=== PATIENT | female | born 1970 | race Caucasian/White ===

== ENCOUNTER → 2020-01-11 13:30 | Outpatient (BNVA) | payer OTHER, SELFPAY | PROVIDERS: PCP Nurse Practitioner Family; Visit Provider Urology | DX: Z76.89 Persons encountering health services in other specified circumstances (principal) ==

== ENCOUNTER 2020-01-16 07:05 | Day surgery (SDC) | payer OTHER, SELFPAY ==
[2020-01-11 21:32] VITALS: BMI 20.7
--- NOTE | 2020-01-13 13:53 | HO.ANESPROP2 ---
Documented by User: Mayra Albertina 01/13/20 13:57 HPI - Anesthesia Eval Consult details Narrative: 49yo F for cysto, laser, etc on Right Complex PMHx S/P cysto, last, etc on Left 10/31/19 with GA-LMA 4 PMFSH Past Medical History Medical History Anemia Anxiety Atelectasis Autonomic polyneuropathy Brain tumor Depression Diabetes insipidus Diaphragmatic disorder Electrolyte depletion Encounter for central line care Gastrojejunostomy tube status Gastroparesis GERD (gastroesophageal reflux disease) Headache Hiatal hernia History of atrial fibrillation Hyperlipemia Hypothyroid Trisha-Carmona tear MDR Acinetobacter baumannii infection MRSA (methicillin resistant Staphylococcus aureus) Nausea and vomiting Neurogenic bladder On total parenteral nutrition (TPN) Orthostatic hypotension Postural orthostatic tachycardia syndrome Pulmonary embolism Seizure disorder VRE (vancomycin-resistant Enterococci) Wheelchair bound Functional capacity: wheelchair bound Family History Family History Father Hypothyroidism Skin cancer Kidney failure Pulmonary embolism Mother Kidney failure Family/Other Brain cancer Son No problems noted. Daughter No problems noted. Surgical History Surgical History History of lithotripsy History of rotator cuff surgery History of shoulder surgery History of urostomy History of vaginal hysterectomy S/P clamping of cerebral aneurysm Social History Social History Smoking Status: Never smoker Second Hand Smoke Exposure: No Use of substances other than those prescribed or required for medical reasons: No Advance Directives: Yes Advance Directives Information Provided: Yes Advance Directives on File: Yes (unknown no 05/01/2019) Advance Directives Date on File: 05/01/19 Recently lost weight without trying: No Meds Allergies Allergy/AdvReac Type Severity Reaction Status Date / Time No Known Allergies Allergy Verified 01/05/20 15:12 [No Known Allergies*] Home Medications Medication Instructions Recorded Confirmed Type atorvastatin 1 tab PO DAILY 01/13/20 History buspirone 1 tab PO BID 01/13/20 01/13/20 History xbjdkwemwq-etgtpnrygnddw-odun cap PO 01/13/20 History estradiol 1 tab PO DAILY 01/13/20 01/13/20 History oxycodone 1 tab PO BID PRN 01/13/20 01/13/20 History propranolol 1 cap PO DAILY 01/13/20 01/13/20 History pyridoxine (vitamin B6) PO 01/13/20 History sertraline 1 tab PO DAILY 01/13/20 01/13/20 History venlafaxine 1 cap PO DAILY 01/13/20 01/13/20 History Exam Exam Date and Time: January 13, 2020 1353 Height,Weight and Vital Signs: Height 4 ft 10 in Weight 45 kg Documented by User: Esperanza Botello 01/16/20 09:21 PMFSH Past Medical History Medical History Anemia Anxiety Atelectasis Autonomic polyneuropathy Brain tumor Depression Diabetes insipidus Diaphragmatic disorder Electrolyte depletion Encounter for central line care Gastrojejunostomy tube status Gastroparesis GERD (gastroesophageal reflux disease) Headache Hiatal hernia History of atrial fibrillation Hyperlipemia Hypothyroid Trisha-Carmona tear MDR Acinetobacter baumannii infection MRSA (methicillin resistant Staphylococcus aureus) Nausea and vomiting Neurogenic bladder On total parenteral nutrition (TPN) Orthostatic hypotension Postural orthostatic tachycardia syndrome Pulmonary embolism Seizure disorder VRE (vancomycin-resistant Enterococci) Wheelchair bound Family History Family History Father Hypothyroidism Skin cancer Kidney failure Pulmonary embolism Mother Kidney failure Family/Other Brain cancer Son No problems noted. Daughter No problems noted. Surgical History Surgical History History of lithotripsy History of rotator cuff surgery History of shoulder surgery History of urostomy History of vaginal hysterectomy S/P clamping of cerebral aneurysm Social History Social History Smoking Status: Never smoker Second Hand Smoke Exposure: No Use of substances other than those prescribed or required for medical reasons: No Advance Directives: Yes Advance Directives Information Provided: Yes Advance Directives on File: Yes (unknown no 05/01/2019) Advance Directives Date on File: 05/01/19 Recently lost weight without trying: No Meds Allergies Allergy/AdvReac Type Severity Reaction Status Date / Time No Known Allergies Allergy Verified 01/05/20 15:12 [No Known Allergies*] Home Medications Medication Instructions Recorded Confirmed Type atorvastatin 1 tab PO DAILY 01/13/20 History buspirone 1 tab PO BID 01/13/20 01/13/20 History exneyclhqh-duioughilxten-cwok cap PO 01/13/20 History estradiol 1 tab PO DAILY 01/13/20 01/13/20 History oxycodone 1 tab PO BID PRN 01/13/20 01/13/20 History propranolol 1 cap PO DAILY 01/13/20 01/13/20 History pyridoxine (vitamin B6) PO 01/13/20 History sertraline 1 tab PO DAILY 01/13/20 01/13/20 History venlafaxine 1 cap PO DAILY 01/13/20 01/13/20 History Exam Airway Mallampati Class: II TM Dist: >3cm Neck ROM: Full Heart: RRR Lungs: CTA Assessment and Plan Assessment Anesthesia Assessment: Anesthesia Plan Discussed and Chart Reviewed Final Anesthetic Review NPO: Yes ASA Class: III Final Preanesthetic Review: No Changes in Pt Med Stat, Meds/Allgs Chart Reviewed, Consent Obtained/Reviewed and Anes Risks/Benef Reviewed Patient Risk: Intermediate Procedure Risk: Low Assessment/Block/Sedation in SS: Assess/Block/Sedation-SS Anesthetic Plan Anesthetic Plan: GA Disposition: Standard PACU
[2020-01-16] VITALS (10 sets, daily range): BP systolic 115–157; BP diastolic 66–80; PULSE 69–84; RESP 16–19; TEMP 36.1–36.4; O2SAT 96–100; BMI 32.6
[2020-01-16] MEDS: levoFLOXacin 500 MG TABLET PO (08:06)
--- NOTE | 2020-01-16 08:40 | MHC.SHP ---
Pre-Procedural Eval Section A The patient is an INPATIENT: No Changes since office visit: No Cold of Flu in the past 2 weeks, No New Medical Problems, No Changes in Medication and No Patient answered all questions The History & Physical has been completed within 30 days and I have reviewed it.: Yes Section B Chief Complaint: kidney stone right Allergies: Allergies Allergy/AdvReac Type Severity Reaction Status Date / Time No Known Allergies Allergy Verified 01/05/20 15:12 [No Known Allergies*] Plan Patient has been examined and remains a candidate for the planned procedure
--- NOTE | 2020-01-16 08:55 | FL_ITS ---
EXAMINATION: XR FLUOROSCOPY WITH IMAGES CLINICAL INFORMATION: Renal calculus. COMPARISON: Fluoroscopy with images 10/31/2019, 12/15/2016 TECHNIQUE: Fluoroscopy performed by Dr. Pascual. Fluoroscopy time: 0.4 minutes Total dose: 10.12 mGy Images: 2 FINDINGS: The first fluoroscopic image shows guidewire right collecting system and right ureter. These follow-up image shows ureteral stent on the right. IMPRESSION: Fluoroscopy for urologic procedure.
--- NOTE | 2020-01-16 09:36 | PM.OP ---
Brief Operative Note Date of procedure: 01/16/20 Pre-op diagnosis: right ureteric stone with stent Post-op diagnosis: same Procedure: cysto, right stent removalk, retrograde, ureteroscopy, laser, stone basketing Surgeon: Naun Pascual MD Anesthesia: GLMA Estimated blood loss (mL): 0 Pathology: other (stone) Condition: stable Disposition: same day
--- NOTE | 2020-01-16 09:57 | W.PM.OPN ---
Operative Note Operative Note Narrative: PreOperative Diagnosis: Right ureteric stone, right renal stone Post Operative Diagnosis: same Procedure: 1. cystoscopy with retrograde, 2. cystoscopy with stent removal, 3. rigid ureteroscopy with stone basketing, 4. ureteroscopy flexible with laser lithotripsy in renal pelvis Surgeron: Dr Naun Pascual Anesthesia: general Indications for procedure: this is a 49-year-old female. [facility] with right-sided flank pain. Found to have a distal right ureteric stone. Stent was placed. Definitive procedure was not performed due to question of potential infection. Presents today for completion procedure with ureteroscopy and stone removal to be expected. Procedure: After informed consent was verified patient brought to the operating room placed in the supine position. Anesthesia performed per protocol. Patient was placed in a modified dorsal lithotomy position and prepped and draped in a sterile fashion. Safety pause time-out was performed. Ava-operative antibiotics have been given. Twenty-one Prydeinig cystoscope was inserted per urethra. The bladder had Pyridium and a mixture with blood that had come from the stent. The bladder was washed. The stent was seen and a open-ended catheter placed alongside with a retrograde examination. No filling defects seen. A Sensor guidewire was placed alongside the stent. The stent was then grasped and removed. A rigid ureteral scope was advanced alongside the wire. Approximately at the midpoint of the ureter stone was encountered. This was able to be removed with a 1.8 Prydeinig 0 tip basket. Specimen will be sent for analysis. The ureter was examined to the proximal portion. No other stones were found. The rigid ureteral scope was removed. A flexible ureteral scope was then advanced over the Sensor wire up to the level renal pelvis. The wire was removed. The renal pelvis was examined. There were many small blood clots in each calyx. stone fragments was seen and 2 of these areas were lasered. Attempts were made to basket any debris however was too small to be grabbed by the basket and imbedded in clot. The flexible ureteral scope was withdrawn slowly and no other stone was seen within the ureter. Decision was made not to leave a stent. The bladder was emptied in its entirety. She tolerated the procedure well was extubated in operating room transferred in stable condition to the recovery area. Specimen stone as dictated above this is the end of the dictation by Dr. Naun Pascual thank you
[2020-01-16] MEDS: Phenazopyridine HCL 100 MG TABLET PO (10:07)
[2020-01-16] MEDS: oxyCODONE HCl Immed Release 5 MG TABLET PO (10:08)
[2020-01-16] MEDS: Acetaminophen 325 MG TABLET 650 MG PO (10:21)
[2020-01-16] MEDS: fentaNYL citrate/PF 100 MCG/2 ML VIAL 50 MCG IVPUSH (10:33)
--- NOTE | 2020-01-16 11:20 | HO.POSTANES ---
Post Anesthesia Evaluation Post Anesthesia Evaluation Vital Signs: Vital Signs Temp Pulse Resp BP Pulse Ox 01/16/20 10:53 97.0 77 18 137/80 97 01/16/20 10:38 78 19 136/75 99 01/16/20 10:33 19 01/16/20 10:31 71 16 147/66 H 100 01/16/20 10:16 69 18 136/72 97 01/16/20 10:01 76 18 141/71 H 97 01/16/20 09:55 84 16 141/72 H 97 01/16/20 09:50 72 128/71 97 01/16/20 09:45 96.9 F 80 16 157/79 H 96 01/16/20 07:49 97.6 F 70 16 115/71 97 Anesthesia: General LMA Mental Status: Awake Pain Control: Satisfactory Nausea/Vomiting: None Hydration: Adequate Anesthesia-Related Issues: No Anes. Related Issues
[2020-01-19 20:22] LABS: Stone Source RIGHT URETERAL STONE
== END 2020-01-16 11:36 | disposition home or self-care (01) ==
PROVIDERS: PCP Nurse Practitioner Family; Visit Provider Urology
PROC: (CPT 52353; principal; 2020-01-16 08:50)
DX: N20.1 Calculus of ureter (principal)
CPT/HCPCS: 52353; 52352; 82365; 88300; C1769; J1100; J1885; J2250; J2405; J3010; Q9967

== ENCOUNTER → 2020-03-14 15:22 | Outpatient (BNVA) | payer OTHER, SELFPAY | PROVIDERS: PCP Nurse Practitioner Family; Visit Provider Urology | DX: Z76.89 Persons encountering health services in other specified circumstances (principal) ==

== ENCOUNTER 2020-05-25 06:34 | Outpatient (REF) | payer OTHER, SELFPAY ==
[2020-05-25 11:14] LABS: MANUAL DIFF FLAG NO
[2020-05-25 11:24] LABS: Basophils Percent Auto 0.9 % (0-2); Eosinophils Absolute Auto 0.1 X10*3/uL (0.0-0.4); Eosinophils Percent Auto 2.5 % (0-4); Hematocrit 36.2 % (37-47); Hemoglobin 11.9 g/dl (12.0-16.0); Imm Gran Abs Auto 0.01 X10*3/uL (0.00-0.03); Imm Gran Pct Auto 0.2 % (0.0-0.4); Lymphocytes Absolute Auto 1.5 X10*3/uL (1.2-4.9); Lymphocytes Percent Auto 33.1 % (20-40); Mean Corpuscular HGB Conc 32.9 g/dl (31.0-35.0); Mean Corpuscular Hemoglobin 31.2 pg (27.0-33.0); Mean Corpuscular Volume 94.8 fL (80-98); Mean Platelet Volume 11.1 fL (9.4-12.3); Monocytes Absolute Auto 0.4 X10*3/uL (0.1-1.2); Monocytes Percent Auto 8.2 % (2-11); Neutrophils Absolute Auto 2.4 X10*3/uL (2.0-8.3); Neutrophils Percent Auto 55.1 % (45-73); Platelet Count 264 X10*3/uL (160-400); Red Blood Count 3.82 X10*6/uL (4.20-5.50); Red Cell Distribution Width 12.1 % (11.0-16.0); White Blood Count 4.4 X10*3/uL (4.8-10.8)
[2020-05-25 11:58] LABS: Alanine Aminotransferase 23 U/L (0-31); Albumin Level 4.4 g/dL (3.5-5.0); Alkaline Phosphatase 69 U/L (39-117); Anion Gap 14 (12-20); Aspartate Amino Transferase 21 U/L (5-31); Bilirubin Total 0.3 mg/dL (0.0-1.0); Blood Urea Nitrogen 15 mg/dL (9-16); Calcium 9.1 mg/dL (8.4-10.2); Carbon Dioxide 26 mmol/L (22-29); Chloride 105 mmol/L (96-108); Cholesterol 138 mg/dL; Estimated Glomerular Filt Rate > 60; Glucose Fasting 97 mg/dL (60-99); HDL Cholesterol 58 mg/dL; LDL Cholesterol Calculated 63 mg/dl; Potassium 4.9 mmol/L (3.3-5.1); Sodium 140 mmol/L (135-145); Total Protein 7.3 g/dL (6.5-8.0); Triglycerides 89 mg/dL
[2020-05-25 12:06] LABS: TSH reflex Free T4 1.81 uIU/mL (0.32-4.0); Vitamin D 25-OH Total 43.2 ng/mL (>30)
== END 2020-05-25 06:35 | disposition home or self-care (01) ==
LOC: HO.HMGCLDS 06:34
PROVIDERS: PCP Nurse Practitioner Family; Visit Provider Psychiatry & Neurology Neurology
DX: Z00.00 Encounter for general adult medical examination without abnormal findings (principal); G43.719 Chronic migraine without aura, intractable, without status migrainosus
CPT/HCPCS: 36415; 80053; 80061; 82306; 84443; 85025

== ENCOUNTER 2020-06-12 07:21 | Outpatient (REF) | payer OTHER, SELFPAY ==
--- NOTE | ~2020-06-12 | MM_ITS ---
EXAMINATION: MM SCREENING DIGITAL BREAST TOMOSYNTHESIS, BILATERAL CLINICAL INFORMATION: Screening. Asymptomatic. The lifetime risk of breast cancer based on the Tyrer-Cuzick Model is 9%. COMPARISON: Mammography: 06/07/2019, 06/01/2018, 04/08/2017 TECHNIQUE: Digital breast tomosynthesis is performed in both the craniocaudal and mediolateral oblique views along with computer-aided detection (CAD). Synthesized 2D images are generated from the tomosynthesis. FINDINGS: There are scattered areas of fibroglandular density (ACR BI-RADS breast composition Category b). There are no significant masses, abnormal calcifications, or other abnormalities. Parenchymal pattern is similar to prior studies. No significant changes. MM/MM tomosynthesis screening BI IMPRESSION: No mammographic evidence of malignancy. ASSESSMENT: BI-RADS 1: Negative RECOMMENDATION: Routine annual mammography screening. This patient's information was entered into a reminder system with a target due date for their next mammogram.
== END 2020-06-12 07:22 | disposition home or self-care (01) ==
LOC: HO.MAMMO 07:21
PROVIDERS: Visit Provider Nurse Practitioner Family
DX: Z12.31 Encounter for screening mammogram for malignant neoplasm of breast (principal)
CPT/HCPCS: 77063; 77067

== ENCOUNTER 2020-09-13 12:25 | Outpatient (REF) | payer OTHER, SELFPAY ==
--- NOTE | ~2020-09-13 | US_ITS ---
EXAMINATION: US RETROPERITONEAL LIMITED (RENAL ONLY) CLINICAL INFORMATION: Calculus of kidney. COMPARISON: Renal ultrasound 10/13/2014. TECHNIQUE: Real-time imaging of the kidneys. FINDINGS: RIGHT KIDNEY: 11.5 x 5.2 x 5.3 cm (SAG x AP x TRV). The kidney is normal in size, contour, and echogenicity. Renal cortical thickness is normal. No calculi or focal parenchymal lesions. No hydronephrosis. LEFT KIDNEY: 10.6 x 4.7 x 4.3 cm (SAG x AP x TRV). The kidney is normal in size, contour, and echogenicity. Renal cortical thickness is normal. There are multiple left renal stones in the mid and lower pole. The largest measures 6 mm. There is a linear echogenic density which extends through the cortex of the left kidney into the perinephric fat, question representing an old nephrostomy tube tract. No other focal parenchymal lesions or hydronephrosis. US/US renal BI IMPRESSION: Normal right kidney. Left renal stones.
== END 2020-09-13 12:26 | disposition home or self-care (01) ==
LOC: HO.US 12:25
PROVIDERS: PCP Nurse Practitioner Family; Visit Provider Urology
DX: N20.0 Calculus of kidney (principal)
CPT/HCPCS: 76775

== ENCOUNTER → 2020-09-19 13:17 | Outpatient (BNVA) | payer OTHER, SELFPAY | PROVIDERS: PCP Nurse Practitioner Family; Visit Provider Urology ==

== ENCOUNTER 2021-02-15 14:14 | Outpatient (REF) | payer OTHER, SELFPAY ==
--- NOTE | ~2021-02-15 | US_ITS ---
EXAMINATION: US RETROPERITONEAL LIMITED (RENAL ONLY) CLINICAL INFORMATION: Calculus of kidney. COMPARISON: Lateral renal ultrasound dated 09/13/2020. Renals only ultrasound dated 10/13/2014. TECHNIQUE: Real-time imaging of the kidneys. FINDINGS: RIGHT KIDNEY: 10.2 x 5.2 x 6.4 cm (SAG x AP x TRV). The kidney is normal in size, contour, and echogenicity. Renal cortical thickness is normal. There are 2 stones in the midpole measuring 8 x 5 x 7 mm and 4 x 3 x 3 mm. No focal parenchymal lesions or hydronephrosis. LEFT KIDNEY: 10.6 x 3.8 x 5.4 cm (SAG x AP x TRV). The kidney is normal in size, contour, and echogenicity. Renal cortical thickness is normal. There are multiple left renal stones. Largest stone or cluster of stones measure 2.3 x 0.7 x 0.8 cm in the midpole and 1.8 x 0.7 x 1.1 cm in the lower pole. No focal parenchymal lesions or hydronephrosis. US/US renal BI IMPRESSION: Multiple bilateral renal stones, left greater than right.
== END 2021-02-15 14:15 | disposition home or self-care (01) ==
LOC: HO.HMGCX 14:14
PROVIDERS: PCP Nurse Practitioner Family; Visit Provider Urology
DX: N20.0 Calculus of kidney (principal)
CPT/HCPCS: 76775

== ENCOUNTER 2021-03-11 01:39 | Day surgery (SDC) | payer OTHER, SELFPAY ==
[2021-03-11] VITALS (20 sets, daily range): BP systolic 95–133; BP diastolic 42–76; PULSE 65–84; RESP 12–20; TEMP 36.1–36.7; O2SAT 98–100; BMI 36.0
--- NOTE | ~2021-03-11 | FL_ITS ---
EXAMINATION: XR FLUOROSCOPY WITH IMAGES CLINICAL INFORMATION: Stone removal COMPARISON: None. TECHNIQUE: Fluoroscopy performed by Dr. Ankur Magallon. Fluoroscopy time: 21.4 seconds DAP: 9.89 mGycm2 Images: 2 FINDINGS: There are 3 images obtained of the abdomen. The first image reveals a cystoscope in the bladder. Second image reveals a snare extending to the right kidney. The teres major reveals a catheter positioned within the right kidney pelvis. FL/FL guidance in OR IMPRESSION: Fluoroscopy was provided for right stone removal to the referring physician.
--- NOTE | ~2021-03-11 | CT_ITS ---
EXAMINATION: CT ABDOMEN AND PELVIS WITHOUT CONTRAST CLINICAL INFORMATION: Right flank pain COMPARISON: None TECHNIQUE: Multidetector volumetric imaging was performed from the superior aspect of the liver through the pubic symphysis. Sagittal and coronal reformatted images were obtained on the technologist's workstation. This CT examination was performed using dose optimization techniques as appropriate, variously including the following: *Automated exposure control *Adjustment of mA and/or kV according to patient size (this includes techniques or standardized protocols for targeted exams where dose is matched to indication/reason for exam; i.e. extremities or head) *Use of iterative reconstruction technique DLP: 848 mGy-cm FINDINGS: LUNG BASES: The visualized lung bases are unremarkable. LIVER, GALLBLADDER, AND BILIARY TREE: The liver is normal in size, shape, and attenuation. No focal hepatic lesion or biliary ductal dilatation is present. The gallbladder is unremarkable with no evidence of radiopaque gallstones, gallbladder wall thickening, or obvious pericholecystic inflammatory changes. PANCREAS: Unremarkable. SPLEEN: Unremarkable. ADRENAL GLANDS: Unremarkable. KIDNEYS AND URETERS: There is a right ureteropelvic junction calculus measuring 6 mm with mild hydronephrosis and perinephric stranding. There is asymmetric enlargement of the right kidney which has a malrotated appearance. There are 2 calculi in the anterior right kidney measuring up to 3 mm. There are multiple scattered calculi throughout the left kidney measuring up to 9 mm. There are 2 calculi identified in the left renal pelvis measuring up to 6 mm, without appreciable hydronephrosis. BLADDER: Minimally distended and grossly unremarkable. GASTROINTESTINAL TRACT: No evidence of bowel obstruction or significant wall thickening. The appendix is unremarkable. No free fluid or free air is seen. ABDOMINAL WALL: No significant hernia is appreciated. LYMPH NODES: Normal. VASCULAR: Unremarkable. PELVIC VISCERA: Patient appears to be status post hysterectomy. OSSEOUS STRUCTURES: Unremarkable. CT/CT abdomen pelvis wo con IMPRESSION: 1. Right ureteropelvic junction calculus measuring 6 mm with mild hydronephrosis and perinephric stranding. 2. Multiple bilateral renal calculi, most prominently throughout the left kidney. There are 2 calculi in the left renal pelvis measuring up to 6 mm, without appreciable hydronephrosis. Fleischner guidelines were followed.
[2021-03-11 02:08] LABS: MANUAL DIFF FLAG NO
[2021-03-11 02:09] LABS: Appearance Urine HAZY; Basophils Absolute Auto 0.1 X10*3/uL (0.0-0.2); Basophils Percent Auto 0.6 % (0-2); Color Urine YELLOW; Eosinophils Absolute Auto 0.2 X10*3/uL (0.0-0.4); Eosinophils Percent Auto 2.3 % (0-4); Glucose Urine UA NEG (NEG); Hematocrit 37.7 % (37.0-47.0); Hemoglobin 12.1 g/dl (12.0-16.0); Imm Gran Abs Auto 0.01 X10*3/uL (0.00-0.03); Imm Gran Pct Auto 0.1 % (0.0-0.4); Leukocyte Esterase Urine NEG (NEG); Lymphocytes Percent Auto 24.5 % (20-40); Mean Corpuscular HGB Conc 32.1 g/dl (31.0-35.0); Mean Corpuscular Hemoglobin 30.9 pg (27.0-33.0); Mean Corpuscular Volume 96.4 fL (80.0-98.0); Mean Platelet Volume 9.8 fL (9.4-12.3); Monocytes Absolute Auto 0.6 X10*3/uL (0.1-1.2); Monocytes Percent Auto 7.9 % (2-11); Neutrophils Absolute Auto 5.2 x10*3/uL (2.0-8.3); Neutrophils Percent Auto 64.6 % (45-73); Nitrite Urine NEG (NEG); Platelet Count 244 X10*3/uL (160-400); Red Blood Count 3.91 X10*6/uL (4.20-5.50); Red Cell Distribution Width 11.9 % (11.0-16.0); UACC Culture Trigger NO; Urine Blood 2+ (NEG); Urine Ketones 5 MG/DL (NEG); Urine Protein TRACE MG/DL (NEG-TRACE); White Blood Count 8.1 X10*3/uL (4.8-10.8)
[2021-03-11 02:15] LABS: Amorphous Sediment Urine 1+ /LPF; Bacteria Urine 1+ /LPF; Calcium Oxalate Crystals Urine 3+ /LPF; Squamous Epithelial Cell Urine 3+ /LPF
[2021-03-11 02:29] LABS: Alanine Aminotransferase 29 U/L (0-31); Albumin Level 4.5 g/dL (3.5-5.0); Alkaline Phosphatase 103 U/L (39-117); Anion Gap 13 (12-20); Aspartate Amino Transferase 24 U/L (5-31); Bilirubin Total < 0.2 mg/dL (0.0-1.0); Blood Urea Nitrogen 21 mg/dL (9-16); Calcium 9.7 mg/dL (8.4-10.2); Carbon Dioxide 25 mmol/L (22-29); Chloride 111 mmol/L (96-108); Creatinine Clr Calc Pharmacy 54.6; Estimated Glomerular Filt Rate 40; Glucose Random 118 mg/dL (60-115); Potassium 4.6 mmol/L (3.3-5.1); Sodium 144 mmol/L (135-145); Total Protein 7.6 g/dL (6.5-8.0)
[2021-03-11] MEDS: Ondansetron ODT 4 MG TAB.RAPDIS TRANSLINGU (02:42)
[2021-03-11] MEDS: Ketorolac Tromethamine 30 MG/ML VIAL 15 MG IM (02:42)
[2021-03-11 03:18] LABS: COVID-19 Test Negative (Negative); IDNOW Serial# 9DD0AD1C
--- NOTE | 2021-03-11 03:27 | ED.ABDPAIN ---
HPI - Abdominal Pain General Chief Complaint: Abdominal Pain Stated Complaint: kidney stones Time Seen by Provider: 03/11/21 02:36 Source: patient Mode of arrival: ambulatory History of Present Illness HPI narrative: This is a 50-year-old female with history of renal colic and ureterolithiasis who presents with dull abdominal pain for 1 week and then at about 2300 this evening patient began having severe right flank pain with radiation into the right mid/lower abdomen with associated nausea but denies any vomiting. Related Data Home Medications Medication Instructions Recorded Confirmed allopurinol 100 mg tablet 1 tab PO DAILY 03/11/21 03/11/21 atorvastatin 20 mg tablet 1 tab PO DAILY 03/11/21 03/11/21 buspirone 10 mg tablet 1 tab PO BID 03/11/21 03/11/21 jyjqmuxtle-dorhmolymgols-qnpdclza 1 cap PO DAILY PRN 03/11/21 03/11/21 50 mg-300 mg-40 mg capsule cetirizine 10 mg tablet (Zyrtec) 10 mg PO DAILY 03/11/21 03/11/21 estradiol 1 mg tablet 1 tab PO DAILY 03/11/21 03/11/21 propranolol 120 mg capsule,24 1 cap PO DAILY 03/11/21 03/11/21 hr,extended release pyridoxine (vitamin B6) 100 mg 1 tab PO DAILY 03/11/21 03/11/21 tablet sertraline 50 mg tablet 1 tab PO DAILY 03/11/21 03/11/21 topiramate 100 mg tablet 1 tab PO DAILY 03/11/21 03/11/21 venlafaxine 150 mg 1 cap PO DAILY 03/11/21 03/11/21 capsule,extended release 24 hr Allergies Allergy/AdvReac Type Severity Reaction Status Date / Time No Known Allergies Allergy Verified 03/11/21 01:45 [No Known Allergies*] Review of Systems Review of Systems Pertinent positives and negatives as stated in HPI 10 point review of systems is otherwise negative. Physical Exam Vital Signs: Vital Signs: Last Vital Signs Temp 98.0 F 03/11/21 01:46 Pulse 71 03/11/21 06:21 Resp 16 03/11/21 06:21 BP 114/55 L 03/11/21 06:21 Pulse Ox 100 03/11/21 06:21 BMI result Body Mass Index 36.0 VITAL SIGNS: Reviewed. GENERAL: Well developed, well nourished, in no acute distress. HEAD: Normocephalic/atraumatic EYES: PERRLA, EOMI LUNGS: Normal breath sounds. No adventitious sounds or accessory muscle use. SpO2<98> CARDIOVASCULAR: Regular rate and rhythm without noted murmurs ABDOMEN: Soft, non-tender, non-distended with bowel sounds, CVA tenderness positive MUSCULOSKELETAL: No tenderness, deformities, or effusions noted on gross inspection. EXTREMITIES: No cyanosis, clubbing or edema. SKIN: Inspection of the skin reveals no rashes NEUROLOGIC: Alert and oriented x 4. Course Course Course Narrative: 50-year-old female with history and clinical presentation after review of all investigations consistent with renal colic, ureterolithiasis with proximal 6 mm stone. Patient has received IV fluids as well as COVID swab and pain medication. This case was discussed with Urology who agrees that if pain cannot be controlled then intervention will occur in the morning. 0440: Patient still requiring pain medication for comfort and will be placed in physician observation for evaluation by Dr. Pascual in the morning. 0622: Patient still in pain, urology notified, patient was premedicated. Reevaluation(s) Reevaluation #1: Patient placed in physician observation because the patient needed more time for adequate pain control and evaluation by Urology. At the time observation was started the patient's vital signs were stable, patient is alert and oriented, neuro: Nonfocal, CV RRR, lungs clear, flank pain Time: 04:40 MDM - Abdominal Pain Lab Data Result diagrams: 03/11/21 02:03 03/11/21 02:03 Labs: Lab Results 03/11/21 03/11/21 03/11/21 Range/Units 02:03 02:03 02:03 WBC 8.1 (4.8-10.8) X10*3/uL RBC 3.91 L (4.20-5.50) X10*6/uL Hgb 12.1 (12.0-16.0) g/dl Hct 37.7 (37.0-47.0) % MCV 96.4 (80.0-98.0) fL MCH 30.9 (27.0-33.0) pg MCHC 32.1 (31.0-35.0) g/dl RDW 11.9 (11.0-16.0) % Plt Count 244 (160-400) X10*3/uL MPV 9.8 (9.4-12.3) fL Immature Gran % (Auto) 0.1 (0.0-0.4) % Neut % (Auto) 64.6 (45-73) % Lymph % (Auto) 24.5 (20-40) % [place] % (Auto) 7.9 (2-11) % Eos % (Auto) 2.3 (0-4) % Baso % (Auto) 0.6 (0-2) % Lymph # (Auto) 2.0 (1.2-4.9) X10*3/uL [place] # (Auto) 0.6 (0.1-1.2) X10*3/uL Eos # (Auto) 0.2 (0.0-0.4) X10*3/uL Baso # (Auto) 0.1 (0.0-0.2) X10*3/uL Abs Immat Gran (auto) 0.01 (0.00-0.03) X10*3/uL Absolute Neuts (auto) 5.2 (2.0-8.3) x10*3/uL Absolute Nucleated RBC 0.000 (0.0-0.012) X10*3/uL Nucleated RBC % (auto) 0.0 (0.0-0.2) /100WBC Sodium 144 (135-145) mmol/L Potassium 4.6 (3.3-5.1) mmol/L Chloride 111 H (96-108) mmol/L Carbon Dioxide 25 (22-29) mmol/L Anion Gap 13 (12-20) BUN 21 H (9-16) mg/dL Creatinine 1.38 (0.5-1.4) mg/dL Estim Creat Clear Calc 54.6 Estimated GFR 40 Random Glucose 118 H (60-115) mg/dL Calcium 9.7 D (8.4-10.2) mg/dL Total Bilirubin < 0.2 (0.0-1.0) mg/dL AST 24 (5-31) U/L ALT 29 (0-31) U/L Alkaline Phosphatase 103 D (39-117) U/L Total Protein 7.6 (6.5-8.0) g/dL Albumin 4.5 (3.5-5.0) g/dL Urine Color YELLOW Urine Appearance HAZY Urine pH 6.0 (5.0-8.0) Ur Specific [place] 1.020 (1.005-1.025) Urine Protein TRACE (NEG-TRACE) MG/DL Urine Glucose (UA) NEG (NEG) MG/DL Urine Ketones 5 (NEG) MG/DL Urine Blood 2+ H (NEG) Urine Nitrite NEG (NEG) Ur Leukocyte Esterase NEG (NEG) Urine RBC 15-29 H (0) /HPF Urine WBC 1-4 (0-4) /HPF Ur Squamous Epith Cells 3+ /LPF Calcium Oxalate Crystal 3+ /LPF Amorphous Sediment 1+ /LPF Urine Bacteria 1+ /LPF COVID-19 (EMANUEL) (Negative) COVID-19 Clin Com 03/11/21 Range/Units 03:00 WBC (4.8-10.8) X10*3/uL RBC (4.20-5.50) X10*6/uL Hgb (12.0-16.0) g/dl Hct (37.0-47.0) % MCV (80.0-98.0) fL MCH (27.0-33.0) pg MCHC (31.0-35.0) g/dl RDW (11.0-16.0) % Plt Count (160-400) X10*3/uL MPV (9.4-12.3) fL Immature Gran % (Auto) (0.0-0.4) % Neut % (Auto) (45-73) % Lymph % (Auto) (20-40) % [place] % (Auto) (2-11) % Eos % (Auto) (0-4) % Baso % (Auto) (0-2) % Lymph # (Auto) (1.2-4.9) X10*3/uL [place] # (Auto) (0.1-1.2) X10*3/uL Eos # (Auto) (0.0-0.4) X10*3/uL Baso # (Auto) (0.0-0.2) X10*3/uL Abs Immat Gran (auto) (0.00-0.03) X10*3/uL Absolute Neuts (auto) (2.0-8.3) x10*3/uL Absolute Nucleated RBC (0.0-0.012) X10*3/uL Nucleated RBC % (auto) (0.0-0.2) /100WBC Sodium (135-145) mmol/L Potassium (3.3-5.1) mmol/L Chloride (96-108) mmol/L Carbon Dioxide (22-29) mmol/L Anion Gap (12-20) BUN (9-16) mg/dL Creatinine (0.5-1.4) mg/dL Estim Creat Clear Calc Estimated GFR Random Glucose (60-115) mg/dL Calcium (8.4-10.2) mg/dL Total Bilirubin (0.0-1.0) mg/dL AST (5-31) U/L ALT (0-31) U/L Alkaline Phosphatase (39-117) U/L Total Protein (6.5-8.0) g/dL Albumin (3.5-5.0) g/dL Urine Color Urine Appearance Urine pH (5.0-8.0) Ur Specific [place] (1.005-1.025) Urine Protein (NEG-TRACE) MG/DL Urine Glucose (UA) (NEG) MG/DL Urine Ketones (NEG) MG/DL Urine Blood (NEG) Urine Nitrite (NEG) Ur Leukocyte Esterase (NEG) Urine RBC (0) /HPF Urine WBC (0-4) /HPF Ur Squamous Epith Cells /LPF Calcium Oxalate Crystal /LPF Amorphous Sediment /LPF Urine Bacteria /LPF COVID-19 (EMANUEL) Negative (Negative) COVID-19 Clin Com See Note Discharge Plan Discharge Clinical Impression: Renal colic, Ureterolithiasis Patient Disposition: Still a Patient Prescriptions: No Action atorvastatin 20 mg tablet 1 tab PO DAILY RF: 0 venlafaxine 150 mg capsule,extended release 24hr 1 cap PO DAILY RF: 0 allopurinol 100 mg tablet 1 tab PO DAILY RF: 0 estradiol 1 mg tablet 1 tab PO DAILY RF: 0 buspirone 10 mg tablet 1 tab PO BID RF: 0 pyridoxine (vitamin B6) 100 mg tablet 1 tab PO DAILY RF: 0 propranolol 120 mg capsule,extended release 24 hr 1 cap PO DAILY RF: 0 topiramate 100 mg tablet 1 tab PO DAILY RF: 0 sertraline 50 mg tablet 1 tab PO DAILY RF: 0 wamsovcxoq-gyvuekhjutker-gfbx 50-300-40 mg capsule 1 cap PO DAILY PRN (Reason: Migraine Headache) RF: 0 cetirizine [Zyrtec] 10 mg Tablet 10 mg PO DAILY RF: 0 PMFSH Past Medical History Source: nursing notes reviewed Medical History Anemia Anxiety Atelectasis Autonomic polyneuropathy Brain tumor Depression Diabetes insipidus Diaphragmatic disorder Electrolyte depletion Encounter for central line care Gastrojejunostomy tube status Gastroparesis GERD (gastroesophageal reflux disease) Headache Hiatal hernia History of atrial fibrillation Hyperlipemia Hypothyroid Trisha-Carmona tear MDR Acinetobacter baumannii infection MRSA (methicillin resistant Staphylococcus aureus) Nausea and vomiting Neurogenic bladder On total parenteral nutrition (TPN) Orthostatic hypotension Physical exam Postural orthostatic tachycardia syndrome Pulmonary embolism Seizure disorder VRE (vancomycin-resistant Enterococci) Wheelchair bound Surgical History History of lithotripsy History of rotator cuff surgery History of shoulder surgery History of urostomy History of vaginal hysterectomy S/P clamping of cerebral aneurysm Family History Family History Father Hypothyroidism Skin cancer Kidney failure Pulmonary embolism Mother Kidney failure Family/Other Brain cancer Son No problems noted. Daughter No problems noted. Social History Social History Second Hand Smoke Exposure: No Advance Directives: Yes Advance Directives on File: Yes Advance Directives Date on File: 05/01/19
[2021-03-11] MEDS: fentaNYL citrate/PF 100 MCG/2 ML VIAL 25 MCG IVPUSH ×3 (03:33→15:18)
[2021-03-11] MEDS: 0.9 % Sodium Chloride 1,000 ML 999 ML IV (03:33)
[2021-03-11] MEDS: Tamsulosin HCL 0.4 MG CAPSULE PO (03:50)
[2021-03-11] MEDS: HYDROmorphone HCl 0.5 MG/0.5 ML SYRINGE 0.25 MG IVPUSH ×4 (04:40→12:23)
--- NOTE | 2021-03-11 08:05 | PC.NURSE ---
PT RESTING IN BED. STATES PAIN IS INCREASING. PROVIDER AWARE
--- NOTE | 2021-03-11 09:01 | P.CNUR_ITS ---
History of Present Illness Consult details Consult date: 03/11/21 Narrative: Shoshana is a 50-year-old patient well known to Urology. Prior stone formation and stone intervention Had noted pain on the right side starting a number of hours before she came to the hospital Is this was consistent with prior stone attacks During pain attacks there was associated nausea but no vomiting Presented to hospital for pain relief and if necessary intervention creatinine 1.4, WBC 8.1, calcium 9. CT scan shows for 5 mm stone in proximal right [facility] Recommendation for stone intervention Review of Systems Constitutional: Constitutional: Denies chills and Denies fever(s) Cardiovascular: Cardiovascular: Reports no additional cardiovascular complaints and Denies syncope Respiratory: Respiratory: Denies cough Gastrointestinal: Gastrointestinal: Denies abdominal pain and Denies heartburn Genitourinary: Genitourinary: Reports as per HPI and Denies change in libido Neurologic: Denies syncope Psychiatric: Psychiatric: Denies change in libido Endocrine: Endocrine: Denies change in libido [facility] Past Medical History Medical History Anemia Anxiety Atelectasis Autonomic polyneuropathy Brain tumor Depression Diabetes insipidus Diaphragmatic disorder Electrolyte depletion Encounter for central line care Gastrojejunostomy tube status Gastroparesis GERD (gastroesophageal reflux disease) Headache Hiatal hernia History of atrial fibrillation Hyperlipemia Hypothyroid Trisha-[place] tear MDR Acinetobacter baumannii infection MRSA (methicillin resistant Staphylococcus aureus) Nausea and vomiting Neurogenic bladder On total parenteral nutrition (TPN) Orthostatic hypotension Physical exam Postural orthostatic tachycardia syndrome Pulmonary embolism Seizure disorder VRE (vancomycin-resistant Enterococci) Wheelchair bound Family History Family History Father Hypothyroidism Skin cancer Kidney failure Pulmonary embolism Mother Kidney failure Family/Other Brain cancer Son No problems noted. Daughter No problems noted. Surgical History Surgical History History of lithotripsy History of rotator cuff surgery History of shoulder surgery History of urostomy History of vaginal hysterectomy S/P clamping of cerebral aneurysm Social History Social History Second Hand Smoke Exposure: No Advance Directives: Yes Advance Directives on File: Yes Advance Directives Date on File: 05/01/19 Meds Allergies Allergy/AdvReac Type Severity Reaction Status Date / Time No Known Allergies Allergy Verified 03/11/21 01:45 [No Known Allergies*] Active Medications: Current Medications Levofloxacin (Levaquin) 500 mg in 100 mls @ 100 mls/hr IV PREOP ONE Stop: 03/11/21 09:14 Home Medications Medication Instructions Recorded Confirmed Last Taken Type allopurinol 100 mg tablet 1 tab PO DAILY 03/11/21 03/11/21 Unknown History atorvastatin 20 mg tablet 1 tab PO DAILY 03/11/21 03/11/21 Unknown History buspirone 10 mg tablet 1 tab PO BID 03/11/21 03/11/21 Unknown History bvpacoypft-tuqkysjvyysgp-vwckvoom 1 cap PO DAILY PRN 03/11/21 03/11/21 Unknown History 50 mg-300 mg-40 mg capsule cetirizine 10 mg tablet (Zyrtec) 10 mg PO DAILY 03/11/21 03/11/21 Unknown History estradiol 1 mg tablet 1 tab PO DAILY 03/11/21 03/11/21 Unknown History propranolol 120 mg capsule,24 1 cap PO DAILY 03/11/21 03/11/21 Unknown History hr,extended release pyridoxine (vitamin B6) 100 mg 1 tab PO DAILY 03/11/21 03/11/21 Unknown History tablet sertraline 50 mg tablet 1 tab PO DAILY 03/11/21 03/11/21 Unknown History topiramate 100 mg tablet 1 tab PO DAILY 03/11/21 03/11/21 Unknown History venlafaxine 150 mg 1 cap PO DAILY 03/11/21 03/11/21 Unknown History capsule,extended release 24 hr Physical Exam Vital Signs: Vital Signs: Last Vital Signs Temp 98.0 F 03/11/21 01:46 Pulse 74 03/11/21 08:38 Resp 16 03/11/21 08:38 BP 111/50 L 03/11/21 08:38 Pulse Ox 98 03/11/21 08:38 BMI result Body Mass Index 36.0 Const: General: cooperative, healthy appearing, comfortable and no acute distress Orientation/consciousness: patient oriented x3 HENMT: Face and sinus: Yes normal facial exam Mouth: moist mucous membranes Neck: Neck: Yes normal visual inspection, Yes full ROM and Yes trachea midline Chest: Chest palpation & inspection: normal inspection of the chest Resp: Effort & Inspection: normal respiratory effort, able to speak in complete sentences and no respiratory distress GI: Inspection: Yes normal to inspection Back/Spine/Pelvis: Cervical Spine: normal cervical lordosis Thoracic/Lumbar Spine: thoracic and lumbar spine normal to inspection Skin: General skin exam: no rashes or lesions noted Neuro: General: patient oriented x3, gait normal, tone normal and moves all extremities Extrem: General: Yes normal to inspection and Yes capillary refill normal Results Labs Result diagrams: 03/11/21 02:03 03/11/21 02:03 Labs: Abnormal lab results 03/11/21 03/11/21 03/11/21 Range/Units 02:03 02:03 02:03 RBC 3.91 L (4.20-5.50) X10*6/uL Chloride 111 H (96-108) mmol/L BUN 21 H (9-16) mg/dL Random Glucose 118 H (60-115) mg/dL Urine Blood 2+ H (NEG) Urine RBC 15-29 H (0) /HPF Short CBC 03/11/21 Range/Units 02:03 WBC 8.1 (4.8-10.8) X10*3/uL Hgb 12.1 (12.0-16.0) g/dl Hct 37.7 (37.0-47.0) % Plt Count 244 (160-400) X10*3/uL BMP 03/11/21 02:03 Sodium 144 Potassium 4.6 Chloride 111 H Carbon Dioxide 25 BUN 21 H Creatinine 1.38 Calcium 9.7 D Liver Function 03/11/21 Range/Units 02:03 Total Bilirubin < 0.2 (0.0-1.0) mg/dL AST 24 (5-31) U/L ALT 29 (0-31) U/L Alkaline Phosphatase 103 D (39-117) U/L Albumin 4.5 (3.5-5.0) g/dL Urine 03/11/21 Range/Units 02:03 Urine Color YELLOW Urine Appearance HAZY Urine pH 6.0 (5.0-8.0) Ur Specific [place] 1.020 (1.005-1.025) Urine Protein TRACE (NEG-TRACE) MG/DL Urine Glucose (UA) NEG (NEG) MG/DL All other labs normal. Assessment and Plan (1) Ureterolithiasis: Status: Acute Ureteroscopy We discussed the nature of the decision and reasonable alternatives for performing the above surgery. Interventions include chemical dissolution, ESWL, ureteroscopy with laser lithotripsy and stent placement, PCNL. Options such as medical therapy were discussed. The relative uncertainties and benefits related to each alternate procedure were adequately discussed. General surgical risks including, but not limited to, pain, bleeding, infection, myocardial infarction, pulmonary embolus, deep vein thrombosis and cerebrovascular accident which may result in further hospitalization were discussed. Full disclosure of the procedure as well as all major risks, benefits and complications were discussed including but not limited to damage to the urethra, bladder and kidney infection, damage to the ureter, stent migration or malposition, scarring to the renal pelvis, remnant stone fragments, subsequent stone passage with need for secondary procedures. The overall secondary procedure rate is approximately 10-15%. The success rate of the procedure was discussed. Success of the procedure in the short-term does not necessarily guarantee that long-term success will be maintained. Suitable follow up will need to be maintained. The patient showed understanding of discussion and wishes to proceed with - cystoscopy, retrograde, ureteroscopy, possible lithotripsy/stone basketing and stent on the right side Procedures Date of Service Date of Service: 03/11/21
--- NOTE | 2021-03-11 10:53 | PC.NURSE ---
PT REPORTS INCREASED PAIN. PROVIDER AWARE. AWAITING ORDER
--- NOTE | 2021-03-11 12:26 | PC.NURSE ---
MEDICATED FOR PAIN. NO VOMITING. AWAITING TRANSPORT TO [facility]
--- NOTE | 2021-03-11 12:34 | PC.NURSE ---
REPORT GIVEN FOR TRANSFER TO [facility].
--- NOTE | 2021-03-11 12:59 | P.CONAN_ITS ---
HPI - Anesthesia Eval Consult details Narrative: 50 F for cysto PMFSH Active Problems Active Problems: All Active Problems (Updated 03/11/21 @ 03:52 by Tiff Rosen MD) Renal colic (Acute) Ureterolithiasis (Acute) Counseling for hormone replacement therapy (Acute) Well woman exam (Acute) Physical exam (Acute) Nephrolithiasis (Acute) Past Medical History Medical History Anxiety COVID-19 vaccine series completed Depression Headache Hyperlipemia Renal calculi Family History Family History Father Hypothyroidism Skin cancer Kidney failure Pulmonary embolism Mother Kidney failure Family/Other Brain cancer Son No problems noted. Daughter No problems noted. Family history of problems with anesthesia: No Surgical History Surgical History History of lithotripsy History of rotator cuff surgery History of shoulder surgery History of vaginal hysterectomy Hx of cystoscopy History of Problems with Anesthesia: No Social History Social History Housing: House Patient Tobacco Use Status: Never used Tobacco e-Cigarette/Vaping Use: Never Used Second Hand Smoke Exposure: Yes Advance Directives Date on File: 05/01/19 service: No Current occupational status: employed Current occupation: [employer] Current occupational exposures/hazards: No Meds Allergies Allergy/AdvReac Type Severity Reaction Status Date / Time morphine AdvReac Mild Vomiting Verified 07/09/21 15:10 Home Medications Medication Instructions Recorded Confirmed Last Taken Type allopurinol 100 mg tablet 1 tab PO DAILY 03/11/21 04/23/21 Unknown History buspirone 10 mg tablet 1 tab PO BID 03/11/21 04/23/21 04/29/21 History cetirizine 10 mg tablet (Zyrtec) 10 mg PO DAILY 03/11/21 04/23/21 Unknown History estradiol 1 mg tablet 1 tab PO DAILY 03/11/21 04/23/21 Unknown History propranolol 120 mg capsule,24 1 cap PO DAILY 03/11/21 04/23/21 04/29/21 History hr,extended release pyridoxine (vitamin B6) 100 mg 1 tab PO DAILY 03/11/21 04/23/21 Unknown History tablet topiramate 100 mg tablet 1 tab PO BEDTIME 03/11/21 04/23/21 Unknown History Exam Exam Date and Time: March 11, 2021 1259 Height,Weight and Vital Signs: Height 5 ft 4 in Weight 95.254 kg Last Vital Signs Temp 98.0 F 03/11/21 01:46 Pulse 74 03/11/21 12:24 Resp 16 03/11/21 12:24 BP 96/57 L 03/11/21 12:24 Pulse Ox 99 03/11/21 12:24 Pertinent Lab Results Pertinent Lab Results: Laboratory Tests 03/11/21 03/11/21 03/11/21 02:03 02:03 02:03 WBC 8.1 RBC 3.91 L Hgb 12.1 Hct 37.7 MCV 96.4 MCH 30.9 MCHC 32.1 RDW 11.9 Plt Count 244 MPV 9.8 Immature Gran % (Auto) 0.1 Neut % (Auto) 64.6 Lymph % (Auto) 24.5 [place] % (Auto) 7.9 Eos % (Auto) 2.3 Baso % (Auto) 0.6 Lymph # (Auto) 2.0 [place] # (Auto) 0.6 Eos # (Auto) 0.2 Baso # (Auto) 0.1 Abs Immat Gran (auto) 0.01 Absolute Neuts (auto) 5.2 Absolute Nucleated RBC 0.000 Nucleated RBC % (auto) 0.0 Sodium 144 Potassium 4.6 Chloride 111 H Carbon Dioxide 25 Anion Gap 13 BUN 21 H Creatinine 1.38 Estim Creat Clear Calc 54.6 Estimated GFR 40 Random Glucose 118 H Calcium 9.7 D Total Bilirubin < 0.2 AST 24 ALT 29 Alkaline Phosphatase 103 D Total Protein 7.6 Albumin 4.5 Urine Color YELLOW Urine Appearance HAZY Urine pH 6.0 Ur Specific [place] 1.020 Urine Protein TRACE Urine Glucose (UA) NEG Urine Ketones 5 Urine Blood 2+ H Urine Nitrite NEG Ur Leukocyte Esterase NEG Urine RBC 15-29 H Urine WBC 1-4 Ur Squamous Epith Cells 3+ Calcium Oxalate Crystal 3+ Amorphous Sediment 1+ Urine Bacteria 1+ COVID-19 ([facility]) COVID-19 Clin Com 03/11/21 03:00 WBC RBC Hgb Hct MCV MCH MCHC RDW Plt Count MPV Immature Gran % (Auto) Neut % (Auto) Lymph % (Auto) [place] % (Auto) Eos % (Auto) Baso % (Auto) Lymph # (Auto) [place] # (Auto) Eos # (Auto) Baso # (Auto) Abs Immat Gran (auto) Absolute Neuts (auto) Absolute Nucleated RBC Nucleated RBC % (auto) Sodium Potassium Chloride Carbon Dioxide Anion Gap BUN Creatinine Estim Creat Clear Calc Estimated GFR Random Glucose Calcium Total Bilirubin AST ALT Alkaline Phosphatase Total Protein Albumin Urine Color Urine Appearance Urine pH Ur Specific [place] Urine Protein Urine Glucose (UA) Urine Ketones Urine Blood Urine Nitrite Ur Leukocyte Esterase Urine RBC Urine WBC Ur Squamous Epith Cells Calcium Oxalate Crystal Amorphous Sediment Urine Bacteria COVID-19 (EM[facility]UEL) Negative COVID-19 Clin Com See Note Airway Mallampati Class: II TM Dist: >3cm Neck ROM: Full Loose/Missing/Broken Teeth: Yes (Fillings ) Heart: RRR Lungs: b/l breath sounds Assessment and Plan Assessment Anesthesia Assessment: Anesthesia Plan Discussed Final Anesthetic Review Family History of Problems with Anesthesia: No History of Problems with Anesthesia: No NPO: Yes ASA Class: II and Emergency Final Preanesthetic Review: Meds/Allgs Chart Reviewed, Consent Obtained/Reviewed and Anes Risks/Benef Reviewed Patient Risk: Intermediate Procedure Risk: Intermediate Anesthetic Plan Anesthetic Plan: GA Disposition: Standard PACU
--- NOTE | 2021-03-11 13:34 | MHC.SHP ---
Pre-Procedural Eval Section A Date of Service: 03/11/21 The patient is an INPATIENT: Yes Changes since office visit: No Cold of Flu in the past 2 weeks, No New Medical Problems, No Changes in Medication and No Patient answered all questions The History & Physical has been completed within 30 days and I have reviewed it.: Yes Section B Chief Complaint: kidney stones Allergies: Allergies Allergy/AdvReac Type Severity Reaction Status Date / Time No Known Allergies Allergy Verified 03/11/21 01:45 [No Known Allergies*] Plan Diagnosis/Plan: Unchanged ( cystoscopy, right retrograde, right ureteroscopy laser lithotripsy stent placement) I have reviewed the history and physical and performed a pertinent physical examination on my patient. No changes have occurred unless specified.
--- NOTE | 2021-03-11 14:22 | P.OP_ITS ---
Operative Note Operative Note Date of Service: 03/11/21 Narrative: PreOperative Diagnosis: right proximal ureteric stone Post Operative Diagnosis: right renal stone Procedure: - cystoscopy, right retrograde - right dilatation of ureteric orifice under fluoroscopy - right ureteroscopy stone basketing - right stent placement Surgeon: Dr Naun Pascual Anesthesia: General Indications for procedure: 50-year-old female. Known to Urology. Present through emergency room with persistent flank pain and nausea. CT imaging with 5 mm right proximal ureteric stone at [facility]. Procedure: After informed consent was verified patient was brought to the operating placed in supine position. Anesthesia was administered per protocol. Patient was placed in modified dorsal lithotomy position and prepped and draped in a sterile fashion. Safety pause time-out and side of surgery confirmed. Antibiotics confirmed. 22 Colombian cystoscope was inserted per urethra. Bladder was normal in its entirety. Both ureteric orifices were in normal position. The Right ureteric orifice was cannulated and a retrograde examination was performed - no filling defect was seen. A Sensor guidewire was placed up to the level of the renal pelvis under fluoroscopy. The stone was pushed back by the wire into the renal pelvis. The rigid cystoscope was removed and the inner cannula of ureteric access sheath was used under fluoroscopy to dilate the ureteric orifice. The ureteric access sheath was placed and the inner cannula with access wire removed. The digital flexible ureteral scope was placed. The stone was encountered in the renal pelvis. Using a 0 tip 1.9 Colomb[place] basket the stone was grasped and removed without difficulty. The rest of the renal pelvis was explored and no other stones were found. a decision was made to leave a stent. A 6 [place]ian by 24 cm double-J stent was placed into the renal pelvis and bl adder under a combination of fluoroscopy and direct visualization. The bladder was emptied. The patient tolerated the procedure well and was extubated in the operating room, and transferred in stable condition to the recovery area. Pathology: stone Drains: 6 [place] by 24 cm double-J stent
[2021-03-11] MEDS: traMADoL HCL 50 MG TABLET PO (14:30)
[2021-03-11] MEDS: Phenazopyridine HCL 100 MG TABLET PO (15:15)
== END 2021-03-11 16:04 ==
LOC: HO.ED 08:26 → HO.SSS 13:26
PROVIDERS: Emergency Provider Student in an Organized Health Care Education/Training Program; PCP Nurse Practitioner Family; Visit Provider Urology
PROC: (CPT 52352; principal; 2021-03-11 13:10)
DX: N20.1 Calculus of ureter (principal); N20.0 Calculus of kidney; Z87.442 Personal history of urinary calculi; R11.0 Nausea; E78.5 Hyperlipidemia, unspecified; F32.9 Major depressive disorder, single episode, unspecified; Z79.899 Other long term (current) drug therapy; Z20.822 Contact with and (suspected) exposure to COVID-19
CPT/HCPCS: 52352; 52332; 36415; 74176; 80053; 81001; 82365; 85025; 87635; 88300; 96361; 96372; 96374; 96375; 96376; 99284; 99285; C1758; C1769; C2617; J1100; J1170; J1885; J1956; J2250; J2405; J3010; Q9967

== ENCOUNTER → 2021-03-20 13:52 | Outpatient (BNVA) | payer OTHER, SELFPAY | PROVIDERS: PCP Nurse Practitioner Family; Visit Provider Urology | DX: N20.0 Calculus of kidney (principal) ==

== ENCOUNTER 2021-04-29 07:00 | Day surgery (SDC) | payer OTHER, SELFPAY ==
[2021-04-23 13:16] VITALS: BMI 36.3
--- NOTE | 2021-04-24 14:22 | P.CONAN_ITS ---
Documented by User: Mayra Eng NP 04/24/21 14:24 HPI - Anesthesia Eval Consult details Narrative: 50yo F for Cystoscopy, Ureteroroscopy, Retro, Laser, possible stent s/p cysto etc 02/2021 with GA-LMA 4 PMFSH Active Problems Active Problems: All Active Problems (Updated 04/23/21 @ 13:16 by Maddie Mejía RN) Nephrolithiasis (Acute) Physical exam (Acute) Well woman exam (Acute) Counseling for hormone replacement therapy (Acute) Physical exam (Acute) Screening for colon cancer (Acute) Past Medical History Medical History (Updated 04/23/21 @ 13:16 by Maddie Mejía RN) Anxiety COVID-19 vaccine series completed Depression Headache Hyperlipemia Renal calculi Family History Family History Father Hypothyroidism Skin cancer Kidney failure Pulmonary embolism Mother Kidney failure Family/Other Brain cancer Son No problems noted. Daughter No problems noted. Family history of problems with anesthesia: No Surgical History Surgical History (Updated 04/23/21 @ 13:06 by Maddie Mejía RN) History of lithotripsy History of rotator cuff surgery History of shoulder surgery History of vaginal hysterectomy Hx of cystoscopy History of Problems with Anesthesia: No Social History Social History Housing: House Patient Tobacco Use Status: Never used Tobacco e-Cigarette/Vaping Use: Never Used Second Hand Smoke Exposure: Yes Use of substances other than those prescribed or required for medical reasons: No Have you been hit, kicked, punched, or otherwise hurt by someone within the past year? If so, by whom?: No Are you DNR?: No Advance Directives: No (states is but unsure of location of official HCP form) Advance Directives Information Provided: Yes Advance Directives on File: No (not able to find HCP scanned in [employer] or [employer]) Advance Directives Date on File: 05/01/19 Recently lost weight without trying: No Eating poorly because of decreased appetite: No Nutrition Risks: No Nutritional Risk service: No Current occupational status: employed Current occupation: [employer] Current occupational exposures/hazards: No Meds Allergies Allergy/AdvReac Type Severity Reaction Status Date / Time morphine AdvReac Mild Vomiting Verified 04/29/21 07:05 Home Medications Medication Instructions Recorded Confirmed Last Taken Type allopurinol 100 1 tab PO DAILY 03/11/21 04/23/21 Unknown History mg tablet buspirone 10 mg 1 tab PO BID 03/11/21 04/23/21 04/29/21 History tablet cetirizine 10 mg 10 mg PO DAILY 03/11/21 04/23/21 Unknown History tablet (Zyrtec) estradiol 1 mg 1 tab PO DAILY 03/11/21 04/23/21 Unknown History tablet propranolol 120 1 cap PO DAILY 03/11/21 04/23/21 04/29/21 History mg capsule,24 hr,extended release pyridoxine 1 tab PO DAILY 03/11/21 04/23/21 Unknown History (vitamin B6) 100 mg tablet sertraline 50 mg 1 tab PO DAILY 03/11/21 04/23/21 04/29/21 History tablet topiramate 100 mg 1 tab PO BEDTIME 03/11/21 04/23/21 Unknown History tablet venlafaxine 150 1 cap PO DAILY 03/11/21 04/23/21 04/29/21 History mg capsule,extended release 24 hr Exam Exam Date and Time: April 24, 2021 1422 Height,Weight and Vital Signs: Height 5 ft 4 in Weight 95.878 kg Pertinent Lab Results Pertinent Lab Results: Laboratory Tests 03/11/21 03/11/21 02:03 02:03 WBC 8.1 Hgb 12.1 Hct 37.7 Plt Count 244 Sodium 144 Potassium 4.6 Chloride 111 H Carbon Dioxide 25 BUN 21 H Creatinine 1.38 Assessment and Plan Assessment Anesthesia Assessment: Chart Reviewed Final Anesthetic Review Family History of Problems with Anesthesia: No History of Problems with Anesthesia: No Documented by User: Zion Russ 04/29/21 09:16 [facility] Past Medical History Medical History (Updated 04/23/21 @ 13:16 by Maddie Mejía RN) Anxiety COVID-19 vaccine series completed Depression Headache Hyperlipemia Renal calculi Family History Family History Father Hypothyroidism Skin cancer Kidney failure Pulmonary embolism Mother Kidney failure Family/Other Brain cancer Son No problems noted. Daughter No problems noted. Surgical History Surgical History (Updated 04/23/21 @ 13:06 by Maddie Mejía RN) History of lithotripsy History of rotator cuff surgery History of shoulder surgery History of vaginal hysterectomy Hx of cystoscopy Social History Social History Housing: House Patient Tobacco Use Status: Never used Tobacco e-Cigarette/Vaping Use: Never Used Second Hand Smoke Exposure: Yes Use of substances other than those prescribed or required for medical reasons: No Have you been hit, kicked, punched, or otherwise hurt by someone within the past year? If so, by whom?: No Are you DNR?: No Advance Directives: No (states is but unsure of location of official HCP form) Advance Directives Information Provided: Yes Advance Directives on File: No (not able to find HCP scanned in [employer] or [employer]) Advance Directives Date on File: 05/01/19 Recently lost weight without trying: No Eating poorly because of decreased appetite: No Nutrition Risks: No Nutritional Risk service: No Current occupational status: employed Current occupation: [employer] Current occupational exposures/hazards: No Meds Allergies Allergy/AdvReac Type Severity Reaction Status Date / Time morphine AdvReac Mild Vomiting Verified 04/29/21 07:05 Home Medications Medication Instructions Recorded Confirmed Last Taken Type allopurinol 100 1 tab PO DAILY 03/11/21 04/23/21 Unknown History mg tablet buspirone 10 mg 1 tab PO BID 03/11/21 04/23/21 04/29/21 History tablet cetirizine 10 mg 10 mg PO DAILY 03/11/21 04/23/21 Unknown History tablet (Zyrtec) estradiol 1 mg 1 tab PO DAILY 03/11/21 04/23/21 Unknown History tablet propranolol 120 1 cap PO DAILY 03/11/21 04/23/21 04/29/21 History mg capsule,24 hr,extended release pyridoxine 1 tab PO DAILY 03/11/21 04/23/21 Unknown History (vitamin B6) 100 mg tablet sertraline 50 mg 1 tab PO DAILY 03/11/21 04/23/21 04/29/21 History tablet topiramate 100 mg 1 tab PO BEDTIME 03/11/21 04/23/21 Unknown History tablet venlafaxine 150 1 cap PO DAILY 03/11/21 04/23/21 04/29/21 History mg capsule,extended release 24 hr Exam Airway Mallampati Class: II TM Dist: >3cm Neck ROM: Full Loose/Missing/Broken Teeth: Yes (fillings) Heart: rrr Lungs: bl breath sounds Assessment and Plan Final Anesthetic Review NPO: Yes ASA Class: II Final Preanesthetic Review: Consent Obtained/Reviewed and Anes Risks/Benef Reviewed Patient Risk: Intermediate Procedure Risk: Intermediate Anesthetic Plan Anesthetic Plan: GA Disposition: Standard PACU
[2021-04-29] VITALS (16 sets, daily range): BP systolic 110–133; BP diastolic 56–77; PULSE 72–83; RESP 13–22; TEMP 36.3–37.1; O2SAT 91–100
--- NOTE | ~2021-04-29 | FL_ITS ---
EXAMINATION: XR FLUOROSCOPY WITH IMAGES CLINICAL INFORMATION: Urinary tract calculi. COMPARISON: Fluoroscopic spot views 03/11/2021, CT abdomen 03/11/2021 TECHNIQUE: Fluoroscopy performed by Dr. Naun Pascual. Fluoroscopy time: 0.8 minutes Total Cumulative Dose: 21.76 mGy Images: 2 FINDINGS: There is a guidewire seen overlying left renal fossa and upper left ureter. The second image shows a left ureteral stent overlying the urinary bladder and left pelvis. FL/FL guidance in OR IMPRESSION: Fluoroscopy for urologic procedures.
[2021-04-29] MEDS: Lactated Ringers 1,000 ML 100 ML IVCONT (07:25)
--- NOTE | 2021-04-29 07:35 | MHC.SHP ---
Pre-Procedural Eval Section A Date of Service: 04/29/21 The patient is an INPATIENT: No Changes since office visit: No Cold of Flu in the past 2 weeks, No New Medical Problems, No Changes in Medication and No Patient answered all questions The History & Physical has been completed within 30 days and I have reviewed it.: No Section B Chief Complaint: kidney stone Details of Present Illness: Bilateral kidney stones. Prior right renal procedure. Plan today for left ureteroscopy with laser lithotripsy Relevant Family History (Specify if Yes): No Relevant Social History: None Medical History: Significant History History of Previous Operations: Relevant previous surgery/procedure and date(s) Allergies: Allergies Allergy/AdvReac Type Severity Reaction Status Date / Time morphine AdvReac Mild Vomiting Verified 04/29/21 07:05 Review of Systems Sugical H&P ROS: Negative: Constitution, Cardiovascular, Respiratory, Neurological, Psychiatric, Hem-Onc, Allergic/Immunologic, Gastrointestinal, Genitourinary, Musculoskeletal, Integumentary, Endocrine and Eyes/Ears/Nose/Throat Exam Surgical H&P Exam: Normal: HEENT, Normal: Heart, Normal: Lungs, Normal: Extremities, Normal: Abdomen, Normal: Skin and Normal: Neurological Plan Diagnosis/Plan: Unchanged (Cystoscopy, left retrograde, left ureteroscopy with laser lithotripsy stent placement) I have reviewed the history and physical and performed a pertinent physical examination on my patient. No changes have occurred unless specified.
[2021-04-29] MEDS: levoFLOXacin 500 MG TABLET PO (08:19)
[2021-04-29] MEDS: Acetaminophen 325 MG TABLET 650 MG PO (09:50)
[2021-04-29] MEDS: Phenazopyridine HCL 100 MG TABLET PO (09:51)
[2021-04-29] MEDS: traMADoL HCL 50 MG TABLET PO (09:52)
[2021-04-29] MEDS: fentaNYL citrate/PF 100 MCG/2 ML VIAL 25 MCG IVPUSH ×4 (09:53→10:14)
--- NOTE | 2021-04-29 10:30 | W.PM.OPN ---
Operative Note Operative Note Date of Service: 04/29/21 Narrative: PreOperative Diagnosis: Left renal stones Post Operative Diagnosis: Left renal stones Procedure: - cystoscopy, left retrograde - left dilatation of ureteric orifice under fluoroscopy - left ureteroscopy, laser lithotripsy, stone basketing - left stent placement Surgeon: Dr Naun Pascual Anesthesia: General Indications for procedure: 50-year-old female. Known recurrent stone former. Imaging with multiple small stones on left side. Recently underwent ureteroscopy and right-sided clean out. Here for left-sided. Procedure: After informed consent was verified patient was brought to the operating placed in supine position. Anesthesia was administered per protocol. Patient was placed in modified dorsal lithotomy position and prepped and draped in a sterile fashion. Safety pause time-out and side of surgery confirmed. Antibiotics confirmed. 22 Singaporean cystoscope was inserted per urethra. Bladder was normal in its entirety. Both ureteric orifices were in normal position. The left ureteric orifice was cannulated and a retrograde examination was performed. No filling defects seen within the left ureter and left kidney appear to fill normally. A Sensor guidewire was placed up to the level of the renal pelvis under fluoroscopy. The rigid cystoscope was removed and the inner cannula of ureteric access sheath was used under fluoroscopy to dilate the ureteric orifice. The ureteric access sheath was placed and the inner cannula with access wire removed. The digital flexible ureteral scope was placed. The kidney had multiple stones in multiple calices. Using a 262 micron laser the stones were broken into small pieces. Using a 0 tip basket multiple fragments were removed and will be sent for analysis. The area was flushed in debris removed. It appeared to be inflamed as response against stones. Multiple passes were made and areas were re-examined the stones were broken into small pieces. A 6 Singaporean by 24 cm double-J stent was placed into the renal pelvis and bladder under a combination of fluoroscopy and direct visualization. Good coil was seen after removal of the wire. The bladder was emptied. The patient tolerated the procedure well and was extubated in the operating room, and transferred in stable condition to the recovery area. Pathology: Stones Drains: 6 Singaporean by 24 cm double-J stent
[2021-04-29] MEDS: HYDROmorphone HCl 1 MG/ML SYRINGE 0.5 MG IVPUSH (10:45)
[2021-04-29] MEDS: oxyCODONE HCl Immed Release 5 MG TABLET PO (11:00)
[2021-05-02 15:06] LABS: Stone Source KIDNEY STONE
== END 2021-04-29 12:07 | disposition home or self-care (01) ==
PROVIDERS: PCP Nurse Practitioner Family; Visit Provider Urology
PROC: (CPT 52356; principal; 2021-04-29 08:20)
DX: N20.0 Calculus of kidney (principal); Z87.442 Personal history of urinary calculi; F41.1 Generalized anxiety disorder; E78.5 Hyperlipidemia, unspecified; F32.9 Major depressive disorder, single episode, unspecified
CPT/HCPCS: 52356; 52352; 82365; 88300; C1758; C1769; C1894; C2617; J1100; J1170; J1885; J2250; J2405; J3010; Q9967

== ENCOUNTER → 2021-05-07 08:52 | Outpatient (BNVA) | payer OTHER, SELFPAY | PROVIDERS: PCP Nurse Practitioner Family; Visit Provider Urology | DX: Z48.816 Encounter for surgical aftercare following surgery on the genitourinary system (principal) | CPT/HCPCS: 52310 ==

== ENCOUNTER 2021-06-11 16:46 | Outpatient (REF) | payer OTHER, SELFPAY ==
--- NOTE | ~2021-06-11 | US_ITS ---
EXAMINATION: US RETROPERITONEAL LIMITED (RENAL ONLY) CLINICAL INFORMATION: Calculus of kidney. COMPARISON: CT abdomen and pelvis 03/11/2021. Renal ultrasound 02/15/2021 and 09/13/2020. TECHNIQUE: Real-time imaging of the kidneys. FINDINGS: RIGHT KIDNEY: 11.0 x 5.6 x 7.0 cm (SAG x AP x TRV). The kidney is normal in size, contour, and echogenicity. Renal cortical thickness is normal. There are echogenic stones in upper/midpole measuring 0.6 x 0.4 cm, mid/lower pole measuring 0.5 x 0.3 cm, lower pole measuring 0.6 x 0.3 and 0.6 x 0.3 cm. No focal caliectasis seen. LEFT KIDNEY: 11.0 x 4.0 x 4.6 cm (SAG x AP x TRV). The kidney is normal in size, contour, and echogenicity. Renal cortical thickness is normal. No focal parenchymal lesions or hydronephrosis. There are several echogenic stones visualized. In the midpole, there are echogenic stones measuring 0.6 x 0.3 cm and 0.5 x 0.2 cm. Lower pole echogenic stones measuring 0.3 x 0.2 cm and several clusters of small stones. No caliectasis seen. US/US renal BI IMPRESSION: Bilateral echogenic renal calculi. No caliectasis or hydronephrosis seen.
== END 2021-06-11 16:47 | disposition home or self-care (01) ==
LOC: HO.US 16:46
PROVIDERS: PCP Nurse Practitioner Family; Visit Provider Urology
DX: N20.0 Calculus of kidney (principal)
CPT/HCPCS: 76775

== ENCOUNTER 2021-06-19 07:27 | Outpatient (REF) | payer OTHER, SELFPAY ==
--- NOTE | ~2021-06-19 | MM_ITS ---
EXAMINATION: MM SCREENING DIGITAL BREAST TOMOSYNTHESIS, BILATERAL CLINICAL INFORMATION: Screening. Asymptomatic. The lifetime risk of breast cancer based on the Tyrer-Cuzick Model is 7%. COMPARISON: Mammography: June 12, 2020 and studies dating back to November 30, 2014 TECHNIQUE: Digital breast tomosynthesis is performed in both the craniocaudal and mediolateral oblique views along with computer-aided detection (CAD). Synthesized 2D images are generated from the tomosynthesis. FINDINGS: There are scattered areas of fibroglandular density (ACR BI-RADS breast composition Category b). There are no significant masses, abnormal calcifications, or other abnormalities. MM/MM tomosynthesis screening BI IMPRESSION: There are no significant changes from prior study. ASSESSMENT: BI-RADS 1: Negative RECOMMENDATION: Routine annual mammography screening. This patient's information was entered into a reminder system with a target due date for their next mammogram.
== END 2021-06-19 07:28 | disposition home or self-care (01) ==
LOC: HO.MAMMO 07:27
PROVIDERS: PCP Nurse Practitioner Family; Visit Provider Nurse Practitioner Family
DX: Z12.31 Encounter for screening mammogram for malignant neoplasm of breast (principal)
CPT/HCPCS: 77063; 77067

== ENCOUNTER 2021-07-09 15:10 | Outpatient (AMB) | payer OTHER, SELFPAY ==
--- NOTE | 2021-07-09 15:10 | A.OFFVIS_ITS ---
Intake 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: 2 Month Ultrasound(SET) Intake Note: Patient is present for ultrasound follow up Inweaver Required: No Accompanied by: Self / Same As Patient Allergies haloperidol [From Haldol] Adverse Reaction (Intermediate, Verified 04/22/23 10:09) Dizziness morphine Adverse Reaction (Mild, Verified 04/22/23 10:09) Vomiting HPI HPI Comments History of Present Illness Details Shoshana is a very pleasant female. She is seen for [facility] urologic conditions - recurrent nephrolithiasis Here again for stent removal Had left ureteroscopy with laser lithotripsy Inflamed kidney Will trial low-dose Bactrim Will complete 24 hour urine prior to next visit Two month follow-up with imaging Nephrolithiasis Recurrent Seen through emergency room for right-sided procedure They are here for further evaluation of nephrolithiasis. Urolithiasis was diagnosed - Stones have been present since early 2015. Had undergone evaluation with Dr. Britton. ESWL performed previously 04/15 Left. - Obstructing left ureteric stone had passed. Ureteroscopy performed but left lower pole stone not treated at that time 08/13.. The patient previously had kidney stones whose composition includes - 12/14 , calcium oxalate - monohydrate, calcium oxalate - dihydrate - 11/16 , calcium oxalate - monohydrate - 03/19 calcium oxalate monohydrate, carbonate apatite Laboratory investigations include - 12/14 , Base line serum evaluation, Normocalcemia (9.0), Normal PTH, Normal uric acid 03/19 Ca 9.7 - 11/13 , 24 Hr Urine - Low Urine volume < 2.0 liters, High oxalate > 30mg, Low citrate < 400. Prior treatment(s) include left, ESWL - 12/14 left, ureteroscopy - had post procedure UTI - 12/14 , medical management, with allopurinol, with potassium citrate - 11/16 , ureteroscopy left side - 03/19 right side ureteroscopy, 04/20 left-sided ureteroscopy Prior imaging includes - 09/13 , a CT with contrast to nonobstructing calculi right kidney largest 3 mm, 3 nonobstructing calculi left kidney largest 9 mm lower pole - 03/15 , a renal ultrasound, on the right, showing no evidence of stones, on the left, showing radiodense stone(s), 5-10 mm - 04/17 US bilateral stones, XR left 6mm x2 - 10/15 , a KUB x-ray left-sided 1.2 cm stone - 04/18 , a KUB x-ray stable - 10/16 , a KUB x-ray left 1.2 cm, right 5mm - 01/16 CT scan, 5 mm distal right stone with hydronephrosis - 06/18 renal ultrasound 3 mm bilateral stones Current therapeutic plan will be - 2 month follow-up imaging with 24 hour urine PFSH Medical History Renal calculi Depression Anxiety Headache Hyperlipemia Surgical History H/O colonoscopy Hx of cystoscopy History of vaginal hysterectomy History of shoulder surgery History of lithotripsy History of rotator cuff surgery Family History Father Hypothyroidism Skin cancer Kidney failure Pulmonary embolism Mother Kidney failure Mental health disorder Family/Other Brain cancer Son No problems noted. Daughter No problems noted. Social History Housing: House Alcohol intake: never Comment: bed bound wheel chair bound clau lift Patient Tobacco Use Status: Never used Tobacco e-Cigarette/Vaping Use: Never Used Second Hand Smoke Exposure: Yes Advance Directives Date on File: 10/29/22 service: No Current occupational status: employed Current occupation: [employer] Current occupational exposures/hazards: No Cognitive needs: No Hearing needs: No Vision needs: Yes Female Reproductive History Menstrual Age of Menarche: 10 Review of Systems Const Denies chills and Denies fever(s) Card Reports no additional complaints and Denies syncope Resp Denies cough GI Denies abdominal pain and Denies heartburn Reports as per HPI and Denies change in libido Neuro Denies syncope Psych Denies change in libido Endo Denies change in libido Physical Exam Const General: cooperative, healthy appearing, comfortable and no acute distress Orientation/consciousness: patient oriented x3 HEENT Face and sinus: Yes normal facial exam Mouth: moist mucous membranes Neck Neck: Yes normal visual inspection, Yes full ROM and Yes trachea midline Chest Chest palpation & inspection: normal inspection of the chest Resp Effort & Inspection: normal respiratory effort, able to speak in complete sentences and no respiratory distress GI Inspection: Yes normal to inspection Back/Spine/Pelvis Cervical Spine: normal cervical lordosis Thoracic/Lumbar Spine: thoracic and lumbar spine normal to inspection Skin General skin exam: no rashes or lesions noted Neuro General: patient oriented x3, gait normal, tone normal and moves all extremities Extrem General: Yes normal to inspection and Yes capillary refill normal Assessment & Plan Assessment & Plan (1) Ureterolithiasis: Code(s): N20.1 - Calculus of ureter Plan 6m f/u Medications: New potassium citrate ER 20 mEq (2 x 10 mEq (1,080 mg)) PO BID 360 tabs 1RF 90 days N20.0 - Calculus of kidney nitrofurantoin macrocrystal must administer with a meal/food 100 mg PO BEDTIME 90 caps 1RF 90 days N20.0 - Calculus of kidney Patient Instructions: Imaging studies, laboratory and physical exam results were discussed and reviewed in detail. No major barriers to patient understanding were identified. An opportunity to ask questions regarding the treatment plan was provided. All questions were answered. The patient expressed understanding and agreement with the above treatment plan. The patient is aware they should contact our office by phone for worsening of their current condition or the appearance of new urologic symptoms. Compliance is encouraged with any medications and followup testing that is ordered. It is a privilege to participate in the urologic care of your patient. If you have any questions or concerns regarding treatment for the above conditions, or other urologic issues, please do not hesitate to contact me. The office telephone contact is [phone]. This note is constructed using voice recognition software. While every effort has been made to ensure accuracy senior merchandiser errors may have been included. Yours sincerely, Dr Naun Pascual MD, [facility] Providers of Expert, Compassionate Care for the Genitourinary System Telehealth Telehealth Location of provider rendering services: practice address Location of patient: address on file Patient Identification confirmed using: Name, : Yes Telehealth method: voice only Patient verbally consented to treatment: Yes Patient verbally consented to billing insurance company: Yes Patient informed of any privacy concerns related to visit: Yes Coding Level of Care Code Est Pt Level 3 (04595) Diagnoses Ureterolithiasis N20.1
== END 2021-07-09 16:10 | disposition home or self-care (01) ==
LOC: HO.HUSH 15:10
PROVIDERS: PCP Nurse Practitioner Family; Visit Provider Urology
DX: N20.1 Calculus of ureter (principal)
CPT/HCPCS: 99499

== ENCOUNTER → 2021-07-09 15:10 | Outpatient (BNVA) | payer OTHER, SELFPAY | PROVIDERS: PCP Nurse Practitioner Family; Visit Provider Urology | DX: Z13.89 Encounter for screening for other disorder (principal) ==

== ENCOUNTER 2021-07-13 10:38 | Outpatient (REF) | payer OTHER, SELFPAY ==
[2021-07-13 10:47] LABS: MANUAL DIFF FLAG NO
[2021-07-13 11:14] LABS: Basophils Percent Auto 0.8 % (0-2); Eosinophils Absolute Auto 0.2 X10*3/uL (0.0-0.4); Eosinophils Percent Auto 2.9 % (0-4); Hematocrit 37.7 % (37.0-47.0); Hemoglobin 12.4 g/dl (12.0-16.0); Imm Gran Abs Auto 0.01 X10*3/uL (0.00-0.03); Imm Gran Pct Auto 0.2 % (0.0-0.4); Lymphocytes Absolute Auto 2.2 X10*3/uL (1.2-4.9); Lymphocytes Percent Auto 41.4 % (20-40); Mean Corpuscular HGB Conc 32.9 g/dl (31.0-35.0); Mean Corpuscular Hemoglobin 31.1 pg (27.0-33.0); Mean Corpuscular Volume 94.5 fL (80.0-98.0); Mean Platelet Volume 10.4 fL (9.4-12.3); Monocytes Absolute Auto 0.3 X10*3/uL (0.1-1.2); Monocytes Percent Auto 6.6 % (2-11); Neutrophils Absolute Auto 2.5 x10*3/uL (2.0-8.3); Neutrophils Percent Auto 48.1 % (45-73); Platelet Count 249 X10*3/uL (160-400); Red Blood Count 3.99 X10*6/uL (4.20-5.50); Red Cell Distribution Width 11.9 % (11.0-16.0); White Blood Count 5.2 X10*3/uL (4.8-10.8)
[2021-07-13 11:17] LABS: Appearance Urine HAZY; Color Urine YELLOW; Glucose Urine UA NEG (NEG); Leukocyte Esterase Urine NEG (NEG); Nitrite Urine NEG (NEG); PH 5.5 (5.0-8.0); UACC Culture Trigger NO; Urine Blood TRACE (NEG); Urine Ketones NEG (NEG); Urine Protein NEG (NEG-TRACE)
[2021-07-13 11:26] LABS: WBC Urine 0-2 /HPF (0-4)
[2021-07-13 11:27] LABS: Bacteria Urine TRACE /LPF; Calcium Oxalate Crystals Urine TRACE /LPF; Mucus Urine TRACE /LPF; Squamous Epithelial Cell Urine 1+ /LPF
[2021-07-13 11:43] LABS: Alanine Aminotransferase 26 U/L (0-31); Albumin Level 4.5 g/dL (3.5-5.0); Alkaline Phosphatase 94 U/L (39-117); Anion Gap 14 (12-20); Aspartate Amino Transferase 21 U/L (5-31); Bilirubin Total 0.4 mg/dL (0.0-1.0); Blood Urea Nitrogen 16 mg/dL (9-16); Calcium 9.9 mg/dL (8.4-10.2); Carbon Dioxide 22 mmol/L (22-29); Chloride 111 mmol/L (96-108); Cholesterol 159 mg/dL; Estimated Glomerular Filt Rate > 60; Glucose Fasting 98 mg/dL (60-99); HDL Cholesterol 59 mg/dL; LDL Cholesterol Calculated 75 mg/dl; Potassium 4.5 mmol/L (3.3-5.1); Sodium 142 mmol/L (135-145); Total Protein 7.5 g/dL (6.5-8.0); Triglycerides 126 mg/dL
[2021-07-13 12:04] LABS: TSH reflex Free T4 1.85 uIU/mL (0.32-4.0)
== END 2021-07-13 10:39 | disposition home or self-care (01) ==
LOC: HO.LAB 10:38
PROVIDERS: PCP Nurse Practitioner Family; Visit Provider Nurse Practitioner Family
DX: Z00.00 Encounter for general adult medical examination without abnormal findings (principal)
CPT/HCPCS: 36415; 80053; 80061; 81001; 84443; 85025

== ENCOUNTER 2021-10-03 07:49 | Day surgery (SDC) | payer OTHER, SELFPAY ==
[2021-10-03] VITALS (12 sets, daily range): BP systolic 101–145; BP diastolic 44–69; PULSE 68–86; RESP 16–20; TEMP 36–36.8; O2SAT 94–100; BMI 36.0
--- NOTE | ~2021-10-03 | US_ITS ---
EXAMINATION: US RETROPERITONEAL LIMITED (RENAL ONLY) CLINICAL INFORMATION: Right flank pain. COMPARISON: Renal ultrasound 06/11/2021 CT abdomen 03/11/2021 TECHNIQUE: Ultrasound of the kidneys only was performed FINDINGS: RIGHT KIDNEY: 11.7 x 5.4 x 7.1 cm (SAG x AP x TRV). The kidney is normal in size, contour, and echogenicity. Renal cortical thickness is normal. There are stones seen in the right renal collecting system largest measuring 1.4 cm in the right renal pelvis and is associated with Hydronephrosis. The hydronephrosis is new when compared with the prior ultrasound. At the time of the prior CT scan, there was a 6 mm obstructing proximal ureteral stone which had cleared by the time of 06/11/2021 ultrasound. No renal masses are seen LEFT KIDNEY: 9.9 x 4.8 x 6.0 cm (SAG x AP x TRV). The kidney is normal in size, contour, and echogenicity. Renal cortical thickness is normal. Multiple nonobstructing left renal calculi are present with the largest measuring 4 mm in size. No calculi or focal parenchymal lesions. No hydronephrosis. US/US retroperitoneal limited IMPRESSION: Recurrent right-sided obstructive uropathy now secondary to a 1.4 cm calculus in the right renal pelvis.
--- NOTE | ~2021-10-03 | FL_ITS ---
EXAMINATION: XR FLUOROSCOPY WITH IMAGES CLINICAL INFORMATION: Cystoscopy, ureteroscopy, retro, laser, stent right COMPARISON: None. TECHNIQUE: Fluoroscopy performed by Dr. Naun Pascual. Fluoroscopy time: 107 seconds Images: 1 FINDINGS: On this single image there is a wire in the right ureter/collecting system. No contrast. FL/FL guidance in OR IMPRESSION: Fluoroscopic guidance for right-sided pyelogram/intervention. Please refer to operative report for further information.
--- NOTE | 2021-10-03 07:18 | ED_ITS ---
HPI - Abdominal Pain General Chief Complaint: Back Pain/Injury Stated Complaint: kidney stone pain? Time Seen by Provider: 10/03/21 07:07 Source: patient and old records reviewed Mode of arrival: ambulatory Limitations: no limitations History of Present Illness HPI narrative: 51 yo female wtih hx of recurrent nephrolithiasis on suppressive medications prior procedures and on macrobid via Dr. Pascual comes in with c/o abrupt onset R flank pain since 415am. Feels like a stone. Denies any new changes or dehydration. MD elicited complaint: flank pain Pertinent past history: kidney stones Onset (ago): hour(s) (3) Pain Consistency: colicky Location: R flank Severity: moderate Quality: stabbing Radiation: none Migration to: no migration Exacerbating factors: nothing Relieving factors: nothing Context: history of similar episodes Associated symptoms: nausea Related Data Home Medications Medication Instructions Recorded Confirmed allopurinol 100 mg tablet 1 tab PO DAILY 03/11/21 09/12/21 cetirizine 10 mg tablet (Zyrtec) 10 mg PO DAILY 03/11/21 09/12/21 propranolol 120 mg capsule,24 1 cap PO DAILY 03/11/21 09/12/21 hr,extended release pyridoxine (vitamin B6) 100 mg 1 tab PO DAILY 03/11/21 09/12/21 tablet topiramate 100 mg tablet 1 tab PO BEDTIME 03/11/21 09/12/21 Previous Rx's Medication Instructions Recorded betamethasone dipropionate 0.05 % 1 appl topical DAILY PRN skin 03/20/21 topical cream irritation 30 days #45 grams nitrofurantoin macrocrystal 100 mg 100 mg PO BEDTIME 90 days #90 caps 07/09/21 capsule buspirone 10 mg tablet 10 mg PO BID 90 days #180 tabs 07/22/21 atorvastatin 20 mg tablet 20 mg PO DAILY 90 days #90 tabs 09/03/21 sertraline 50 mg tablet 50 mg PO DAILY 90 days #90 tabs 09/03/21 venlafaxine 150 mg 150 mg PO DAILY 90 days #90 caps 09/03/21 capsule,extended release 24 hr potassium citrate 15 mEq (1,620 15 meq PO TID 90 days #270 tabs 09/10/21 mg) tablet,extended release dqfqoxjpoj-tomcmfzkavtuz-qdlsoqpm 1 cap PO DAILY PRN Migraine 09/23/21 50 mg-300 mg-40 mg capsule Headache #30 caps estradiol 1 mg tablet 1 mg PO DAILY #90 tabs 09/25/21 Allergies Allergy/AdvReac Type Severity Reaction Status Date / Time morphine AdvReac Mild Vomiting Verified 09/25/21 14:50 Review of Systems Review of Systems Constitutional : No Fever, No Chills ENT/Mouth : No sore throat Eyes: No Eye Pain, No Swelling, No Redness Cardiovascular : No Chest Pain, No SOB Respiratory : No Cough, No Sputum, No Wheezing Gastrointestinal : positive Nausea, no Vomiting, No Diarrhea, positive abdominal pain Genitourinary : no Dysuria, no urinary frequency, no Hematuria, positive Flank Pain, no hesitancy Musculoskeletal : No joint pain, No Myalgias Skin : No Skin Lesions, No rash Neuro : No Weakness, No Numbness, No Headache Psych : No Anxiety/Panic, No Depression Heme/Lymph: No Bruising, No Lymphadenopathy Endocrine : No Polyuria, No Polydipsia All other systems reviewed and are negative [facility] Past Medical History Attestation statement: The following information was validated with the patient. Medical History Anxiety COVID-19 vaccine series completed Depression Headache Hyperlipemia Renal calculi Surgical History History of lithotripsy History of rotator cuff surgery History of shoulder surgery History of vaginal hysterectomy Hx of cystoscopy Family History Family History Father Hypothyroidism Skin cancer Kidney failure Pulmonary embolism Mother Kidney failure Family/Other Brain cancer Son No problems noted. Daughter No problems noted. Social History Social History Housing: House Alcohol intake: never Patient Tobacco Use Status: Never used Tobacco e-Cigarette/Vaping Use: Never Used Second Hand Smoke Exposure: Yes Use of substances other than those prescribed or required for medical reasons: No Advance Directives: Yes Advance Directives on File: Yes Advance Directives Date on File: 04/28/21 Patient : No service: No Current occupational status: employed Current occupation: [employer] Current occupational exposures/hazards: No Cognitive needs: No Hearing needs: No Vision needs: No Physical Exam ED Vital Signs: Vital Signs - 24 hr 07/07/22 07:14 10/03/21 09:13 10/03/21 11:18 Temperature 98 F 96.8 F 98.3 F Pulse Rate 82 75 77 Respiratory Rate 20 17 17 Blood Pressure 145/65 H 106/50 L 101/44 L Pulse Oximetry 100 100 97 Oxygen Delivery Method Room Air Room Air Room Air 10/03/21 12:18 Temperature 98.1 F Pulse Rate 68 Respiratory Rate 16 Blood Pressure 105/54 L Pulse Oximetry 96 Oxygen Delivery Method Room Air BMI result Body Mass Index 36.0 Appearance: Alert. Oriented X3. appears uncomfortable, mild acute distress. Eyes: Pupils equal, round and reactive to light. ENT: Pharynx normal. Neck: Normal inspection. Neck supple. CVS: Normal heart rate and rhythm. Pulses normal. Respiratory: No respiratory distress. Breath sounds normal. Abdomen: Soft and non-tender. Skin: Skin warm and dry. Normal skin color. Normal skin turgor. Extremities: No lower extremity edema. No calf ttp Neuro: Oriented X 3. No motor deficit. No sensory deficit. Course Course Course Narrative: given size of stone message sent to Urology 1119am Dr. Pascual likely procedure later today MDM - Abdominal Pain MDM Narrative Medical decision making narrative: 51 yo female wtih hx of recurrent nephrolithiasis on suppressive medications here with c/o abrupt onset R flank pain at this time will need labs, UA, IVF and toradol/zofran - US for renal colic ordered. Dispo per results and findings. Lab Data Result diagrams: 10/03/21 07:20 10/03/21 07:20 Labs: Lab Results 10/03/21 10/03/21 10/03/21 Range/Units 07:20 07:20 07:20 WBC 5.9 (4.8-10.8) X10*3/uL RBC 4.05 L (4.20-5.50) X10*6/uL Hgb 12.6 (12.0-16.0) g/dl Hct 38.0 (37.0-47.0) % MCV 93.8 (80.0-98.0) fL MCH 31.1 (27.0-33.0) pg MCHC 33.2 (31.0-35.0) g/dl RDW 12.0 (11.0-16.0) % Plt Count 247 (160-400) X10*3/uL MPV 9.6 (9.4-12.3) fL Immature Gran % (Auto) 0.2 (0.0-0.4) % Neut % (Auto) 59.3 (45-73) % Lymph % (Auto) 29.9 (20-40) % [place] % (Auto) 7.5 (2-11) % Eos % (Auto) 1.9 (0-4) % Baso % (Auto) 1.2 (0-2) % Lymph # (Auto) 1.8 (1.2-4.9) X10*3/uL [place] # (Auto) 0.4 (0.1-1.2) X10*3/uL Eos # (Auto) 0.1 (0.0-0.4) X10*3/uL Baso # (Auto) 0.1 (0.0-0.2) X10*3/uL Abs Immat Gran (auto) 0.01 (0.00-0.03) X10*3/uL Absolute Neuts (auto) 3.5 (2.0-8.3) x10*3/uL Absolute Nucleated RBC 0.000 (0.0-0.012) X10*3/uL Nucleated RBC % (auto) 0.0 (0.0-0.2) /100WBC Sodium 140 (135-145) mmol/L Potassium 4.5 (3.3-5.1) mmol/L Chloride 108 (96-108) mmol/L Carbon Dioxide 23 (22-29) mmol/L Anion Gap 14 (12-20) BUN 20 H (9-16) mg/dL Creatinine 1.06 (0.5-1.4) mg/dL Estim Creat Clear Calc 70.3 Estimated GFR 55 Random Glucose 112 (60-115) mg/dL Calcium 9.5 (8.4-10.2) mg/dL Magnesium 2.1 (1.6-2.6) mg/dL Total Bilirubin 0.4 (0.0-1.0) mg/dL Direct Bilirubin < 0.2 (0.0-0.5) mg/dL AST 33 H D (5-31) U/L ALT 50 H (0-31) U/L Alkaline Phosphatase 104 (39-117) U/L Total Protein 7.9 (6.5-8.0) g/dL Albumin 4.8 (3.5-5.0) g/dL Lipase 18 (8-78) U/L Urine Color YELLOW Urine Appearance CLOUDY Urine pH 6.0 (5.0-8.0) Ur Specific [place] 1.020 (1.005-1.025) Urine Protein 1+ H (NEG-TRACE) MG/DL Urine Glucose (UA) NEG (NEG) MG/DL Urine Ketones NEG (NEG) MG/DL Urine Blood 3+ H (NEG) Urine Nitrite NEG (NEG) Ur Leukocyte Esterase NEG (NEG) Urine RBC TNTC H (0) /HPF Urine WBC 1-4 (0-4) /HPF Ur Squamous Epith Cells 2+ /LPF Urine Bacteria TRACE /LPF COVID-19 ([facility]) (Negative) COVID-19 Clin Com 10/03/21 Range/Units 08:33 WBC (4.8-10.8) X10*3/uL RBC (4.20-5.50) X10*6/uL Hgb (12.0-16.0) g/dl Hct (37.0-47.0) % MCV (80.0-98.0) fL MCH (27.0-33.0) pg MCHC (31.0-35.0) g/dl RDW (11.0-16.0) % Plt Count (160-400) X10*3/uL MPV (9.4-12.3) fL Immature Gran % (Auto) (0.0-0.4) % Neut % (Auto) (45-73) % Lymph % (Auto) (20-40) % [place] % (Auto) (2-11) % Eos % (Auto) (0-4) % Baso % (Auto) (0-2) % Lymph # (Auto) (1.2-4.9) X10*3/uL [place] # (Auto) (0.1-1.2) X10*3/uL Eos # (Auto) (0.0-0.4) X10*3/uL Baso # (Auto) (0.0-0.2) X10*3/uL Abs Immat Gran (auto) (0.00-0.03) X10*3/uL Absolute Neuts (auto) (2.0-8.3) x10*3/uL Absolute Nucleated RBC (0.0-0.012) X10*3/uL Nucleated RBC % (auto) (0.0-0.2) /100WBC Sodium (135-145) mmol/L Potassium (3.3-5.1) mmol/L Chloride (96-108) mmol/L Carbon Dioxide (22-29) mmol/L Anion Gap (12-20) BUN (9-16) mg/dL Creatinine (0.5-1.4) mg/dL Estim Creat Clear Calc Estimated GFR Random Glucose (60-115) mg/dL Calcium (8.4-10.2) mg/dL Magnesium (1.6-2.6) mg/dL Total Bilirubin (0.0-1.0) mg/dL Direct Bilirubin (0.0-0.5) mg/dL AST (5-31) U/L ALT (0-31) U/L Alkaline Phosphatase (39-117) U/L Total Protein (6.5-8.0) g/dL Albumin (3.5-5.0) g/dL Lipase (8-78) U/L Urine Color Urine Appearance Urine pH (5.0-8.0) Ur Specific [place] (1.005-1.025) Urine Protein (NEG-TRACE) MG/DL Urine Glucose (UA) (NEG) MG/DL Urine Ketones (NEG) MG/DL Urine Blood (NEG) Urine Nitrite (NEG) Ur Leukocyte Esterase (NEG) Urine RBC (0) /HPF Urine WBC (0-4) /HPF Ur Squamous Epith Cells /LPF Urine Bacteria /LPF COVID-19 ([facility]) Negative (Negative) COVID-19 Clin Com See Note Discharge Plan Discharge Clinical Impression: Ureterolithiasis Patient Disposition: Admitted As Inpatient Prescriptions: No Action buspirone 10 mg tablet 10 mg PO BID 90 Days Qty: 180 1RF sertraline 50 mg tablet 50 mg PO DAILY 90 Days Qty: 90 0RF atorvastatin 20 mg tablet 20 mg PO DAILY 90 Days Qty: 90 0RF venlafaxine 150 mg capsule,extended release 24hr 150 mg PO DAILY 90 Days Qty: 90 0RF lsoqcadxsy-sgtxkhmzlzlft-tvez 50-300-40 mg capsule 1 cap PO DAILY PRN (Reason: Migraine Headache) Qty: 30 1RF Rx Instructions: can cause rebound headaches, use sparingly allopurinol 100 mg tablet 1 tab PO DAILY pyridoxine (vitamin B6) 100 mg tablet 1 tab PO DAILY propranolol 120 mg capsule,extended release 24 hr 1 cap PO DAILY topiramate 100 mg tablet 1 tab PO BEDTIME cetirizine [Zyrtec] 10 mg Tablet 10 mg PO DAILY betamethasone dipropionate 0.05 % cream 1 appl topical DAILY PRN (Reason: skin irritation) 30 Days Qty: 45 0RF estradiol 1 mg tablet 1 mg PO DAILY Qty: 90 3RF nitrofurantoin macrocrystal 100 mg capsule 100 mg PO BEDTIME 90 Days Qty: 90 1RF Rx Instructions: must administer with a meal/food potassium citrate 15 mEq tablet extended release 15 meq PO TID 90 Days Qty: 270 1RF
[2021-10-03 07:26] LABS: MANUAL DIFF FLAG NO
[2021-10-03 07:27] LABS: Basophils Absolute Auto 0.1 X10*3/uL (0.0-0.2); Basophils Percent Auto 1.2 % (0-2); Eosinophils Absolute Auto 0.1 X10*3/uL (0.0-0.4); Eosinophils Percent Auto 1.9 % (0-4); Hemoglobin 12.6 g/dl (12.0-16.0); Imm Gran Abs Auto 0.01 X10*3/uL (0.00-0.03); Imm Gran Pct Auto 0.2 % (0.0-0.4); Lymphocytes Absolute Auto 1.8 X10*3/uL (1.2-4.9); Lymphocytes Percent Auto 29.9 % (20-40); Mean Corpuscular HGB Conc 33.2 g/dl (31.0-35.0); Mean Corpuscular Hemoglobin 31.1 pg (27.0-33.0); Mean Corpuscular Volume 93.8 fL (80.0-98.0); Mean Platelet Volume 9.6 fL (9.4-12.3); Monocytes Absolute Auto 0.4 X10*3/uL (0.1-1.2); Monocytes Percent Auto 7.5 % (2-11); Neutrophils Absolute Auto 3.5 x10*3/uL (2.0-8.3); Neutrophils Percent Auto 59.3 % (45-73); Platelet Count 247 X10*3/uL (160-400); Red Blood Count 4.05 X10*6/uL (4.20-5.50); White Blood Count 5.9 X10*3/uL (4.8-10.8)
[2021-10-03 07:35] LABS: Appearance Urine CLOUDY; Color Urine YELLOW; Glucose Urine UA NEG (NEG); Leukocyte Esterase Urine NEG (NEG); Nitrite Urine NEG (NEG); UACC Culture Trigger NO; Urine Blood 3+ (NEG); Urine Ketones NEG (NEG); Urine Protein 1+ MG/DL (NEG-TRACE)
[2021-10-03 07:48] LABS: RBC Urine TNTC /HPF (0)
[2021-10-03 07:49] LABS: Bacteria Urine TRACE /LPF; Squamous Epithelial Cell Urine 2+ /LPF
[2021-10-03 07:52] LABS: Alanine Aminotransferase 50 U/L (0-31); Albumin Level 4.8 g/dL (3.5-5.0); Alkaline Phosphatase 104 U/L (39-117); Anion Gap 14 (12-20); Aspartate Amino Transferase 33 U/L (5-31); Bilirubin Direct < 0.2 mg/dL (0.0-0.5); Bilirubin Total 0.4 mg/dL (0.0-1.0); Blood Urea Nitrogen 20 mg/dL (9-16); Calcium 9.5 mg/dL (8.4-10.2); Carbon Dioxide 23 mmol/L (22-29); Chloride 108 mmol/L (96-108); Creatinine Clr Calc Pharmacy 70.3; Estimated Glomerular Filt Rate 55; Glucose Random 112 mg/dL (60-115); Lipase 18 U/L (8-78); Magnesium 2.1 mg/dL (1.6-2.6); Potassium 4.5 mmol/L (3.3-5.1); Sodium 140 mmol/L (135-145); Total Protein 7.9 g/dL (6.5-8.0)
[2021-10-03] MEDS: 0.9 % Sodium Chloride 1,000 ML 999 ML IV (08:22)
[2021-10-03] MEDS: ondansetron HCL 4 MG/2 ML VIAL IVPUSH ×2 (08:22→23:48)
[2021-10-03] MEDS: Ketorolac Tromethamine 30 MG/ML VIAL IVPUSH (08:22)
[2021-10-03 08:55] LABS: COVID-19 Test Negative (Negative); IDNOW Serial# 16C4AD1C
[2021-10-03] MEDS: HYDROmorphone HCl 1 MG/ML SYRINGE IVPUSH ×3 (09:22→18:35)
--- NOTE | 2021-10-03 10:20 | PC.NURSE ---
bedside ultra sound is being done at this time.
--- NOTE | 2021-10-03 13:27 | PC.NURSE ---
pt seen by dr. garcia,pt aware of plan of care.
[2021-10-03] MEDS: 0.9 % Sodium Chloride 1,000 ML 100 ML IVCONT (13:49)
--- NOTE | 2021-10-03 13:50 | PHA.MEDREC ---
Pharmacy Consult ? Medication Reconciliation Pharmacy has completed the medication reconciliation. Spoke with patient to confirm medications. Yanet Caldwell, AbimaelD
--- NOTE | 2021-10-03 14:53 | PM.UROCN ---
History of Present Illness Consult details Consult date: 10/03/21 Narrative: Shoshana is a pleasant female Well known to Urology is recurrent stone former Presents with 24 hour history of right flank pain associated with nausea and vomiting WBC 5.9, calcium 9.5, creatinine 1.1 Ultrasound performed showing greater than 10 mm stone in the right side associated with new onset hydronephrosis Has had multiple recurrent prior procedures Recommendation is for right ureteroscopy with laser lithotripsy and stent placement Risks and benefits discussed Review of Systems Constitutional: Constitutional: Reports as per HPI and Reports no additional constitutional complaints Cardiovascular: Cardiovascular: Reports as per HPI and Reports no additional cardiovascular complaints Respiratory: Respiratory: Reports as per HPI and Reports no additional respiratory complaints Gastrointestinal: Gastrointestinal: Reports as per HPI and Reports no additional gastrointestinal complaints Genitourinary: Genitourinary: Reports as per HPI Musculoskeletal: Musculoskeletal: Reports no additional musculoskeletal complaints and Reports as per HPI Neurologic: Reports system reviewed and no additional complaints, except as documented and Reports as per HPI PMFSH Past Medical History Medical History Anxiety COVID-19 vaccine series completed Depression Headache Hyperlipemia Renal calculi Family History Family History Father Hypothyroidism Skin cancer Kidney failure Pulmonary embolism Mother Kidney failure Family/Other Brain cancer Son No problems noted. Daughter No problems noted. Surgical History Surgical History History of lithotripsy History of rotator cuff surgery History of shoulder surgery History of vaginal hysterectomy Hx of cystoscopy Social History Social History Housing: House Alcohol intake: never Patient Tobacco Use Status: Never used Tobacco e-Cigarette/Vaping Use: Never Used Second Hand Smoke Exposure: Yes Use of substances other than those prescribed or required for medical reasons: No Advance Directives: Yes Advance Directives on File: Yes Advance Directives Date on File: 04/28/21 Patient : No service: No Current occupational status: employed Current occupation: [employer] Current occupational exposures/hazards: No Cognitive needs: No Hearing needs: No Vision needs: No Meds Allergies Allergy/AdvReac Type Severity Reaction Status Date / Time morphine AdvReac Mild Vomiting Verified 09/25/21 14:50 Active Medications: Current Medications Hydromorphone HCl (Hydromorphone Hcl 1 Mg/Ml Syringe) 1 mg IVPUSH Q4H PRN; Protocol PRN Reason: Pain, Severe (Pain Scale 7-10) Last Admin: 10/03/21 13:52 Dose: 1 mg Sodium Chloride (Ns) 1,000 mls @ 100 mls/hr IVCONT .Q10H DIDIER Last Admin: 10/03/21 13:49 Dose: 100 mls/hr Ondansetron HCl (Ondansetron Hcl 4 Mg/2 Ml Vial) 4 mg IVPUSH TID PRN PRN Reason: Nausea and Vomiting Pharmacy Consult (Consult Rx Perform Med Rec) 1 each MISCELLANE ONCE PRN PRN Reason: Consult order Home Medications Medication Instructions Recorded Confirmed Last Taken Type allopurinol 100 mg tablet 1 tab PO BEDTIME 03/11/21 10/03/21 10/02/21 History propranolol 120 mg capsule,24 1 cap PO DAILY 03/11/21 10/03/21 10/03/21 History hr,extended release pyridoxine (vitamin B6) 100 mg 1 tab PO BEDTIME 03/11/21 10/03/21 10/02/21 History tablet topiramate 100 mg tablet 1 tab PO BEDTIME 03/11/21 10/03/21 10/02/21 History atorvastatin 20 mg tablet 20 mg PO BEDTIME 10/03/21 10/03/21 10/02/21 History estradiol 1 mg tablet 1 tab PO DAILY 10/03/21 10/03/21 10/03/21 History multivitamin 1 tab PO DAILY 10/03/21 10/03/21 10/03/21 History omega 2-ain-eio-fish oil 1,000 mg 1 cap PO DAILY 10/03/21 10/03/21 10/03/21 History (120 mg-180 mg) capsule (Fish Oil) Physical Exam Vital Signs: Vital Signs: Last Vital Signs Temp 97.8 F 10/03/21 13:46 Pulse 82 10/03/21 14:10 Resp 16 10/03/21 14:10 BP 111/56 L 10/03/21 14:10 Pulse Ox 96 10/03/21 14:10 O2 Del Method 10/03/21 14:10 BMI result Body Mass Index 36.0 Const: General: cooperative, healthy appearing, comfortable and no acute distress Orientation/consciousness: patient oriented x3 HEENT: Face and sinus: Yes normal facial exam Mouth: moist mucous membranes Neck: Neck: Yes normal visual inspection, Yes full ROM and Yes trachea midline Chest: Chest palpation & inspection: normal inspection of the chest Resp: Effort & Inspection: normal respiratory effort, able to speak in complete sentences and no respiratory distress GI: Inspection: Yes normal to inspection Back/Spine/Pelvis: Cervical Spine: normal cervical lordosis Thoracic/Lumbar Spine: thoracic and lumbar spine normal to inspection Skin: General skin exam: no rashes or lesions noted Neuro: General: patient oriented x3, tone normal and moves all extremities Extrem: General: Yes normal to inspection and Yes capillary refill normal Results Labs Result diagrams: 10/03/21 07:10/03/21 07:20 Labs: Abnormal lab results 10/03/21 10/03/21 10/03/21 Range/Units 07:20 07:20 07:20 RBC 4.05 L (4.20-5.50) X10*6/uL BUN 20 H (9-16) mg/dL AST 33 H D (5-31) U/L ALT 50 H (0-31) U/L Urine Protein 1+ H (NEG-TRACE) MG/DL Urine Blood 3+ H (NEG) Urine RBC TNTC H (0) /HPF Short CBC 10/03/21 Range/Units 07:20 WBC 5.9 (4.8-10.8) X10*3/uL Hgb 12.6 (12.0-16.0) g/dl Hct 38.0 (37.0-47.0) % Plt Count 247 (160-400) X10*3/uL BMP 10/03/21 07:20 Sodium 140 Potassium 4.5 Chloride 108 Carbon Dioxide 23 BUN 20 H Creatinine 1.06 Calcium 9.5 Liver Function 10/03/21 Range/Units 07:20 Total Bilirubin 0.4 (0.0-1.0) mg/dL Direct Bilirubin < 0.2 (0.0-0.5) mg/dL AST 33 H D (5-31) U/L ALT 50 H (0-31) U/L Alkaline Phosphatase 104 (39-117) U/L Albumin 4.8 (3.5-5.0) g/dL Urine 10/03/21 Range/Units 07:20 Urine Color YELLOW Urine Appearance CLOUDY Urine pH 6.0 (5.0-8.0) Ur Specific [place] 1.020 (1.005-1.025) Urine Protein 1+ H (NEG-TRACE) MG/DL Urine Glucose (UA) NEG (NEG) MG/DL All other labs normal. Assessment and Plan (1) Ureterolithiasis: Status: Acute Plan Ureteroscopy We discussed the nature of the decision and reasonable alternatives for performing the above surgery. Interventions include chemical dissolution, ESWL, ureteroscopy with laser lithotripsy and stent placement, PCNL. Options such as medical therapy were discussed. The relative uncertainties and benefits related to each alternate procedure were adequately discussed. General surgical risks including, but not limited to, pain, bleeding, infection, myocardial infarction, pulmonary embolus, deep vein thrombosis and cerebrovascular accident which may result in further hospitalization were discussed. Full disclosure of the procedure as well as all major risks, benefits and complications were discussed including but not limited to damage to the urethra, bladder and kidney infection, damage to the ureter, stent migration or malposition, scarring to the renal pelvis, remnant stone fragments, subsequent stone passage with need for secondary procedures. The overall secondary procedure rate is approximately 10-15%. The success rate of the procedure was discussed. Success of the procedure in the short-term does not necessarily guarantee that long-term success will be maintained. Suitable follow up will need to be maintained. The patient showed understanding of discussion and wishes to proceed with - cystoscopy, retrograde, ureteroscopy, possible lithotripsy/stone basketing and stent on the right side - flexible scope Procedures Date of Service Date of Service: 10/03/21
--- NOTE | 2021-10-03 15:42 | PC.NURSE ---
patient a&ox3, vitals have been stable, ivf running per order, pt c/o 08/06 pain was recently medicated for pain, pt remains NPO last ate at 530 am, call foley within reach, will continue to monitor.
[2021-10-03] MEDS: Morphine Sulfate 2 MG/ML CARTRIDGE 1 MG IVPUSH (16:47)
--- NOTE | 2021-10-03 18:39 | PC.NURSE ---
patient a&ox3, vss, pt medicated for pain per order, pt updated about OR/Dr. Pascual, will continue to monitor.
--- NOTE | 2021-10-03 19:46 | PC.NURSE ---
patients pain has reduced, second iv site inserted to rt arm per request of OR staff.
--- NOTE | 2021-10-03 20:11 | PC.NURSE ---
pt discharged to pacu
--- NOTE | 2021-10-03 20:26 | MHC.SHP ---
Pre-Procedural Eval Section A Date of Service: 10/03/21 The patient is an INPATIENT: No Changes since office visit: No Cold of Flu in the past 2 weeks, No New Medical Problems, No Changes in Medication and No Patient answered all questions The History & Physical has been completed within 30 days and I have reviewed it.: Yes Section B Chief Complaint: kidney stone pain? Allergies: Allergies Allergy/AdvReac Type Severity Reaction Status Date / Time morphine AdvReac Mild Vomiting Verified 09/25/21 14:50 Plan Diagnosis/Plan: Unchanged (right retrograde, ureteroscopy flexible, laser, stent placement) I have reviewed the history and physical and performed a pertinent physical examination on my patient. No changes have occurred unless specified.
--- NOTE | 2021-10-03 21:27 | P.CONAN_ITS ---
[facility] Active Problems Active Problems: All Active Problems (Updated 10/03/21 @ 11:32 by Sri Joseph DO) Ureterolithiasis (Acute) Vitamin D deficiency (Acute) Nephrolithiasis (Acute) Physical exam (Acute) Well woman exam (Acute) Counseling for hormone replacement therapy (Acute) Physical exam (Acute) Screening for colon cancer (Acute) Past Medical History Medical History Anxiety COVID-19 vaccine series completed Depression Headache Hyperlipemia Renal calculi Functional capacity: independent ambulation Patient : No Family History Family History Father Hypothyroidism Skin cancer Kidney failure Pulmonary embolism Mother Kidney failure Family/Other Brain cancer Son No problems noted. Daughter No problems noted. Family history of problems with anesthesia: No Surgical History Surgical History History of lithotripsy History of rotator cuff surgery History of shoulder surgery History of vaginal hysterectomy Hx of cystoscopy History of Problems with Anesthesia: No Social History Social History Housing: House Alcohol intake: never Patient Tobacco Use Status: Never used Tobacco e-Cigarette/Vaping Use: Never Used Second Hand Smoke Exposure: Yes Use of substances other than those prescribed or required for medical reasons: No Advance Directives: Yes Advance Directives on File: Yes Advance Directives Date on File: 04/28/21 Patient : No service: No Current occupational status: employed Current occupation: [employer] Current occupational exposures/hazards: No Cognitive needs: No Hearing needs: No Vision needs: No Meds Allergies Allergy/AdvReac Type Severity Reaction Status Date / Time morphine AdvReac Mild Vomiting Verified 09/25/21 14:50 Active Medications: Current Medications Hydromorphone HCl (Hydromorphone Hcl 1 Mg/Ml Syringe) 1 mg IVPUSH Q4H PRN; Protocol PRN Reason: Pain, Severe (Pain Scale 7-10) Last Admin: 10/03/21 18:35 Dose: 1 mg Sodium Chloride (Ns) 1,000 mls @ 100 mls/hr IVCONT .Q10H DIDIER Last Admin: 10/03/21 13:49 Dose: 100 mls/hr Ondansetron HCl (Ondansetron Hcl 4 Mg/2 Ml Vial) 4 mg IVPUSH TID PRN PRN Reason: Nausea and Vomiting Pharmacy Consult (Consult Rx Perform Med Rec) 1 each MISCELLANE ONCE PRN PRN Reason: Consult order Home Medications Medication Instructions Recorded Confirmed Last Taken Type allopurinol 100 mg tablet 1 tab PO BEDTIME 03/11/21 10/03/21 10/02/21 History propranolol 120 mg capsule,24 1 cap PO DAILY 03/11/21 10/03/21 10/03/21 History hr,extended release pyridoxine (vitamin B6) 100 mg 1 tab PO BEDTIME 03/11/21 10/03/21 10/02/21 History tablet topiramate 100 mg tablet 1 tab PO BEDTIME 03/11/21 10/03/21 10/02/21 History atorvastatin 20 mg tablet 20 mg PO BEDTIME 10/03/21 10/03/21 10/02/21 History estradiol 1 mg tablet 1 tab PO DAILY 10/03/21 10/03/21 10/03/21 History multivitamin 1 tab PO DAILY 10/03/21 10/03/21 10/03/21 History omega 5-otk-ljh-fish oil 1,000 mg 1 cap PO DAILY 10/03/21 10/03/21 10/03/21 H istory (120 mg-180 mg) capsule (Fish Oil) Exam Exam Date and Time: October 03, [id number] Height,Weight and Vital Signs: Height 5 ft 4 in Weight 95.254 kg Last Vital Signs Temp 97.5 F 10/03/21 20:26 Pulse 81 10/03/21 20:26 Resp 16 10/03/21 20:26 BP 110/50 L 10/03/21 20:26 Pulse Ox 98 10/03/21 20:26 O2 Del Method 10/03/21 20:26 Pertinent Lab Results Pertinent Lab Results: Laboratory Tests 10/03/21 10/03/21 10/03/21 07:20 07:20 07:20 WBC 5.9 RBC 4.05 L Hgb 12.6 Hct 38.0 MCV 93.8 MCH 31.1 MCHC 33.2 RDW 12.0 Plt Count 247 MPV 9.6 Immature Gran % (Auto) 0.2 Neut % (Auto) 59.3 Lymph % (Auto) 29.9 [place] % (Auto) 7.5 Eos % (Auto) 1.9 Baso % (Auto) 1.2 Lymph # (Auto) 1.8 [place] # (Auto) 0.4 Eos # (Auto) 0.1 Baso # (Auto) 0.1 Abs Immat Gran (auto) 0.01 Absolute Neuts (auto) 3.5 Absolute Nucleated RBC 0.000 Nucleated RBC % (auto) 0.0 Sodium 140 Potassium 4.5 Chloride 108 Carbon Dioxide 23 Anion Gap 14 BUN 20 H Creatinine 1.06 Estim Creat Clear Calc 70.3 Estimated GFR 55 Random Glucose 112 Calcium 9.5 Magnesium 2.1 Total Bilirubin 0.4 Direct Bilirubin < 0.2 AST 33 H D ALT 50 H Alkaline Phosphatase 104 Total Protein 7.9 Albumin 4.8 Lipase 18 Urine Color YELLOW Urine Appearance CLOUDY Urine pH 6.0 Ur Specific [place] 1.020 Urine Protein 1+ H Urine Glucose (UA) NEG Urine Ketones NEG Urine Blood 3+ H Urine Nitrite NEG Ur Leukocyte Esterase NEG Urine RBC TNTC H Urine WBC 1-4 Ur Squamous Epith Cells 2+ Urine Bacteria TRACE COVID-19 ([facility]) COVID-19 Clin Com 10/03/21 08:33 WBC RBC Hgb Hct MCV MCH MCHC RDW Plt Count MPV Immature Gran % (Auto) Neut % (Auto) Lymph % (Auto) [place] % (Auto) Eos % (Auto) Baso % (Auto) Lymph # (Auto) [place] # (Auto) Eos # (Auto) Baso # (Auto) Abs Immat Gran (auto) Absolute Neuts (auto) Absolute Nucleated RBC Nucleated RBC % (auto) Sodium Potassium Chloride Carbon Dioxide Anion Gap BUN Creatinine Estim Creat Clear Calc Estimated GFR Random Glucose Calcium Magnesium Total Bilirubin Direct Bilirubin AST ALT Alkaline Phosphatase Total Protein Albumin Lipase Urine Color Urine Appearance Urine pH Ur Specific [place] Urine Protein Urine Glucose (UA) Urine Ketones Urine Blood Urine Nitrite Ur Leukocyte Esterase Urine RBC Urine WBC Ur Squamous Epith Cells Urine Bacteria COVID-19 ([facility]ANUEL) Negative COVID-19 Clin Com See Note Airway Mallampati Class: II TM Dist: >3cm Neck ROM: Full Heart: RRR Lungs: CTA Assessment and Plan Final Anesthetic Review Family History of Problems with Anesthesia: No History of Problems with Anesthesia: No ASA Class: II and Emergency Final Preanesthetic Review: No Changes in Pt Med Stat, Meds/Allgs Chart Reviewed, Consent Obtained/Reviewed and Anes Risks/Benef Reviewed Patient Risk: Low Procedure Risk: Low Anesthetic Plan Anesthetic Plan: GA Disposition: Standard PACU
--- NOTE | 2021-10-03 23:29 | W.PM.OPN ---
Operative Note Operative Note Date of Service: 10/03/21 Narrative: PreOperative Diagnosis: right renal stones Post Operative Diagnosis: right renal stone Procedure: - cystoscopy, right retrograde - right dilatation of ureteric orifice under fluoroscopy - right ureteroscopy, laser lithotripsy, stone basketing - 100% longer than typical modifier 22 40 extra minutes due to size of stone greater than 1 cm right - right stent placement Surgeon: Dr Naun Pascual Anesthesia: General Indications for procedure: right renal stone 1.2 cm Procedure: After informed consent was verified patient was brought to the operating placed in supine position. Anesthesia was administered per protocol. Patient was placed in modified dorsal lithotomy position and prepped and draped in a sterile fashion. Safety pause time-out and side of surgery confirmed. Antibiotics confirmed. 22 Armenian cystoscope was inserted per urethra. Bladder was normal in its entirety. Both ureteric orifices were in normal position. The right ureteric orifice was cannulated and a retrograde examination was performed. filling defect in right renal pelvis . A Sensor guidewire was placed up to the level of the renal pelvis under fluoroscopy. The rigid cystoscope was removed and the inner cannula of ureteric access sheath was used under fluoroscopy to dilate the ureteric orifice. The ureteric access sheath was placed and the inner cannula with access wire removed. The digital flexible ureteral scope was placed. stone was engaged with 360 micron fiber. Fiber used to break stone taking 45 minutes which is 100% longer than typical. Basketing performed A 6 Armenian by 24 cm double-J stent was placed into the renal pelvis and bladder under a combination of fluoroscopy and direct visualization. The bladder was emptied. The patient tolerated the procedure well and was extubated in the operating room, and transferred in stable condition to the recovery area. Pathology: stone Drains: 6 Armenian by 24 cm double-J stent
[2021-10-03] MEDS: Ketorolac Tromethamine 30 MG/ML VIAL 15 MG IVPUSH (23:58)
[2021-10-04 00:02] VITALS: BP 128/67; PULSE 77; RESP 16; O2SAT 100
[2021-10-04 00:17] VITALS: BP 115/62; PULSE 80; RESP 16; O2SAT 100
[2021-10-04] MEDS: oxyCODONE HCl Immed Release 5 MG TABLET PO (00:21)
[2021-10-04] MEDS: Phenazopyridine HCL 100 MG TABLET PO (00:21)
[2021-10-04 00:33] VITALS: BP 116/57; PULSE 77; RESP 16; O2SAT 98
--- NOTE | 2021-10-04 00:40 | PC.NURSE ---
Phenergan 6.25mg IV in 50ml NS given at 0000. written order from Dr. Henson [facility]ed [facility] and called [facility]. both fax reciepts show fax went through.
[2021-10-04 00:47] VITALS: BP 109/60; PULSE 84; RESP 16; TEMP 36.6; O2SAT 97
[2021-10-07 15:52] LABS: Stone Source RIGHT KIDNEY STONE
== END 2021-10-03 20:56 | disposition admitted as inpatient to this hospital (09) ==
LOC: HO.ED 20:09 → HO.SSSA 23:29 → HO.SSS 10-04 08:36
PROVIDERS: Urology; PCP Nurse Practitioner Family; Visit Provider Emergency Medicine
PROC: (CPT 52356; principal; 2021-10-03 17:25)
DX: N20.0 Calculus of kidney (principal); Z20.822 Contact with and (suspected) exposure to COVID-19; F41.8 Other specified anxiety disorders; E78.5 Hyperlipidemia, unspecified; R11.0 Nausea; R51.9 Headache, unspecified; Z88.8 Allergy status to other drugs, medicaments and biological substances; Z87.442 Personal history of urinary calculi; Z84.1 Family history of disorders of kidney and ureter; Z79.899 Other long term (current) drug therapy; Z79.02 Long term (current) use of antithrombotics/antiplatelets
CPT/HCPCS: 52356; 52352; 36415; 76775; 80048; 80076; 81001; 82365; 83690; 83735; 85025; 87635; 88300; 96361; 96374; 96375; 96376; 99285; C1758; C1769; C1894; C2617; J0131; J1100; J1170; J1885; J1956; J2250; J2270; J2405; J2550; J3010; Q9967

== ENCOUNTER → 2021-10-25 09:54 | Outpatient (BNVA) | payer OTHER, SELFPAY | PROVIDERS: PCP Nurse Practitioner Family; Visit Provider Urology | DX: N20.0 Calculus of kidney (principal); R82.994 Hypercalciuria | CPT/HCPCS: 52310 ==

== ENCOUNTER 2021-12-20 15:23 | Outpatient (REF) | payer OTHER, SELFPAY ==
--- NOTE | ~2021-12-20 | US_ITS ---
EXAMINATION: US RETROPERITONEAL LIMITED (RENAL ONLY) CLINICAL INFORMATION: Calculus of kidney. COMPARISON: Ultrasound kidneys 10/03/2021. TECHNIQUE: Real-time imaging of the kidneys. FINDINGS: RIGHT KIDNEY: 10.3 x 5.3 x 5.2 cm (SAG x AP x TRV). The kidney is normal in size, contour, and echogenicity. Renal cortical thickness is normal. No focal parenchymal lesions or hydronephrosis. Previously seen 1.4 cm obstructing stone in the renal pelvis is no longer identified. Multiple nonobstructing renal stones remaining measuring up to 7 mm in the lower pole previously 5 mm. LEFT KIDNEY: 9.8 x 4.2 x 4.1 cm (SAG x AP x TRV). The kidney is normal in size, contour, and echogenicity. Renal cortical thickness is normal. No focal parenchymal lesions or hydronephrosis. Previously seen clustered lower pole renal stones are no longer discretely measurable, and measure 1.3 cm overall. US/US renal BI IMPRESSION: Previously seen 1.4 cm obstructing stone in the right renal pelvis is no longer identified with resolution of previously seen hydronephrosis. Bilateral nonobstructing renal stones as above detailed measuring up to 1.3 cm in a cluster of left lower pole renal stones..
== END 2021-12-20 15:24 | disposition home or self-care (01) ==
LOC: HO.US 15:23
PROVIDERS: Visit Provider Urology
DX: N20.0 Calculus of kidney (principal)
CPT/HCPCS: 76775

== ENCOUNTER 2022-02-13 15:43 | Outpatient (AMB) | payer OTHER, SELFPAY ==
--- NOTE | 2022-02-10 13:55 | MHC.OFFVIS ---
Intake 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: 4 Month US(set) Intake Note: Patient is present for Telephone Ultrasound follow up Urology Medication: Allopurinol, Estradiol, Macrobid, Vitamin B6, Tamsulosin Blood Thinner: Allergies haloperidol [From Haldol] Adverse Reaction (Intermediate, Verified 04/22/23 10:09) Dizziness morphine Adverse Reaction (Mild, Verified 04/22/23 10:09) Vomiting Medication List - Last Reconciled 02/13/22 by Naun Pascual MD allopurinol 1 tab PO BEDTIME atorvastatin 20 mg PO BEDTIME 90 days buspirone 10 mg PO BID 90 days ggcqfbookz-jurnnmqvutxow-zniz 50-300-40 mg 1 cap PO DAILY PRN estradiol 1 tab PO DAILY indapamide 1.25 mg PO DAILY 90 days metoclopramide HCl (Reglan) 5 mg PO QIDACHS PRN 5 days multivitamin 1 tab PO DAILY naproxen (Naprosyn) 500 mg PO Q12H PRN 30 days nitrofurantoin macrocrystal 100 mg PO BEDTIME 90 days omega 0-utb-beo-fish oil 1,000 mg (120 mg-180 mg) (Fish Oil) 1 cap PO DAILY oxycodone-acetaminophen 5-325 mg (Percocet) 1 tab PO Q8H PRN phenazopyridine 100 mg PO Q8H 6 doses potassium citrate ER 15 mEq PO TID 90 days propranolol ER 120 mg PO DAILY pyridoxine (vitamin B6) 100 mg PO BEDTIME 90 days sertraline 50 mg PO DAILY 90 days tamsulosin 0.4 mg PO BEDTIME 14 days topiramate 100 mg PO BEDTIME 30 days venlafaxine ER 150 mg PO DAILY 90 days HPI HPI Comments History of Present Illness Details Shoshana is a very pleasant female. She is a patient of Dr. Cummings. She is seen for the following urologic conditions - recurrent nephrolithiasis Telemedicine Evaluation 15 min Consultation [employer] [facility] Video attempted Confirmed current treatment regimen which includes - indapamide to reduce urinary calcium - vitamin B6 - potassium citrate powder which she obtains from [employer] since easier to use than potassium citrate tablets Completed [facility] last week Information provided regarding [facility] kidney stone diet 6 month follow-up ultrasound Nephrolithiasis Recurrent calcium oxalate with background of topiramate use and high calcium on 24 hour urine They are here for further evaluation of nephrolithiasis. Urolithiasis was diagnosed - Stones have been present since early 2015. Had undergone evaluation with Dr. Britton. ESWL performed previously 04/15 Left. - Obstructing left ureteric stone had passed. Ureteroscopy performed but left lower pole stone not treated at that time 08/13 - uses top remain for migraine management The patient previously had kidney stones whose composition includes - 12/14 , calcium oxalate - monohydrate, calcium oxalate - dihydrate - 11/16 , calcium oxalate - monohydrate - 03/19 calcium oxalate monohydrate, carbonate apatite - 09/18 calcium oxalate dihydrate with carbonate apatite Laboratory investigations include - 12/14 , Base line serum evaluation, Normocalcemia (9.0), Normal PTH, Normal uric acid 03/19 Ca 9.7 - 11/13 , 24 Hr Urine - Low Urine volume < 2.0 liters, High oxalate > 30mg, Low citrate < 400. - 07/19 Ca 9.9, 24 hr large volume, low citrate, high calcium Prior treatment(s) include left, ESWL - 12/14 left, ureteroscopy - had post procedure UTI - 12/14 , medical management, with allopurinol, with potassium citrate - 11/16 , ureteroscopy left side - 03/19 right side ureteroscopy, 04/20 left-sided ureteroscopy, 09/18 Right USR Prior imaging includes - 09/13 , a CT with contrast to nonobstructing calculi right kidney largest 3 mm, 3 nonobstructing calculi left kidney largest 9 mm lower pole - 03/15 , a renal ultrasound, on the right, showing no evidence of stones, on the left, showing radiodense stone(s), 5-10 mm - 04/17 US bilateral stones, XR left 6mm x2 - 10/15 , a KUB x-ray left-sided 1.2 cm stone - 04/18 , a KUB x-ray stable - 10/16 , a KUB x-ray left 1.2 cm, right 5mm - 01/16 CT scan, 5 mm distal right stone with hydronephrosis - 06/18 renal ultrasound 3 mm bilateral stones, 01/18 renal ultrasound significantly decreased stone burden right side, left cluster 6 mm Current therapeutic plan - hyper filtration, indapamide, repeat [facility] Medical History Renal calculi Depression Anxiety Headache Hyperlipemia Surgical History H/O colonoscopy Hx of cystoscopy History of vaginal hysterectomy History of shoulder surgery History of lithotripsy History of rotator cuff surgery Family History Father Hypothyroidism Skin cancer Kidney failure Pulmonary embolism Mother Kidney failure Mental health disorder Family/Other Brain cancer Son No problems noted. Daughter No problems noted. Social History Housing: House Alcohol intake: never Comment: bed bound wheel chair bound clau lift Patient Tobacco Use Status: Never used Tobacco e-Cigarette/Vaping Use: Never Used Second Hand Smoke Exposure: Yes Advance Directives Date on File: 10/29/22 service: No Current occupational status: employed Current occupation: [employer] Current occupational exposures/hazards: No Cognitive needs: No Hearing needs: No Vision needs: Yes Female Reproductive History Menstrual Age of Menarche: 10 Review of Systems Const All systems reviewed & are unremarkable except as noted in HPI and below Reports no additional complaints Resp Reports no additional complaints GI Reports no additional complaints Reports as per HPI Musc Reports no additional complaints Physical Exam Telemedicine evaluation Appropriate responses Regular breathing rate and rhythm HEENT Head: Yes normal to inspection Ears: hearing grossly normal bilaterally Eyes General: appearance normal, both eyes and all related structures Neck Neck: Yes normal visual inspection Chest Chest palpation & inspection: normal inspection of the chest Resp Effort & Inspection: normal respiratory effort and able to speak in complete sentences Assessment & Plan Assessment & Plan (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 All questions were answered. Imaging studies, laboratory studies and physical exam results were discussed and reviewed in detail. No major barriers to understanding were identified. The patient expressed understanding and agreement with the above treatment plan. The patient is aware they should contact our office by phone for worsening of their current condition or the appearance of new symptoms. Compliance is encouraged with any medications and followup testing that is ordered. It is a privilege to be allowed the opportunity to participate in the urologic care of your patient. If you have any questions or concerns regarding treatment for the above conditions please do not hesitate to contact me. The office telephone contact is [phone]. This note is constructed using voice recognition software. While every effort has been made to ensure accuracy timekeeping supervisor errors may have been included. Yours sincerely, Dr Naun Pascual MD, [facility] Telehealth Location of provider rendering services: practice address Location of patient: address on file Patient Identification confirmed using: Name, : Yes Telehealth method: voice only Patient verbally consented to treatment: Yes Patient verbally consented to billing insurance company: Yes Patient informed of any privacy concerns related to visit: Yes Coding Level of Care Code Tele Est Pt Level 4 (90463) Diagnoses Hypercalciuria R82.994 Nephrolithiasis N20.0
== END 2022-02-13 16:00 | disposition home or self-care (01) ==
LOC: HO.HUSH 15:43
PROVIDERS: PCP Nurse Practitioner Family; Visit Provider Urology
DX: R82.994 Hypercalciuria (principal); N20.0 Calculus of kidney
CPT/HCPCS: 99214; 99499

== ENCOUNTER 2022-03-05 13:02 | Outpatient (REF) | payer OTHER, SELFPAY ==
[2022-03-05 16:30] LABS: MANUAL DIFF FLAG NO
[2022-03-05 16:35] LABS: Basophils Absolute Auto 0.1 X10*3/uL (0.0-0.2); Basophils Percent Auto 0.6 % (0-2); Eosinophils Absolute Auto 0.1 X10*3/uL (0.0-0.4); Eosinophils Percent Auto 1.1 % (0-4); Hematocrit 41.9 % (37.0-47.0); Hemoglobin 14.2 g/dl (12.0-16.0); Imm Gran Abs Auto 0.06 X10*3/uL (0.00-0.03); Imm Gran Pct Auto 0.7 % (0.0-0.4); Lymphocytes Absolute Auto 2.1 X10*3/uL (1.2-4.9); Lymphocytes Percent Auto 24.1 % (20-40); Mean Corpuscular HGB Conc 33.9 g/dl (31.0-35.0); Mean Corpuscular Hemoglobin 31.1 pg (27.0-33.0); Mean Corpuscular Volume 91.9 fL (80.0-98.0); Mean Platelet Volume 10.2 fL (9.4-12.3); Monocytes Absolute Auto 0.8 X10*3/uL (0.1-1.2); Monocytes Percent Auto 9.7 % (2-11); Neutrophils Absolute Auto 5.6 x10*3/uL (2.0-8.3); Neutrophils Percent Auto 63.8 % (45-73); Platelet Count 371 X10*3/uL (160-400); Red Blood Count 4.56 X10*6/uL (4.20-5.50); Red Cell Distribution Width 11.8 % (11.0-16.0); White Blood Count 8.7 X10*3/uL (4.8-10.8)
[2022-03-05 17:34] LABS: Anion Gap 18 (12-20); Blood Urea Nitrogen 13 mg/dL (9-16); Calcium 10.5 mg/dL (8.4-10.2); Carbon Dioxide 32 mmol/L (22-29); Chloride 97 mmol/L (96-108); Estimated Glomerular Filt Rate > 60; Glucose Random 98 mg/dL (60-115); Sodium 143 mmol/L (135-145)
== END 2022-03-05 13:03 | disposition home or self-care (01) ==
LOC: HO.HMGCLDS 13:02
PROVIDERS: PCP Nurse Practitioner Family; Visit Provider Nurse Practitioner Family
DX: U07.1 COVID-19 (principal); R20.2 Paresthesia of skin
CPT/HCPCS: 36415; 80048; 85025

== ENCOUNTER 2022-07-23 07:30 | Outpatient (REF) | payer OTHER, SELFPAY ==
--- NOTE | ~2022-07-23 | MM_ITS ---
EXAMINATION: MM SCREENING DIGITAL BREAST TOMOSYNTHESIS, BILATERAL CLINICAL INFORMATION: Screening. Asymptomatic. The lifetime risk of breast cancer based on the Tyrer-Cuzick Model is 5%. COMPARISON: Mammography: 06/19/2021, 06/12/2020, 06/07/2019, 06/01/2018, 04/08/2017, 01/10/2016 TECHNIQUE: Digital breast tomosynthesis is performed in both the craniocaudal and mediolateral oblique views along with computer-aided detection (CAD). Synthesized 2D images are generated from the tomosynthesis. FINDINGS: There are scattered areas of fibroglandular density (ACR BI-RADS breast composition Category b). Right breast parenchymal pattern is similar to prior studies and there is no developing density or interval mass or architectural abnormality. Neither breast shows abnormal calcifications. The bilateral axilla and skin contours are unremarkable. The left breast has 2 areas of asymmetric density, anterior outer breast on CC view 4 cm from nipple and mid lower left breast on MLO view, 5.5 cm from nipple. The areas are likely unrelated, possibly summation artifact or incompletely compressed glandular tissue. Patient will be recalled to obtain additional views to fully characterize the left breast. MM/MM tomosynthesis screening BI IMPRESSION: Left: -Asymmetric densities anterior outer and mid lower left breast, suspect summation artifact or incompletely compressed glandular tissue. Right: -No mammographic evidence of malignancy. ASSESSMENT: BI-RADS 0: Incomplete - Need Additional Imaging Evaluation RECOMMENDATION: 1. Additional views left breast (spot CC, spot MLO, standard ML). 2. Targeted ultrasound if warranted after review of the additional views. 3. Radiology department staff will contact the patient for additional imaging. This patient's information was entered into a reminder system with a target due date for their next mammogram.
== END 2022-07-23 07:31 | disposition home or self-care (01) ==
LOC: HO.MAMMO 07:30
PROVIDERS: PCP Nurse Practitioner Family; Visit Provider Nurse Practitioner Family
DX: Z12.31 Encounter for screening mammogram for malignant neoplasm of breast (principal)
CPT/HCPCS: 77063; 77067

== ENCOUNTER 2022-07-23 10:10 | Outpatient (REF) | payer OTHER, SELFPAY ==
--- NOTE | ~2022-07-23 | US_ITS ---
EXAMINATION: US RETROPERITONEAL LIMITED (RENAL ONLY) CLINICAL INFORMATION: Calculus of kidney. COMPARISON: Renal ultrasound 12/20/2021 and 10/03/2021. CT abdomen and pelvis 03/11/2021. TECHNIQUE: Real-time imaging of the kidneys. FINDINGS: RIGHT KIDNEY: 10.6 x 5.3 x 5.0 cm (SAG x AP x TRV). The kidney is normal in size, contour, and echogenicity. Renal cortical thickness is normal. No focal parenchymal lesions or hydronephrosis. There is an echogenic stone in midpole measuring 0.4 x 0.4 x 0.6 cm. No additional stones seen. There is mild pelvic fullness. LEFT KIDNEY: 9.9 x 4.5 x 3.6 cm (SAG x AP x TRV). The kidney is normal in size, contour, and echogenicity. Renal cortical thickness is normal. No focal parenchymal lesions or hydronephrosis. There are several echogenic stones. The largest lower pole stone measuring 1.7 x 1.8 x 1.1 cm. A midpole stone measures 0.7 x 0.4 cm. There is echogenic linear calcification in midpole. US/US renal BI IMPRESSION: 1. Bilateral nonobstructive echogenic renal calculi. 2. There is mild pelvic fullness right kidney. 3. There is no caliectasis or hydronephrosis in either kidney.
== END 2022-07-23 10:11 | disposition home or self-care (01) ==
LOC: HO.US 10:10
PROVIDERS: PCP Internal Medicine; Visit Provider Urology
DX: N20.0 Calculus of kidney (principal); N20.1 Calculus of ureter
CPT/HCPCS: 76775

== ENCOUNTER → 2022-08-26 14:52 | Outpatient (BNVA) | payer OTHER, SELFPAY | PROVIDERS: PCP Nurse Practitioner Family; Visit Provider Urology ==

== ENCOUNTER 2022-08-27 15:01 | Outpatient (REF) | payer OTHER, SELFPAY ==
--- NOTE | ~2022-08-27 | MM_ITS ---
EXAMINATION: MM DIAGNOSTIC DIGITAL BREAST TOMOSYNTHESIS, LEFT CLINICAL INFORMATION: Recall from screening for 2 separate asymmetric densities left breast, suspected summation artifact or incompletely compressed glandular tissue. COMPARISON: Prior mammography exams including most recent 07/23/2022. TECHNIQUE: Digital breast tomosynthesis is performed. 2D images are generated from the tomosynthesis. The following views are obtained: Spot CC, spot MLO x2, standard ML. FINDINGS: There are scattered areas of fibroglandular density (ACR BI-RADS breast composition Category b). Additional views show no persistent asymmetric densities. There is no developing density or interval architectural abnormality. No significant changes from prior exams. Results are discussed with the patient at time of visit. MM/MM tomosynthesis added views L IMPRESSION: Additional views show no significant changes from prior studies. ASSESSMENT: BI-RADS 2: Benign RECOMMENDATION: Routine annual mammography screening. This patient's information was entered into a reminder system with a target due date for their next mammogram.
== END 2022-08-27 15:02 | disposition home or self-care (01) ==
LOC: HO.MAMMO 15:01
PROVIDERS: PCP Nurse Practitioner Family; Visit Provider Nurse Practitioner Family
DX: R92.2 Inconclusive mammogram (principal)
CPT/HCPCS: 77061; 77065

== ENCOUNTER 2022-09-13 08:57 | Outpatient (REF) | payer OTHER, SELFPAY ==
[2022-09-13 09:25] LABS: MANUAL DIFF FLAG NO
[2022-09-13 09:38] LABS: Basophils Percent Auto 0.5 % (0-2); Eosinophils Absolute Auto 0.1 X10*3/uL (0.0-0.4); Eosinophils Percent Auto 2.3 % (0-4); Hematocrit 36.6 % (37.0-47.0); Imm Gran Abs Auto 0.02 X10*3/uL (0.00-0.03); Imm Gran Pct Auto 0.4 % (0.0-0.4); Lymphocytes Absolute Auto 1.7 X10*3/uL (1.2-4.9); Mean Corpuscular HGB Conc 32.8 g/dl (31.0-35.0); Mean Corpuscular Volume 94.6 fL (80.0-98.0); Mean Platelet Volume 10.1 fL (9.4-12.3); Monocytes Absolute Auto 0.5 X10*3/uL (0.1-1.2); Monocytes Percent Auto 8.1 % (2-11); Neutrophils Absolute Auto 3.3 x10*3/uL (2.0-8.3); Neutrophils Percent Auto 58.7 % (45-73); Platelet Count 250 X10*3/uL (160-400); Red Blood Count 3.87 X10*6/uL (4.20-5.50); Red Cell Distribution Width 12.2 % (11.0-16.0); White Blood Count 5.6 X10*3/uL (4.8-10.8)
[2022-09-13 09:47] LABS: Appearance Urine Clear; Color Urine Yellow; Glucose Urine UA Negative (Negative); Leukocyte Esterase Urine Trace (Negative); Nitrite Urine Negative (Negative); PH 7.5 (5.0-9.0); UMIC TRIGGER UACC YES; Urine Blood Small (1+) (Negative); Urine Ketones Negative (Negative); Urine Protein Negative (Neg-Trace)
[2022-09-13 09:51] LABS: Bacteria Urine Trace (None Seen); RBC Urine >20 /HPF (0-2); UACC Culture Trigger YES
[2022-09-13 10:15] LABS: Alanine Aminotransferase 24 U/L (0-31); Albumin Level 4.1 g/dL (3.5-5.0); Alkaline Phosphatase 91 U/L (39-117); Anion Gap 13 (12-20); Aspartate Amino Transferase 18 U/L (5-31); Bilirubin Total 0.3 mg/dL (0.0-1.0); Blood Urea Nitrogen 20 mg/dL (9-16); Calcium 9.3 mg/dL (8.4-10.2); Carbon Dioxide 27 mmol/L (22-29); Chloride 104 mmol/L (96-108); Cholesterol 153 mg/dL; Estimated Glomerular Filt Rate > 60; Glucose Fasting 93 mg/dL (60-99); HDL Cholesterol 53 mg/dL; LDL Cholesterol Calculated 76 mg/dl; Potassium 3.6 mmol/L (3.3-5.1); Sodium 140 mmol/L (135-145); Total Protein 7.3 g/dL (6.5-8.0); Triglycerides 123 mg/dL
[2022-09-13 10:33] LABS: TSH reflex Free T4 1.17 uIU/mL (0.32-4.0); Vitamin D 25-OH Total 52.9 ng/mL (>30)
== END 2022-09-13 08:58 | disposition home or self-care (01) ==
LOC: HO.LAB 08:57
PROVIDERS: PCP Nurse Practitioner Family; Visit Provider Nurse Practitioner Family
DX: Z00.00 Encounter for general adult medical examination without abnormal findings (principal); E55.9 Vitamin D deficiency, unspecified; R82.90 Unspecified abnormal findings in urine; E78.5 Hyperlipidemia, unspecified
CPT/HCPCS: 36415; 80053; 80061; 81001; 82306; 84443; 85025; 87086

== ENCOUNTER → 2022-10-06 08:39 | Outpatient (BNVA) | payer OTHER, SELFPAY | PROVIDERS: PCP Nurse Practitioner Family; Visit Provider Obstetrics & Gynecology ==

== ENCOUNTER 2022-10-06 09:59 | Outpatient (AMB) | payer OTHER, SELFPAY ==
[2022-10-06 10:36] VITALS: BP 100/68; PULSE 75; O2SAT 97; BMI 34.4
--- NOTE | 2022-10-06 10:36 | MHC.PC.OV ---
Vital Signs 10/06/22 10:36 Height 5 ft 4 in Weight 200 lb 8 oz BMI 34.4 BP 100/68 Blood Pressure Location Rt brachial Position Sitting Pulse 75 Pulse Source Pulse Oximeter Pulse Oximetry (%) 97 Oxygen Delivery Method Room Air 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: 6 Month follow up Allergies morphine Adverse Reaction (Mild, Verified 10/06/22 11:30) Vomiting Medication List - Last Reconciled 10/06/22 by Basilio Ochoa, [facility]- allopurinol 100 mg PO BEDTIME 90 days atorvastatin 20 mg PO BEDTIME 90 days buspirone 10 mg PO BID 90 days qaqrbcuotp-drsqypxuhzzko-ezfl 50-300-40 mg 1 cap PO DAILY PRN cetirizine (Zyrtec) 10 mg PO DAILY PRN clobetasol 0.05% 1 appl topical BID 2 weeks desoximetasone 0.25% appl topical BID estradiol 1 mg PO DAILY 90 days indapamide 1.25 mg PO DAILY 90 days multivitamin 1 tab PO DAILY omega 9-oeh-ouz-fish oil 1,000 mg (120 mg-180 mg) (Fish Oil) 1 cap PO DAILY prednisone 20 mg PO daily 5 days propranolol ER 120 mg PO DAILY pyridoxine (vitamin B6) 100 mg PO BEDTIME 90 days tamsulosin 0.4 mg PO daily 14 days topiramate 100 mg PO BEDTIME venlafaxine ER 150 mg PO DAILY venlafaxine ER 75 mg PO DAILY Tobacco use date assessed: 10/06/22 Dental Screening Dental Screen Date: 10/06/22 Did you have a dental visit in the last 12 months?: Yes Did you have a dental problem in the last 6 months where you did not have access to dental care?: No Was dental information given to patient?: Patient has dentist HPI 6 Month follow up HPI Details Anxiety/depression: Pt sees a therapist who she sees biweekly and a psychiatrist who she sees every 2-3 months. She reports doing well. Denies any SI and HI. PFSH Medical History Anxiety COVID-19 vaccine series completed Depression Headache Hyperlipemia Renal calculi Surgical History History of lithotripsy History of rotator cuff surgery History of shoulder surgery History of vaginal hysterectomy Hx of cystoscopy Family History Father Hypothyroidism Skin cancer Kidney failure Pulmonary embolism Mother Kidney failure Mental health disorder Family/Other Brain cancer Son No problems noted. Daughter No problems noted. Social History Housing: House Alcohol intake: never Patient Tobacco Use Status: Never used Tobacco e-Cigarette/Vaping Use: Never Used Second Hand Smoke Exposure: Yes Advance Directives Date on File: 04/28/21 service: No Current occupational status: employed Current occupation: [employer] Current occupational exposures/hazards: No Cognitive needs: No Hearing needs: No Vision needs: No Female Reproductive History Menstrual Age of Menarche: 10 Questionnaire Thrive Questionnaire Date Thrive assessed: 04/02/22 ADELAIDE-7 AMB Questionnaire ADELAIDE-7 Date ADELAIDE - 7 assessed: 04/02/22 Source: Developed by Drs. Jered Poe, April Rodríguez, Delfino Acevedo and colleagues, with an educational junior from [employer] Review of Systems Const Reports as per HPI Physical exam (Primary Care) Vital Signs: Last Vital Signs Pulse 75 10/06/22 10:36 BP 100/68 10/06/22 10:36 Pulse Ox 97 10/06/22 10:36 Oxygen Delivery Method Room Air 10/06/22 10:36 BMI result Body Mass Index 34.4 Tobacco/Smoking Status: Tobacco use Status Tobacco use date assessed 10/06/22 10/06/22 10:41 Patient Tobacco Use Status Never used Tobacco 10/06/22 10:41 e-Cigarette/Vaping Use Never Used 10/06/22 10:41 Thrive Assessment: Date of Thrive Assessment Date Thrive assessed 04/02/22 10/06/22 10:41 Const General: cooperative Nutritional Appearance: obese Orientation/consciousness: patient oriented x3 Resp Effort & Inspection: normal respiratory effort Auscultation: clear to auscultation bilaterally Cardio Rate: regular rate Rhythm: regular rhythm Heart sounds: S1 normal heart sound present and S2 normal heart sound present Neuro General: patient oriented x3 Psych Appearance: grossly normal Mental Status: mental status grossly normal Speech and movement: Normal speech and movement present Affect: normal affect Attitude: cooperative Thought process: Normal thought process present Thought content: Normal thought content present Insight: Good insight present (Psych) Judgement: Good judgement present (Psych) Assessment and Plan Assessment & Plan (1) Physical exam: Code(s): Z00.00 - Encounter for general adult medical examination without abnormal findings (2) Vitamin D deficiency: Code(s): E55.9 - Vitamin D deficiency, unspecified Plan The patient agreed to the use of a medical technologist microbiology for this encounter. Scribed for JAVID Martínez by Julieta Rollins medical technologist microbiology, on 10/06/2022 at 11:00 EST. Orders: Orders Comprehensive [place]. Panel Fast Today Z00.00 - Encounter for general adult medical examination without abnormal findings Lipid Panel Today Z00.00 - Encounter for general adult medical examination without abnormal findings TSH reflex Free T4 Today Z00.00 - Encounter for general adult medical examination without abnormal findings Complete Blood Count Auto Diff Today Z00.00 - Encounter for general adult medical examination without abnormal findings UA CC w/rflx Micro + Cult Today Z00.00 - Encounter for general adult medical examination without abnormal findings Vitamin D 25-OH Total Today E55.9 - Vitamin D deficiency, unspecified Medications: New clobetasol 0.05% 1 appl topical BID 2 weeks 45 grams 2RF Coding Level of Care Code Est Pt Level 3 (12733) Diagnoses Physical exam Z00.00 Vitamin D deficiency E55.9
== END 2022-10-06 11:18 | disposition home or self-care (01) ==
PROVIDERS: Visit Provider Nurse Practitioner Family
DX: E55.9 Vitamin D deficiency, unspecified (principal); Z00.00 Encounter for general adult medical examination without abnormal findings
CPT/HCPCS: 99213

== ENCOUNTER 2022-10-29 00:49 | Emergency (ER) | payer OTHER, SELFPAY ==
[2022-10-29] VITALS (16 sets, daily range): BP systolic 94–139; BP diastolic 53–79; PULSE 68–83; RESP 16–20; TEMP 36.4–36.9; O2SAT 96–100; BMI 34.4
--- NOTE | ~2022-10-29 | CT_ITS ---
EXAMINATION: CT ABDOMEN AND PELVIS WITHOUT CONTRAST CLINICAL INFORMATION: Left flank pain COMPARISON: 03/11/2021 TECHNIQUE: Multidetector volumetric imaging was performed from the superior aspect of the liver through the pubic symphysis. Sagittal and coronal reformatted images were obtained on the technologist's workstation. This CT examination was performed using dose optimization techniques as appropriate, variously including the following: *Automated exposure control *Adjustment of mA and/or kV according to patient size (this includes techniques or standardized protocols for targeted exams where dose is matched to indication/reason for exam; i.e. extremities or head) *Use of iterative reconstruction technique DLP: 807 mGy-cm FINDINGS: LUNG BASES: The visualized lung bases are unremarkable. LIVER, GALLBLADDER, AND BILIARY TREE: The liver is normal in size, shape, and attenuation. No focal hepatic lesion or biliary ductal dilatation is present. Gallbladder unremarkable. PANCREAS: Unremarkable. SPLEEN: Unremarkable. ADRENAL GLANDS: Unremarkable. KIDNEYS AND URETERS: There is a 6 mm stone at the left ureteropelvic junction associated with moderate hydronephrosis and mild perinephric fat stranding. There is a 3 mm nonobstructive calculus in the right renal pelvis near the ureteropelvic junction without associated obstruction. Multiple bilateral nonobstructive intrarenal calculi number at least a dozen in the left kidney ranging in size from punctate to 7 mm predominantly within the lower pole. Single punctate nonobstructive calculus in the lower pole the right kidney. BLADDER: Unremarkable. GASTROINTESTINAL TRACT: The small and large bowel are unremarkable. The appendix is unremarkable. ABDOMINAL WALL: No significant hernia is appreciated. LYMPH NODES: Normal. VASCULAR: Unremarkable. PELVIC VISCERA: Unremarkable. OSSEOUS STRUCTURES: No acute or suspicious osseous abnormalities. CT/CT abdomen pelvis wo IV con IMPRESSION: * There is a 6 mm stone at the LEFT ureteropelvic junction associated moderate hydronephrosis. * Nonobstructive 3 mm calculus in the RIGHT renal pelvis near the ureteropelvic junction. * Bilateral nonobstructive intrarenal calculi as described.
--- NOTE | ~2022-10-29 | FL_ITS ---
EXAMINATION: XR FLUOROSCOPY WITH IMAGES CLINICAL INFORMATION: Left ureteral stone. COMPARISON: CT of the abdomen and pelvis from earlier the same day TECHNIQUE: Fluoroscopy Supervised By: Dr. Naun Pascual. Fluoroscopy Time: 49.5 seconds. Cumulative Dose: 17.10 mGy. DAP: None Images: 4. FINDINGS: Images demonstrate a catheter projecting over the left ureter. Later images demonstrate placement of a left ureteral stent. FL/FL guidance in OR IMPRESSION: Fluoroscopic guidance for left ureteral stent placement.
--- NOTE | 2022-10-29 01:10 | PC.NURSE ---
this rn assumed care of pt from triage @ 0100. p at bedside. pt changed into hospital gown. awaiting to be seen by ed provider
--- NOTE | 2022-10-29 01:19 | ED_ITS ---
HPI - General Adult General Chief complaint: Abdominal Pain Stated complaint: kidney stones Time Seen by Provider: 10/29/22 01:07 Source: patient Mode of arrival: ambulatory Limitations: no limitations History of Present Illness HPI narrative: Patient comes to the emergency room complaining of left-sided flank pain for 5 days. Patient states that she was visiting Dr. Ankur Jackson from Urology prescribed her naproxen, prednisone but the pain kept getting worse. Patient does have history of kidney stones. Patient states that she had to return home before concluding her vacation due to pain. Patient complaining of left flank pain and nausea, no vomiting, no diarrhea. No fever or chills. No dysuria or h ematuria. Related Data Home Medications Medication Instructions Recorded Confirmed multivitamin 1 tab PO DAILY 10/03/21 10/06/22 omega 4-bex-wol-fish oil 1,000 mg 1 cap PO DAILY 10/03/21 10/06/22 (120 mg-180 mg) capsule (Fish Oil) cetirizine 10 mg tablet (Zyrtec) 10 mg PO DAILY PRN 07/23/22 10/06/22 venlafaxine 150 mg 150 mg PO DAILY 07/23/22 10/06/22 capsule,extended release 24 hr venlafaxine 75 mg capsule,extended 75 mg PO DAILY 07/23/22 10/06/22 release 24 hr desoximetasone 0.25 % topical cream appl topical BID 10/06/22 10/06/22 Previous Rx's Medication Instructions Recorded pyridoxine (vitamin B6) 100 mg 100 mg PO BEDTIME 90 days #90 tabs 06/27/22 tablet topiramate 100 mg tablet 100 mg PO BEDTIME #90 tabs 07/09/22 buspirone 10 mg tablet 10 mg PO BID 90 days #180 tabs 08/06/22 indapamide 1.25 mg tablet 1.25 mg PO DAILY 90 days #90 tabs 08/08/22 allopurinol 100 mg tablet 100 mg PO BEDTIME 90 days #90 tabs 08/26/22 prednisone 20 mg tablet 20 mg PO daily 5 days #5 tabs 08/26/22 tamsulosin 0.4 mg capsule 0.4 mg PO daily 14 days #14 caps 08/26/22 atorvastatin 20 mg tablet 20 mg PO BEDTIME 90 days #90 tabs 09/08/22 clobetasol 0.05 % topical cream 1 appl topical BID 2 weeks #45 10/06/22 grams estradiol 1 mg tablet 1 mg PO DAILY 90 days #90 tabs 10/06/22 propranolol 120 mg capsule,24 120 mg PO DAILY #90 caps 10/06/22 hr,extended release nrtomfupjb-dhzhiagbtavpo-flrscczs 1 cap PO DAILY PRN Migraine 10/22/22 50 mg-300 mg-40 mg capsule Headache #30 caps Allergies Allergy/AdvReac Type Severity Reaction Status Date / Time morphine AdvReac Mild Vomiting Verified 10/06/22 11:30 Review of Systems Review of Systems: Constitutional : No Weight loss, No Fever, No Chills, No Night Sweats, No Fatigue, No Malaise ENT/Mouth : No Hearing loss, No Ear Pain, No Nasal Congestion, No Sinus Pain, No Hoarseness, No sore throat, No Rhinorrhea, No Swallowing Difficulty Eyes: No Eye Pain, No Swelling, No Redness, No Foreign Body, No Discharge, No Vision Changes Cardiovascular : No Chest Pain, No SOB, No Dyspnea on Exertion, No Orthopnea, No Edema, No Palpitations Respiratory : No Cough, No Sputum, No Wheezing, No Smoke Exposure, No Dyspnea Gastrointestinal : complaining of Nausea, No Vomiting, No Diarrhea, No Constipation, No abdominal Pain, No Hematochezia, No Melena Genitourinary : no irregular bleeding, No Dysuria, No Urinary Frequency, No Hematuria, No Urinary Incontinence, No Urgency, Complaining of left-sided Flank Pain, No Urinary Flow Changes, No Hesitancy Musculoskeletal : No joint pain, No Myalgias, No Joint Swelling Skin : No Skin Lesions, No rash Neuro : No Weakness, No Numbness, No Paresthesias, No Loss of Consciousness, No Dizziness, No Headache Psych : No Anxiety/Panic, No Depression, No SI/HI/AH/VH, No Social Issues, Heme/Lymph: No Bruising, No Bleeding,No Lymphadenopathy Endocrine : No Polyuria, No Polydipsia, No Temperature Intolerance PMFSH Past Medical History Medical History Anxiety COVID-19 vaccine series completed Depression Headache Hyperlipemia Renal calculi Surgical History History of lithotripsy History of rotator cuff surgery History of shoulder surgery History of vaginal hysterectomy Hx of cystoscopy Family History Family History Father Hypothyroidism Skin cancer Kidney failure Pulmonary embolism Mother Kidney failure Mental health disorder Family/Other Brain cancer Son No problems noted. Daughter No problems noted. Social History Social History Housing: House Alcohol intake: never Patient Tobacco Use Status: Never used Tobacco e-Cigarette/Vaping Use: Never Used Second Hand Smoke Exposure: Yes Advance Directives: Yes Advance Directives on File: Yes Advance Directives Date on File: 04/28/21 service: No Current occupational status: employed Current occupation: [employer] Current occupational exposures/hazards: No Cognitive needs: No Hearing needs: No Vision needs: No Physical Exam ED Vital Signs: Vital Signs - 24 hr 10/29/22 00:50 10/29/22 01:56 10/29/22 03:58 Temperature 98.4 F 98.0 F 97.5 F Pulse Rate 78 78 83 Respiratory Rate 20 18 18 Blood Pressure 131/65 113/61 94/58 L Pulse Oximetry 100 98 99 Oxygen Delivery Method Room Air Room Air Room Air BMI result Body Mass Index 34.4 Const Other: Appearance: Alert. Oriented X3. No acute distress. Eyes: Pupils equal, round and reactive to light. ENT: Pharynx normal. Neck: Normal inspection. Neck supple. No lymph nodes noted. No crepitus CVS: Normal heart rate and rhythm. Pulses normal. Normal S1 and S2 Respiratory: No respiratory distress. Breath sounds normal. No Wheezing. No rales Abdomen: Soft and nontender. No rigidity. No distention. positive CVA tenderness on the left Skin: Skin warm and dry. Normal skin color. Normal skin turgor. Extremities: No lower extremity edema. No Lacerations. No Rash Neuro: Oriented X 3. No motor deficit. No sensory deficit. Moving all extremities. No slurred speech. CN 2 through 12 grossly intact Psych: calm, cooperative, normal affect Course Course Course Narrative: - patient receiving IV fluids, Zofran, Toradol - CT scan and labs pending Medications Administered Discontinued Medications Generic Name Dose Route Start Last Admin Trade Name Freq PRN Reason Stop Dose Admin Hydromorphone HCl 1 mg 10/29/22 02:35 10/29/22 02:54 Hydromorphone Hcl 1 Mg/Ml Syringe IVPUSH 10/29/22 02:36 1 mg ONCE ONE Administration Protocol Sodium Chloride 1,000 mls @ 999 mls/hr 10/29/22 01:18 10/29/22 02:53 Ns IVCONT 10/29/22 02:18 Infused .Q1H1M ONE Infusion Ketorolac Tromethamine 30 mg 10/29/22 01:18 10/29/22 01:45 Ketorolac Tromethamine 30 Mg/Ml Vial IVPUSH 10/29/22 01:19 30 mg ONCE ONE Administration Ondansetron HCl 4 mg 10/29/22 01:18 10/29/22 01:45 Ondansetron Hcl 4 Mg/2 Ml Vial IVPUSH 10/29/22 01:19 4 mg ONCE ONE Administration Prochlorperazine Edisylate 10 mg 10/29/22 02:35 10/29/22 02:54 Prochlorperazine Edisylate 10 Mg/2 Ml Vial IVPUSH 10/29/22 02:36 10 mg ONCE ONE Administration Medical Decision Making Medical Decision Making MDM Narrative: -patient's pain is fairly controlled with hydromorphone -discussed with the patient she has a 6 mm stone at the UPJ, unlikely that she will be able to pass this stone. -patient states that she is in too much pain, requesting admission and urology consult -urology has been consulted, call Back pending Differential Diagnosis Differential Diagnoses: The differential diagnosis associated with the presentation includes (Ureterolithiasis, pyelonephritis, UTI, renal colic) Admission/Observation Consideration of admission/observation: Escalation of care including admission/observation considered Consult Healthcare Provider Management of the patient was discussed with: Mail Caller Lab Data [facility] Lab Attestation statement: I reviewed the patient's lab results. 10/29/22 01:39 10/29/22 01:39 Labs: Lab Results 10/29/22 10/29/22 10/29/22 Range/Units 01:39 01:39 01:39 WBC 9.2 (4.8-10.8) X10*3/uL RBC 4.01 L (4.20-5.50) X10*6/uL Hgb 12.6 (12.0-16.0) g/dl Hct 37.1 (37.0-47.0) % MCV 92.5 (80.0-98.0) fL MCH 31.4 (27.0-33.0) pg MCHC 34.0 (31.0-35.0) g/dl RDW 11.9 (11.0-16.0) % Plt Count 243 (160-400) X10*3/uL MPV 10.0 (9.4-12.3) fL Immature Gran % (Auto) 0.3 (0.0-0.4) % Neut % (Auto) 58.7 (45-73) % Lymph % (Auto) 25.9 (20-40) % [place] % (Auto) 11.6 H (2-11) % Eos % (Auto) 2.7 (0-4) % Baso % (Auto) 0.8 (0-2) % Lymph # (Auto) 2.4 (1.2-4.9) X10*3/uL [place] # (Auto) 1.1 (0.1-1.2) X10*3/uL Eos # (Auto) 0.3 (0.0-0.4) X10*3/uL Baso # (Auto) 0.1 (0.0-0.2) X10*3/uL Abs Immat Gran (auto) 0.03 (0.00-0.03) X10*3/uL Absolute Neuts (auto) 5.4 (2.0-8.3) x10*3/uL Absolute Nucleated RBC 0.000 (0.0-0.012) X10*3/uL Nucleated RBC % (auto) 0.0 (0.0-0.2) /100WBC Sodium 143 (135-145) mmol/L Potassium 3.5 (3.3-5.1) mmol/L Chloride 104 (96-108) mmol/L Carbon Dioxide 25 (22-29) mmol/L Anion Gap 18 (12-20) BUN 18 H (9-16) mg/dL Creatinine 1.15 (0.5-1.4) mg/dL Estim Creat Clear Calc 62.5 Estimated GFR 50 Random Glucose 78 (60-115) mg/dL Calcium 9.8 (8.4-10.2) mg/dL Total Bilirubin 0.3 (0.0-1.0) mg/dL Direct Bilirubin 0.1 (0.0-0.5) mg/dL AST 20 (5-31) U/L ALT 22 (0-31) U/L Alkaline Phosphatase 87 (39-117) U/L Total Protein 8.1 H (6.5-8.0) g/dL Albumin 4.5 (3.5-5.0) g/dL Urine Color Yellow Urine Appearance Cloudy Urine pH 6.5 (5.0-9.0) Ur Specific [place] 1.020 (1.005-1.025) Urine Protein 30 (1+) H (Neg-Trace) mg/dL Urine Glucose (UA) Negative (Negative) mg/dL Urine Ketones Negative (Negative) mg/dL Urine Blood Trace H (Negative) Urine Nitrite Negative (Negative) Ur Leukocyte Esterase Negative (Negative) Urine RBC 6-10 H (0-2) /HPF Urine WBC 6-10 H (0-5) /HPF Ur Squamous Epith Cells 11-20 (0-2) /HPF Urine Bacteria 1+ (None Seen) Hyaline Casts 0-2 (0-2) /LPF Independent Interpretation I performed an independent interpretation of an: CT Scan Radiology Impression Discussion of test interpretation with radiology: I have reviewed the radiologist's reading. Radiologist Impression: FINDINGS: LUNG BASES: The visualized lung bases are unremarkable.? LIVER, GALLBLADDER, AND BILIARY TREE: The liver is normal in size, shape, and attenuation. No focal hepatic lesion or biliary ductal dilatation is present. Gallbladder unremarkable.? PANCREAS: Unremarkable.? SPLEEN: Unremarkable.? ADRENAL GLANDS: Unremarkable.? KIDNEYS AND URETERS: There is a 6 mm stone at the left ureteropelvic junction associated with moderate hydronephrosis and mild perinephric fat stranding. There is a 3 mm nonobstructive calculus in the right renal pelvis near the ureteropelvic junction without associated obstruction. Multiple bilateral nonobstructive intrarenal calculi number at least a dozen in the left kidney ranging in size from punctate to 7 mm predominantly within the lower pole. Single punctate nonobstructive calculus in the lower pole the right kidney.? BLADDER: Unremarkable.? GASTROINTESTINAL TRACT: The small and large bowel are unremarkable. The appendix is unremarkable.? ABDOMINAL WALL: No significant hernia is appreciated.? LYMPH NODES: Normal. VASCULAR: Unremarkable. PELVIC VISCERA: Unremarkable.? OSSEOUS STRUCTURES: No acute or suspicious osseous abnormalities.? CT/CT abdomen pelvis wo IV con IMPRESSION: *? There is a 6 mm stone at the LEFT ureteropelvic junction associated moderate hydronephrosis. *? Nonobstructive 3 mm calculus in the RIGHT renal pelvis near the ureteropelvic junction. *? Bilateral nonobstructive intrarenal calculi as described. Critical Care Time Critical Care Time Critical Care Time: Yes Total Critical Care Time: 60 Attestation: I have personally provided critical care time. Time includes review of lab data, radiology results, discussion with consultants, and monitoring for potential decompensation. Intervention performed as documented. Discharge Plan Discharge Clinical Impression: Ureterolithiasis Patient Disposition: Still a Patient Prescriptions: No Action pyridoxine (vitamin B6) 100 mg tablet 100 mg PO BEDTIME 90 Days Qty: 90 1RF topiramate 100 mg tablet 100 mg PO BEDTIME Qty: 90 1RF buspirone 10 mg tablet 10 mg PO BID 90 Days Qty: 180 1RF indapamide 1.25 mg tablet 1.25 mg PO DAILY 90 Days Qty: 90 1RF atorvastatin 20 mg tablet 20 mg PO BEDTIME 90 Days Qty: 90 1RF propranolol 120 mg capsule,extended release 24 hr 120 mg PO DAILY Qty: 90 1RF xbezuchsgu-kyayorbhfpwry-isen 50-300-40 mg capsule 1 cap PO DAILY PRN (Reason: Migraine Headache) Qty: 30 1RF Rx Instructions: can cause rebound headaches, use sparingly multivitamin Tablet 1 tab PO DAILY omega 8-aah-iet-fish oil [Fish Oil] 1,000 mg (120 mg-180 mg) Capsule 1 cap PO DAILY clobetasol 0.05 % cream 1 appl topical BID 14 Days Qty: 45 2RF desoximetasone 0.25 % cream topical BID estradiol 1 mg tablet 1 mg PO DAILY 90 Days Qty: 90 3RF tamsulosin 0.4 mg capsule 0.4 mg PO daily 14 Days Qty: 14 1RF prednisone 20 mg tablet 20 mg PO daily 5 Days Qty: 5 0RF allopurinol 100 mg tablet 100 mg PO BEDTIME 90 Days Qty: 90 1RF venlafaxine 150 mg capsule,extended release 24hr 150 mg PO DAILY venlafaxine 75 mg capsule,extended release 24hr 75 mg PO DAILY cetirizine [Zyrtec] 10 mg tablet 10 mg PO DAILY PRN
[2022-10-29 01:43] LABS: MANUAL DIFF FLAG NO
[2022-10-29 01:44] LABS: Basophils Absolute Auto 0.1 X10*3/uL (0.0-0.2); Basophils Percent Auto 0.8 % (0-2); Eosinophils Absolute Auto 0.3 X10*3/uL (0.0-0.4); Eosinophils Percent Auto 2.7 % (0-4); Hematocrit 37.1 % (37.0-47.0); Hemoglobin 12.6 g/dl (12.0-16.0); Imm Gran Abs Auto 0.03 X10*3/uL (0.00-0.03); Imm Gran Pct Auto 0.3 % (0.0-0.4); Lymphocytes Absolute Auto 2.4 X10*3/uL (1.2-4.9); Lymphocytes Percent Auto 25.9 % (20-40); Mean Corpuscular Hemoglobin 31.4 pg (27.0-33.0); Mean Corpuscular Volume 92.5 fL (80.0-98.0); Monocytes Absolute Auto 1.1 X10*3/uL (0.1-1.2); Monocytes Percent Auto 11.6 % (2-11); Neutrophils Absolute Auto 5.4 x10*3/uL (2.0-8.3); Neutrophils Percent Auto 58.7 % (45-73); Platelet Count 243 X10*3/uL (160-400); Red Blood Count 4.01 X10*6/uL (4.20-5.50); Red Cell Distribution Width 11.9 % (11.0-16.0); White Blood Count 9.2 X10*3/uL (4.8-10.8)
[2022-10-29] MEDS: 0.9 % Sodium Chloride 1,000 ML 999 ML IVCONT (01:45)
[2022-10-29] MEDS: Ketorolac Tromethamine 30 MG/ML VIAL IVPUSH ×2 (01:45→18:22)
[2022-10-29] MEDS: ondansetron HCL 4 MG/2 ML VIAL IVPUSH ×2 (01:45→20:25)
[2022-10-29 01:55] LABS: Appearance Urine Cloudy; Color Urine Yellow; Glucose Urine UA Negative (Negative); Leukocyte Esterase Urine Negative (Negative); Nitrite Urine Negative (Negative); PH 6.5 (5.0-9.0); UMIC TRIGGER UACC YES; Urine Blood Trace (Negative); Urine Ketones Negative (Negative); Urine Protein 30 (1+) mg/dL (Neg-Trace)
[2022-10-29 01:59] LABS: Alanine Aminotransferase 22 U/L (0-31); Albumin Level 4.5 g/dL (3.5-5.0); Alkaline Phosphatase 87 U/L (39-117); Anion Gap 18 (12-20); Aspartate Amino Transferase 20 U/L (5-31); Bilirubin Direct 0.1 mg/dL (0.0-0.5); Bilirubin Total 0.3 mg/dL (0.0-1.0); Blood Urea Nitrogen 18 mg/dL (9-16); Calcium 9.8 mg/dL (8.4-10.2); Carbon Dioxide 25 mmol/L (22-29); Chloride 104 mmol/L (96-108); Creatinine Clr Calc Pharmacy 62.5; Estimated Glomerular Filt Rate 50; Glucose Random 78 mg/dL (60-115); Potassium 3.5 mmol/L (3.3-5.1); Sodium 143 mmol/L (135-145); Total Protein 8.1 g/dL (6.5-8.0)
[2022-10-29 02:00] LABS: Bacteria Urine 1+ (None Seen); Hyaline Casts Urine 0-2 /LPF (0-2); UACC Culture Trigger YES
--- NOTE | 2022-10-29 02:10 | PC.NURSE ---
this rn placed 20g IV in R AC. pt tolerated well. bloodwork and urine sample obtained and send down to lab. pt medicated according to may. pt at bedside
[2022-10-29] MEDS: Prochlorperazine Edisylate 10 MG/2 ML VIAL IVPUSH (02:54)
[2022-10-29] MEDS: HYDROmorphone HCl 1 MG/ML SYRINGE IVPUSH ×3 (02:54→14:47)
--- NOTE | 2022-10-29 04:44 | PC.NURSE ---
this rn performed med rec utilizing medical record
--- NOTE | 2022-10-29 07:16 | PHA.MEDREC ---
Pharmacy Consult ? Medication Reconciliation Pharmacy has reviewed the medication reconciliation done by RN
--- NOTE | 2022-10-29 08:11 | PC.NURSE ---
PT RESTING QUIETLY. AWAITING ADMISSION ORDERS.
--- NOTE | 2022-10-29 09:13 | PC.NURSE ---
aox4. calm, coop. no diff breathing. stable VS. reports prior shift pain med has helped. piv c/d/i.
--- NOTE | 2022-10-29 13:00 | MHC.CM.PN ---
Met with patient in regards to discharge planning. Patient lives with her , ambulates independently and had no services prior to coming to the hospital. No services anticipated to be needed because patient is not homebound. PCP verified. Copy of HCP is not valid because it is only signed by 1 witness. HCP completed, signed, and witnessed. Original given to patient. Copy placed in chart. Patient received 1 Moderna vaccine. Patient's , [facility] will transport patient home when medically stable. Continue to monitor for d/c needs.
[2022-10-29] MEDS: busPIRone HCl 10 MG TABLET PO (14:47)
[2022-10-29] MEDS: Propranolol HCL 20 MG TABLET 60 MG PO (14:47)
[2022-10-29] MEDS: Venlafaxine HCl ER 75 MG CAP.ER.24H 225 MG PO (14:47)
--- NOTE | 2022-10-29 16:51 | PM.UROCN ---
History of Present Illness Consult details Consult date: 10/29/22 Narrative: Consulting complaint left proximal ureteric stone with hydronephrosis Shoshana is well known to Urology Recurrent stone former Presents to emergency room with 5 day complaint of left-sided flank pain Started during visit [place] Pain to 8/10 Associated nausea but no vomiting Denies fever, chills, dysuria Creatinine 1.2, calcium 9.8, WBC 9.2 Imaging - There is a 6 mm stone at the left ureteropelvic junction associated with moderate hydronephrosis and mild perinephric fat stranding. Multiple bilateral nonobstructive intrarenal calculi number at least a dozen in the left kidney ranging in size from punctate to 7 mm predominantly within the lower pole. Recommendation - cystoscopy, left retrograde, left ureteroscopy with laser lithotripsy stent placement Review of Systems Constitutional: Constitutional: Reports as per HPI and Reports no additional constitutional complaints Cardiovascular: Cardiovascular: Reports as per HPI and Reports no additional cardiovascular complaints Respiratory: Respiratory: Reports as per HPI and Reports no additional respiratory complaints Gastrointestinal: Gastrointestinal: Reports as per HPI and Reports no additional gastrointestinal complaints Genitourinary: Genitourinary: Reports as per HPI Musculoskeletal: Musculoskeletal: Reports no additional musculoskeletal complaints and Reports as per HPI Neurologic: Reports system reviewed and no additional complaints, except as documented and Reports as per HPI [facility] Past Medical History Medical History Anxiety COVID-19 vaccine series completed Depression Headache Hyperlipemia Renal calculi Family History Family History Father Hypothyroidism Skin cancer Kidney failure Pulmonary embolism Mother Kidney failure Mental health disorder Family/Other Brain cancer Son No problems noted. Daughter No problems noted. Surgical History Surgical History History of lithotripsy History of rotator cuff surgery History of shoulder surgery History of vaginal hysterectomy Hx of cystoscopy Social History Social History Housing: House Alcohol intake: never Patient Tobacco Use Status: Never used Tobacco Smoked in Last 30 Days: No e-Cigarette/Vaping Use: Never Used Second Hand Smoke Exposure: Yes Use of substances other than those prescribed or required for medical reasons: No Advance Directives: Yes Advance Directives on File: Yes Advance Directives Date on File: 10/29/22 Patient : No service: No Current occupational status: employed Current occupation: [employer] Current occupational exposures/hazards: No Cognitive needs: No Hearing needs: No Vision needs: No Meds Allergies Allergy/AdvReac Type Severity Reaction Status Date / Time morphine AdvReac Mild Vomiting Verified 10/06/22 11:30 Home Medications Medication Instructions Recorded Confirmed Last Taken Type multivitamin 1 tab PO DAILY 10/03/21 10/29/22 10/03/21 History venlafaxine 150 mg 150 mg PO DAILY 07/23/22 10/29/22 Unknown History capsule,extended release 24 hr venlafaxine 75 mg capsule,extended 75 mg PO DAILY 07/23/22 10/29/22 Unknown History release 24 hr Physical Exam Vital Signs: Vital Signs: Last Vital Signs Temp 98.4 F 10/29/22 14:45 Pulse 75 10/29/22 14:45 Resp 16 10/29/22 14:45 BP 111/57 L 10/29/22 14:45 Pulse Ox 99 10/29/22 14:45 O2 Del Method Room Air 10/29/22 14:45 BMI result Body Mass Index 34.4 Const: General: cooperative, healthy appearing, comfortable and no acute distress Orientation/consciousness: patient oriented x3 HEENT: Face and sinus: Yes normal facial exam Mouth: moist mucous membranes Neck: Neck: Yes normal visual inspection, Yes full ROM and Yes trachea midline Chest: Chest palpation & inspection: normal inspection of the chest Resp: Effort & Inspection: normal respiratory effort, able to speak in complete sentences and no respiratory distress GI: Inspection: Yes normal to inspection Back/Spine/Pelvis: Cervical Spine: normal cervical lordosis Thoracic/Lumbar Spine: thoracic and lumbar spine normal to inspection Skin: General skin exam: no rashes or lesions noted Neuro: General: patient oriented x3, tone normal and moves all extremities Extrem: General: Yes normal to inspection and Yes capillary refill normal Results Labs 10/29/22 01:39 10/29/22 01:39 Labs: Abnormal lab results 10/29/22 10/29/22 10/29/22 Range/Units 01:39 01:39 01:39 RBC 4.01 L (4.20-5.50) X10*6/uL Walker % (Auto) 11.6 H (2-11) % BUN 18 H (9-16) mg/dL Total Protein 8.1 H (6.5-8.0) g/dL Urine Protein 30 (1+) H (Neg-Trace) mg/dL Urine Blood Trace H (Negative) Urine RBC 6-10 H (0-2) /HPF Urine WBC 6-10 H (0-5) /HPF Short CBC 10/29/22 Range/Units 01:39 WBC 9.2 (4.8-10.8) X10*3/uL Hgb 12.6 (12.0-16.0) g/dl Hct 37.1 (37.0-47.0) % Plt Count 243 (160-400) X10*3/uL BMP 10/29/22 01:39 Sodium 143 Potassium 3.5 Chloride 104 Carbon Dioxide 25 BUN 18 H Creatinine 1.15 Calcium 9.8 Liver Function 10/29/22 Range/Units 01:39 Total Bilirubin 0.3 (0.0-1.0) mg/dL Direct Bilirubin 0.1 (0.0-0.5) mg/dL AST 20 (5-31) U/L ALT 22 (0-31) U/L Alkaline Phosphatase 87 (39-117) U/L Albumin 4.5 (3.5-5.0) g/dL Urine 10/29/22 Range/Units 01:39 Urine Color Yellow Urine Appearance Cloudy Urine pH 6.5 (5.0-9.0) Ur Specific [place] 1.020 (1.005-1.025) Urine Protein 30 (1+) H (Neg-Trace) mg/dL Urine Glucose (UA) Negative (Negative) mg/dL All other labs normal. Assessment and Plan (1) Nephrolithiasis: Status: Acute (2) Ureterolithiasis: Status: Acute Plan Ureteroscopy We discussed the nature of the decision and reasonable alternatives for performing ureteroscopy. Options such as medical therapy were discussed. Interventions include chemical dissolution, ESWL, ureteroscopy with laser lithotripsy and stent placement, PCNL. The relative uncertainties and benefits related to each alternate procedure were adequately discussed. General surgical risks including, but not limited to - pain, bleeding, infection, myocardial infarction, pulmonary embolus, deep vein thrombosis and cerebrovascular accident which may result in further hospitalization were discussed. Full disclosure of the procedure as well as all major risks, benefits and complications were discussed including but not limited to damage to the urethra, bladder and kidney infection, damage to the ureter, stent migration or malposition, scarring to the renal pelvis, remnant stone fragments, subsequent stone passage with need for secondary procedures. The overall secondary procedure rate is approximately 10-15%. The overall clearance rate is approximately 90-95%. Success of the procedure in the short-term does not necessarily guarantee that long-term success will be maintained. Suitable follow up will need to be maintained. The patient showed understanding of discussion and wishes to proceed with - cystoscopy, retrograde, ureteroscopy, possible lithotripsy/stone basketing and stent on the left side Time Spent With Patient Time: Total time managing care of this patient today ____ minutes. Procedures Date of Service Date of Service: 10/29/22
--- NOTE | 2022-10-29 17:47 | PC.NURSE ---
aox4. walking well. rn attempting to call or re: pt's scheduled procedure for time.
--- NOTE | 2022-10-29 17:49 | PC.NURSE ---
per pacu procedure 1899.
--- NOTE | 2022-10-29 18:13 | PC.NURSE ---
gave report again to pacu
--- NOTE | 2022-10-29 18:16 | HO.ANESPROP2 ---
HPI - Anesthesia Eval Consult details Narrative: Left ureter stone PMFSH Active Problems Active Problems: All Active Problems (Updated 10/29/22 @ 04:08 by Zahraa Varner MD) Counseling for hormone replacement therapy (Acute) Hypocitraturia (Acute) Diplopia (Acute) Depression (Acute) Migraine without aura (Acute) Screening for colon cancer (Acute) Headache (Acute) Toenail deformity (Acute) Cracking skin (Acute) Hypercalciuria (Acute) Ureterolithiasis (Acute) Vitamin D deficiency (Acute) Nephrolithiasis (Acute) Physical exam (Acute) Well woman exam (Acute) Counseling for hormone replacement therapy (Acute) Physical exam (Acute) Screening for colon cancer (Acute) Past Medical History Medical History Anxiety COVID-19 vaccine series completed Depression Headache Hyperlipemia Renal calculi Family History Family History Father Hypothyroidism Skin cancer Kidney failure Pulmonary embolism Mother Kidney failure Mental health disorder Family/Other Brain cancer Son No problems noted. Daughter No problems noted. Family history of problems with anesthesia: No Surgical History Surgical History History of lithotripsy History of rotator cuff surgery History of shoulder surgery History of vaginal hysterectomy Hx of cystoscopy History of Problems with Anesthesia: No Social History Social History Housing: House Alcohol intake: never Patient Tobacco Use Status: Never used Tobacco Smoked in Last 30 Days: No e-Cigarette/Vaping Use: Never Used Second Hand Smoke Exposure: Yes Use of substances other than those prescribed or required for medical reasons: No Advance Directives: Yes Advance Directives on File: Yes Advance Directives Date on File: 10/29/22 Patient : No service: No Current occupational status: employed Current occupation: [employer] Current occupational exposures/hazards: No Cognitive needs: No Hearing needs: No Vision needs: No Meds Allergies Allergy/AdvReac Type Severity Reaction Status Date / Time morphine AdvReac Mild Vomiting Verified 10/06/22 11:30 Home Medications Medication Instructions Recorded Confirmed Last Taken Type multivitamin 1 tab PO DAILY 10/03/21 10/29/22 10/03/21 History venlafaxine 150 mg 150 mg PO DAILY 07/23/22 10/29/22 Unknown History capsule,extended release 24 hr venlafaxine 75 mg capsule,extended 75 mg PO DAILY 07/23/22 10/29/22 Unknown History release 24 hr Exam Exam Date and Time: October 29, 20221815 Height,Weight and Vital Signs: Height 5 ft 4 in Weight 91 kg Last Vital Signs Temp 98.4 F 10/29/22 14:45 Pulse 75 10/29/22 14:45 Resp 16 10/29/22 14:45 BP 111/57 L 10/29/22 14:45 Pulse Ox 99 10/29/22 14:45 O2 Del Method Room Air 10/29/22 14:45 Pertinent Lab Results Pertinent Lab Results: Laboratory Tests 10/29/22 10/29/22 10/29/22 01:39 01:39 01:39 WBC 9.2 RBC 4.01 L Hgb 12.6 Hct 37.1 MCV 92.5 MCH 31.4 MCHC 34.0 RDW 11.9 Plt Count 243 MPV 10.0 Immature Gran % (Auto) 0.3 Neut % (Auto) 58.7 Lymph % (Auto) 25.9 Ramsey % (Auto) 11.6 H Eos % (Auto) 2.7 Baso % (Auto) 0.8 Lymph # (Auto) 2.4 Ramsey # (Auto) 1.1 Eos # (Auto) 0.3 Baso # (Auto) 0.1 Abs Immat Gran (auto) 0.03 Absolute Neuts (auto) 5.4 Absolute Nucleated RBC 0.000 Nucleated RBC % (auto) 0.0 Sodium 143 Potassium 3.5 Chloride 104 Carbon Dioxide 25 Anion Gap 18 BUN 18 H Creatinine 1.15 Estim Creat Clear Calc 62.5 Estimated GFR 50 Random Glucose 78 Calcium 9.8 Total Bilirubin 0.3 Direct Bilirubin 0.1 AST 20 ALT 22 Alkaline Phosphatase 87 Total Protein 8.1 H Albumin 4.5 Urine Color Yellow Urine Appearance Cloudy Urine pH 6.5 Ur Specific [place] 1.020 Urine Protein 30 (1+) H Urine Glucose (UA) Negative Urine Ketones Negative Urine Blood Trace H Urine Nitrite Negative Ur Leukocyte Esterase Negative Urine RBC 6-10 H Urine WBC 6-10 H Ur Squamous Epith Cells 11-20 Urine Bacteria 1+ Hyaline Casts 0-2 Airway Mallampati Class: I TM Dist: >3cm Neck ROM: Full Loose/Missing/Broken Teeth: No Heart: RRR Lungs: CTA Assessment and Plan Assessment Anesthesia Assessment: Anesthesia Plan Discussed and Chart Reviewed Final Anesthetic Review Family History of Problems with Anesthesia: No History of Problems with Anesthesia: No NPO: Yes ASA Class: II Final Preanesthetic Review: No Changes in Pt Med Stat, Meds/Allgs Chart Reviewed, Consent Obtained/Reviewed and Anes Risks/Benef Reviewed Patient Risk: Intermediate Procedure Risk: Low Anesthetic Plan Anesthetic Plan: GA Disposition: Standard PACU
--- NOTE | 2022-10-29 18:25 | PC.NURSE ---
aox4. calm, coop. toradol given. on way to or w transport
--- NOTE | 2022-10-29 19:00 | MHC.SHP ---
Pre-Procedural Eval Section A Date of Service: 10/29/22 The patient is an INPATIENT: No Changes since office visit: No Cold of Flu in the past 2 weeks, No New Medical Problems, No Changes in Medication and No Patient answered all questions The History & Physical has been completed within 30 days and I have reviewed it.: Yes Section B Chief Complaint: kidney stones Details of Present Illness: left proximal ureteric stone with hydronephrosis Relevant Social History: None Present Medications: None Medical History: No relevant PMH Allergies: Allergies Allergy/AdvReac Type Severity Reaction Status Date / Time morphine AdvReac Mild Vomiting Verified 10/06/22 11:30 Review of Systems Sugical H&P ROS: Negative: Constitution, Cardiovascular, Respiratory, Neurological, Psychiatric, Hem-Onc, Allergic/Immunologic, Gastrointestinal, Genitourinary, Musculoskeletal, Integumentary, Endocrine and Eyes/Ears/Nose/Throat Exam Surgical H&P Exam: Normal: HEENT, Normal: Heart, Normal: Lungs, Normal: Extremities, Normal: Abdomen, Normal: Skin and Normal: Neurological Plan Diagnosis/Plan: Unchanged ( cystoscopy, left retrograde, left ureteroscopy laser lithotripsy stent placement) I have reviewed the history and physical and performed a pertinent physical examination on my patient. No changes have occurred unless specified. Time Spent With Patient Time: Total time managing care of this patient today ____ minutes.
--- NOTE | 2022-10-29 20:06 | P.OP_ITS ---
Operative Note Operative Note Date of Service: 10/29/22 Narrative: PreOperative Diagnosis: left UPJ stone with hydronephrosis Post Operative Diagnosis: left UPJ stone with hydronephrosis Procedure: - cystoscopy, left retrograde - left dilatation of ureteric orifice under fluoroscopy - left ureteroscopy - left stent placement Surgeon: Dr Naun Pascual Anesthesia: General Indications for procedure: impacted left UPJ stone Procedure: After informed consent was verified patient was brought to the operating placed in supine position. Anesthesia was administered per protocol. Patient was placed in modified dorsal lithotomy position and prepped and draped in a sterile fashion. Safety pause time-out and side of surgery confirmed. Antibiotics confirmed. 22 German cystoscope was inserted per urethra. Bladder was normal in its entirety. Both ureteric orifices were in normal position. The left ureteric orifice was cannulated and a retrograde examination was performed. filling defect left UPJ. A Sensor guidewire was placed up to the level of the renal pelvis under fluoroscopy. The rigid cystoscope was removed and the inner cannula of ureteric access sheath was used under fluoroscopy to dilate the ureteric orifice. The ureteric access sheath was placed and the inner cannula removed leaving the safety wire in place. The digital flexible ureteral scope was placed. the scope was able to be passed into the renal pelvis. There was inflammation of the UPJ in the stone was unable to be fully visualized. It decision was made to proceed with stent placement At the completion of the stone procedure a Sensor wire was placed back into the renal pelvis. A 6 German by 26 cm double-J stent was placed into the renal pelvis and bladder under a combination of fluoroscopy and direct visualization. The symphisis pubis was used as a radiographic marker to release the stent and good coil was seen within the bladder confirming position The bladder was emptied. The patient tolerated the procedure well and was extubated in the operating room, and [facility] Pathology: no stone Drains: stent placed
[2022-10-29] MEDS: oxyCODONE HCl Immed Release 5 MG TABLET PO (20:13)
[2022-10-29] MEDS: Phenazopyridine HCL 100 MG TABLET PO (20:14)
[2022-10-29] MEDS: Haloperidol Lactate 5 MG/ML VIAL 1 MG IVPUSH (20:42)
== END 2022-10-29 18:29 | disposition home or self-care (01) ==
PROVIDERS: Urology; Emergency Provider Emergency Medicine; PCP Nurse Practitioner Family
PROC: (CPT 52332; principal; 2022-10-29 17:40)
DX: N20.2 Calculus of kidney with calculus of ureter (principal); R11.0 Nausea; Z79.899 Other long term (current) drug therapy
CPT/HCPCS: 52332; 36415; 74176; 80048; 80076; 81001; 85025; 87086; 96374; 96376; 99285; C1758; C1769; C2617; J1100; J1170; J1885; J1956; J2250; J2405; J3010; Q9967

== ENCOUNTER → 2022-10-29 01:15 | Outpatient (BNV) | payer OTHER, SELFPAY | PROVIDERS: Emergency Provider Emergency Medicine; PCP Nurse Practitioner Family; Visit Provider Urology | DX: N20.0 Calculus of kidney (principal); N20.1 Calculus of ureter | CPT/HCPCS: 52332; 99284 ==

== ENCOUNTER 2022-11-17 12:41 | Day surgery (SDC) | payer OTHER, SELFPAY ==
--- NOTE | ~2022-11-17 | FL_ITS ---
EXAMINATION: XR FLUOROSCOPY WITH IMAGES CLINICAL INFORMATION: Stone left side. COMPARISON: None available. TECHNIQUE: Fluoroscopy Supervised By: Dr. Naun Pascual. Fluoroscopy Time: 46.2 seconds. Cumulative Dose: 15.17 mGy. DAP: None available. Images: 3. FINDINGS: Images demonstrate sheath in the left proximal ureter and catheter projecting over the left renal collecting system. FL/FL guidance in OR IMPRESSION: Fluoroscopy guidance for urology procedure.
[2022-11-17 13:11] VITALS: BMI 34.3
[2022-11-17 13:12] VITALS: BP 119/66; PULSE 73; RESP 18; TEMP 36.6; O2SAT 97
[2022-11-17] MEDS: Lactated Ringers 1,000 ML 50 ML IVCONT (13:57)
--- NOTE | 2022-11-17 14:42 | MHC.SHP ---
Pre-Procedural Eval Section A Date of Service: 11/17/22 The patient is an INPATIENT: No Changes since office visit: No Cold of Flu in the past 2 weeks, No New Medical Problems, No Changes in Medication and No Patient answered all questions The History & Physical has been completed within 30 days and I have reviewed it.: No Section B Chief Complaint: Calculus of kidney Details of Present Illness: Underwent cystoscopy with ureteroscopy 2 weeks ago. Stent placed on left side. Here for completion procedure. Stent to be removed. ureteroscopy with laser lithotripsy to be performed. Relevant Family History (Specify if Yes): No Relevant Social History: None Present Medications: see Short Stay Collaborative assessment Medical History: No relevant PMH History of Previous Operations: Relevant previous surgery/procedure and date(s) Allergies: Allergies Allergy/AdvReac Type Severity Reaction Status Date / Time morphine AdvReac Mild Vomiting Verified 11/17/22 13:03 haloperidol [From Haldol] AdvReac Dizziness Verified 11/17/22 13:03 Review of Systems Sugical H&P ROS: Negative: Constitution, Cardiovascular, Respiratory, Neurological, Psychiatric, Hem-Onc, Allergic/Immunologic, Gastrointestinal, Genitourinary, Musculoskeletal, Integumentary, Endocrine and Eyes/Ears/Nose/Throat Exam Surgical H&P Exam: Normal: HEENT, Normal: Heart, Normal: Lungs, Normal: Extremities, Normal: Abdomen, Normal: Skin and Normal: Neurological Plan Diagnosis/Plan: Unchanged ( Cystoscopy, left stent removal, left retrograde, left ureteroscopy with laser lithotripsy) I have reviewed the history and physical and performed a pertinent physical examination on my patient. No changes have occurred unless specified. Time Spent With Patient Time: Total time managing care of this patient today ____ minutes.
--- NOTE | 2022-11-17 14:47 | PC.NURSE ---
IV attempt by author and patrick mcclendon rn. insertion by isabel robert rn.
--- NOTE | 2022-11-17 15:08 | HO.ANESPROP2 ---
HPI - Anesthesia Eval Consult details Narrative: for cysto, retro, laser PMFSH Active Problems Active Problems: All Active Problems (Updated 10/29/22 @ 20:05 by Naun Pascual MD) Counseling for hormone replacement therapy (Acute) Hypocitraturia (Acute) Diplopia (Acute) Depression (Acute) Migraine without aura (Acute) Screening for colon cancer (Acute) Headache (Acute) Toenail deformity (Acute) Cracking skin (Acute) Hypercalciuria (Acute) Ureterolithiasis (Acute) Vitamin D deficiency (Acute) Nephrolithiasis (Acute) Physical exam (Acute) Well woman exam (Acute) Counseling for hormone replacement therapy (Acute) Physical exam (Acute) Screening for colon cancer (Acute) Past Medical History Medical History Anxiety COVID-19 vaccine series completed Depression Headache Hyperlipemia Renal calculi Family History Family History Father Hypothyroidism Skin cancer Kidney failure Pulmonary embolism Mother Kidney failure Mental health disorder Family/Other Brain cancer Son No problems noted. Daughter No problems noted. Family history of problems with anesthesia: No Surgical History Surgical History History of lithotripsy History of rotator cuff surgery History of shoulder surgery History of vaginal hysterectomy Hx of cystoscopy History of Problems with Anesthesia: Yes (PONV) Social History Social History Housing: House Alcohol intake: never Patient Tobacco Use Status: Never used Tobacco e-Cigarette/Vaping Use: Never Used Second Hand Smoke Exposure: Yes Are you DNR?: No Advance Directives: No Advance Directives Information Provided: Yes Advance Directives Date on File: 10/29/22 Nutrition Risks: No Nutritional Risk service: No Current occupational status: employed Current occupation: [employer] Current occupational exposures/hazards: No Cognitive needs: No Hearing needs: No Vision needs: No Meds Allergies Allergy/AdvReac Type Severity Reaction Status Date / Time morphine AdvReac Mild Vomiting Verified 11/17/22 13:03 haloperidol [From Haldol] AdvReac Dizziness Verified 11/17/22 13:03 Active Medications: Current Medications Lactated Ringer's (Lr) 1,000 mls @ 50 mls/hr IVCONT .Q20H DIDIER Last Admin: 11/17/22 13:57 Dose: 50 mls/hr Levofloxacin (Levaquin) 500 mg in 100 mls @ 100 mls/hr IV PREOP ONE Stop: 11/17/22 15:53 Home Medications Medication Instructions Recorded Confirmed Last Taken Type multivitamin 1 tab PO DAILY 10/03/21 11/17/22 10/03/21 History venlafaxine 150 mg 150 mg PO DAILY 07/23/22 11/17/22 11/17/22 History capsule,extended release 24 hr venlafaxine 75 mg capsule,extended 75 mg PO DAILY 07/23/22 11/17/22 Unknown History release 24 hr Exam Exam Date and Time: November 17, 2022 1508 Height,Weight and Vital Signs: Height 5 ft 4 in Weight 90.718 kg Last Vital Signs Temp 97.9 F 11/17/22 13:12 Pulse 73 11/17/22 13:12 Resp 18 11/17/22 13:12 BP 119/66 11/17/22 13:12 Pulse Ox 97 11/17/22 13:12 O2 Del Method Room Air 11/17/22 13:12 Airway Mallampati Class: II TM Dist: <=3cm Neck ROM: Full Heart: ok Lungs: ok Assessment and Plan Final Anesthetic Review Family History of Problems with Anesthesia: No History of Problems with Anesthesia: Yes (PONV) NPO: Yes ASA Class: II Final Preanesthetic Review: No Changes in Pt Med Stat, Meds/Allgs Chart Reviewed, Consent Obtained/Reviewed and Anes Risks/Benef Reviewed Patient Risk: Intermediate Procedure Risk: Low Anesthetic Plan Anesthetic Plan: GA and Agree w/ Assess. and Plan Disposition: Standard PACU
--- NOTE | 2022-11-17 16:15 | W.PM.OPN ---
Operative Note Operative Note Date of Service: 11/17/22 Narrative: PreOperative Diagnosis: indwelling left stent with renal stone left side Post Operative Diagnosis: left renal stones Procedure: - cystoscopy, left retrograde alongside stent - removal left stent - left ureteroscopy, laser lithotripsy, stone basketing Surgeon: Dr Naun Pascual Anesthesia: General Indications for procedure: indwelling left stent from bedded stone left UPJ. And stones within left kidney Procedure: After informed consent was verified patient was brought to the operating placed in supine position. Anesthesia was administered per protocol. Patient was placed in modified dorsal lithotomy position and prepped and draped in a sterile fashion. Safety pause time-out and side of surgery confirmed. Antibiotics confirmed. 22 Hebrew cystoscope was inserted per urethra. Bladder was normal in its entirety. Both ureteric orifices were in normal position. stent emerging from left ureter The left ureteric orifice was cannulated and a retrograde examination was performed. no filling defects seen.. A Sensor guidewire was placed up to the level of the renal pelvis under fluoroscopy. The left stent was removed. The rigid cystoscope was removed and the inner cannula of ureteric access sheath was used under fluoroscopy to dilate the ureteric orifice. The ureteric access sheath was placed and the inner cannula with access wire removed. The digital flexible ureteral scope was placed. Stones encountered in mid pole and lower pole. Using laser fiber 272 stones broken into small pieces. They were then removed using the basket. Small fragments remained. The area was washed out. After this was completed and stones broken to small pieces a number of times a decision was made not to leave a stent. The bladder was emptied. The patient tolerated the procedure well and was extubated in the operating room, and transferred in stable condition to the recovery area. Pathology: Stones Drains: known
[2022-11-17 16:23] VITALS: BP 136/68; PULSE 76; RESP 20; TEMP 36.2; O2SAT 97
[2022-11-17 16:28] VITALS: BP 117/63; PULSE 74; RESP 20; O2SAT 98
[2022-11-17] MEDS: Acetaminophen 325 MG TABLET 975 MG PO (16:31)
[2022-11-17 16:33] VITALS: BP 119/70; PULSE 68; RESP 20; O2SAT 99
[2022-11-17 16:38] VITALS: BP 122/52; PULSE 64; RESP 20; TEMP 36.2; O2SAT 99
[2022-11-17] MEDS: oxyCODONE HCl Immed Release 5 MG TABLET PO (16:39)
[2022-11-17 16:53] VITALS: BP 114/67; PULSE 71; RESP 20; O2SAT 98
[2022-11-22 16:03] LABS: Stone Source KIDNEY STONE
== END 2022-11-17 17:13 | disposition home or self-care (01) ==
PROVIDERS: PCP Nurse Practitioner Family; Visit Provider Urology
PROC: (CPT 52353; principal; 2022-11-17 15:30)
DX: N20.0 Calculus of kidney (principal); Z87.442 Personal history of urinary calculi; Z96.0 Presence of urogenital implants; Z79.899 Other long term (current) drug therapy; Z88.5 Allergy status to narcotic agent; Z88.8 Allergy status to other drugs, medicaments and biological substances
CPT/HCPCS: 52353; 82365; 88300; C1758; C1769; C1894; J1885; J1956; J2405; J3010; Q9967

== ENCOUNTER → 2022-11-17 12:41 | Outpatient (BNV) | payer OTHER, SELFPAY | PROVIDERS: PCP Nurse Practitioner Family; Visit Provider Urology | DX: N20.0 Calculus of kidney (principal); Z96.0 Presence of urogenital implants | CPT/HCPCS: 52353; 74420 ==

== ENCOUNTER 2022-11-17 19:17 | Emergency (ER) | payer OTHER, SELFPAY ==
--- NOTE | 2022-11-17 | ECG_ITS ---
Test Reason : chest pain Blood Pressure : / mmHG Vent. Rate : 070 BPM Atrial Rate : 070 BPM P-R Int : 142 ms QRS Dur : 098 ms QT Int : 420 ms P-R-T Axes : 064 016 035 degrees QTc Int : 453 ms Normal sinus rhythm Nonspecific ST and T wave abnormality Abnormal ECG No previous ECGs available Referred By: Generic ED Physician Electronically Signed By:ANGELY RODRÍGUEZ
--- NOTE | ~2022-11-17 | CT_ITS ---
EXAMINATION: CT ABDOMEN AND PELVIS WITHOUT CONTRAST CLINICAL INFORMATION: Left flank pain. COMPARISON: 10/29/2022 TECHNIQUE: Multidetector volumetric imaging was performed from the superior aspect of the liver through the pubic symphysis. Sagittal and coronal reformatted images were obtained on the technologist's workstation. This CT examination was performed using dose optimization techniques as appropriate, variously including the following: *Automated exposure control *Adjustment of mA and/or kV according to patient size (this includes techniques or standardized protocols for targeted exams where dose is matched to indication/reason for exam; i.e. extremities or head) *Use of iterative reconstruction technique DLP: 804 mGy-cm FINDINGS: LUNG BASES: The visualized lung bases are unremarkable. LIVER, GALLBLADDER, AND BILIARY TREE: The liver is normal in size and shape. Relative hypoattenuation of the hepatic parenchyma corresponds to mild steatosis . Small 1 cm focus of hypoattenuation in the falciform ligament likely corresponds to aberrant venous inflow or focal fatty infiltration. No suspicious hepatic lesion or biliary ductal dilatation is present. The gallbladder is unremarkable with no evidence of radiopaque gallstones, gallbladder wall thickening, or obvious pericholecystic inflammatory changes. PANCREAS: Unremarkable. SPLEEN: Unremarkable. ADRENAL GLANDS: Unremarkable. KIDNEYS AND URETERS: The previously seen calculus at the left ureteropelvic junction is no longer present. No numerous small calculus fragments are present within the left renal pelvis and within the calyces the majority of these fragments are punctate in particular, measuring less than 1 mm in diameter. A fragment within the left lower renal pole calyx measures up to 8 mm in diameter, though has a staghorn morphology. This is situated 10 cm from the skin surface of the left posterior mid mid axillary line. There is a small focus of capsular calcification along the posterior aspect of the anterior polar region of the left kidney. There is mild left hydronephrosis with gas in the nondependent portions of the renal pelvis and calyces. There is mild left hydroureter with significant periureteral fat stranding, more pronounced as compared to prior. There are 2 calculi at the right lower renal pole, the larger which measures 4 mm in diameter. Nonobstructive right-sided renal calculi. Kidneys normal in size with normal cortical thickness. BLADDER: No bladder calculi. Small amount of gas is present within the bladder anteriorly. No wall thickening. GASTROINTESTINAL TRACT: Stomach, small bowel, and colon are normal in caliber. No bowel wall thickening or surrounding inflammatory changes. Appendix is normal. No intraperitoneal free fluid or free air. ABDOMINAL WALL: Diastasis recti. No bowel containing hernias. LYMPH NODES: Normal. VASCULAR: Unremarkable. PELVIC VISCERA: Uterus is not seen, possibly surgically absent. No adnexal lesions.. OSSEOUS STRUCTURES: Mild degenerative disc disease in the lumbar spine. Mild osteoarthritis in the hips and SI joints. No acute osseous abnormalities. CT/CT abdomen pelvis wo IV con IMPRESSION: 1. Status post urologic intervention at the left kidney. The calculus at the left ureteropelvic junction is normal present, though multiple small calculus fragments are present within the left renal pelvis and calyces, the largest of which measures up to 8 mm in diameter. There is mild left hydronephrosis and hydroureter with gas in the renal pelvis and calyces as well as significant periureteral fat stranding. No obstructing calculi are identified. A superimposed tract infection cannot be excluded. 2. Nonobstructing right renal calculi. Fleischner guidelines were followed.
[2022-11-17 19:38] VITALS: BP 107/58; PULSE 77; RESP 18; TEMP 36.4; O2SAT 99; BMI 34.4
--- NOTE | 2022-11-17 20:01 | ED.GENADULT ---
HPI - General Adult General Chief complaint: General Medical Stated complaint: pain, diff breathing, post op today d/c 1800 Time Seen by Provider: 11/17/22 21:20 Related Data Home Medications Medication Instructions Recorded Confirmed multivitamin 1 tab PO DAILY 10/03/21 11/17/22 venlafaxine 150 mg 150 mg PO DAILY 07/23/22 11/17/22 capsule,extended release 24 hr venlafaxine 75 mg capsule,extended 75 mg PO DAILY 07/23/22 11/17/22 release 24 hr Previous Rx's Medication Instructions Recorded pyridoxine (vitamin B6) 100 mg 100 mg PO BEDTIME 90 days #90 tabs 06/27/22 tablet topiramate 100 mg tablet 100 mg PO BEDTIME #90 tabs 07/09/22 buspirone 10 mg tablet 10 mg PO BID 90 days #180 tabs 08/06/22 indapamide 1.25 mg tablet 1.25 mg PO DAILY 90 days #90 tabs 08/08/22 allopurinol 100 mg tablet 100 mg PO BEDTIME 90 days #90 tabs 08/26/22 atorvastatin 20 mg tablet 20 mg PO BEDTIME 90 days #90 tabs 09/08/22 clobetasol 0.05 % topical cream 1 appl topical BID 2 weeks #45 10/06/22 grams estradiol 1 mg tablet 1 mg PO DAILY 90 days #90 tabs 10/06/22 propranolol 120 mg capsule,24 120 mg PO DAILY #90 caps 10/06/22 hr,extended release [id number]-[id number] 1 cap PO DAILY PRN Migraine 10/22/22 50 mg-300 mg-40 mg capsule Headache #30 caps phenazopyridine 100 mg tablet 100 mg PO TID PRN Spasm 4 days #12 10/29/22 (Pyridium) tabs hydrocodone 5 mg-acetaminophen 325 1 tab PO Q4H PRN pain 7 days #7 11/17/22 mg tablet tabs sulfamethoxazole 400 1 tab PO DAILY #14 tabs 11/17/22 mg-trimethoprim 80 mg tablet (Bactrim) sulfamethoxazole 400 1 tab PO DAILY #14 tabs 11/17/22 mg-trimethoprim 80 mg tablet (Bactrim) oxycodone 5 mg tablet 5 mg PO Q8H PRN pain #10 tabs 11/18/22 Allergies Allergy/AdvReac Type Severity Reaction Status Date / Time morphine AdvReac Mild Vomiting Verified 11/17/22 19:38 haloperidol [From Haldol] AdvReac Dizziness Verified 11/17/22 19:38 [facility] Past Medical History Medical History Anxiety COVID-19 vaccine series completed Depression Headache Hyperlipemia Renal calculi Surgical History History of lithotripsy History of rotator cuff surgery History of shoulder surgery History of vaginal hysterectomy Hx of cystoscopy Family History Family History Father Hypothyroidism Skin cancer Kidney failure Pulmonary embolism Mother Kidney failure Mental health disorder Family/Other Brain cancer Son No problems noted. Daughter No problems noted. Social History Social History Housing: House Alcohol intake: never Patient Tobacco Use Status: Never used Tobacco Smoked in Last 30 Days: No e-Cigarette/Vaping Use: Never Used Second Hand Smoke Exposure: Yes Use of substances other than those prescribed or required for medical reasons: No Advance Directives: Yes Advance Directives on File: Yes Advance Directives Date on File: 10/29/22 Patient : No service: No Current occupational status: employed Current occupation: [employer] Current occupational exposures/hazards: No Cognitive needs: No Hearing needs: No Vision needs: No Physical Exam ED Vital Signs: Vital Signs - 24 hr 11/17/22 19:38 11/18/22 00:20 Temperature 97.5 F 98.0 F Pulse Rate 77 78 Respiratory Rate 18 17 Blood Pressure 107/58 L 100/50 L Pulse Oximetry 99 93 Oxygen Delivery Method Room Air Room Air BMI result Body Mass Index 34.4 Course Course Course Narrative: This is an RME: Additional HPI, ROS, PE not included below will be deferred to primary provider. This is a [id number], with a hx of nephrolithiasis, presenting to the emergency department with complaints of left flank pain. She is a pt of Dr. Pascual's and had a lithotripsy with stent removal today and woke up from surgery and has had worsening left flank pain. Patient tried to reach Dr. Pascual for pain control and was told that a medication was going to be sent to the pharmacy but has not. Pt appears uncomfortable. Discussed case with attending physician. Plan: Labs, UA, CT abd/pelvis ordered Reevaluation(s) Reevaluation #1: pt was evaluated by Dr. weaver, see other note Medications Administered Discontinued Medications Generic Name Dose Route Start Last Admin Trade Name Kevynq PRN Reason Stop Dose Admin Hydromorphone HCl 2 mg 11/17/22 21:28 11/17/22 21:51 Hydromorphone Hcl 2 Mg/Ml Vial IVPUSH 11/17/22 21:29 2 mg ONCE ONE Administration Protocol Sodium Chloride 1,000 mls @ 999 mls/hr 11/17/22 21:28 11/17/22 22:54 Ns IV 11/17/22 22:28 Infused .Q1H1M ONE Infusion Medical Decision Making Lab Data 11/17/22 20:25 11/17/22 20:25 Labs: Lab Results 11/17/22 11/17/22 11/17/22 Range/Units 20:25 20:25 23:50 WBC 9.8 (4.8-10.8) X10*3/uL RBC 3.71 L (4.20-5.50) X10*6/uL Hgb 11.6 L (12.0-16.0) g/dl Hct 34.9 L (37.0-47.0) % MCV 94.1 (80.0-98.0) fL MCH 31.3 (27.0-33.0) pg MCHC 33.2 (31.0-35.0) g/dl RDW 11.9 (11.0-16.0) % Plt Count 276 (160-400) X10*3/uL MPV 10.1 (9.4-12.3) fL Immature Gran % (Auto) 0.2 (0.0-0.4) % Neut % (Auto) 67.0 (45-73) % Lymph % (Auto) 24.1 (20-40) % [place] % (Auto) 6.4 (2-11) % Eos % (Auto) 1.9 (0-4) % Baso % (Auto) 0.4 (0-2) % Lymph # (Auto) 2.4 (1.2-4.9) X10*3/uL [place] # (Auto) 0.6 (0.1-1.2) X10*3/uL Eos # (Auto) 0.2 (0.0-0.4) X10*3/uL Baso # (Auto) 0.0 (0.0-0.2) X10*3/uL Abs Immat Gran (auto) 0.02 (0.00-0.03) X10*3/uL Absolute Neuts (auto) 6.6 (2.0-8.3) x10*3/uL Absolute Nucleated RBC 0.000 (0.0-0.012) X10*3/uL Nucleated RBC % (auto) 0.0 (0.0-0.2) /100WBC Sodium 144 (135-145) mmol/L Potassium 3.9 (3.3-5.1) mmol/L Chloride 104 (96-108) mmol/L Carbon Dioxide 28 (22-29) mmol/L Anion Gap 16 (12-20) BUN 15 (9-16) mg/dL Creatinine 0.92 (0.5-1.4) mg/dL Estim Creat Clear Calc 78.0 Estimated GFR > 60 Random Glucose 109 (60-115) mg/dL Calcium 9.8 (8.4-10.2) mg/dL Total Bilirubin 0.4 (0.0-1.0) mg/dL AST 26 (5-31) U/L ALT 26 (0-31) U/L Alkaline Phosphatase 77 (39-117) U/L Total Protein 7.3 (6.5-8.0) g/dL Albumin 4.1 (3.5-5.0) g/dL Urine Color Yellow Urine Appearance Clear Urine pH 7.0 (5.0-9.0) Ur Specific [place] <= 1.005 (1.005-1.025) Urine Protein 30 (1+) H (Neg-Trace) mg/dL Urine Glucose (UA) Negative (Negative) mg/dL Urine Ketones Negative (Negative) mg/dL Urine Blood Large (3+) H (Negative) Urine Nitrite Negative (Negative) Ur Leukocyte Esterase Trace H (Negative) Urine RBC >20 H (0-2) /HPF Urine WBC 6-10 H (0-5) /HPF Ur Squamous Epith Cells 0-2 (0-2) /HPF Urine Bacteria None Seen (None Seen) Hyaline Casts 0-2 (0-2) /LPF Discharge Plan Discharge Clinical Impression: Nephrolithiasis, Post-operative pain Patient Disposition: Home, Self-Care Instructions: Pain Management (ED) Additional Instructions: Drink plenty of fluids to help clearly a urine. Take oxycodone as prescribed if needed for pain. Call Dr. Naun Pascual for follow-up. Take the antibiotic prescribed by Dr. Pascual as prescribed. Prescriptions: New oxycodone 5 mg tablet 5 mg PO Q8H PRN (Reason: pain) Qty: 10 0RF Rx Instructions: Partial Fill upon patient request. No Action pyridoxine (vitamin B6) 100 mg tablet 100 mg PO BEDTIME 90 Days Qty: 90 1RF topiramate 100 mg tablet 100 mg PO BEDTIME Qty: 90 1RF buspirone 10 mg tablet 10 mg PO BID 90 Days Qty: 180 1RF indapamide 1.25 mg tablet 1.25 mg PO DAILY 90 Days Qty: 90 1RF atorvastatin 20 mg tablet 20 mg PO BEDTIME 90 Days Qty: 90 1RF propranolol 120 mg capsule,extended release 24 hr 120 mg PO DAILY Qty: 90 1RF uvmojzzqcj-lsqherjfzgwij-mzci 50-300-40 mg capsule 1 cap PO DAILY PRN (Reason: Migraine Headache) Qty: 30 1RF Rx Instructions: can cause rebound headaches, use sparingly multivitamin Tablet 1 tab PO DAILY phenazopyridine [Pyridium] 100 mg tablet 100 mg PO TID PRN (Reason: Spasm) 4 Days Qty: 12 0RF sulfamethoxazole-trimethoprim [Bactrim] 400-80 mg tablet 1 tab PO DAILY Qty: 14 0RF sulfamethoxazole-trimethoprim [Bactrim] 400-80 mg tablet 1 tab PO DAILY Qty: 14 0RF hydrocodone-acetaminophen 5-325 mg tablet 1 tab PO Q4H PRN (Reason: pain) 7 Days Qty: 7 0RF Rx Instructions: Partial Fill upon patient request. clobetasol 0.05 % cream 1 appl topical BID 14 Days Qty: 45 2RF estradiol 1 mg tablet 1 mg PO DAILY 90 Days Qty: 90 3RF allopurinol 100 mg tablet 100 mg PO BEDTIME 90 Days Qty: 90 1RF venlafaxine 150 mg capsule,extended release 24hr 150 mg PO DAILY venlafaxine 75 mg capsule,extended release 24hr 75 mg PO DAILY Referrals: Naun Pascual MD [Physician] - Basilio Ochoa FNP-PEREZ [Primary Care Provider] - Interventions: ED Discharge Assessment Last Done: 11/18/22 00:39 Discharge Date/Time: 11/18/22 00:43
[2022-11-17 20:30] LABS: MANUAL DIFF FLAG NO
[2022-11-17 20:32] LABS: Basophils Percent Auto 0.4 % (0-2); Eosinophils Absolute Auto 0.2 X10*3/uL (0.0-0.4); Eosinophils Percent Auto 1.9 % (0-4); Hematocrit 34.9 % (37.0-47.0); Hemoglobin 11.6 g/dl (12.0-16.0); Imm Gran Abs Auto 0.02 X10*3/uL (0.00-0.03); Imm Gran Pct Auto 0.2 % (0.0-0.4); Lymphocytes Absolute Auto 2.4 X10*3/uL (1.2-4.9); Lymphocytes Percent Auto 24.1 % (20-40); Mean Corpuscular HGB Conc 33.2 g/dl (31.0-35.0); Mean Corpuscular Hemoglobin 31.3 pg (27.0-33.0); Mean Corpuscular Volume 94.1 fL (80.0-98.0); Mean Platelet Volume 10.1 fL (9.4-12.3); Monocytes Absolute Auto 0.6 X10*3/uL (0.1-1.2); Monocytes Percent Auto 6.4 % (2-11); Neutrophils Absolute Auto 6.6 x10*3/uL (2.0-8.3); Platelet Count 276 X10*3/uL (160-400); Red Blood Count 3.71 X10*6/uL (4.20-5.50); Red Cell Distribution Width 11.9 % (11.0-16.0); White Blood Count 9.8 X10*3/uL (4.8-10.8)
[2022-11-17 20:55] LABS: Alanine Aminotransferase 26 U/L (0-31); Albumin Level 4.1 g/dL (3.5-5.0); Alkaline Phosphatase 77 U/L (39-117); Anion Gap 16 (12-20); Aspartate Amino Transferase 26 U/L (5-31); Bilirubin Total 0.4 mg/dL (0.0-1.0); Blood Urea Nitrogen 15 mg/dL (9-16); Calcium 9.8 mg/dL (8.4-10.2); Carbon Dioxide 28 mmol/L (22-29); Chloride 104 mmol/L (96-108); Estimated Glomerular Filt Rate > 60; Glucose Random 109 mg/dL (60-115); Potassium 3.9 mmol/L (3.3-5.1); Sodium 144 mmol/L (135-145); Total Protein 7.3 g/dL (6.5-8.0)
--- NOTE | 2022-11-17 21:29 | ED_ITS ---
HPI - General Adult General Chief complaint: General Medical Stated complaint: pain, diff breathing, post op today d/c 1800 Time Seen by Provider: 11/17/22 21:20 Source: patient and family Mode of arrival: ambulatory Limitations: no limitations History of Present Illness HPI narrative: A 52-year-old female him in with left-sided abdominal pain, patient is/B cystoscopy and left ureteroscopy with laser lithotripsy and stone basketing today, and removal of left ureteric stent by Dr. Pascual today, patient was discha rged home on ibuprofen and oxycodone for pain control return today for intractable pain and nausea no vomiting, able to urinate reported blood in the urine. No fever, no chills, no vomiting, no diarrhea. Patient with known history of kidney stones. History of vaginal hysterectomy. Related Data Home Medications Medication Instructions Recorded Confirmed multivitamin 1 tab PO DAILY 10/03/21 11/17/22 venlafaxine 150 mg 150 mg PO DAILY 07/23/22 11/17/22 capsule,extended release 24 hr venlafaxine 75 mg capsule,extended 75 mg PO DAILY 07/23/22 11/17/22 release 24 hr Previous Rx's Medication Instructions Recorded pyridoxine (vitamin B6) 100 mg 100 mg PO BEDTIME 90 days #90 tabs 06/27/22 tablet topiramate 100 mg tablet 100 mg PO BEDTIME #90 tabs 07/09/22 buspirone 10 mg tablet 10 mg PO BID 90 days #180 tabs 08/06/22 indapamide 1.25 mg tablet 1.25 mg PO DAILY 90 days #90 tabs 08/08/22 allopurinol 100 mg tablet 100 mg PO BEDTIME 90 days #90 tabs 08/26/22 atorvastatin 20 mg tablet 20 mg PO BEDTIME 90 days #90 tabs 09/08/22 clobetasol 0.05 % topical cream 1 appl topical BID 2 weeks #45 10/06/22 grams estradiol 1 mg tablet 1 mg PO DAILY 90 days #90 tabs 10/06/22 propranolol 120 mg capsule,24 120 mg PO DAILY #90 caps 10/06/22 hr,extended release tsexhyiaca-pklxjcuxedqym-xwsqvfhy 1 cap PO DAILY PRN Migraine 10/22/22 50 mg-300 mg-40 mg capsule Headache #30 caps phenazopyridine 100 mg tablet 100 mg PO TID PRN Spasm 4 days #12 08/02/23 (Pyridium) tabs hydrocodone 5 mg-acetaminophen 325 1 tab PO Q4H PRN pain 7 days #7 11/17/22 mg tablet tabs sulfamethoxazole 400 1 tab PO DAILY #14 tabs 11/17/22 mg-trimethoprim 80 mg tablet (Bactrim) sulfamethoxazole 400 1 tab PO DAILY #14 tabs 11/17/22 mg-trimethoprim 80 mg tablet (Bactrim) Allergies Allergy/AdvReac Type Severity Reaction Status Date / Time morphine AdvReac Mild Vomiting Verified 11/17/22 19:38 haloperidol [From Haldol] AdvReac Dizziness Verified 11/17/22 19:38 Review of Systems 2 Review of Systems: All other systems are reviewed and are negative Constitutional: Reports as per HPI and Reports no additional constitutional complaints Eyes: Reports as per HPI and Reports no additional eye complaints Reports system reviewed and no additional complaints, except as documented Cardiovascular: Reports as per HPI and Reports no additional cardiovascular complaints Respiratory: Reports as per HPI and Reports no additional respiratory complaints Gastrointestinal: Reports as per HPI and Reports no additional gastrointestinal complaints Genitourinary: Reports no additional female genitourinary complaints Musculoskeletal: Reports no additional musculoskeletal complaints Skin/Breast: Reports system reviewed and no additional complaints, except as docu Psychiatric: Reports no additional psychiatric complaints Endocrine: Reports no additional endocrine complaints Hematologic/Lymphatic: Reports no additional hematologic/lymphatic complaints Allergic/Immunologic: Reports no additional allergic/immunologic complaints Reports system reviewed and no additional complaints, except as documented and Reports Abnormal speech present PMFSH Past Medical History Medical History Anxiety COVID-19 vaccine series completed Depression Headache Hyperlipemia Renal calculi Surgical History History of lithotripsy History of rotator cuff surgery History of shoulder surgery History of vaginal hysterectomy Hx of cystoscopy Family History Family History Father Hypothyroidism Skin cancer Kidney failure Pulmonary embolism Mother Kidney failure Mental health disorder Family/Other Brain cancer Son No problems noted. Daughter No problems noted. Social History Social History Housing: House Alcohol intake: never Patient Tobacco Use Status: Never used Tobacco Smoked in Last 30 Days: No e-Cigarette/Vaping Use: Never Used Second Hand Smoke Exposure: Yes Use of substances other than those prescribed or required for medical reasons: No Advance Directives: Yes Advance Directives on File: Yes Advance Directives Date on File: 10/29/22 Patient : No service: No Current occupational status: employed Current occupation: [employer] Current occupational exposures/hazards: No Cognitive needs: No Hearing needs: No Vision needs: No Physical Exam ED Vital Signs: Vital Signs - 24 hr 11/17/22 19:38 11/18/22 00:20 Temperature 97.5 F 98.0 F Pulse Rate 77 78 Respiratory Rate 18 17 Blood Pressure 107/58 L 100/50 L Pulse Oximetry 99 93 Oxygen Delivery Method Room Air Room Air BMI result Body Mass Index 34.4 Vital signs have been reviewed as appeared to be correct. Blood pressure normal. Heart rate normal. Respiration rate normal. Temperature normal. Oxygen saturation normal. Appearance: Alert. Oriented X3. No acute distress. Head: Normal external exam. Normocephalic. Atraumatic. No Moran signs noted. No raccoon eyes noted Eyes: PERRLA. EOMI. Conjunctiva and sclera normal. Eyelids normal. ENT: TM's Normal. Pharynx normal. Uvula midline. Moist mucous membranes. No trismus noted. No drooling noted. No muffled voice noted. Neck: Normal inspection. Neck supple. FROM. No adenopathy. Thyroid Normal. No meningeal signs. No neck mass noted. CVS: Normal heart rate and rhythm. Heart sound normal. No murmurs noted. Pulses normal throughout. Respiratory: No respiratory distress. Painless inspiration. Breath sounds normal. No wheezes/rales/rhonchi noted. Chest nontender. No accessory muscle usage noted or decreased air movement noted. Abdomen: Soft, left abdominal tenderness, no guarding, no rebound tenderness. Bowel sounds normal in all 4 quadrants. No distention noted. No organomegaly noted. No visible injury noted. Back: No CVA tenderness. Full range of motion noted. Skin: Skin warm and dry. Normal skin color. Normal skin turgor. No rashes/le sions/lacerations noted. Extremities: No lower extremity edema. Extremities exhibit normal range of motion. Extremities nontender. Neuro: Oriented X 3. Cranial nerve exam: II-XII are grossly intact No motor deficit. No sensory deficit. Reflexes normal. Course Course Course Narrative: 52-year-old female s/p a cystoscopy and ureteroscopy with stent removal and lifestyle trips a with basketing of the stone came in for postoperative pain that was not improved by oxycodone or ibuprofen at home. Patient received Dilaudid in the emergency department which improved the patient's symptoms, pat ient is already prescribed antibiotic to be used postoperatively (Bactrim) patient did not started yet patient was instructed to start the antibiotic and drink plenty of fluids and follow up with Dr. Pascual for any question. Medications Administered Discontinued Medications Generic Name Dose Route Start Last Admin Trade Name Freq PRN Reason Stop Dose Admin Hydromorphone HCl 2 mg 11/17/22 21:28 11/17/22 21:51 Hydromorphone Hcl 2 Mg/Ml Vial IVPUSH 11/17/22 21:29 2 mg ONCE ONE Administration Protocol Sodium Chloride 1,000 mls @ 999 mls/hr 11/17/22 21:28 11/17/22 22:54 Ns IV 11/17/22 22:28 Infused .Q1H1M ONE Infusion Medical Decision Making Differential Diagnosis Differential Diagnoses: The differential diagnosis associated with the presentation includes (Post cystoscopy complication, UTI, new kidney/ureteric stones, diverticulitis, colitis, severe anemia, electrolyte abnormality.) Admission/Observation Consideration of admission/observation: Escalation of care including admission/observation considered Lab Data MDM Lab Attestation statement: I reviewed the patient's lab results. 11/17/22 20:25 11/17/22 20:25 Labs: Lab Results 11/17/22 11/17/22 11/17/22 Range/Units 20:25 20:25 23:50 WBC 9.8 (4.8-10.8) X10*3/uL RBC 3.71 L (4.20-5.50) X10*6/uL Hgb 11.6 L (12.0-16.0) g/dl Hct 34.9 L (37.0-47.0) % MCV 94.1 (80.0-98.0) fL MCH 31.3 (27.0-33.0) pg MCHC 33.2 (31.0-35.0) g/dl RDW 11.9 (11.0-16.0) % Plt Count 276 (160-400) X10*3/uL MPV 10.1 (9.4-12.3) fL Immature Gran % (Auto) 0.2 (0.0-0.4) % Neut % (Auto) 67.0 (45-73) % Lymph % (Auto) 24.1 (20-40) % [place] % (Auto) 6.4 (2-11) % Eos % (Auto) 1.9 (0-4) % Baso % (Auto) 0.4 (0-2) % Lymph # (Auto) 2.4 (1.2-4.9) X10*3/uL [place] # (Auto) 0.6 (0.1-1.2) X10*3/uL Eos # (Auto) 0.2 (0.0-0.4) X10*3/uL Baso # (Auto) 0.0 (0.0-0.2) X10*3/uL Abs Immat Gran (auto) 0.02 (0.00-0.03) X10*3/uL Absolute Neuts (auto) 6.6 (2.0-8.3) x10*3/uL Absolute Nucleated RBC 0.000 (0.0-0.012) X10*3/uL Nucleated RBC % (auto) 0.0 (0.0-0.2) /100WBC Sodium 144 (135-145) mmol/L Potassium 3.9 (3.3-5.1) mmol/L Chloride 104 (96-108) mmol/L Carbon Dioxide 28 (22-29) mmol/L Anion Gap 16 (12-20) BUN 15 (9-16) mg/dL Creatinine 0.92 (0.5-1.4) mg/dL Estim Creat Clear Calc 78.0 Estimated GFR > 60 Random Glucose 109 (60-115) mg/dL Calcium 9.8 (8.4-10.2) mg/dL Total Bilirubin 0.4 (0.0-1.0) mg/dL AST 26 (5-31) U/L ALT 26 (0-31) U/L Alkaline Phosphatase 77 (39-117) U/L Total Protein 7.3 (6.5-8.0) g/dL Albumin 4.1 (3.5-5.0) g/dL Urine Color Yellow Urine Appearance Clear Urine pH 7.0 (5.0-9.0) Ur Specific [place] <= 1.005 (1.005-1.025) Urine Protein 30 (1+) H (Neg-Trace) mg/dL Urine Glucose (UA) Negative (Negative) mg/dL Urine Ketones Negative (Negative) mg/dL Urine Blood Large (3+) H (Negative) Urine Nitrite Negative (Negative) Ur Leukocyte Esterase Trace H (Negative) Urine RBC >20 H (0-2) /HPF Urine WBC 6-10 H (0-5) /HPF Ur Squamous Epith Cells 0-2 (0-2) /HPF Urine Bacteria None Seen (None Seen) Hyaline Casts 0-2 (0-2) /LPF Independent Interpretation I performed an independent interpretation of an: CT Scan (Abdomen and pelvis:1. Status post urologic intervention at the left kidney. The calculus at the left ureteropelvic junction is normal present, though multiple small calculus fragments are present within the left renal pelvis and calyces, the largest of which measures up to 8 mm in diameter. There i) Radiology Impression Discussion of test interpretation with radiology: I have reviewed the radiologist's reading. Chronic Conditions Patient?s care impacted by: Other (Recurrence of ureteric stones.) Discharge Plan Discharge Clinical Impression: Nephrolithiasis, Post-operative pain Patient Disposition: Home, Self-Care Instructions: Pain Management (ED) Additional Instructions: Drink plenty of fluids to help clearly a urine. Take oxycodone as prescribed if needed for pain. Call Dr. Naun Pascual for follow-up. Take the antibiotic prescribed by Dr. Pascual as prescribed. Prescriptions: No Action pyridoxine (vitamin B6) 100 mg tablet 100 mg PO BEDTIME 90 Days Qty: 90 1RF topiramate 100 mg tablet 100 mg PO BEDTIME Qty: 90 1RF buspirone 10 mg tablet 10 mg PO BID 90 Days Qty: 180 1RF indapamide 1.25 mg tablet 1.25 mg PO DAILY 90 Days Qty: 90 1RF atorvastatin 20 mg tablet 20 mg PO BEDTIME 90 Days Qty: 90 1RF propranolol 120 mg capsule,extended release 24 hr 120 mg PO DAILY Qty: 90 1RF hbafbqtrku-mifeokfktnawk-rhgk 50-300-40 mg capsule 1 cap PO DAILY PRN (Reason: Migraine Headache) Qty: 30 1RF Rx Instructions: can cause rebound headaches, use sparingly multivitamin Tablet 1 tab PO DAILY phenazopyridine [Pyridium] 100 mg tablet 100 mg PO TID PRN (Reason: Spasm) 4 Days Qty: 12 0RF sulfamethoxazole-trimethoprim [Bactrim] 400-80 mg tablet 1 tab PO DAILY Qty: 14 0RF sulfamethoxazole-trimethoprim [Bactrim] 400-80 mg tablet 1 tab PO DAILY Qty: 14 0RF hydrocodone-acetaminophen 5-325 mg tablet 1 tab PO Q4H PRN (Reason: pain) 7 Days Qty: 7 0RF Rx Instructions: Partial Fill upon patient request. clobetasol 0.05 % cream 1 appl topical BID 14 Days Qty: 45 2RF estradiol 1 mg tablet 1 mg PO DAILY 90 Days Qty: 90 3RF allopurinol 100 mg tablet 100 mg PO BEDTIME 90 Days Qty: 90 1RF venlafaxine 150 mg capsule,extended release 24hr 150 mg PO DAILY venlafaxine 75 mg capsule,extended release 24hr 75 mg PO DAILY
[2022-11-17] MEDS: 0.9 % Sodium Chloride 1,000 ML 999 ML IV (21:50)
[2022-11-17] MEDS: HYDROmorphone HCl 2 MG/ML VIAL IVPUSH (21:51)
[2022-11-17 23:57] LABS: Appearance Urine Clear; Color Urine Yellow; Glucose Urine UA Negative (Negative); Leukocyte Esterase Urine Trace (Negative); Nitrite Urine Negative (Negative); Specific Gravity - Urine <= 1.005 (1.005-1.025); UMIC TRIGGER UACC YES; Urine Blood Large (3+) (Negative); Urine Ketones Negative (Negative); Urine Protein 30 (1+) mg/dL (Neg-Trace)
[2022-11-18 00:03] LABS: Bacteria Urine None Seen (None Seen); Hyaline Casts Urine 0-2 /LPF (0-2); RBC Urine >20 /HPF (0-2); Squamous Epithelial Cell Urine 0-2 /HPF (0-2); UACC Culture Trigger YES
[2022-11-18 00:20] VITALS: BP 100/50; PULSE 78; RESP 17; TEMP 36.7; O2SAT 93
== END 2022-11-18 00:43 | disposition home or self-care (01) ==
PROVIDERS: Physician Assistant Medical; Emergency Provider Emergency Medicine; PCP Nurse Practitioner Family
DX: N20.0 Calculus of kidney (principal); R06.02 Shortness of breath; G89.18 Other acute postprocedural pain; R07.89 Other chest pain; R10.2 Pelvic and perineal pain; R10.9 Unspecified abdominal pain; Z79.899 Other long term (current) drug therapy
CPT/HCPCS: 36415; 74176; 80053; 81001; 85025; 87086; 93005; 96361; 96374; 99284; 99285; J1170

== ENCOUNTER 2022-11-26 10:34 | Outpatient (AMB) | payer OTHER, SELFPAY ==
--- NOTE | 2022-11-26 10:39 | MHC.OFFVIS ---
Intake 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: post op Intake Note: Patient is present for Telephone Post Op Urology Med:Estradiol Antibiotic Allergy: None Blood Thinner: None Pharmacy: [facility] Allergies morphine Adverse Reaction (Mild, Verified 11/26/22 10:42) Vomiting haloperidol [From Haldol] Adverse Reaction (Verified 11/26/22 10:42) Dizziness Medication List - Last Reconciled 11/26/22 by Naun Pascual MD allopurinol 100 mg PO BEDTIME 90 days atorvastatin 20 mg PO BEDTIME 90 days buspirone 10 mg PO BID 90 days cepurchnoz-fyrgrvudgxoen-vhcv 50-300-40 mg 1 cap PO DAILY PRN clobetasol 0.05% 1 appl topical BID 2 weeks estradiol 1 mg PO DAILY 90 days hydrocodone-acetaminophen 5-325 mg 1 tab PO Q4H PRN 7 days indapamide 1.25 mg PO DAILY 90 days multivitamin 1 tab PO DAILY oxycodone 5 mg PO Q8H PRN phenazopyridine (Pyridium) 100 mg PO TID PRN 4 days propranolol ER 120 mg PO DAILY pyridoxine (vitamin B6) 100 mg PO BEDTIME 90 days solifenacin 5 mg PO DAILY sulfamethoxazole-trimethoprim 400-80 mg (Bactrim) 1 tab PO DAILY sulfamethoxazole-trimethoprim 400-80 mg (Bactrim) 1 tab PO DAILY topiramate 100 mg PO BEDTIME venlafaxine ER 150 mg PO DAILY venlafaxine ER 75 mg PO DAILY HPI HPI Comments History of Present Illness Details Shoshana is a very pleasant female. She is a patient of Dr. Cummings. She is seen for the following urologic conditions - recurrent nephrolithiasis Telemedicine Evaluation 15 min Consultation [employer] Anastasiia Video attempted Confirmed current treatment regimen which includes - indapamide to reduce urinary calcium - vitamin B6 - potassium citrate powder from [employer] Nephrolithiasis Recurrent calcium oxalate with background of topiramate use and high calcium on 24 hour urine They are here for further evaluation of nephrolithiasis Urolithiasis was diagnosed - Stones have been present since early 2015. Had undergone evaluation with Dr. Britton. ESWL performed previously 04/15 Left. - Obstructing left ureteric stone had passed. Ureteroscopy performed but left lower pole stone not treated at that time 08/13 - uses topramax for migraine management The patient previously had kidney stones whose composition includes - 12/14 , calcium oxalate - monohydrate, calcium oxalate - dihydrate - 11/16 , calcium oxalate - monohydrate - 03/19 calcium oxalate monohydrate, carbonate apatite - 09/18 calcium oxalate dihydrate with carbonate apatite - 11/19 calcium oxalate mixed with carbonate apatite Laboratory investigations include - 12/14 , Base line serum evaluation, Normocalcemia (9.0), Normal PTH, Normal uric acid 03/19 Ca 9.7 - 11/13 , 24 Hr Urine - Low Urine volume < 2.0 liters, High oxalate > 30mg, Low citrate < 400. - 07/19 Ca 9.9, 24 hr large volume, low citrate, high calcium - 02/18 24 hr large volume, low citrate, high calcium Prior treatment(s) include left, ESWL - 12/14 left, ureteroscopy - had post procedure UTI - 12/14 , medical management, with allopurinol, with potassium citrate - 11/16 , ureteroscopy left side - 03/19 right side ureteroscopy, 04/20 left-sided ureteroscopy, 09/18 Right USR, 11/19 right USR Prior imaging includes - 09/13 , a CT with contrast to nonobstructing calculi right kidney largest 3 mm, 3 nonobstructing calculi left kidney largest 9 mm lower pole - 03/15 , a renal ultrasound, on the right, showing no evidence of stones, on the left, showing radiodense stone(s), 5-10 mm - 04/17 US bilateral stones, XR left 6mm x2 - 10/15 , a KUB x-ray left-sided 1.2 cm stone - 04/18 , a KUB x-ray stable - 10/16 , a KUB x-ray left 1.2 cm, right 5mm - 01/16 CT scan, 5 mm distal right stone with hydronephrosis - 06/18 renal ultrasound 3 mm bilateral stones, 01/18 renal ultrasound significantly decreased stone burden right side, left cluster 6 mm - 07/20 renal ultrasound right small stone, left stones Current therapeutic plan - hyper filtration, indapamide, repeat [facility] PFSH Medical History Anxiety COVID-19 vaccine series completed Depression Headache Hyperlipemia Renal calculi Surgical History History of lithotripsy History of rotator cuff surgery History of shoulder surgery History of vaginal hysterectomy Hx of cystoscopy Family History Father Hypothyroidism Skin cancer Kidney failure Pulmonary embolism Mother Kidney failure Mental health disorder Family/Other Brain cancer Son No problems noted. Daughter No problems noted. Social History Housing: House Alcohol intake: never Patient Tobacco Use Status: Never used Tobacco e-Cigarette/Vaping Use: Never Used Second Hand Smoke Exposure: Yes Advance Directives Date on File: 10/29/22 service: No Current occupational status: employed Current occupation: [employer] Current occupational exposures/hazards: No Cognitive needs: No Hearing needs: No Vision needs: No Female Reproductive History Menstrual Age of Menarche: 10 Review of Systems Const All systems reviewed & are unremarkable except as noted in HPI and below Reports no additional complaints Resp Reports no additional complaints GI Reports no additional complaints Reports as per HPI Musc Reports no additional complaints Physical Exam Telemedicine evaluation Appropriate responses Regular breathing rate and rhythm HEENT Head: Yes normal to inspection Ears: hearing grossly normal bilaterally Eyes General: appearance normal, both eyes and all related structures Neck Neck: Yes normal visual inspection Chest Chest palpation & inspection: normal inspection of the chest Resp Effort & Inspection: normal respiratory effort and able to speak in complete sentences Assessment & Plan Assessment & Plan (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 No major barriers to patient understanding were identified. An opportunity to ask questions regarding the treatment plan was provided. All questions were answered. The patient expressed understanding and agreement with the above treatment plan. The patient is aware they should contact our office by phone for worsening of their current condition or the appearance of new urologic symptoms. Compliance is encouraged with any medications and followup testing that is ordered. It is a privilege to participate in the urologic care of your patient. If you have any questions or concerns regarding treatment for the above conditions, or other urologic issues, please do not hesitate to contact me. The office telephone contact is [phone]. This note is constructed using voice recognition software. While every effort has been made to ensure accuracy central melt specialist errors may have been included. Yours sincerely, Dr Naun Pascual MD, [facility] - Urology Providers of Expert, Compassionate Care for the Genitourinary System Telehealth Telehealth Location of provider rendering services: practice address Location of patient: address on file Patient Identification confirmed using: Name, : Yes Telehealth method: video Patient verbally consented to treatment: Yes Patient verbally consented to billing insurance company: Yes Patient informed of any privacy concerns related to visit: Yes Coding Level of Care Code Tele Est Pt Level 4 (99361) Diagnoses Hypocitraturia R82.991 Nephrolithiasis N20.0
== END 2022-11-26 11:34 | disposition home or self-care (01) ==
LOC: HO.HUSH 10:34
PROVIDERS: PCP Nurse Practitioner Family; Visit Provider Urology
DX: R82.991 Hypocitraturia (principal); N20.0 Calculus of kidney
CPT/HCPCS: 99213

== ENCOUNTER → 2022-11-26 10:34 | Outpatient (BNVA) | payer OTHER, SELFPAY | PROVIDERS: PCP Nurse Practitioner Family; Visit Provider Urology ==

== ENCOUNTER 2023-01-15 10:00 | Outpatient (AMB) | payer OTHER, SELFPAY ==
--- NOTE | 2023-01-15 10:07 | MHC.OFFVIS ---
Intake Vital Signs 01/15/23 10:08 Height 5 ft 4 in Weight 206 lb BMI 35.4 Pulse 84 Pulse Source Pulse Oximeter Pulse Oximetry (%) 96 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: 3m f/u Headaches-LVM Intake Note: Patient presents for 3 month follow up headaches. Patient states my headaches go up and down with stress, it fluctuates. Allergies morphine Adverse Reaction (Mild, Verified 01/15/23 10:12) Vomiting haloperidol [From Haldol] Adverse Reaction (Verified 01/15/23 10:12) Dizziness Medication List - Last Reconciled 01/15/23 by CHRISTIAN Méndez allopurinol 100 mg PO BEDTIME 90 days atorvastatin 20 mg PO BEDTIME 90 days buspirone 10 mg PO BID 90 days dlajtxolwa-biweuxbkssiac-ryue 50-300-40 mg 1 cap PO DAILY PRN clobetasol 0.05% 1 appl topical BID 2 weeks estradiol 1 mg PO DAILY 90 days hydrocodone-acetaminophen 5-325 mg 1 tab PO Q4H PRN 7 days indapamide 1.25 mg PO DAILY 90 days multivitamin 1 tab PO DAILY oxycodone 5 mg PO Q8H PRN phenazopyridine (Pyridium) 100 mg PO TID PRN 4 days propranolol ER 120 mg PO DAILY pyridoxine (vitamin B6) 100 mg PO BEDTIME 90 days solifenacin 5 mg PO DAILY sulfamethoxazole-trimethoprim 400-80 mg (Bactrim) 1 tab PO DAILY sulfamethoxazole-trimethoprim 400-80 mg (Bactrim) 1 tab PO DAILY topiramate 100 mg PO BEDTIME venlafaxine ER 150 mg PO DAILY venlafaxine ER 75 mg PO DAILY HPI HPI Comments History of Present Illness Details 52-yr-old female presents for f/u visit. Pt denies any significant interval medical changes. She states her migraines are about the same. In the last month, she is having 3-4 migraines days per week. She has been having more sinus headaches- states her fall allergies are worse than her spring allergies. Does use zyrtec daily, at times alternates w/ lyn. Using Flonase qd. Uses Sudafed prn. PFSH Medical History Anxiety COVID-19 vaccine series completed Depression Headache Hyperlipemia Renal calculi Surgical History Hx of cystoscopy History of vaginal hysterectomy History of shoulder surgery History of lithotripsy History of rotator cuff surgery Family History Father Hypothyroidism Skin cancer Kidney failure Pulmonary embolism Mother Kidney failure Mental health disorder Family/Other Brain cancer Son No problems noted. Daughter No problems noted. Social History Housing: House Alcohol intake: never Patient Tobacco Use Status: Never used Tobacco e-Cigarette/Vaping Use: Never Used Second Hand Smoke Exposure: Yes Advance Directives Date on File: 10/29/22 service: No Current occupational status: employed Current occupation: [employer] Current occupational exposures/hazards: No Cognitive needs: No Hearing needs: No Vision needs: No Female Reproductive History Menstrual Age of Menarche: 10 Review of Systems Const All systems reviewed & are unremarkable except as noted in HPI and below Physical Exam Vital Signs: Last Vital Signs Pulse 84 01/15/23 10:08 Pulse Ox 96 01/15/23 10:08 BMI result Body Mass Index 35.4 Const General: cooperative and no acute distress Orientation/consciousness: patient oriented x3 HEENT Head: Yes normocephalic Resp Effort & Inspection: normal respiratory effort and able to speak in complete sentences Neuro General: patient oriented x3, gait normal and CN's II-XI intact bilaterally Cognition (Neuro): normal cognition Motor exam (neuro): 5/5 motor strength present throughout Psych Appearance: grossly normal Mental Status: mental status grossly normal Speech and movement: Normal speech and movement present Affect: normal affect Attitude: cooperative Thought process: Normal thought process present Thought content: Normal thought content present Insight: Good insight present (Psych) Judgement: Good judgement present (Psych) Assessment & Plan Assessment & Plan (1) Migraine without aura: Code(s): G43.009 - Migraine without aura, not intractable, without status migrainosus (2) Headache: Code(s): R51.9 - Headache, unspecified Plan For overall headache management: Track headaches. Continue psychotherapy. For sinus headache: Try adding Azelatstine nasal spray. ? For acute headache treatment: Continue Fioricet prn. Reviewed potential adverse effects of Fioricet, including risk for medication overuse headaches. Previous acute migraine medication trials: Sumatriptan, frovatriptan, naratriptan- ineffective. Ubrelvy- no effect. Nurtec- no effect (? gepants tried off of Fioricet) Acute migraine medication contraindications: None at this time Future considerations: Sumatriptan inj, Rizatriptan/Eletriptan. ? For headache prevention medication: Start Emgality 240mg sc x's 1 , then 120mg sc q month. Continue: Venlafaxine 225mg qd (ordered for mood). Propranolol ER 120mg qd. Topiramate 100mg qhs (notes has a h/o kidney stones- is on vit B6 and indapamide)- states migraines are much worse when she is off of topiramate. Previous migraine prevention medication trials: Depakote- ineffective. CGRP MaBs (aimovig or ajovy)- ineffective Migraine prevention medication contraindications: Would not increase Topiramate. Future considerations: Botox, Qulipta. ? Information also given on non-pharmacological interventions, such as Cefaly neuromodulation devices. ? f/u in 3-4 months or sooner prn Medications: New galcanezumab-gnlm (Emgality Pen) 120 mg subcut ONCE 30 days 1 mL 6RF azelastine administer into each nostril 2 sprays intranasal BID 30 days 30 mL 3RF Coding Level of Care Code Est Pt Level 4 (79485) Diagnoses Migraine without aura G43.009 Headache R51.9
[2023-01-15 10:08] VITALS: PULSE 84; O2SAT 96; BMI 35.4
== END 2023-01-15 10:51 | disposition home or self-care (01) ==
PROVIDERS: Visit Provider Nurse Practitioner Family
DX: G43.009 Migraine without aura, not intractable, without status migrainosus (principal); R51.9 Headache, unspecified
CPT/HCPCS: 99214

== ENCOUNTER → 2023-01-15 10:00 | Outpatient (BNVA) | payer OTHER, SELFPAY | PROVIDERS: Visit Provider Nurse Practitioner Family ==

== ENCOUNTER 2023-01-21 16:34 | Outpatient (REF) | payer OTHER, SELFPAY ==
--- NOTE | ~2023-01-21 | US_ITS ---
EXAMINATION: US RETROPERITONEAL LIMITED (RENAL ONLY) CLINICAL INFORMATION: Calculus of kidney. COMPARISON: CT abdomen and pelvis 11/17/2022. Renal ultrasound 07/23/2022 and 12/20/2021. TECHNIQUE: Real-time imaging of the kidneys. FINDINGS: RIGHT KIDNEY: 10.4 x 5.0 x 6.1 cm (SAG x AP x TRV). The kidney is normal in size, contour, and echogenicity. Renal cortical thickness is normal. No focal parenchymal lesions or hydronephrosis. There are interpolar 0.6 x 0.4 x 0.7 cm stone, 0.4 x 0.3 x 0.3 cm stone. LEFT KIDNEY: 10.4 x 4.5 x 4.8 cm (SAG x AP x TRV). The kidney is normal in size, contour, and echogenicity. Renal cortical thickness is normal. No focal parenchymal lesions or hydronephrosis. There is lower pole 1.7 x 0.7 x 1.6 cm stone, there is 0.8 x 0.5 x 0.6 cm stone in interpolar cortex and 0.9 x 0.7 x 1.7 cm stone in the interpolar collecting system. There is mild fullness of collecting system on the left. Linear calcifications seen in the renal cortex as well. US/US renal BI IMPRESSION: Bilateral nephrolithiasis and fullness of collecting system of left kidney..
== END 2023-01-21 16:35 | disposition home or self-care (01) ==
LOC: HO.US 16:34
PROVIDERS: PCP Nurse Practitioner Family; Visit Provider Urology
DX: N20.0 Calculus of kidney (principal)
CPT/HCPCS: 76775

== ENCOUNTER 2023-02-06 08:35 | Day surgery (SDC) | payer OTHER, SELFPAY ==
[2023-02-04 14:02] VITALS: BMI 35.0
--- NOTE | 2023-02-05 10:56 | P.CONAN_ITS ---
Documented by User: Mayra Eng NP 02/05/23 11:01 HPI - Anesthesia Eval Consult details Narrative: 52yo F for Colonoscopy s/p cysto etc 10/2022 with GA-LMA 3 PMFSH Active Problems Active Problems: All Active Problems (Updated 02/04/23 @ 13:59 by Maddie Mejía, BARBARA) Counseling for hormone replacement therapy (Acute) Hypocitraturia (Acute) Diplopia (Acute) Migraine without aura (Acute) Screening for colon cancer (Acute) Toenail deformity (Acute) Cracking skin (Acute) Hypercalciuria (Acute) Ureterolithiasis (Acute) Vitamin D deficiency (Acute) Screening for colon cancer (Acute) Physical exam (Acute) Counseling for hormone replacement therapy (Acute) Well woman exam (Acute) Physical exam (Acute) Nephrolithiasis (Acute) Depression (Acute) Headache (Acute) Past Medical History Medical History Renal calculi Depression Anxiety Headache Hyperlipemia Family History Family History Father Hypothyroidism Skin cancer Kidney failure Pulmonary embolism Mother Kidney failure Mental health disorder Family/Other Brain cancer Son No problems noted. Daughter No problems noted. Family history of problems with anesthesia: No Surgical History Surgical History Hx of cystoscopy History of vaginal hysterectomy History of shoulder surgery History of lithotripsy History of rotator cuff surgery History of Problems with Anesthesia: Yes (PONV) Social History Social History Housing: House Alcohol intake: never Patient Tobacco Use Status: Never used Tobacco e-Cigarette/Vaping Use: Never Used Second Hand Smoke Exposure: Yes Use of substances other than those prescribed or required for medical reasons: No Are you DNR?: No Advance Directives: No Advance Directives Information Provided: Yes Advance Directives Date on File: 10/29/22 service: No Current occupational status: employed Current occupation: [employer] Current occupational exposures/hazards: No Cognitive needs: No Hearing needs: No Vision needs: No Meds Allergies Allergy/AdvReac Type Severity Reaction Status Date / Time haloperidol [From Haldol] AdvReac Intermediate Dizziness Verified 02/04/23 14:01 morphine AdvReac Mild Vomiting Verified 01/15/23 10:12 Home Medications Medication Instructions Recorded Confirmed Last Taken Type multivitamin 1 tab PO DAILY 10/03/21 02/04/23 10/03/21 History venlafaxine 150 mg 150 mg PO DAILY 07/23/22 02/06/23 02/06/23 History capsule,extended release 24 hr venlafaxine 75 mg capsule,extended 75 mg PO DAILY 07/23/22 02/06/23 02/06/23 History release 24 hr solifenacin 5 mg tablet 5 mg PO DAILY 11/26/22 01/15/23 Unknown History Exam Exam Date and Time: February 05, 2023 1056 Height,Weight and Vital Signs: Height 5 ft 4 in Weight 92.533 kg Pertinent Lab Results Pertinent Lab Results: Laboratory Tests 11/17/22 20:25 WBC 9.8 Hgb 11.6 L Hct 34.9 L Plt Count 276 Sodium 144 Potassium 3.9 Chloride 104 Carbon Dioxide 28 BUN 15 Creatinine 0.92 Narrative Narrative: EKG 10/2022 NSR @ [address] and T wave abn Assessment and Plan Assessment Anesthesia Assessment: Chart Reviewed Final Anesthetic Review Family History of Problems with Anesthesia: No History of Problems with Anesthesia: Yes (PONV) Documented by User: Tiff Galeas MD 02/06/23 09:38 [facility] Past Medical History Medical History Renal calculi Depression Anxiety Headache Hyperlipemia Family History Family History Father Hypothyroidism Skin cancer Kidney failure Pulmonary embolism Mother Kidney failure Mental health disorder Family/Other Brain cancer Son No problems noted. Daughter No problems noted. Surgical History Surgical History Hx of cystoscopy History of vaginal hysterectomy History of shoulder surgery History of lithotripsy History of rotator cuff surgery Social History Social History Housing: House Alcohol intake: never Patient Tobacco Use Status: Never used Tobacco e-Cigarette/Vaping Use: Never Used Second Hand Smoke Exposure: Yes Use of substances other than those prescribed or required for medical reasons: No Are you DNR?: No Advance Directives: No Advance Directives Information Provided: Yes Advance Directives Date on File: 10/29/22 service: No Current occupational status: employed Current occupation: [employer] Current occupational exposures/hazards: No Cognitive needs: No Hearing needs: No Vision needs: No Meds Allergies Allergy/AdvReac Type Severity Reaction Status Date / Time haloperidol [From Haldol] AdvReac Intermediate Dizziness Verified 02/04/23 14:01 morphine AdvReac Mild Vomiting Verified 01/15/23 10:12 Home Medications Medication Instructions Recorded Confirmed Last Taken Type multivitamin 1 tab PO DAILY 10/03/21 02/04/23 10/03/21 History venlafaxine 150 mg 150 mg PO DAILY 07/23/22 02/06/23 02/06/23 History capsule,extended release 24 hr venlafaxine 75 mg capsule,extended 75 mg PO DAILY 07/23/22 02/06/23 02/06/23 History release 24 hr solifenacin 5 mg tablet 5 mg PO DAILY 11/26/22 01/15/23 Unknown History Assessment and Plan Assessment Anesthesia Assessment: Anesthesia Plan Discussed Final Anesthetic Review NPO: Yes ASA Class: II Final Preanesthetic Review: Meds/Allgs Chart Reviewed, Consent Obtained/Reviewed and Anes Risks/Benef Reviewed Patient Risk: Low Procedure Risk: Low Anesthetic Plan Anesthetic Plan: MAC: Disposition: Standard PACU
[2023-02-06 08:51] VITALS: BMI 32.8
[2023-02-06 08:52] VITALS: BP 104/62; PULSE 84; RESP 16; TEMP 37.6; O2SAT 98
[2023-02-06] MEDS: Lactated Ringers 1,000 ML 100 ML IVCONT (09:08)
--- NOTE | 2023-02-06 09:21 | MHC.SHP ---
Pre-Procedural Eval Section A Date of Service: 02/06/23 Section B Chief Complaint: Encounter for screening for malignant neoplasm of Details of Present Illness: see H&P no changes Relevant Family History (Specify if Yes): No Relevant Social History: None Present Medications: see Short Stay Collaborative assessment Medical History: No relevant PMH History of Previous Operations: No relevant previous surgery Allergies: Allergies Allergy/AdvReac Type Severity Reaction Status Date / Time haloperidol [From Haldol] AdvReac Intermediate Dizziness Verified 02/04/23 14:01 morphine AdvReac Mild Vomiting Verified 01/15/23 10:12 Review of Systems Sugical H&P ROS: Negative: Constitution, Cardiovascular, Respiratory, Neurological, Psychiatric, Hem-Onc, Allergic/Immunologic, Gastrointestinal, Genitourinary, Musculoskeletal, Integumentary, Endocrine and Eyes/Ears/Nose/Throat Exam Surgical H&P Exam: Normal: HEENT, Normal: Heart, Normal: Lungs, Normal: Extremities, Normal: Abdomen, Normal: Skin and Normal: Neurological Plan Diagnosis/Plan: Unchanged I have reviewed the history and physical and performed a pertinent physical examination on my patient. No changes have occurred unless specified. Time Spent With Patient Time: Total time managing care of this patient today ____ minutes.
[2023-02-06 09:55] VITALS: BP 105/62; PULSE 78; RESP 17; TEMP 36.8; O2SAT 100
--- NOTE | 2023-02-06 09:58 | PM.OP ---
Brief Operative Note Date of Service: 02/06/23 Pre-op diagnosis: screening Post-op diagnosis: same Procedure: colonoscopy Surgeon: Jack Anton MD Anesthesia: MAC Was an Social Work Manager used for this Procedure?: No Estimated blood loss (mL): 2 Pathology: other Condition: stable Disposition: PACU
[2023-02-06 10:18] VITALS: BP 110/60; PULSE 74; RESP 18; TEMP 36.7; O2SAT 99
--- NOTE | 2023-02-06 10:40 | OP_ITS ---
DATE OF SERVICE: 02/06/2023 SURGEON: Jack Anton MD INDICATIONS: Colon cancer screening. PREOPERATIVE DIAGNOSIS: POSTOPERATIVE DIAGNOSIS: PROCEDURE PERFORMED: Colonoscopy to the terminal ileum with biopsy. ESTIMATED BLOOD LOSS: COMPLICATIONS: ANESTHESIA: Monitored anesthesia care. ASSISTANTS: SPECIMENS: DESCRIPTION OF PROCEDURE: The history and physical was performed. The risks and benefits of the procedure were explained to the patient. Informed consent was obtained. The patient was placed in the left lateral decubitus position. A digital rectal exam was performed and was found to be normal. The Olympus pediatric video colonoscope was introduced into the rectum, advanced to the cecum. The cecum was identified by transillumination, palpation, and identification of ileocecal valve. Examination was performed. The scope was removed. She tolerated the procedure well and was returned to the recovery area in stable condition. FINDINGS: The terminal ileum was examined and appeared normal. The visualized colonic mucosa was normal. The quality of the prep was good. There was a single polyp measuring less than 5 mm identified at 75 cm. This was removed with biopsy forceps. No other polyps were identified. Retroflexed examination showed small internal hemorrhoids. IMPRESSION: Colon polyp. RECOMMENDATION: Follow up the biopsy results. MD PEREZ Meneses/TEMO / [id number]
== END 2023-02-06 10:45 | disposition home or self-care (01) ==
PROVIDERS: PCP Nurse Practitioner Family; Visit Provider Internal Medicine Gastroenterology
PROC: 0DJD8ZZ Inspection of Lower Intestinal Tract, Via Natural or Artificial Opening Endoscopic (ICD-10-PCS; CPT 45378; principal; 2023-02-06 09:30)
DX: Z12.11 Encounter for screening for malignant neoplasm of colon (principal); K63.5 Polyp of colon; K64.8 Other hemorrhoids; K59.09 Other constipation; E55.9 Vitamin D deficiency, unspecified; E78.5 Hyperlipidemia, unspecified; G43.909 Migraine, unspecified, not intractable, without status migrainosus; F41.8 Other specified anxiety disorders; Z79.899 Other long term (current) drug therapy; Z79.1 Long term (current) use of non-steroidal anti-inflammatories (NSAID); Z87.442 Personal history of urinary calculi; Z90.710 Acquired absence of both cervix and uterus; Z98.890 Other specified postprocedural states
CPT/HCPCS: 45380; 88305; J2704

== ENCOUNTER 2023-02-26 11:27 | Outpatient (AMB) | payer OTHER, SELFPAY ==
--- NOTE | 2023-02-26 11:30 | A.OFFVIS_ITS ---
Intake 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: 6m/US/[facility] Intake Note: Patient is Present for Telephone Follow Up Urology Med: Vitamin B6, Solifenacin Antibiotic Allergy: none Blood Thinner:none Allergies haloperidol [From Haldol] Adverse Reaction (Intermediate, Verified 02/04/23 14:01) Dizziness morphine Adverse Reaction (Mild, Verified 01/15/23 10:12) Vomiting Medication List - Last Reconciled 02/26/23 by Naun Pascual MD allopurinol 100 mg PO BEDTIME 90 days atorvastatin 20 mg PO BEDTIME 90 days azelastine 2 sprays intranasal BID 30 days buspirone 10 mg PO BID 90 days sgluvzgtpr-xuqgjryheuety-xjym 50-300-40 mg 1 cap PO DAILY PRN clobetasol 0.05% 1 appl topical BID 2 weeks estradiol 1 mg PO DAILY 90 days galcanezumab-gnlm (Emgality Pen) 120 mg subcut ONCE 30 days hydrocodone-acetaminophen 5-325 mg 1 tab PO Q4H PRN 7 days indapamide 2.5 mg PO DAILY 90 days multivitamin 1 tab PO DAILY oxycodone 5 mg PO Q8H PRN phenazopyridine (Pyridium) 100 mg PO TID PRN 4 days propranolol ER 120 mg PO DAILY pyridoxine (vitamin B6) 100 mg PO BEDTIME 90 days solifenacin 5 mg PO DAILY topiramate 100 mg PO BEDTIME venlafaxine ER 150 mg PO DAILY venlafaxine ER 75 mg PO DAILY HPI HPI Comments History of Present Illness Details Shoshana is a very pleasant female. She is a patient of Dr. Cummings. She is seen for the following urologic conditions - recurrent nephrolithiasis Telemedicine Evaluation 15 min Consultation [employer] Anastasi[facility] Video attempted Review [facility] Good news has seen reduction in calcium from 370-250, citrate staying low, great volume Increase indapamide to 2.5 mg daily Continue with potassium citrate powder - mix with true lumen Confirmed current treatment regimen which includes - indapamide to reduce urinary calcium - vitamin B6 - potassium citrate powder from [facility] Would like to go ahead with left-sided ureteroscopy 1st week of the new year. Is going to [place] on the Nephrolithiasis Recurrent calcium oxalate with background of topiramate use and high calcium on 24 hour urine They are here for further evaluation of nephrolithiasis Urolithiasis was diagnosed - Stones have been present since early 2015. Had undergone evaluation with Dr. Britton. ESWL performed previously 04/15 Left. - Obstructing left ureteric stone had passed. Ureteroscopy performed but left lower pole stone not treated at that time 08/13 - uses topramax for migraine management The patient previously had kidney stones whose composition includes - 12/14 , calcium oxalate - monohydrate, calcium oxalate - dihydrate - 11/16 , calcium oxalate - monohydrate - 03/19 calcium oxalate monohydrate, carbonate apatite - 09/18 calcium oxalate dihydrate with carbonate apatite - 11/19 calcium oxalate mixed with carbonate apatite Laboratory investigations include - 12/14 , Base line serum evaluation, Normocalcemia (9.0), Normal PTH, Normal uric acid 03/19 Ca 9.7 - 11/13 , 24 Hr Urine - Low Urine volume < 2.0 liters, High oxalate > 30mg, Low citrate < 400. - 07/19 Ca 9.9, 24 hr large volume, low citrate, high calcium - 02/18 24 hr large volume, low citrate, high calcium - 02/19 high volume, low citrate, high calcium but responding to indapamide Prior treatment(s) include left, ESWL - 12/14 left, ureteroscopy - had post procedure UTI - 12/14 , medical management, with allopurinol, with potassium citrate - 11/16 , ureteroscopy left side - 03/19 right side ureteroscopy, 04/20 left-sided ureteroscopy, 09/18 Right USR, 11/19 right USR Prior imaging includes - 09/13 , a CT with contrast to nonobstructing calculi right kidney largest 3 mm, 3 nonobstructing calculi left kidney largest 9 mm lower pole - 03/15 , a renal ultrasound, on the right, showing no evidence of stones, on the left, showing radiodense stone(s), 5-10 mm - 04/17 US bilateral stones, XR left 6mm x2 - 10/15 , a KUB x-ray left-sided 1.2 cm stone - 04/18 , a KUB x-ray stable - 10/16 , a KUB x-ray left 1.2 cm, right 5mm - 01/16 CT scan, 5 mm distal right stone with hydronephrosis - 06/18 renal ultrasound 3 mm bilateral stones, 01/18 renal ultrasound significantly decreased stone burden right side, left cluster 6 mm - 07/20 renal ultrasound right small stone, left stones Current therapeutic plan - hyper filtration, indapamide, repeat [facility] PFSH Medical History Renal calculi Depression Anxiety Headache Hyperlipemia Surgical History Hx of cystoscopy History of vaginal hysterectomy History of shoulder surgery History of lithotripsy History of rotator cuff surgery Family History Father Hypothyroidism Skin cancer Kidney failure Pulmonary embolism Mother Kidney failure Mental health disorder Family/Other Brain cancer Son No problems noted. Daughter No problems noted. Social History Housing: House Alcohol intake: never Comment: bed bound wheel chair bound clau lift Patient Tobacco Use Status: Never used Tobacco e-Cigarette/Vaping Use: Never Used Second Hand Smoke Exposure: Yes Advance Directives Date on File: 10/29/22 service: No Current occupational status: employed Current occupation: [employer] Current occupational exposures/hazards: No Cognitive needs: No Hearing needs: No Vision needs: No Female Reproductive History Menstrual Age of Menarche: 10 Review of Systems Const All systems reviewed & are unremarkable except as noted in HPI and below Reports no additional complaints Resp Reports no additional complaints GI Reports no additional complaints Reports as per HPI Musc Reports no additional complaints Physical Exam Telemedicine evaluation Appropriate responses Regular breathing rate and rhythm HEENT Head: Yes normal to inspection Ears: hearing grossly normal bilaterally Eyes General: appearance normal, both eyes and all related structures Neck Neck: Yes normal visual inspection Chest Chest palpation & inspection: normal inspection of the chest Resp Effort & Inspection: normal respiratory effort and able to speak in complete sentences Assessment & Plan Assessment & Plan (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 Options such as medical therapy were discussed. Interventions include chemical dissolution, ESWL, ureteroscopy with laser lithotripsy and stent placement, PCNL. The relative uncertainties and benefits related to each alternate procedure were adequately discussed. General surgical risks including, but not limited to - pain, bleeding, infection, myocardial infarction, pulmonary embolus, deep vein thrombosis and cerebrovascular accident which may result in further hospitalization were discussed. Full disclosure of the procedure as well as all major risks, benefits and complications were discussed including but not limited to damage to the urethra, bladder and kidney infection, damage to the ureter, stent migration or malposition, scarring to the renal pelvis, remnant stone fragments, subsequent stone passage with need for secondary procedures. The overall secondary procedure rate is approximately 10-15%. The overall clearance rate is approximately 90-95%. Success of the procedure in the short-term does not necessarily guarantee that long-term success will be maintained. Suitable follow up will need to be maintained. 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 No major barriers to patient understanding were identified. An opportunity to ask questions regarding the treatment plan was provided. All questions were answered. The patient expressed understanding and agreement with the above treatment plan. The patient is aware they should contact our office by phone for worsening of their current condition or the appearance of new urologic symptoms. Compliance is encouraged with any medications and followup testing that is ordered. It is a privilege to participate in the urologic care of your patient. If you have any questions or concerns regarding treatment for the above conditions, or other urologic issues, please do not hesitate to contact me. The office telephone contact is [phone]. This note is constructed using voice recognition software. While every effort has been made to ensure accuracy manager technology errors may have been included. Yours sincerely, Dr Naun Pascual MD, [facility] - Urology Providers of Expert, Compassionate Care for the Genitourinary System Telehealth Telehealth Location of provider rendering services: practice address Location of patient: address on file Patient Identification confirmed using: Name, : Yes Telehealth method: video Patient verbally consented to treatment: Yes Patient verbally consented to billing insurance company: Yes Patient informed of any privacy concerns related to visit: Yes Coding Level of Care Code Tele Est Pt Level 4 (60346) Diagnoses Hypocitraturia R82.991 Nephrolithiasis N20.0
== END 2023-02-26 12:11 | disposition home or self-care (01) ==
LOC: HO.HUSH 11:27
PROVIDERS: PCP Nurse Practitioner Family; Visit Provider Urology
DX: R82.991 Hypocitraturia (principal); N20.0 Calculus of kidney
CPT/HCPCS: 99214

== ENCOUNTER → 2023-02-26 11:27 | Outpatient (BNVA) | payer OTHER, SELFPAY | PROVIDERS: PCP Nurse Practitioner Family; Visit Provider Urology ==

== ENCOUNTER 2023-04-04 10:19 | Outpatient (REF) | payer OTHER, SELFPAY ==
[2023-04-04 12:10] LABS: Alanine Aminotransferase 29 U/L (0-31); Albumin Level 4.5 g/dL (3.5-5.0); Alkaline Phosphatase 88 U/L (39-117); Anion Gap 11 (12-20); Aspartate Amino Transferase 25 U/L (5-31); Bilirubin Total 0.4 mg/dL (0.0-1.0); Blood Urea Nitrogen 17 mg/dL (9-16); Calcium 9.8 mg/dL (8.4-10.2); Carbon Dioxide 32 mmol/L (22-29); Chloride 100 mmol/L (96-108); Cholesterol 184 mg/dL (<200); Estimated Glomerular Filt Rate > 60; Glucose Fasting 99 mg/dL (60-99); HDL Cholesterol 65 mg/dL (>40); LDL Cholesterol Calculated 93 mg/dL (<100); Potassium 3.4 mmol/L (3.3-5.1); Sodium 140 mmol/L (135-145); Total Protein 7.8 g/dL (6.5-8.0); Triglycerides 132 mg/dL (<150); Vitamin D 25-OH Total 61.4 ng/mL (>30)
== END 2023-04-04 10:20 | disposition home or self-care (01) ==
LOC: HO.HMGCLDS 10:19
PROVIDERS: PCP Nurse Practitioner Family; Visit Provider Nurse Practitioner Family
DX: Z00.00 Encounter for general adult medical examination without abnormal findings (principal); E55.9 Vitamin D deficiency, unspecified
CPT/HCPCS: 36415; 80053; 80061; 81003; 82306; 84443; 85025

== ENCOUNTER 2023-04-08 07:56 | Outpatient (AMB) | payer OTHER, SELFPAY ==
--- NOTE | 2023-04-08 07:59 | A.OFFPC_ITS ---
Vital Signs 04/08/23 08:02 Height 5 ft 4 in Weight 200 lb BMI 34.3 BP 120/86 Blood Pressure Location Lt brachial Position Sitting Pulse 84 Pulse Source Pulse Oximeter Pulse Oximetry (%) 99 Oxygen Delivery Method Room Air 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: Annual PE Intake Note: Patient is here for physical exam. Needs refill on butalbitol Mammo: 07/2022 Last pap: 08/2022 Colonoscopy: 02/19 Allergies haloperidol [From Haldol] Adverse Reaction (Intermediate, Verified 04/08/23 08:03) Dizziness morphine Adverse Reaction (Mild, Verified 04/08/23 08:03) Vomiting Tobacco use date assessed: 04/08/23 Dental Screening Dental Screen Date: 04/08/23 Did you have a dental visit in the last 12 months?: Yes Did you have a dental problem in the last 6 months where you did not have access to dental care?: No Was dental information given to patient?: Patient has dentist HPI Annual PE HPI Details Pt is here for a PE. Labs were already performed. Colon screen is up to date. Mammo is up to date. 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 Pt follows up with urology and neurology. [facility] Medical History Renal calculi Depression Anxiety Headache Hyperlipemia Surgical History Hx of cystoscopy History of vaginal hysterectomy History of shoulder surgery History of lithotripsy History of rotator cuff surgery Family History Father Hypothyroidism Skin cancer Kidney failure Pulmonary embolism Mother Kidney failure Mental health disorder Family/Other Brain cancer Son No problems noted. Daughter No problems noted. Social History Housing: House Alcohol intake: never Comment: bed bound wheel chair bound clau lift Patient Tobacco Use Status: Never used Tobacco e-Cigarette/Vaping Use: Never Used Second Hand Smoke Exposure: Yes Advance Directives Date on File: 10/29/22 service: No Current occupational status: employed Current occupation: [employer] Current occupational exposures/hazards: No Cognitive needs: No Hearing needs: No Vision needs: Yes Female Reproductive History Menstrual Age of Menarche: 10 Questionnaire PHQ-9 Over the last 2 weeks, how often have you been bothered by any of the following problems? 1. Little interest or pleasure in doing things: several days 2. Feeling down, depressed, or hopeless: several days 3. Trouble falling or staying asleep, or sleeping too much: not at all 4. Feeling tired or having little energy: not at all 5. Poor appetite or overeating: not at all 6. Feeling bad about yourself - or that you are a failure or have let yourself or your family down: not at all 7. Trouble concentrating on things, such as reading the newspaper or watching television: not at all 8. Moving or speaking so slowly that other people could have noticed. Or the opposite - being so fidgety or restless that you have been moving around a lot more than usual: not at all 9. Thoughts that you would be better off or of hurting yourself in some way: not at all Total score: 2 Depression Screening Interpretation: Negative Depression Screening Done: Yes 42192 - PHQ-9 Billing: Yes Source: Developed by Drs. Jered Poe, April Rodríguez, Delfino Acevedo and colleagues, with an educational junior from [employer]. Thrive Questionnaire Date Thrive assessed: 04/08/23 I am a: Patient What is your living situation today?: I have a steady place to live Within the past 12 months, did the food you bought not last and you didn't have the money to get more?: Never true Within the past 12 months, did you worry whether your food would run out before you got money to buy more?: Never true Do you have trouble paying for medicines?: No Do you have trouble getting transportation to medical appointments?: No Do you have trouble paying your heating and electricity bill?: No Do you have trouble taking care of your child, family member or friend?: No Do you have trouble with day-to-day activities such as bathing, preparing meals, shopping, managing finances, etc.?: No Are you currently unemployed and looking for a job?: No Are you interested in more education?: No AUDIT C Alcohol Use Questionnaire (AUDIT-C) 1. How often do you have a drink containing alcohol?: Never 3. How often do you have six or more drinks on one occasion?: Never Total Score: 0 Score Reviewed/Action Taken: No ADELAIDE-7 AMB Questionnaire ADELAIDE-7 Date ADELAIDE - 7 assessed: 04/02/22 Source: Developed by Drs. Jered Poe, April Rodríguez, Delfino Acevedo and colleagues, with an educational junior from [employer]. Review of Systems Const Denies chills and Denies fever(s) Eyes Denies blurry vision ENT Denies vertigo, Denies dizziness and Denies sore throat Card Denies chest pain at rest, Denies chest pain with activity, Denies diaphoresis, Denies dyspnea and Denies dyspnea on exertion Resp Denies cough, Denies dyspnea, Denies dyspnea on exertion and Denies wheezing GI Denies abdominal pain, Denies melena, Denies hematochezia, Denies constipation, Denies diarrhea and Denies loose stools Denies hematuria Musc Denies numbness and Denies tingling Skin/Breast Denies lesions Neuro Denies vertigo, Denies dizziness, Denies numbness and Denies tingling Psych Denies anxiety, Denies depression, Denies homicidal ideation, Denies suicidal ideation and Denies other (substance abuse) Aller/Immun Denies wheezing Physical exam (Primary Care) Vital Signs: Last Vital Signs Pulse 84 04/08/23 08:02 BP 120/86 04/08/23 08:02 Pulse Ox 99 04/08/23 08:02 Oxygen Delivery Method Room Air 04/08/23 08:02 BMI result Body Mass Index 34.3 Tobacco/Smoking Status: Tobacco use Status Tobacco use date assessed 04/08/23 04/08/23 08:03 Patient Tobacco Use Status Never used Tobacco 04/08/23 08:00 e-Cigarette/Vaping Use Never Used 04/08/23 08:00 PHQ-9: PHQ-9 Score PHQ-9: Total score 2 04/08/23 08:12 Depression Screening Interpretation: Negative Thrive Assessment: Date of Thrive Assessment Date Thrive assessed 04/08/23 04/08/23 08:09 Const General: cooperative Nutritional Appearance: obese Orientation/consciousness: patient oriented x3 HENMT Head: Yes normal to inspection, Yes normocephalic and Yes atraumatic Ears: TM's normal bilaterally Eyes General: appearance normal, both eyes and all related structures Alignment and Position: alignment normal and position normal Neck Neck: Yes normal visual inspection and Yes no lymphadenopathy Thyroid: Thyroid normal Resp Effort & Inspection: normal respiratory effort Auscultation: clear to auscultation bilaterally Cardio Rate: regular rate Rhythm: regular rhythm Heart sounds: S1 normal heart sound present, S2 normal heart sound present and no murmurs GI Palpation (GI): Soft to palpation and nontender Auscultation: normal bowel sounds Skin Rashes: no rashes Neuro General: patient oriented x3, moves all extremities, no focal motor deficits and deep tendon reflexes 2+ bilaterally Romberg Test: Negative Psych Appearance: grossly normal Mental Status: mental status grossly normal Speech and movement: Normal speech and movement present Affect: normal affect Attitude: cooperative Thought process: Normal thought process present Thought content: Normal thought content present Insight: Good insight present (Psych) Judgement: Good judgement present (Psych) Assessment and Plan Assessment & Plan (1) Physical exam: Code(s): Z - Encounter for general adult medical examination without abnormal findings Plan: Labs ordered Plan The patient agreed to the use of a medical device engineer for this encounter. Scribed for JAVID Martínez by Julieta Rollins medical device engineer, on 04/08/2023 at 08:15 EST. Orders: Orders Complete Blood Count Auto Diff Today Z00.00 - Encounter for general adult medical examination without abnormal findings Comprehensive Felda. Panel Fast Today Z00.00 - Encounter for general adult medical examination without abnormal findings Lipid Panel Today Z00.00 - Encounter for general adult medical examination without abnormal findings TSH reflex Free T4 Today Z00.00 - Encounter for general adult medical examination without abnormal findings UA CC w/rflx Micro + Cult Today Z00.00 - Encounter for general adult medical examination without abnormal findings Coding Level of Care Code Est Pt Prev Care 40-64y(70138) Diagnoses Physical exam Z00.00
[2023-04-08 08:02] VITALS: BP 120/86; PULSE 84; O2SAT 99; BMI 34.3
== END 2023-04-08 08:28 | disposition home or self-care (01) ==
PROVIDERS: PCP Nurse Practitioner Family; Visit Provider Nurse Practitioner Family
DX: Z00.00 Encounter for general adult medical examination without abnormal findings (principal)
CPT/HCPCS: 99396

== ENCOUNTER 2023-04-13 06:58 | Day surgery (SDC) | payer OTHER, SELFPAY ==
[2023-04-08 15:00] VITALS: BMI 34.3
--- NOTE | 2023-04-10 10:44 | P.CONAN_ITS ---
Documented by User: Mayra Eng NP 04/10/23 10:48 HPI - Anesthesia Eval Consult details Narrative: 52yo F for Cystoscopy, Ureteroroscopy, Retro, Laser,with poss stent s/p cysto etc 10/2022 with GA-LMA 3 (returned to ED post-op for pain, but w/u negative other than post-op status) PMFSH Active Problems Active Problems: All Active Problems (Updated 04/08/23 @ 14:55 by Maddie Mejía RN) Counseling for hormone replacement therapy (Acute) Hypocitraturia (Acute) Diplopia (Acute) Migraine without aura (Acute) Screening for colon cancer (Acute) Toenail deformity (Acute) Cracking skin (Acute) Hypercalciuria (Acute) Ureterolithiasis (Acute) Vitamin D deficiency (Acute) Screening for colon cancer (Acute) Physical exam (Acute) Counseling for hormone replacement therapy (Acute) Well woman exam (Acute) Physical exam (Acute) Nephrolithiasis (Acute) Depression (Acute) Headache (Acute) Past Medical History Medical History Renal calculi Depression Anxiety Headache Hyperlipemia Family History Family History Father Hypothyroidism Skin cancer Kidney failure Pulmonary embolism Mother Kidney failure Mental health disorder Family/Other Brain cancer Son No problems noted. Daughter No problems noted. Family history of problems with anesthesia: No Surgical History Surgical History H/O colonoscopy Hx of cystoscopy History of vaginal hysterectomy History of shoulder surgery History of lithotripsy History of rotator cuff surgery History of Problems with Anesthesia: Yes (PONV) Social History Social History Housing: House Alcohol intake: never Comment: bed bound wheel chair bound clau lift Patient Tobacco Use Status: Never used Tobacco e-Cigarette/Vaping Use: Never Used Second Hand Smoke Exposure: Yes Use of substances other than those prescribed or required for medical reasons: No Are you DNR?: No Advance Directives: No Advance Directives Information Provided: Yes Advance Directives Date on File: 10/29/22 service: No Current occupational status: employed Current occupation: [employer] Current occupational exposures/hazards: No Cognitive needs: No Hearing needs: No Vision needs: Yes Meds Allergies Allergy/AdvReac Type Severity Reaction Status Date / Time haloperidol [From Haldol] AdvReac Intermediate Dizziness Verified 04/08/23 08:03 morphine AdvReac Mild Vomiting Verified 04/08/23 08:03 Home Medications Medication Instructions Recorded Confirmed Last Taken Type multivitamin 1 tab PO DAILY 10/03/21 04/08/23 10/03/21 History venlafaxine 150 mg 150 mg PO DAILY 07/23/22 04/08/23 04/13/23 06:15 History capsule,extended release 24 hr venlafaxine 75 mg capsule,extended 75 mg PO DAILY 07/23/22 04/08/23 04/13/23 06:15 History release 24 hr Exam Height,Weight and Vital Signs: Height 5 ft 4 in Weight 90.718 kg Pertinent Lab Results Pertinent Lab Results: Laboratory Tests 04/04/23 10:31 WBC 5.0 Hgb 12.8 Hct 38.4 Plt Count 274 Sodium 140 Potassium 3.4 Chloride 100 Carbon Dioxide 32 H BUN 17 H Creatinine 0.82 Narrative Narrative: EKG 10/2022 Vent. Rate : 070 BPM Atrial Rate : 070 BPM P-R Int : 142 ms QRS Dur : 098 ms QT Int : 420 ms P-R-T Axes : 064 016 035 degrees QTc Int : 453 ms Normal sinus rhythm Nonspecific ST and T wave abnormality Abnormal ECG No previous ECGs available Assessment and Plan Assessment Anesthesia Assessment: Chart Reviewed Final Anesthetic Review Family History of Problems with Anesthesia: No History of Problems with Anesthesia: Yes (PONV) Documented by User: Zoila Haskins MD 04/13/23 08:06 ON LICENSE OF [facility] Past Medical History Medical History Renal calculi Depression Anxiety Headache Hyperlipemia Family History Family History Father Hypothyroidism Skin cancer Kidney failure Pulmonary embolism Mother Kidney failure Mental health disorder Family/Other Brain cancer Son No problems noted. Daughter No problems noted. Surgical History Surgical History H/O colonoscopy Hx of cystoscopy History of vaginal hysterectomy History of shoulder surgery History of lithotripsy History of rotator cuff surgery Social History Social History Housing: House Alcohol intake: never Comment: bed bound wheel chair bound clau lift Patient Tobacco Use Status: Never used Tobacco e-Cigarette/Vaping Use: Never Used Second Hand Smoke Exposure: Yes Use of substances other than those prescribed or required for medical reasons: No Are you DNR?: No Advance Directives: No Advance Directives Information Provided: Yes Advance Directives Date on File: 10/29/22 service: No Current occupational status: employed Current occupation: [employer] Current occupational exposures/hazards: No Cognitive needs: No Hearing needs: No Vision needs: Yes Meds Allergies Allergy/AdvReac Type Severity Reaction Status Date / Time haloperidol [From Haldol] AdvReac Intermediate Dizziness Verified 04/08/23 08:03 morphine AdvReac Mild Vomiting Verified 04/08/23 08:03 Home Medications Medication Instructions Recorded Confirmed Last Taken Type multivitamin 1 tab PO DAILY 10/03/21 04/08/23 10/03/21 History venlafaxine 150 mg 150 mg PO DAILY 07/23/22 04/08/23 04/13/23 06:15 History capsule,extended release 24 hr venlafaxine 75 mg capsule,extended 75 mg PO DAILY 07/23/22 04/08/23 04/13/23 06:15 History release 24 hr Exam Airway Mallampati Class: II TM Dist: >3cm Neck ROM: Full Heart: rrr Lungs: cta Assessment and Plan Assessment Anesthesia Assessment: Anesthesia Plan Discussed Final Anesthetic Review NPO: Yes ASA Class: II Final Preanesthetic Review: No Changes in Pt Med Stat, Meds/Allgs Chart Rev iewed, Consent Obtained/Reviewed and Anes Risks/Benef Reviewed Patient Risk: Low Procedure Risk: Low Anesthetic Plan Anesthetic Plan: GA Disposition: Standard PACU
[2023-04-13] VITALS (13 sets, daily range): BP systolic 84–117; BP diastolic 38–71; PULSE 74–84; RESP 12–16; TEMP 36.1–36.6; O2SAT 91–99; BMI 36.6
--- NOTE | ~2023-04-13 | FL_ITS ---
EXAMINATION: XR FLUOROSCOPY WITH IMAGES CLINICAL INFORMATION: Stone, left COMPARISON: None available. TECHNIQUE: Fluoroscopy Supervised By: Dr. Naun Pascual. Fluoroscopy Time: 83.6 seconds. Cumulative Dose: 34.19 mGy. Images: 2. FINDINGS: Imaging guidance was utilized for a procedure. 2 images are saved and available for review. These 2 images show contrast within the bladder and a stent overlying the region of the left bladder and renal collecting system. FL/FL guidance in OR IMPRESSION: Imaging guidance for procedure. For further detail regarding procedure and findings please refer to the operative report.
[2023-04-13] MEDS: Lactated Ringers 1,000 ML 100 ML IVCONT (08:16)
--- NOTE | 2023-04-13 10:19 | P.OP_ITS ---
Operative Note Operative Note Date of Service: 04/13/23 Narrative: PreOperative Diagnosis: Left renal stones Post Operative Diagnosis: Left renal stone Procedure: - cystoscopy, left retrograde - left dilatation of ureteric orifice under fluoroscopy - left ureteroscopy, laser lithotripsy, stone basketing - left stent placement Surgeon: Dr Naun Pascual Anesthesia: General Indications for procedure: Left renal stones on imaging with recurrent stone former Procedure: After informed consent was verified patient was brought to the operating placed in supine position. Anesthesia was administered per protocol. Patient was placed in modified dorsal lithotomy position and prepped and draped in a sterile fashion. Safety pause time-out and side of surgery confirmed. Antibiotics confirmed. 22 Singaporean cystoscope was inserted per urethra. Bladder was normal in its entirety. Both ureteric orifices were in normal position. The left ureteric orifice was cannulated and a retrograde examination was performed. No filling defects seen within renal pelvis or ureter. A Sensor guidewire was placed up to the level of the renal pelvis under fluoroscopy. The rigid cystoscope was removed and the inner cannula of ureteric access sheath was used under fluoroscopy to dilate the ureteric orifice. The suction ureteric access sheath was placed and the inner cannula with access wire removed. The disposable digital flexible ureteral scope was placed. Multiple small stones encountered within the lower pole and midpole of the kidney. It appears these lower pole stones under ultrasound would of appeared to be a proximally 1.5 cm. The kidney was washed out multiple times. Using the 272 nm holmium fiber the stones were broken into small pieces. Attempt was made using 0 basket in order to remove stone fragments mixed with clot. At the completion of the stone procedure a Sensor wire was placed back into the renal pelvis. A 7 Singaporean by 24 cm double-J stent was placed into the renal pelvis and bladder under a combination of fluoroscopy and direct visualization. The symphisis pubis was used as a radiographic marker to release the stent and good coil was seen within the bladder confirming position The bladder was emptied. The patient tolerated the procedure well and was extubated in the operating room, and transferred in stable condition to the recovery area. Pathology: Stones Drains: Drainage above
[2023-04-13] MEDS: oxyCODONE HCl Immed Release 5 MG TABLET PO (10:38)
[2023-04-13] MEDS: fentaNYL citrate/PF 100 MCG/2 ML VIAL 25 MCG IVPUSH ×4 (10:38→11:22)
[2023-04-13] MEDS: Phenazopyridine HCL 100 MG TABLET PO (10:40)
[2023-04-13] MEDS: Acetaminophen 1,000 MG/100 ML PIGGYBACK 400 MG IV (10:41)
[2023-04-21 18:23] LABS: Stone Source LEFT KIDNEY STONE
== END 2023-04-13 12:29 | disposition home or self-care (01) ==
PROVIDERS: PCP Nurse Practitioner Family; Visit Provider Urology
PROC: (CPT 52356; principal; 2023-04-13 09:10)
DX: N20.0 Calculus of kidney (principal); Z87.442 Personal history of urinary calculi; R82.991 Hypocitraturia; E78.5 Hyperlipidemia, unspecified; R51.9 Headache, unspecified; F32.A Depression, unspecified; F41.9 Anxiety disorder, unspecified; Z79.899 Other long term (current) drug therapy; Z88.8 Allergy status to other drugs, medicaments and biological substances; Z88.5 Allergy status to narcotic agent
CPT/HCPCS: 52356; 82365; 88300; C1758; C1769; C2617; J0131; J1100; J1885; J1956; J2371; J2405; J2704; J3010; Q9967

== ENCOUNTER → 2023-04-13 06:58 | Outpatient (BNV) | payer OTHER, SELFPAY | PROVIDERS: PCP Nurse Practitioner Family; Visit Provider Urology | DX: N20.0 Calculus of kidney (principal) | CPT/HCPCS: 52356; 74420 ==

== ENCOUNTER 2023-04-22 09:53 | Outpatient (AMB) | payer OTHER, SELFPAY ==
--- NOTE | 2023-04-22 10:08 | A.OFFVIS_ITS ---
Intake 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: Stent removal Intake Note: Patient is Present for Cystoscopy Urology Med: Estradiol, Currently on Pyridium, Vitamin B6 Antibiotic Allergy: none Blood Thinner: None URO- G Disposable Cystoscope lot: [id number] exp:09/10/2024 Allergies haloperidol [From Haldol] Adverse Reaction (Intermediate, Verified 04/22/23 10:09) Dizziness morphine Adverse Reaction (Mild, Verified 04/22/23 10:09) Vomiting HPI HPI Comments History of Present Illness Details Shoshana is a very pleasant female. She is a patient of Dr. Cummings. She is seen for the following urologic conditions - recurrent nephrolithiasis Here for stent removal Recommend postural drainage for calcium fragments Prior Litholink 02/19 Good news has seen reduction in calcium from 370-250, citrate staying low, great volume Indapamide 2.5 mg daily Continue with potassium citrate powder - mix with true lemon Nephrolithiasis Recurrent calcium oxalate with background of topiramate use and high calcium on 24 hour urine They are here for further evaluation of nephrolithiasis Urolithiasis was diagnosed - Stones have been present since early 2015. Had undergone evaluation with Dr. Britton. ESWL performed previously 04/15 Left. - Obstructing left ureteric stone had passed. Ureteroscopy performed but left lower pole stone not treated at that time 08/13 - uses topramax for migraine management The patient previously had kidney stones whose composition includes - 12/14 , calcium oxalate - monohydrate, calcium oxalate - dihydrate - 11/16 , calcium oxalate - monohydrate - 03/19 calcium oxalate monohydrate, carbonate apatite - 09/18 calcium oxalate dihydrate with carbonate apatite - 11/19 calcium oxalate mixed with carbonate apatite Laboratory investigations include - 12/14 , Base line serum evaluation, Normocalcemia (9.0), Normal PTH, Normal uric acid 03/19 Ca 9.7 - 11/13 , 24 Hr Urine - Low Urine volume < 2.0 liters, High oxalate > 30mg, Low citrate < 400. - 07/19 Ca 9.9, 24 hr large volume, low citrate, high calcium - 02/18 24 hr large volume, low citrate, high calcium - 02/19 high volume, low citrate, high calcium but responding to indapamide Prior treatment(s) include left, ESWL - 12/14 left, ureteroscopy - had post procedure UTI - 12/14 , medical management, with allopurinol, with potassium citrate - 11/16 , ureteroscopy left side - 03/19 right side ureteroscopy, 04/20 left-sided ureteroscopy, 09/18 Right USR, 11/19 right USR Prior imaging includes - 09/13 , a CT with contrast to nonobstructing calculi right kidney largest 3 mm, 3 nonobstructing calculi left kidney largest 9 mm lower pole - 03/15 , a renal ultrasound, on the right, showing no evidence of stones, on the left, showing radiodense stone(s), 5-10 mm - 04/17 US bilateral stones, XR left 6mm x2 - 10/15 , a KUB x-ray left-sided 1.2 cm stone - 04/18 , a KUB x-ray stable - 10/16 , a KUB x-ray left 1.2 cm, right 5mm - 01/16 CT scan, 5 mm distal right stone with hydronephrosis - 06/18 renal ultrasound 3 mm bilateral stones, 01/18 renal ultrasound significantly decreased stone burden right side, left cluster 6 mm - 07/20 renal ultrasound right small stone, left stones Current therapeutic plan - hyper filtration, indapamide, repeat Litholink PFSH Medical History Renal calculi Depression Anxiety Headache Hyperlipemia Surgical History H/O colonoscopy Hx of cystoscopy History of vaginal hysterectomy History of shoulder surgery History of lithotripsy History of rotator cuff surgery Family History Father Hypothyroidism Skin cancer Kidney failure Pulmonary embolism Mother Kidney failure Mental health disorder Family/Other Brain cancer Son No problems noted. Daughter No problems noted. Social History Housing: House Alcohol intake: never Comment: bed bound wheel chair bound clau lift Patient Tobacco Use Status: Never used Tobacco e-Cigarette/Vaping Use: Never Used Second Hand Smoke Exposure: Yes Advance Directives Date on File: 10/29/22 service: No Current occupational status: employed Current occupation: [employer] Current occupational exposures/hazards: No Cognitive needs: No Hearing needs: No Vision needs: Yes Female Reproductive History Menstrual Age of Menarche: 10 Review of Systems Const Denies chills and Denies fever(s) Card Reports no additional complaints and Denies syncope Resp Denies cough GI Denies abdominal pain and Denies heartburn Reports as per HPI and Denies change in libido Neuro Denies syncope Psych Denies change in libido Endo Denies change in libido Physical Exam Const General: cooperative, healthy appearing, comfortable and no acute distress Orientation/consciousness: patient oriented x3 HEENT Face and sinus: Yes normal facial exam Mouth: moist mucous membranes Neck Neck: Yes normal visual inspection, Yes full ROM and Yes trachea midline Chest Chest palpation & inspection: normal inspection of the chest Resp Effort & Inspection: normal respiratory effort, able to speak in complete sentences and no respiratory distress GI Inspection: Yes normal to inspection Back/Spine/Pelvis Cervical Spine: normal cervical lordosis Thoracic/Lumbar Spine: thoracic and lumbar spine normal to inspection Skin General skin exam: no rashes or lesions noted Neuro General: patient oriented x3, gait normal, tone normal and moves all extremities Extrem General: Yes normal to inspection and Yes capillary refill normal Office Procedures Cystoscopy Consent Discussed risk and benefit or proposed procedure with the patient. Information consent for procedure given to the patient. Discussed technical aspects, risks, benefits and alternatives in full. Addressed all of the patient's questions and concerns regarding the procedure. The patient demonstrated knowledge and understanding. They wish to proceed with this procedure. Preparation The patient was prepped in the usual manner. A beach expert was present and in the room. Genitalia was prepped with betadine solution in a sterile manner. Lidocaine Jelly 2% was placed into the urethra and 16Fr flexible Olympus cystoscope was inserted into the meatus after adequate lubrication. Procedure Karen Nieves nurse-practitioner performed cystoscopy A well lubricated 16 Guamanian cystoscope was placed No abnormality noted of urethra during placement Indwelling stent seen within bladder emerging from left ureteric orifices The stent was grasped with a 3 prong grasper and removed without difficulty The patient tolerated the procedure well [id number] with stent removal DISPOSABLE SCOPE URO-G FLEXIBLE SCOPE Procedure code (CPT) selection complete Office Meds lidocaine HCl 2 % mucosal jelly in applicator Performing Provider: Naun Pascual MD Performing Location: [facility] Administered by: Josselin Olivera RN on 04/22/23 10:26 Dose Route Admin Location Dispensed Lot Number Expiration Date NDC Cake Washer 10 mL intra-urethral 10 mL nitrofurantoin monohydrate/macrocrystals 100 mg capsule Performing Provider: Naun Pascual MD Performing Location: [facility] [facility] Administered by: Josselin Olivera RN on 04/22/23 10:26 Dose Route Admin Location Dispensed Lot Number Expiration Date NDC Cake Washer 100 mg PO 1 cap naproxen 500 mg tablet Performing Provider: Naun Pascual MD Performing Location: [facility] [facility] Administered by: Josselin Olivera RN on 04/22/23 10:26 Dose Route Admin Location Dispensed Lot Number Expiration Date NDC Cake Washer 500 mg PO 1 tab Results AMB Urinalysis, Automated UA Leukoctes 70 Matt/uL Last Edit by Marine Bowen [facility] on 04/22/23 10:16 UA Nitrite Negative Last Edit by Marine Bowen [facility] on 04/22/23 10:16 UA Urobilinogen 0.2 mg/dL Last Edit by Marine Bowen [facility] on 04/22/23 10:1 6 UA Protein 30 mg/dL Last Edit by Marine Bowen [facility] on 04/22/23 10:16 UA pH 6.0 Last Edit by Marine Bowen [facility] on 04/22/23 10:16 UA Blood 200 Adeel/uL Last Edit by Marine Bowen [facility] on 04/22/23 10:16 UA Specific Darby 1.015 Last Edit by Marine Bowen [facility] on 04/22/23 10: 16 UA Ketone Negative Last Edit by Marine Bowen [facility] on 04/22/23 10:16 UA Bilirubin 0 mg/dL Last Edit by Marine Bowen [facility] on 04/22/23 10:16 UA Glucose 0 mg/dL Last Edit by Marine Bowen [facility] on 04/22/23 10:16 Results Reviewed Results Reviewed: Laboratory Last Values Urine pH (Auto) 6.0 04/22/23 10:11 Specific Darby (Auto) 1.015 04/22/23 10:11 Urine Protein (Auto) 30 mg/dL 04/22/23 10:11 Glucose (UA)(Auto) 0 mg/dL 04/22/23 10:11 Urine Ketones (Auto) Negative 04/22/23 10:11 Urine Blood (Auto) 200 Adeel/uL 04/22/23 10:11 Urine Nitrite (Auto) Negative 04/22/23 10:11 Urine Bilirubin (Auto) 0 mg/dL 04/22/23 10:11 Urine Urobilinogen (Auto) 0.2 mg/dL 04/22/23 10:11 Leukocyte Esterase (Auto) 70 Matt/uL 04/22/23 10:11 Assessment & Plan Assessment & Plan (1) Ureterolithiasis: Code(s): N20.1 - Calculus of ureter (2) Hypercalciuria: Code(s): R82.994 - Hypercalciuria Plan Encourage possible drainage Three-month follow-up renal ultrasound tele Orders: Orders AMB Urinalysis Automated Today Z13.9 - Encounter for screening, unspecified AMB Cystoscopy Today N20.0 - Calculus of kidney US renal BI 3 Months N20.0 - Calculus of kidney Patient Instructions: Imaging studies, laboratory and physical exam results were discussed and reviewed in detail. No major barriers to patient understanding were identified. An opportunity to ask questions regarding the treatment plan was provided. All questions were answered. The patient expressed understanding and agreement with the above treatment plan. The patient is aware they should contact our office by phone for worsening of their current condition or the appearance of new urologic symptoms. Compliance is encouraged with any medications and followup testing that is ordered. It is a privilege to participate in the urologic care of your patient. If you have any questions or concerns regarding treatment for the above conditions, or other urologic issues, please do not hesitate to contact me. The office telephone contact is [phone]. This note is constructed using voice recognition software. While every effort has been made to ensure accuracy head of design errors may have been included. Yours sincerely, Dr Naun Pascual MD, [facility] - Urology Providers of Expert, Compassionate Care for the Genitourinary System Coding Level of Care Code Est Pt Level 3 (79166) Diagnoses Ureterolithiasis N20.1 Hypercalciuria R82.994 CPT Codes Cystoscopy - CPT: 94257-[id number] with stent removal ([id number])
== END 2023-04-22 10:44 | disposition home or self-care (01) ==
PROVIDERS: PCP Nurse Practitioner Family; Visit Provider Urology
DX: N20.2 Calculus of kidney with calculus of ureter (principal); R82.994 Hypercalciuria; Z96.0 Presence of urogenital implants; Z13.9 Encounter for screening, unspecified
CPT/HCPCS: 52310; 99213

== ENCOUNTER → 2023-04-22 09:53 | Outpatient (BNVA) | payer OTHER, SELFPAY | PROVIDERS: PCP Nurse Practitioner Family; Visit Provider Urology | DX: Z48.816 Encounter for surgical aftercare following surgery on the genitourinary system (principal); N20.0 Calculus of kidney | CPT/HCPCS: 52310; 81003 ==

== ENCOUNTER 2023-07-17 14:29 | Outpatient (REF) | payer OTHER, SELFPAY ==
--- NOTE | ~2023-07-17 | US_ITS ---
EXAMINATION: US RETROPERITONEAL LIMITED (RENAL ONLY) CLINICAL INFORMATION: Calculus of kidney. COMPARISON: Ultrasound renal 01/21/2023 and 07/23/2022. CT abdomen and pelvis 11/17/2022. TECHNIQUE: Real-time imaging of the kidneys. Limited visualization due to bowel gas. FINDINGS: RIGHT KIDNEY: 10.6 x 4.8 x 6.7 cm (SAG x AP x TRV). 8 mm midpole and 3 mm lower pole calculi. No hydronephrosis. Renal cortical thickness is normal. Limited visualization. LEFT KIDNEY: 10.0 x 3.9 x 5.3 cm (SAG x AP x TRV). Cluster of lower pole calculi measures 12 mm. A 7 mm lower pole and 5 mm mid pole calculi. No hydronephrosis. Renal cortical thickness is normal. Limited visualization. US/US renal BI IMPRESSION: Bilateral nephrolithiasis. No hydronephrosis.
== END 2023-07-17 14:30 | disposition home or self-care (01) ==
LOC: HO.US 14:29
PROVIDERS: PCP Nurse Practitioner Family; Visit Provider Urology
DX: N20.0 Calculus of kidney (principal)
CPT/HCPCS: 76775

== ENCOUNTER 2023-07-22 15:03 | Outpatient (AMB) | payer OTHER, SELFPAY ==
--- NOTE | 2023-07-22 15:04 | A.OFFVIS_ITS ---
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: 3m/US(set)Confirmed Intake Note: Patient is Present for Telephone Follow Up For Urology Med: Estradiol, Vitamin b6 Antibiotic Allergy:None Blood Thinner:None Allergies haloperidol [From Haldol] Adverse Reaction (Intermediate, Verified 04/22/23 10:09) Dizziness morphine Adverse Reaction (Mild, Verified 04/22/23 10:09) Vomiting Medication List - Last Reconciled 07/22/23 by Naun Pascual MD allopurinol 100 mg PO BEDTIME 90 days atorvastatin 20 mg PO BEDTIME 90 days azelastine 2 sprays intranasal BID 30 days buspirone 10 mg PO BID 90 days sxfejagoau-tgydqifnhewus-yfvb 50-300-40 mg 1 cap PO DAILY PRN clobetasol 0.05% 1 appl topical BID 2 weeks estradiol 1 mg PO DAILY 90 days galcanezumab-gnlm (Emgality Pen) 120 mg subcut ONCE 30 days indapamide 2.5 mg PO DAILY 90 days multivitamin 1 tab PO DAILY naproxen 500 mg PO BID PRN 7 days ondansetron HCl 4 mg PO Q8H PRN 3 days oxycodone-acetaminophen 5-325 mg 1 tab PO Q4H PRN 7 days phenazopyridine (Pyridium) 100 mg PO TID PRN 4 days propranolol ER 120 mg PO DAILY pyridoxine (vitamin B6) 100 mg PO BEDTIME 90 days topiramate 100 mg PO BEDTIME venlafaxine ER 150 mg PO DAILY venlafaxine ER 75 mg PO DAILY HPI Comments Details: Shoshana is a very pleasant female. She is a patient of Dr. Cummings. She is seen for the following urologic conditions - recurrent nephrolithiasis Telemedicine Evaluation 15 min Consultation DoxGlance Anastasiia Video Discussed imaging findings Persistent small stone volume bilateral Does require repeat Litholink Refilled medications Discussed again importance to trial potassium citrate powder and mix it with flavum Prior Litholink 02/19 Good news has seen reduction in calcium from 370-250, citrate staying low, great volume Indapamide 2.5 mg daily Nephrolithiasis Recurrent calcium oxalate with background of topiramate use and high calcium on 24 hour urine They are here for further evaluation of nephrolithiasis Urolithiasis was diagnosed - Stones have been present since early 2015. Had undergone evaluation with Dr. Britton. ESWL performed previously 04/15 Left. - Obstructing left ureteric stone had passed. Ureteroscopy performed but left lower pole stone not treated at that time 08/13 - uses topramax for migraine management The patient previously had kidney stones whose composition includes - 12/14 , calcium oxalate - monohydrate, calcium oxalate - dihydrate - 11/16 , calcium oxalate - monohydrate - 03/19 calcium oxalate monohydrate, carbonate apatite - 09/18 calcium oxalate dihydrate with carbonate apatite - 11/19 calcium oxalate mixed with carbonate apatite Laboratory investigations include - 12/14 , Base line serum evaluation, Normocalcemia (9.0), Normal PTH, Normal uric acid 03/19 Ca 9.7 - 11/13 , 24 Hr Urine - Low Urine volume < 2.0 liters, High oxalate > 30mg, Low citrate < 400. - 07/19 Ca 9.9, 24 hr large volume, low citrate, high calcium - 02/18 24 hr large volume, low citrate, high calcium - 02/19 high volume, low citrate, high calcium but responding to indapamide Prior treatment(s) include left, ESWL - 12/14 left, ureteroscopy - had post procedure UTI - 12/14 , medical management, with allopurinol, with potassium citrate - 11/16 , ureteroscopy left side - 03/19 right side ureteroscopy, 04/20 left-sided ureteroscopy, 09/18 Right USR, 11/19 right USR Prior imaging includes - 09/13 , a CT with contrast to nonobstructing calculi right kidney largest 3 mm, 3 nonobstructing calculi left kidney largest 9 mm lower pole - 03/15 , a renal ultrasound, on the right, showing no evidence of stones, on the left, showing radiodense stone(s), 5-10 mm - 04/17 US bilateral stones, XR left 6mm x2 - 10/15 , a KUB x-ray left-sided 1.2 cm stone - 04/18 , a KUB x-ray stable - 10/16 , a KUB x-ray left 1.2 cm, right 5mm - 01/16 CT scan, 5 mm distal right stone with hydronephrosis - 06/18 renal ultrasound 3 mm bilateral stones, 01/18 renal ultrasound significantly decreased stone burden right side, left cluster 6 mm - 07/20 renal ultrasound right small stone, left stones Current therapeutic plan - hyper filtration, indapamide, repeat Litholink PFSH Medical History Renal calculi Depression Anxiety Headache Hyperlipemia Surgical History H/O colonoscopy Hx of cystoscopy History of vaginal hysterectomy History of shoulder surgery History of lithotripsy History of rotator cuff surgery Family History Father Hypothyroidism Skin cancer Kidney failure Pulmonary embolism Mother Kidney failure Mental health disorder Family/Other Brain cancer Son No problems noted. Daughter No problems noted. Social History Housing: House Alcohol intake: never Comment: bed bound wheel chair bound clau lift Patient Tobacco Use Status: Never used Tobacco e-Cigarette/Vaping Use: Never Used Second Hand Smoke Exposure: Yes Advance Directives Date on File: 10/29/22 service: No Current occupational status: employed Current occupation: [employer] Current occupational exposures/hazards: No Cognitive needs: No Hearing needs: No Vision needs: Yes Female Reproductive History Menstrual Age of Menarche: 10 Review of Systems Const All systems reviewed & are unremarkable except as noted in HPI and below Reports no additional complaints Resp Reports no additional complaints GI Reports no additional complaints Reports as per HPI Musc Reports no additional complaints Physical Exam Telemedicine evaluation Appropriate responses Regular breathing rate and rhythm HEENT Head: Yes normal to inspection Ears: hearing grossly normal bilaterally Eyes General: appearance normal, both eyes and all related structures Neck Neck: Yes normal visual inspection Chest Chest palpation & inspection: normal inspection of the chest Resp Effort & Inspection: normal respiratory effort and able to speak in complete sentences Telehealth Telehealth Location of provider rendering services: practice address Location of patient: address on file Patient Identification confirmed using: Name, : Yes Telehealth method: video Patient verbally consented to treatment: Yes Patient verbally consented to billing insurance company: Yes Patient informed of any privacy concerns related to visit: Yes Minutes spent on Phone/Video with Pt.: 15 Assessment & Plan Assessment & Plan (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 No major barriers to patient understanding were identified. An opportunity to ask questions regarding the treatment plan was provided. All questions were answered. The patient expressed understanding and agreement with the above treatment plan. The patient is aware they should contact our office by phone for worsening of their current condition or the appearance of new urologic symptoms. Compliance is encouraged with any medications and followup testing that is ordered. It is a privilege to participate in the urologic care of your patient. If you have any questions or concerns regarding treatment for the above conditions, or other urologic issues, please do not hesitate to contact me. The office telephone contact is [phone]. This note is constructed using voice recognition software. While every effort has been made to ensure accuracy garment patternmaker errors may have been included. Yours sincerely, Dr Naun Pascual MD, [facility] - Urology Providers of Expert, Compassionate Care for the Genitourinary System Coding Level of Care Code Tele Est Pt Level 3 (80849) Complex EM visit Add On G2211 Diagnoses Hypocitraturia R82.991 Ureterolithiasis N20.1
== END 2023-07-22 15:39 | disposition home or self-care (01) ==
LOC: HO.HUSH 15:03
PROVIDERS: PCP Nurse Practitioner Family; Visit Provider Urology
DX: R82.991 Hypocitraturia (principal); N20.1 Calculus of ureter
CPT/HCPCS: 99213; G2211

== ENCOUNTER → 2023-07-22 15:03 | Outpatient (BNVA) | payer OTHER, SELFPAY | PROVIDERS: PCP Nurse Practitioner Family; Visit Provider Urology ==

== ENCOUNTER → 2023-07-27 10:03 | Outpatient (BNVA) | payer OTHER, SELFPAY | PROVIDERS: PCP Nurse Practitioner Family; Visit Provider Nurse Practitioner Family ==

== ENCOUNTER 2023-07-27 10:20 | Outpatient (AMB) | payer OTHER, SELFPAY ==
--- NOTE | 2023-07-27 10:03 | MHC.OFFVIS ---
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: 4m f/u Headaches - Confirmed Intake Note: Patient following up for headaches. Patient had nausea effects from injections Allergies haloperidol [From Haldol] Adverse Reaction (Intermediate, Verified 07/27/23 10:04) Dizziness morphine Adverse Reaction (Mild, Verified 07/27/23 10:04) Vomiting Medication List - Last Reconciled 07/27/23 by CHRISTIAN Méndez allopurinol 100 mg PO BEDTIME 90 days atorvastatin 20 mg PO BEDTIME 90 days azelastine 2 sprays intranasal BID 30 days buspirone 10 mg PO BID 90 days npjgoehhen-melznbabmzlkh-fhoe 50-300-40 mg 1 cap PO DAILY PRN clobetasol 0.05% 1 appl topical BID 2 weeks eletriptan take 1 tab at onset of headache; if no relief, may repeat 1 tab after at least 2 hrs; max = 2 tabs/24 hrs orally PRN; 30 days estradiol 1 mg PO DAILY 90 days galcanezumab-gnlm (Emgality Pen) 120 mg subcut ONCE 30 days indapamide 2.5 mg PO DAILY 90 days lasmiditan (Reyvow) 200 mg (2 x 100 mg) PO ONCE PRN 30 days MDD 2 tabs metoclopramide HCl (Reglan) 5 mg PO QID PRN 30 days multivitamin 1 tab PO DAILY naproxen 500 mg PO BID PRN 7 days ondansetron HCl 4 mg PO Q8H PRN 3 days oxycodone-acetaminophen 5-325 mg 1 tab PO Q4H PRN 7 days phenazopyridine (Pyridium) 100 mg PO TID PRN 4 days propranolol ER 120 mg PO DAILY pyridoxine (vitamin B6) 100 mg PO BEDTIME 90 days topiramate 100 mg PO BEDTIME venlafaxine ER 150 mg PO DAILY venlafaxine ER 75 mg PO DAILY HPI Comments Details: 52-yr-old female presents for f/u televideo visit via [employer] Pt denies any significant interval medical changes. Pt reports she did start Emgality 240mg loading dose in Jan 2023, and the next 120mg dose in Feb 2023. After each injection, she had significant nausea x's > 1 day. She did not feel it had reduced the migraine attack burden, so stopped it. In the last month, she has had 10 migraine attacks, at least 3 lasted 3 days (15-16 migraine headache days per month), one migraine attack w/ aura seeing a flash of light before the headache (has only had 1-2 migraine w/ aura in her whole life). Fioricet can help. Notes a h/o constipation since childhood. Takes colace daily. Uses prune juice prn. Had a colonoscopy in Nov- normal- w/ 1 benign polyp. Baseline headache characteristics: Aura- Rare flashing lights. Pwoc-Gwp-Tsvrsw headache usually starts above either eye, it is a thumping/pressure sensation a/w photophobia, phonophobia, osmophobia, sometimes nausea, rarely vomiting, brain fog. Postdrome of Residual head pressure. [facility] Medical History Renal calculi Depression Anxiety Headache Hyperlipemia Surgical History H/O colonoscopy Hx of cystoscopy History of vaginal hysterectomy History of shoulder surgery History of lithotripsy History of rotator cuff surgery Family History Father Hypothyroidism Skin cancer Kidney failure Pulmonary embolism Mother Kidney failure Mental health disorder Family/Other Brain cancer Son No problems noted. Daughter No problems noted. Social History Housing: House Alcohol intake: never Comment: bed bound wheel chair bound clau lift Patient Tobacco Use Status: Never used Tobacco e-Cigarette/Vaping Use: Never Used Second Hand Smoke Exposure: Yes Advance Directives Date on File: 10/29/22 service: No Current occupational status: employed Current occupation: [employer] Current occupational exposures/hazards: No Cognitive needs: No Hearing needs: No Vision needs: Yes Female Reproductive History Menstrual Age of Menarche: 10 Physical Exam Const General: cooperative and no acute distress Orientation/consciousness: patient oriented x3 Resp Effort & Inspection: normal respiratory effort and able to speak in complete sentences Neuro General: patient oriented x3 Cognition (Neuro): normal cognition Psych Appearance: grossly normal Mental Status: mental status grossly normal Speech and movement: Normal speech and movement present Affect: normal affect Attitude: cooperative Telehealth Telehealth Telehealth Platform: Telephone Location of provider rendering services: practice address Location of patient: address on file Patient Identification confirmed using: Name, : Yes Telehealth method: video Patient verbally consented to treatment: Yes Patient verbally consented to billing insurance company: Yes Patient informed of any privacy concerns related to visit: Yes Minutes spent on Phone/Video with Pt.: 30 Assessment & Plan Assessment & Plan (1) Migraine without aura: Code(s): G43.009 - Migraine without aura, not intractable, without status migrainosus Category: Medical (2) Nausea: Code(s): R11.0 - Nausea Category: Medical Plan For overall headache management: Track headaches. Continue psychotherapy. ? For sinus headache: Azelatstine nasal spray. ? For acute headache treatment: Continue Fioricet prn sparingly. Advised we should continue to find a better acute tx option for pt. Trial Eletriptan 40mg prn. Trial Reyvow 200mg qd prn. Pt advised to NOT drive w/in 8 hrs of taking Reyvow. May use Metoclopramide mg qid prn- sparingly. Previous acute migraine medication trials: Sumatriptan, frovatriptan, naratriptan- ineffective. Ubrelvy- no effect. Nurtec- no effect (? gepants tried off of Fioricet) Acute migraine medication contraindications: None at this time Future considerations: Sumatriptan inj, Rizatriptan. ? For headache prevention medication: Stop Emgality- caused nausea. Consider increasing Venlafaxine from 225mg qd to 300mg (ordered for mood)- pt will discuss w/ her psychiatrist. Continue: Propranolol ER 120mg qd. Topiramate 100mg qhs (notes has a h/o kidney stones- is on vit B6 and indapamide)- states migraines are much worse when she is off of topiramate. Previous migraine prevention medication trials: Depakote- ineffective. CGRP MaBs (aimovig or ajovy)- ineffective Migraine prevention medication contraindications: Would not increase Topiramate. Future considerations: Botox, Vyepti. Contraindication- Would need to use caution w/ qulipta d/t h/o constipation. ? ? f/u in 6 months or sooner prn Medications: New eletriptan take 1 tab at onset of headache; if no relief, may repeat 1 tab after at least 2 hrs; max = 2 tabs/24 hrs orally PRN; 14 tabs 6RF migraine headache 30 days lasmiditan (Reyvow) 200 mg (2 x 100 mg) PO ONCE PRN 8 tabs 3RF migraine headache 30 days MDD 2 tabs G43.009 - Migraine without aura, not intractable, without status migrainosus Changed From metoclopramide HCl 5 mg PO QIDACHS 5 days PRN 20 tabs 0RF nausea and vomiting To metoclopramide HCl (Reglan) 5 mg PO QID PRN 30 tabs 3RF nausea and vomiting 30 days Scribe Plan - Not visible on output: Reviewed possible medication side effects, including but not limited to drowsiness, dizziness. Coding Level of Care Code Tele Est Pt Level 4 (35688) Diagnoses Migraine without aura G43.009 Nausea R11.0
== END 2023-07-27 12:07 | disposition home or self-care (01) ==
PROVIDERS: PCP Nurse Practitioner Family; Visit Provider Nurse Practitioner Family
DX: G43.009 Migraine without aura, not intractable, without status migrainosus (principal); R11.0 Nausea
CPT/HCPCS: 99214

== ENCOUNTER 2023-07-29 07:39 | Outpatient (REF) | payer OTHER, SELFPAY ==
--- NOTE | ~2023-07-29 | MM_ITS ---
EXAMINATION: MM SCREENING DIGITAL BREAST TOMOSYNTHESIS, BILATERAL CLINICAL INFORMATION: Screening. Asymptomatic. COMPARISON: Mammography: Multiple prior exams dating back to 2016, most recently 08/27/2022, 07/23/2022. TECHNIQUE: Digital breast tomosynthesis is performed in both the craniocaudal and mediolateral oblique views along with computer-aided detection (CAD). Synthesized 2D images are generated from the tomosynthesis. FINDINGS: There are scattered areas of fibroglandular density (ACR BI-RADS breast composition Category b). The left breast is once again noted to be slightly larger than the right. This is unchanged. There are no suspicious masses, suspicious grouped calcifications, or areas of architectural distortion in either breast. The parenchymal pattern is stable from prior exams. No skin or axillary abnormalities. MM/MM tomosynthesis screening BI IMPRESSION: No mammographic evidence of malignancy. ASSESSMENT: BI-RADS BI-RADS 1 - Negative RECOMMENDATION: Routine annual mammography screening. 1 year F/U This examination should not preclude the clinical evaluation of a suspicious palpable abnormality. This patient's information was entered into a reminder system with a target due date for their next mammogram.
== END 2023-07-29 07:40 | disposition home or self-care (01) ==
LOC: HO.MAMMO 07:39
PROVIDERS: PCP Nurse Practitioner Family; Visit Provider Nurse Practitioner Family
DX: Z12.31 Encounter for screening mammogram for malignant neoplasm of breast (principal)
CPT/HCPCS: 77063; 77067

== ENCOUNTER → 2023-07-29 07:45 | Outpatient (BNV) | payer OTHER, SELFPAY | PROVIDERS: PCP Nurse Practitioner Family; Visit Provider Radiology Diagnostic Radiology | DX: Z12.31 Encounter for screening mammogram for malignant neoplasm of breast (principal) | CPT/HCPCS: 77063; 77067 ==

== ENCOUNTER 2023-10-13 07:57 | Outpatient (AMB) | payer OTHER, SELFPAY ==
--- NOTE | 2023-10-13 08:06 | A.OFFVIS_ITS ---
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 No complaints. Requesting refill on her estradiol pills Last Pap was in 2013, the patient is status post hysterectomy with no history of abnormal Pap smears Last Mammogram was BI-RADS 1 in 08/20 Last Colonoscopy was done in 02/19 and was negative, the recommendation was to repeat in 10 years [facility] Medical History Renal calculi Depression Anxiety Headache Hyperlipemia Surgical History H/O colonoscopy Hx of cystoscopy History of vaginal hysterectomy History of shoulder surgery History of lithotripsy History of rotator cuff surgery Family History Father Hypothyroidism Skin cancer Kidney failure Pulmonary embolism Mother Kidney failure Mental health disorder Family/Other Brain cancer Son No problems noted. Daughter No problems noted. Social History Housing: House Alcohol intake: never Comment: bed bound wheel chair bound clau lift Patient Tobacco Use Status: Never used Tobacco e-Cigarette/Vaping Use: Never Used Second Hand Smoke Exposure: Yes Advance Directives Date on File: 10/29/22 service: No Current occupational status: employed Current occupation: [employer] Current occupational exposures/hazards: No Cognitive needs: No Hearing needs: No Vision needs: Yes Female Reproductive History Menstrual Age of Menarche: 10 Menopause type: surgical Total pregnancies: 2 Full term: 2 Number of Living Children: 2 Date of Mammogram: 07/29/23 Review of Systems Const All systems reviewed & are unremarkable except as noted in HPI and below Card Reports as per HPI and Reports no additional complaints Resp Reports as per HPI and Reports no additional complaints GI Reports as per HPI and Reports no additional complaints Reports as per HPI Physical Exam Vital Signs: Last Vital Signs BP 100/64 10/13/23 08:08 BMI result Body Mass Index 33.3 Const General: cooperative, healthy appearing and comfortable General: Yes bladder normal to palpation External Female Exam: No lesion Speculum Exam - Vagina: normal appearance of the vagina, normal vaginal discharge and not erythematous Speculum Exam - Cervix: Cervix absent Bimanual exam- vagina & uterus: bladder normal to palpation and uterus absent Bimanual Exam- Adnexa, other: Other (No masses detected) Assessment & Plan Assessment & Plan (1) Well woman exam: Code(s): Z01.419 - Encounter for gynecological examination (general) (routine) without abnormal findings Category: Medical Plan: Co testing not indicated. Discussed with the patient estrogen replacement therapy all the pros, cons, risks and benefits (benefits= prevention of hot flashes, atrophic vaginitis, osteoporosis, decrease colon ca risk; also discussed with the patient the risks of TX, Breast ca, DVT, PE, Strokes) , the patient verbalized understanding and is interested in continuing p.o. estradiol, prescription refilled. Instructions given the patient to schedule next screen Mammogram in 08/21. The patient was instructed to perform monthly self-breast exams and schedule annual exam in a year. All questions answered and the patient verbalized understanding. Medications: Refilled estradiol 1 mg PO DAILY 90 days 90 tabs 3RF Coding Level of Care Code Est Pt Prev Care 40-64y(97940) Diagnoses Well woman exam Z01.419
[2023-10-13 08:08] VITALS: BP 100/64; BMI 33.3
== END 2023-10-13 08:30 | disposition home or self-care (01) ==
PROVIDERS: PCP Nurse Practitioner Family; Visit Provider Obstetrics & Gynecology
DX: Z01.419 Encounter for gynecological examination (general) (routine) without abnormal findings (principal)
CPT/HCPCS: 99396

== ENCOUNTER → 2023-10-13 07:57 | Outpatient (BNVA) | payer OTHER, SELFPAY | PROVIDERS: PCP Nurse Practitioner Family; Visit Provider Obstetrics & Gynecology ==

== ENCOUNTER 2023-10-13 09:37 | Outpatient (AMB) | payer OTHER, SELFPAY ==
--- NOTE | 2023-10-13 10:36 | A.OFFPC_ITS ---
Vital Signs 10/13/23 10:45 Height 5 ft 4 in Weight 196 lb BMI 33.6 BP 110/72 Blood Pressure Location Rt brachial Position Sitting Pulse 73 Pulse Source Pulse Oximeter Pulse Oximetry (%) 98 Oxygen Delivery Method Room Air 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: 6 Month follow up Intake Note: Patient here to discuss therapist recommendations. Allergies haloperidol [From Haldol] Adverse Reaction (Intermediate, Verified 10/13/23 10:42) Dizziness morphine Adverse Reaction (Mild, Verified 10/13/23 10:42) Vomiting Medication List - Last Reconciled 10/13/23 by JAVID Daly atorvastatin 20 mg PO BEDTIME 90 days azelastine 2 sprays intranasal BID 30 days bupropion HCl SR (Wellbutrin SR) 150 mg PO DAILY buspirone 10 mg PO BID rbodtqhazx-alqahinictook-dayn 50-300-40 mg 1 cap PO DAILY PRN clobetasol 0.05% 1 appl topical BID 2 weeks estradiol 1 mg PO DAILY 90 days indapamide 2.5 mg PO DAILY 90 days lasmiditan (Reyvow) 200 mg (2 x 100 mg) PO ONCE PRN 30 days MDD 2 tabs metoclopramide HCl (Reglan) 5 mg PO QID PRN 30 days multivitamin 1 tab PO DAILY ondansetron HCl 4 mg PO Q8H PRN 3 days propranolol ER 120 mg PO DAILY pyridoxine (vitamin B6) 100 mg PO BEDTIME 90 days topiramate 100 mg PO BEDTIME venlafaxine ER 150 mg PO DAILY Tobacco use date assessed: 04/08/23 Dental Screening Dental Screen Date: 04/08/23 HPI 6 Month follow up HPI Details depression: has therapist ([id number]) and psychiatrist , recently started on wellbutrin. Pt denies any si or hi, reports, doing okay with it . Pt is talking about magnets-TMS (brain therapy), which i have seen work well with pts. Pt is looking into this. Pt does seem in a good mood today, appears comfortable. PFSH Medical History Renal calculi Depression Anxiety Headache Hyperlipemia Surgical History H/O colonoscopy Hx of cystoscopy History of vaginal hysterectomy History of shoulder surgery History of lithotripsy History of rotator cuff surgery Family History Father Hypothyroidism Skin cancer Kidney failure Pulmonary embolism Mother Kidney failure Mental health disorder Family/Other Brain cancer Son No problems noted. Daughter No problems noted. Social History Housing: House Alcohol intake: never Comment: bed bound wheel chair bound clau lift Patient Tobacco Use Status: Never used Tobacco e-Cigarette/Vaping Use: Never Used Second Hand Smoke Exposure: Yes Advance Directives Date on File: 10/29/22 service: No Current occupational status: employed Current occupation: [employer] Current occupational exposures/hazards: No Cognitive needs: No Hearing needs: No Vision needs: Yes Female Reproductive History Menstrual Age of Menarche: 10 Questionnaire PHQ-9 Over the last 2 weeks, how often have you been bothered by any of the following problems? 1. Little interest or pleasure in doing things: several days 2. Feeling down, depressed, or hopeless: several days 3. Trouble falling or staying asleep, or sleeping too much: not at all 4. Feeling tired or having little energy: not at all 5. Poor appetite or overeating: not at all 6. Feeling bad about yourself - or that you are a failure or have let yourself or your family down: not at all 7. Trouble concentrating on things, such as reading the newspaper or watching television: not at all 8. Moving or speaking so slowly that other people could have noticed. Or the opposite - being so fidgety or restless that you have been moving around a lot more than usual: not at all 9. Thoughts that you would be better off or of hurting yourself in some way: not at all Total score: 2 Depression Screening Interpretation: Negative Depression Screening Done: Yes 44675 - PHQ-9 Billing: Yes Source: Developed by Drs. Jered Poe, April Rodríguez, Delfino Acevedo and colleagues, with an educational junior from [employer]. Thrive Questionnaire Date Thrive assessed: 10/11/23 I am a: Patient What is your living situation today?: I have a steady place to live Within the past 12 months, did the food you bought not last and you didn't have the money to get more?: Never true Within the past 12 months, did you worry whether your food would run out before you got money to buy more?: Never true Do you have trouble paying for medicines?: No Do you have trouble getting transportation to medical appointments?: No Do you have trouble paying your heating and electricity bill?: I choose not to answer this question Do you have trouble taking care of your child, family member or friend?: No Do you have trouble with day-to-day activities such as bathing, preparing meals, shopping, managing finances, etc.?: No Are you currently unemployed and looking for a job?: No Are you interested in more education?: No Please select the resources that you would like help with: Housing/Long-Term Currently or been in a relationship where the following occur: No concerns reported THRIVE Score: 0 AUDIT C Alcohol Use Questionnaire (AUDIT-C) 1. How often do you have a drink containing alcohol?: Monthly or less 2. How many drinks containing alcohol do you have on a typical day when you are drinking?: 1 or 2 3. How often do you have six or more drinks on one occasion?: Never Total Score: 1 ADELAIDE-7 AMB Questionnaire ADELAIDE-7 Date ADELAIDE - 7 assessed: 10/13/23 Feeling nervous, anxious, or on edge: 1 = Several days Not being able to stop or control worryin = Not at all Worrying too much about different things: 0 = Not at all Trouble relaxin = Not at all Being so restless that it is hard to sit still: 0 = Not at all Becoming easily annoyed or irritable: 0 = Not at all Feeling afraid as if something awful might happen: 0 = Not at all Total ADELAIDE-7 score (0-4 normal; 5-9 mild; 10-14 moderate; 15-21 severe): 1 Source: Developed by Drs. Jered Poe, April Rodríguez, Delfino Acevedo and colleagues, with an educational junior from [employer]. ADELAIDE-7 Assessment Billing ADELAIDE-7 Assessment Tool: ADELAIDE-7 Assessment 74188 Physical exam (Primary Care) Vital Signs: Last Vital Signs Pulse 73 10/13/23 10:45 BP 110/72 10/13/23 10:45 Pulse Ox 98 10/13/23 10:45 Oxygen Delivery Method Room Air 10/13/23 10:45 BMI result Body Mass Index 33.6 Tobacco/Smoking Status: Tobacco use Status Tobacco use date assessed 04/08/23 10/13/23 10:38 Patient Tobacco Use Status Never used Tobacco 10/13/23 10:38 e-Cigarette/Vaping Use Never Used 10/13/23 10:38 PHQ-9: PHQ-9 Score PHQ-9: Total score 2 10/13/23 10:57 Depression Screening Interpretation: Negative Thrive Assessment: Date of Thrive Assessment Date Thrive assessed 10/11/23 10/13/23 10:38 Currently or been in a relationship where the following occur: No concerns reported Resp Effort & Inspection: normal respiratory effort Auscultation: clear to auscultation bilaterally Cardio Rate: regular rate Rhythm: regular rhythm Heart sounds: S1 normal heart sound present and S2 normal heart sound present Psych Appearance: grossly normal Mental Status: mental status grossly normal Speech and movement: Normal speech and movement present Affect: normal affect Attitude: cooperative Thought process: Normal thought process present Thought content: Normal thought content present Insight: Good insight present (Psych) Judgement: Good judgement present (Psych) Assessment and Plan Assessment & Plan (1) Depression: Code(s): F32.9 - Major depressive disorder, single episode, unspecified Plan: continue following up with psychiatrist and therapist. TMS possible treatment in the future Medications: Refilled topiramate 100 mg PO BEDTIME 90 tabs 0RF propranolol ER 120 mg PO DAILY 90 caps 0RF atorvastatin 20 mg PO BEDTIME 90 days 90 tabs 1RF Coding Level of Care Code Est Pt Level 3 (53399) Diagnoses Depression F32.9 Additional Codes ADELAIDE-7 Assessment Billing - ADELAIDE-7 Assessment Tool: ADELAIDE-7 Assessment [id number] ([id number])
[2023-10-13 10:45] VITALS: BP 110/72; PULSE 73; O2SAT 98; BMI 33.6
== END 2023-10-13 11:20 | disposition home or self-care (01) ==
PROVIDERS: PCP Nurse Practitioner Family; Visit Provider Nurse Practitioner Family
DX: F32.9 Major depressive disorder, single episode, unspecified (principal)
CPT/HCPCS: 99213

== ENCOUNTER 2024-01-07 12:54 | Outpatient (REF) | payer OTHER, SELFPAY ==
--- NOTE | ~2024-01-07 | XR_ITS ---
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 COMPARISON: Most recent renal ultrasound dated 07/17/2023. TECHNIQUE: AP views of the abdomen. FINDINGS: Redemonstration of a right-sided renal stone measuring approximately 0.6 cm, similar when compared to the prior ultrasound. Redemonstration of a left mid/lower pole renal stone measuring up to 0.8 cm, similar when compared to the prior ultrasound. Phleboliths redemonstrated within the right mid abdomen, unchanged. Nonobstructive bowel gas pattern. No acute osseous abnormality. XR/XR KUB IMPRESSION: 1. Bilateral renal stones measuring up to 0.6 cm, similar when compared to the prior ultrasound. 2. Nonobstructive bowel gas pattern. Electronically signed by: Silverio Ashley MD 03/09/2024 12:12 PM BETTY CARRILLO
== END 2024-01-07 12:55 | disposition home or self-care (01) ==
LOC: HO.XRAY 12:54
PROVIDERS: PCP Nurse Practitioner Family; Visit Provider Urology
DX: R82.994 Hypercalciuria (principal)
CPT/HCPCS: 74018

== ENCOUNTER 2024-01-22 14:09 | Outpatient (AMB) | payer OTHER, SELFPAY ==
--- NOTE | 2024-01-22 14:10 | MHC.OFFVIS ---
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 She is a patient of Dr. Cummings. She is seen for the following urologic conditions - recurrent nephrolithiasis Telemedicine Evaluation 15 min Consultation [employer] Anastasiia Video Prior imaging findings with bilateral stone disease KUB confirms small stone burden Six-month follow-up imaging Prior discussion of importance to trial potassium citrate powder and mix it with flavor Prior [facility]olink 02/19 Good news has seen reduction in calcium from 370-250, citrate staying low, great volume Indapamide 2.5 mg daily Nephrolithiasis Recurrent calcium oxalate with background of topiramate use and high calcium on 24 hour urine They are here for further evaluation of nephrolithiasis Urolithiasis was diagnosed - Stones have been present since early 2015. Had undergone evaluation with Dr. Britton. ESWL performed previously 04/15 Left. - Obstructing left ureteric stone had passed. Ureteroscopy performed but left lower pole stone not treated at that time 08/13 - uses Topramax for migraine management The patient previously had kidney stones whose composition includes - 12/14 , calcium oxalate - monohydrate, calcium oxalate - dihydrate - 11/16 , calcium oxalate - monohydrate - 03/19 calcium oxalate monohydrate, carbonate apatite - 09/18 calcium oxalate dihydrate with carbonate apatite - 11/19 calcium oxalate mixed with carbonate apatite Laboratory investigations include - 12/14 , Base line serum evaluation, Normocalcemia (9.0), Normal PTH, Normal uric acid 03/19 Ca 9.7 - 11/13 , 24 Hr Urine - Low Urine volume < 2.0 liters, High oxalate > 30mg, Low citrate < 400. - 07/19 Ca 9.9, 24 hr large volume, low citrate, high calcium - 02/18 24 hr large volume, low citrate, high calcium - 02/19 high volume, low citrate, high calcium but responding to indapamide Prior treatment(s) include left, ESWL - 12/14 left, ureteroscopy - had post procedure UTI - 12/14 , medical management, with allopurinol, with potassium citrate - 11/16 , ureteroscopy left side - 03/19 right side ureteroscopy, 04/20 left-sided ureteroscopy, 09/18 Right USR, 11/19 right USR Prior imaging includes - 09/13 , a CT with contrast to nonobstructing calculi right kidney largest 3 mm, 3 nonobstructing calculi left kidney largest 9 mm lower pole - 03/15 , a renal ultrasound, on the right, showing no evidence of stones, on the left, showing radiodense stone(s), 5-10 mm - 04/17 US bilateral stones, XR left 6mm x2 - 10/15 , a KUB x-ray left-sided 1.2 cm stone - 04/18 , a KUB x-ray stable - 10/16 , a KUB x-ray left 1.2 cm, right 5mm - 01/16 CT scan, 5 mm distal right stone with hydronephrosis - 06/18 renal ultrasound 3 mm bilateral stones, 01/18 renal ultrasound significantly decreased stone burden right side, left cluster 6 mm - 07/20 renal ultrasound right small stone, left stones Current therapeutic plan - hyper filtration, indapamide, repeat Litholink PFSH Medical History Renal calculi Depression Anxiety Headache Hyperlipemia Surgical History H/O colonoscopy Hx of cystoscopy History of vaginal hysterectomy History of shoulder surgery History of lithotripsy History of rotator cuff surgery Family History Father Hypothyroidism Skin cancer Kidney failure Pulmonary embolism Mother Kidney failure Mental health disorder Family/Other Brain cancer Son No problems noted. Daughter No problems noted. Social History Housing: House Alcohol intake: never Comment: bed bound wheel chair bound clau lift Patient Tobacco Use Status: Never used Tobacco e-Cigarette/Vaping Use: Never Used Second Hand Smoke Exposure: Yes Advance Directives Date on File: 10/29/22 service: No Current occupational status: employed Current occupation: [employer] Current occupational exposures/hazards: No Cognitive needs: No Hearing needs: No Vision needs: Yes Female Reproductive History Menstrual Age of Menarche: 10 Telehealth Telehealth Telehealth Platform: [employer] Location of provider rendering services: practice address Location of patient: address on file Patient Identification confirmed using: Name, : Yes Telehealth method: video Patient verbally consented to treatment: Yes Patient verbally consented to billing insurance company: Yes Patient informed of any privacy concerns related to visit: Yes Minutes spent on Phone/Video with Pt.: 15 Assessment & Plan Assessment & Plan (1) Nephrolithiasis: Comment: Calcium oxalate mixed with carbonate apatite Code(s): N20.0 - Calculus of kidney Category: Medical Plan Six-month follow-up imaging Orders: Orders US renal BI 6 Months N20.0 - Calculus of kidney Medications: Refilled pyridoxine (vitamin B6) 100 mg PO BEDTIME 90 days 90 tabs 1RF Patient Instructions: Imaging studies, laboratory and physical exam results were discussed and reviewed in detail. No major barriers to patient understanding were identified. An opportunity to ask questions regarding the treatment plan was provided. All questions were answered. The patient expressed understanding and agreement with the above treatment plan. The patient is aware they should contact our office by phone for worsening of their current condition or the appearance of new urologic symptoms. Compliance is encouraged with any medications and followup testing that is ordered. It is a privilege to participate in the urologic care of your patient. If you have any questions or concerns regarding treatment for the above conditions, or other urologic issues, please do not hesitate to contact me. The office telephone contact is [phone]. This note is constructed using voice recognition software. While every effort has been made to ensure accuracy manager laboratory errors may have been included. Yours sincerely, Dr Naun Pascual MD, [facility] - Urology Providers of Expert, Compassionate Care for the Genitourinary System Coding Level of Care Code Tele Est Pt Level 3 (90261) Diagnoses Nephrolithiasis N20.0
== END 2024-01-22 15:30 | disposition home or self-care (01) ==
LOC: HO.HUSH 14:09
PROVIDERS: PCP Nurse Practitioner Family; Visit Provider Urology
DX: N20.0 Calculus of kidney (principal)
CPT/HCPCS: 99213

== ENCOUNTER → 2024-01-22 14:09 | Outpatient (BNVA) | payer OTHER, SELFPAY | PROVIDERS: PCP Nurse Practitioner Family; Visit Provider Urology ==

== ENCOUNTER 2024-02-03 14:33 | Outpatient (AMB) | payer OTHER, SELFPAY ==
[2024-02-03 14:28] VITALS: BMI 34.3
--- NOTE | 2024-02-03 14:28 | MHC.OFFVIS ---
Vital Signs 02/03/24 14:28 Height 5 ft 4 in Weight 200 lb BMI 34.3 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: Follow Up Test And Turn Up Technician Required: No Accompanied by: Self / Same As Patient Allergies haloperidol [From Haldol] Adverse Reaction (Intermediate, Verified 02/03/24 14:28) Dizziness morphine Adverse Reaction (Mild, Verified 02/03/24 14:28) Vomiting Medication List - Last Reconciled 02/03/24 by CHRISTIAN Méndez atorvastatin 20 mg PO BEDTIME 90 days bupropion HCl XL 300 mg PO DAILY buspirone 15 mg PO TID jeiwjcynct-yjvkdoqdlfcep-zrhg 50-300-40 mg 1 cap PO DAILY PRN candesartan 4 - 8 mg (1 - 2 x 4 mg) PO DAILY 30 days citalopram 20 mg PO DAILY clobetasol 0.05% 1 appl topical BID 2 weeks dupilumab (Dupixent) mg subcut Q2W estradiol 1 mg PO DAILY 90 days indapamide 2.5 mg PO DAILY 90 days metoclopramide HCl (Reglan) 5 mg PO QID PRN 30 days multivitamin 1 tab PO DAILY ondansetron HCl 4 mg PO Q8H PRN 3 days propranolol ER 120 mg PO DAILY 90 days pyridoxine (vitamin B6) 100 mg PO BEDTIME 90 days topiramate 100 mg PO BEDTIME 90 days HPI Comments Details: 52-yr-old female presents for f/u televideo visit via [employer] Pt denies any significant interval medical changes. However, she has had recent change in her psychiatric tx d/t increased anxiety and depressive thoughts. Her current regimen is working better. When she weaned off of her Venlafaxine, her headaches were worse but she also feels that this was also d/t the decompensation of her mood overall. She is having 2 migraine attacks per week, lasting 1-2 days. She now wonders if [place] food could be a migraine trigger for her. Tried Reyvow- caused very bad dreams and sleepiness. Fioricet can help. She wonders if we can increase topiramate. Denies lightheadedness. BP- low norm. Baseline headache characteristics: Aura- Rare flashing lights. Xlyn-Xab-Kuhnol headache usually starts above either eye, it is a thumping/pressure sensation a/w photophobia, phonophobia, osmophobia, sometimes nausea, rarely vomiting, brain fog. Postdrome of Residual head pressure. PFSH Medical History Renal calculi Depression Anxiety Headache Hyperlipemia Surgical History H/O colonoscopy Hx of cystoscopy History of vaginal hysterectomy History of shoulder surgery History of lithotripsy History of rotator cuff surgery Family History Father Hypothyroidism Skin cancer Kidney failure Pulmonary embolism Mother Kidney failure Mental health disorder Family/Other Brain cancer Son No problems noted. Daughter No problems noted. Social History Housing: House Alcohol intake: never Comment: bed bound wheel chair bound clau lift Patient Tobacco Use Status: Never used Tobacco e-Cigarette/Vaping Use: Never Used Second Hand Smoke Exposure: Yes Advance Directives Date on File: 10/29/22 service: No Current occupational status: employed Current occupation: [employer] Current occupational exposures/hazards: No Cognitive needs: No Hearing needs: No Vision needs: Yes Female Reproductive History Menstrual Age of Menarche: 10 Physical Exam Vital Signs: BMI result Body Mass Index 34.3 Const General: cooperative and no acute distress Orientation/consciousness: patient oriented x3 Resp Effort & Inspection: normal respiratory effort and able to speak in complete sentences Neuro General: patient oriented x3 Cognition (Neuro): normal cognition Psych Appearance: grossly normal Mental Status: mental status grossly normal Speech and movement: Normal speech and movement present Affect: normal affect Attitude: cooperative Telehealth Telehealth Telehealth Platform: [facility] Location of provider rendering services: practice address Location of patient: address on file Patient Identification confirmed using: Name, : Yes Telehealth method: video Patient verbally consented to treatment: Yes Patient verbally consented to billing insurance company: Yes Patient informed of any privacy concerns related to visit: Yes Minutes spent on Phone/Video with Pt.: 19 Assessment & Plan Assessment & Plan (1) Migraine without aura: Code(s): G43.009 - Migraine without aura, not intractable, without status migrainosus Category: Medical (2) Nausea: Code(s): R11.0 - Nausea Category: Medical Plan For overall headache management: Track headaches. Continue psychotherapy. ? For sinus headache: Flonase nasal spray ? For acute headache treatment: Continue Fioricet prn sparingly. May use Metoclopramide mg qid prn- sparingly. Previous acute migraine medication trials: Sumatriptan, frovatriptan, naratriptan- ineffective. Ubrelvy- no effect. Nurtec- no effect (? gepants tried off of Fioricet). Reyvow- not tolerated. Eletriptan- ineffective. Acute migraine medication contraindications: None at this time Future considerations: Sumatriptan inj, Rizatriptan. ? For headache prevention medication: Start Candesartan 4mg qd x's 2 wks, then may increase to 8mg qd. Monitor for lightheadedness. Continue Propranolol ER 120mg qd. Continue Topiramate 100mg qhs (notes has a h/o kidney stones- is on vit B6 and indapamide)- states migraines are much worse when she is off of topiramate. Previous migraine prevention medication trials: Depakote- ineffective. CGRP MaBs (aimovig or ajovy)- ineffective. Emgality- caused nausea. Venlafaxine- ineffective- was used to tx mood. Migraine prevention medication contraindications: Would not increase Topiramate d/t current kidney stones. Would need to use caution w/ qulipta d/t h/o constipation and current fioricet use. Future considerations: retrying Ajovy, Botox, Vyepti. ? f/u in 6 months or sooner prn Medications: New candesartan 4 - 8 mg (1 - 2 x 4 mg) PO DAILY 30 days 60 tabs 3RF Discontinued edqjqydrhr-evknmwbyyxqwr-fjdf 50-325-40 mg Discontinued Reason: Patient Completed Course 1 tab PO DAILY 30 days PRN 30 tabs 1RF headache NS lasmiditan (Reyvow) Discontinued Reason: Doctor's Order 200 mg (2 x 100 mg) PO ONCE 30 days PRN 16 tabs 3RF migraine headache MDD 2 tabs G43.009 - Migraine without aura, not intractable, without status migrainosus azelastine administer into each nostril Discontinued Reason: Patient Completed Course 2 sprays intranasal BID 30 days 30 mL 3RF Coding Level of Care Code Tele Est Pt Level 4 (05362) Diagnoses Migraine without aura G43.009 Nausea R11.0
== END 2024-02-03 15:41 | disposition home or self-care (01) ==
LOC: HO.HSMS 14:34
PROVIDERS: PCP Nurse Practitioner Family; Visit Provider Nurse Practitioner Family
DX: G43.009 Migraine without aura, not intractable, without status migrainosus (principal); R11.0 Nausea
CPT/HCPCS: 99214

== ENCOUNTER 2024-04-23 11:00 | Outpatient (REF) | payer OTHER, SELFPAY ==
[2024-04-23 13:05] LABS: MANUAL DIFF FLAG NO
[2024-04-23 13:10] LABS: Basophils Percent Auto 0.8 % (0-2); Eosinophils Absolute Auto 0.1 X10*3/uL (0.0-0.4); Hematocrit 36.7 % (37.0-47.0); Hemoglobin 12.3 g/dl (12.0-16.0); Imm Gran Abs Auto 0.01 X10*3/uL (0.00-0.03); Imm Gran Pct Auto 0.2 % (0.0-0.4); Lymphocytes Absolute Auto 1.9 X10*3/uL (1.2-4.9); Lymphocytes Percent Auto 36.6 % (20-40); Mean Corpuscular HGB Conc 33.5 g/dl (31.0-35.0); Mean Corpuscular Hemoglobin 31.1 pg (27.0-33.0); Mean Corpuscular Volume 92.7 fL (80.0-98.0); Mean Platelet Volume 10.5 fL (9.4-12.3); Monocytes Absolute Auto 0.4 X10*3/uL (0.1-1.2); Monocytes Percent Auto 8.3 % (2-11); Neutrophils Absolute Auto 2.7 x10*3/uL (2.0-8.3); Neutrophils Percent Auto 52.1 % (45-73); Platelet Count 245 X10*3/uL (160-400); Red Blood Count 3.96 X10*6/uL (4.20-5.50); White Blood Count 5.1 X10*3/uL (4.8-10.8)
[2024-04-23 13:28] LABS: Alanine Aminotransferase 25 U/L (0-31); Albumin Level 4.2 g/dL (3.5-5.0); Alkaline Phosphatase 84 U/L (39-117); Anion Gap 12 (12-20); Appearance Urine Cloudy; Aspartate Amino Transferase 21 U/L (5-31); Bilirubin Total 0.3 mg/dL (0.0-1.0); Blood Urea Nitrogen 19 mg/dL (9-16); Carbon Dioxide 27 mmol/L (22-29); Chloride 105 mmol/L (96-108); Cholesterol 154 mg/dL (<200); Color Urine Yellow; Estimated Glomerular Filt Rate > 60; Glucose Fasting 86 mg/dL (60-99); Glucose Urine UA Negative (Negative); HDL Cholesterol 58 mg/dL (>40); LDL Cholesterol Calculated 72 mg/dL (<100); Leukocyte Esterase Urine Moderate (2+) (Negative); Nitrite Urine Negative (Negative); PH 6.5 (5.0-9.0); Sodium 140 mmol/L (135-145); Total Protein 7.6 g/dL (6.5-8.0); Triglycerides 122 mg/dL (<150); UMIC TRIGGER UACC YES; Urine Blood Negative (Negative); Urine Ketones Negative (Negative); Urine Protein Negative (Neg-Trace)
[2024-04-23 13:33] LABS: Bacteria Urine None Seen (None Seen); Hyaline Casts Urine 0-2 /LPF (0-2); RBC Urine 0-2 /HPF (0-2); UACC Culture Trigger YES
[2024-04-23 13:44] LABS: TSH reflex Free T4 1.42 uIU/mL (0.32-4.0); Vitamin D 25-OH Total 80.4 ng/mL (>30)
== END 2024-04-23 11:01 | disposition home or self-care (01) ==
LOC: HO.HMGCLDS 11:00
PROVIDERS: PCP Nurse Practitioner Family; Visit Provider Nurse Practitioner Family
DX: Z00.00 Encounter for general adult medical examination without abnormal findings (principal); E55.9 Vitamin D deficiency, unspecified; R82.90 Unspecified abnormal findings in urine
CPT/HCPCS: 36415; 80053; 80061; 81001; 82306; 84443; 85025; 87086

== ENCOUNTER 2024-04-27 10:22 | Outpatient (AMB) | payer OTHER, SELFPAY ==
--- NOTE | 2024-04-27 10:25 | A.OFFPC_ITS ---
Vital Signs 04/27/24 10:26 Height 5 ft 4 in Weight 201 lb BMI 34.5 BP 110/70 Blood Pressure Location Lt brachial Position Sitting Respiration 16 Pulse 65 Pulse Source Pulse Oximeter Temp 98.0 F Temp Source Oral 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: PE Intake Note: pt is here for PE Speeder Tender Required: No Accompanied by: Self / Same As Patient Allergies haloperidol [From Haldol] Adverse Reaction (Intermediate, Verified 04/27/24 10:26) Dizziness morphine Adverse Reaction (Mild, Verified 04/27/24 10:26) Vomiting Medication List - Last Reconciled 04/27/24 by Basilio Ochoa, VOLCANOLOGIST- atorvastatin 20 mg PO BEDTIME 90 days bupropion HCl XL 300 mg PO DAILY buspirone 15 mg PO TID uuhxozzjzv-naadjdngegrbt-vczw 50-300-40 mg 1 cap PO DAILY PRN candesartan 4 - 8 mg (1 - 2 x 4 mg) PO DAILY 30 days citalopram 20 mg PO DAILY clobetasol 0.05% 1 appl topical BID 2 weeks dupilumab (Dupixent) mg subcut Q2W estradiol 1 mg PO DAILY 90 days indapamide 2.5 mg PO DAILY 90 days metoclopramide HCl (Reglan) 5 mg PO QID PRN 30 days multivitamin 1 tab PO DAILY ondansetron HCl 4 mg PO Q8H PRN 3 days propranolol ER 120 mg PO DAILY 90 days pyridoxine (vitamin B6) 100 mg PO BEDTIME 90 days topiramate 100 mg PO BEDTIME 90 days Tobacco use date assessed: 04/27/24 Dental Screening Dental Screen Date: 04/27/24 Did you have a dental visit in the last 12 months?: Yes Did you have a dental problem in the last 6 months where you did not have access to dental care?: No Was dental information given to patient?: Patient has dentist HPI PE HPI Details History of Present Illness The patient is a 53-year-old female presenting for an annual wellness examination. She confirms that her preventive screenings are current, with colonoscopy, Pap smears, and mammograms all up to date. She reports no acute or chronic issues at this time and denies symptoms commonly associated with systemic concerns, including chest pain, shortness of breath, fevers, chills, urinary, or gastrointestinal complaints. The patient also reports no numbness or tingling in extremities, and denies suicidal or homicidal ideation. She indicates that she recently underwent lab work with results that were satisfactory. She appears to be managing her health effectively without current complaints requiring intervention. Health Maintenance - Colonoscopy is up to date. - Pap smears are up to date. - Mammograms are up to date. Social History Review of Systems - General: Denies fever and chills. - Cardiovascular: Denies chest pain. - Respiratory: Denies shortness of breat h. - Neurological: Denies numbness and ting ling. - Gastrointestinal: Denies gastro proble ms, no blood in stool. - Psychiatric: Denies suicidal or homici jacqueline ideation. - Urinary: Denies urinary problems. Physical Exam General: Cooperative, healthy appearing, comfortable, no acute distress and well developed, obese Orientation: Patient oriented x3 Limitations: No limitations Head: Normal to inspection Ears: Hearing grossly normal bilaterally Nose: Normal external nose present Face and sinus: Normal facial exam Eyes: Appearance normal, both eyes and all related structures Neck: Normal visual inspection and Yes full ROM Respiratory: Normal respiratory effort and able to speak in complete sentences. Clear to auscultation bilaterally Cardiovascular: Regular rate and rhythm. Normal S1 and S2 GI: Normal to inspection. Soft to palpation and nontender Skin: No rashes or lesions noted Neuro: Patient oriented x3 Extremities: Normal to inspection Results - Labs: Recently performed, results not explicitly detailed in the conversation but noted as satisfactory by the patient. Plan - Follow up for a wellness examination i n one year. Patient was informed and verbally consented to the use of an ambient scribe for clinic note documentation during this visit. Discussion Notes During the visit, I reviewed the patient's current health status, confirming that all preventive screenings are up to date, including colonoscopy, Pap smears, and mammograms. We discussed the satisfactory results of her recent laboratory tests. I advised her to continue with her current health maintenance routine and scheduled a follow-up visit for her next annual wellness examination in one year. Patient Instructions - Continue current health maintenance an d lifestyle habits. - Return in one year for a routine [facility] ess examination. - Seek medical attention if new symptoms arise or current status changes. PENDING SALE TO [facility] Medical History Renal calculi Depression Anxiety Headache Hyperlipemia Surgical History H/O colonoscopy Hx of cystoscopy History of vaginal hysterectomy History of shoulder surgery History of lithotripsy History of rotator cuff surgery Family History Father Hypothyroidism Skin cancer Kidney failure Pulmonary embolism Mother Kidney failure Mental health disorder Family/Other Brain cancer Son No problems noted. Daughter No problems noted. Social History Housing: House Alcohol intake: never Comment: bed bound wheel chair bound clau lift Patient Tobacco Use Status: Never used Tobacco e-Cigarette/Vaping Use: Never Used Second Hand Smoke Exposure: Yes Advance Directives Date on File: 10/29/22 service: No Current occupational status: employed Current occupation: [employer] Current occupational exposures/hazards: No Cognitive needs: No Hearing needs: No Vision needs: Yes Female Reproductive History Menstrual Age of Menarche: 10 Questionnaire PHQ-9 Over the last 2 weeks, how often have you been bothered by any of the following problems? 1. Little interest or pleasure in doing things: several days 2. Feeling down, depressed, or hopeless: not at all 3. Trouble falling or staying asleep, or sleeping too much: not at all 4. Feeling tired or having little energy: several days 5. Poor appetite or overeating: not at all 6. Feeling bad about yourself - or that you are a failure or have let yourself or your family down: not at all 7. Trouble concentrating on things, such as reading the newspaper or watching television: not at all 8. Moving or speaking so slowly that other people could have noticed. Or the opposite - being so fidgety or restless that you have been moving around a lot more than usual: not at all 9. Thoughts that you would be better off or of hurting yourself in some way: not at all Total score: 2 Depression Screening Interpretation: Negative Depression Screening Done: Yes 39402 - PHQ-9 Billing: Yes Source: Developed by Drs. Jered Poe, April Rodríguez, Delfino Acevedo and colleagues, with an educational junior from [employer]. Thrive Questionnaire Date Thrive assessed: 04/27/24 I am a: Patient What is your living situation today?: I have a steady place to live Within the past 12 months, did the food you bought not last and you didn't have the money to get more?: Never true Within the past 12 months, did you worry whether your food would run out before you got money to buy more?: Never true Do you have trouble paying for medicines?: No Do you have trouble getting transportation to medical appointments?: No Do you have trouble paying your heating and electricity bill?: I choose not to answer this question Do you have trouble taking care of your child, family member or friend?: No Do you have trouble with day-to-day activities such as bathing, preparing meals, shopping, managing finances, etc.?: No Are you currently unemployed and looking for a job?: No Are you interested in more education?: No Please select the resources that you would like help with: None Currently or been in a relationship where the following occur: No concerns reported THRIVE Score: 0 AUDIT C Alcohol Use Questionnaire (AUDIT-C) 1. How often do you have a drink containing alcohol?: Monthly or less 2. How many drinks containing alcohol do you have on a typical day when you are drinking?: 1 or 2 3. How often do you have six or more drinks on one occasion?: Never Total Score: 1 Score Reviewed/Action Taken: Yes ADELAIDE-7 AMB Questionnaire ADELAIDE-7 Date ADELAIDE - 7 assessed: 04/27/24 Feeling nervous, anxious, or on edge: 1 = Several days Not being able to stop or control worryin = Not at all Worrying too much about different things: 0 = Not at all Trouble relaxin = Not at all Being so restless that it is hard to sit still: 0 = Not at all Becoming easily annoyed or irritable: 1 = Several days Feeling afraid as if something awful might happen: 0 = Not at all Total ADELAIDE-7 score (0-4 normal; 5-9 mild; 10-14 moderate; 15-21 severe): 2 Source: Developed by Drs. Jered Poe, April Rodríguez, Delfino Acevedo and colleagues, with an educational junior from [employer]. ADELAIDE-7 Assessment Billing ADELAIDE-7 Assessment Tool: ADELAIDE-7 Assessment 23911 Physical exam (Primary Care) Vital Signs: Last Vital Signs Temp 98.0 F 04/27/24 10:26 Pulse 65 04/27/24 10:26 Resp 16 04/27/24 10:26 BP 110/70 04/27/24 10:26 BMI result Body Mass Index 34.5 Tobacco/Smoking Status: Tobacco use Status Tobacco use date assessed 04/27/24 04/27/24 10:27 Patient Tobacco Use Status Never used Tobacco 04/27/24 10:27 e-Cigarette/Vaping Use Never Used 04/27/24 10:27 PHQ-9: PHQ-9 Score PHQ-9: Total score 2 04/27/24 10:34 Depression Screening Interpretation: Negative Thrive Assessment: Date of Thrive Assessment Date Thrive assessed 04/27/24 04/27/24 10:27 Currently or been in a relationship where the following occur: No concerns reported Coding Level of Care Code Est Pt Prev Care 40-64y(11354) Diagnoses Physical exam Z00.00 Additional Codes ADELAIDE-7 Assessment Billing - ADELAIDE-7 Assessment Tool: ADELAIDE-7 Assessment 20649 ([id number]) PHQ-9 - 17481 - PHQ-9 Billing: Yes ([id number]) Assessment & Plan Assessment & Plan (1) Physical exam: Code(s): Z00.00 - Encounter for general adult medical examination without abnormal findings Category: Medical Plan .
[2024-04-27 10:26] VITALS: BP 110/70; PULSE 65; RESP 16; TEMP 36.7; BMI 34.5
--- OUTSIDE RECORDS SUMMARY | 2024-04-27 12:23 | XMS_ITS | Patient Health Record ---
[facility] [place] Address [address] [place] [address] Care Team Providers Care Manager Personal Name Role Phone Basilio Mckeon Primary Care Provider Unav ailable Black, Hilda Unavailable [phone] Allergies Allergen (clinical drug ingredient) Drug/Non Drug Allergy documented on EMR Reaction Allergy Type Onset Date Status morphine Morphine vomiting Drug Allergy Active Reason For Referral No Information Medications Medication SIG (Take, Route, Frequency, Duration) Notes Start Date End Date Status Atorvastatin Calcium 20 MG 1 tablet Orally Once a day for 30 day(s) Active Vitamin B6 100 MG 1 tablet Orally Once a day for 30 day(s) Active Allopurinol 100 MG 1 tablet Orally Once a day for 30 day(s) Active Indapamide 1.25 MG 1 tablet in the morning Orally Once a day for 30 day(s) Active Propranolol HCl ER 120 MG 1 capsule Orally Once a day for 30 day(s) Active Venlafaxine HCl ER 150 MG 1 capsule with food Orally Once a day for 30 day(s) Active Nitrofurantoin Activ e Topiramate 100 MG 1 tablet Orally Once a day for 30 day(s) Active busPIRone HCl 10 MG 1 tablet Orally Twice a day Active Sertraline HCl 50 MG 1 tablet Orally Onc e a day for 30 day(s) Active Urea 40 % 1 application as needed Externally Once a day Active Desoximetasone 0.25 % 1 application Externally Twice a day for 30 days 2 weeks on 2 weeks off 07/23/2022 Active Estradiol 1 MG 1 tablet Orally Once a day for 30 day(s) Active Social History Tobacco Use: Social History Observation Description Date Details (start date - stop date) Never Smoker NA - NA Tobacco Use/Smoking Question Answer Notes Are you a: nonsmoker Additional Findings: Tobacco Non-User Current no n-smoker Alcohol Screen Question Answer Notes Did you have a drink containing alcohol in the p ast year? No Points 0 Interpretation Negative Tobacco use other than smoking: Question Answer Notes Are you an other tobacco user? 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 Plan Of Treatment Pending Test Test Name Order Date - Punch Biopsy of Skin Lesion 11/30 Insurance Providers Payer Name Payer Address Payer Phone Subscriber Number Group Number Insured Name Patient Relationship to Insured Coverage Start Date Coverage End Date [facility] [address] [facility] SUZANNE gutierrez [id number] 01 Jesus Mejia Spouse - patient is the spouse of the insured Medical (General) History Medical History History ICD Code Anxiety CAD (Cholesterol) Depression Headaches/Migraines Sciatica Psoriasis/eczema Surgical History Surgery Date(Month/Year) hysterectomy Total 2005 Rotator repair Light 12/2012
--- OUTSIDE RECORDS SUMMARY | 2024-04-27 12:23 | XMS_ITS | Patient Health Record ---
Author Organization [facility] Address [address] [place] [phone] Care Team Providers Care Plant Control Operator Name Role Phone FABIOLA LEW Primary Care Provider UnavailJack Yuan Jr Unavailable [phone] ALLERGIES No Known Allergies REASON FOR REFERRAL No Information MEDICATIONS Medication SIG (Take, Route, Frequency, Duration) Notes Start Date End Date Status Atorvastatin Calcium 20 MG Oral for 30 Active Allopurinol 100 MG Oral for 30 Active Indapamide 1.25 MG TAKE 1 TABLET BY MOUTH DAILY Oral for 30 [id number],Unavaila ble Active ZyrTEC Active Topiramate 100 MG Oral for 30 Active Estradiol 1 MG Oral for 30 Act negrita busPIRone HCl 10 MG TAKE 1 TABLET BY MOUTH TWICE DAILY Oral for 30 Active Propranolol HCl ER 120 MG TAKE 1 CAPSULE BY MOUTH DAILY Oral for 30 Active Vitamin B6 Active Venlafaxine HCl ER 150 MG Oral for 30 Active MiraLax (colon prep) 17 GM/SCOOP mixed with Gatorade or Crystal Light Orally begin at 5:00 p.m. the day before the procedure for 1 day 12/18/2022 Active Multivitamin Active Fioricet Active SOCIAL HISTORY Tobacco Use: Social History Observation Description Date Details (start date - stop date) Never Smoker NA - NA Sex Assigned At : Social History Observation Description Sex Assigned At Unknown Tobacco Use/Smoking Question Answer Notes Patient is a nonsmoker Alcohol Screen Question Answer Notes Did you have a drink containing alcohol in the p ast year? No Points 0 Interpretation Negative PROBLEMS Problem Type ICD Code Onset Dates Problem Status W/U Status Risk SNOMED Code Notes Problem Colon cancer screening (Z12.11) Active confirmed 850556158 Problem Encounter for other preprocedural examination (Z01.818) Active confirmed 261089205 Problem shelter (current) use of non-steroidal anti-inflammatorie s (NSAID) (Z79.1) Active confirmed 708012129 PLAN OF TREATMENT Future Test Test Name Order Date COLONOSCOPY 12/18/2022 Insurance Providers Payer Name Payer Address Payer Phone Subscriber Number Group Number Insured Name Patient Relationship to Insured Coverage Start Date Coverage End Date [facility] [address] [facility] SUZANNE [place]STE[place]O [phone] [id number] MARLEN HAMLIN Self - patient is the insured MEDICAL (GENERAL) HISTORY Medical History History ICD Code Nephrolithiasis Migraine headaches Vitamin D deficiency Depression/anxiety Hyperlipidemia Surgical History Surgery Date(Month/Year) Total hysterectomy 2006 Left rotator cuff surgery 2012 Right shoulder surgery 2018 Multipl cystoscopies for kidney stones
--- OUTSIDE RECORDS SUMMARY | 2024-04-27 12:23 | XMS_ITS ---
Author Organization [facility] Address [address] [place] [address] Care Team Providers Care Petroleum Supply Specialist Name Role Phone FABIOLA LEW Primary Care Provider Jack Escalante Jr REASON FOR VISIT pathology Encounters Encounter Location Date Provider Diagnosis [facility] [address] [place] [phone] 02/12/2023 Jack Anton Jr PLAN OF TREATMENT No Information
--- OUTSIDE RECORDS SUMMARY | 2024-04-27 12:23 | XMS_ITS ---
Author Organization [facility] Address [address] [place] [address] Care Team Providers Care Physicist Cryogenics Name Role Phone FABIOLA LEW Primary Care Provider UnavailJack Yuan Jr Unavailable [phone] ALLERGIES No Known Allergies REASON FOR VISIT Patient presents today for a colon screening MEDICATIONS Medication SIG (Take, Route, Frequency, Duration) Notes Start Date End Date Status Allopurinol 100 MG Oral for 30 Active Indapamide 1.25 MG TAKE 1 TABLET BY MOUTH DAILY Oral for 30 Z31472,Unavaila ble Active Propranolol HCl ER 120 MG TAKE 1 CAPSULE BY MOUTH DAILY Oral for 30 Active Venlafaxine HCl ER 150 MG Oral for 30 Active MiraLax (colon prep) 17 GM/SCOOP mixed with Gatorade or Crystal Light Orally begin at 5:00 p.m. the day before the procedure for 1 day 12/18/2022 Active Atorvastatin Calcium 20 MG Oral for 30 Active ZyrTEC Active Topiramate 100 MG Oral for 30 Active Estradiol 1 MG Oral for 30 Act negrita busPIRone HCl 10 MG TAKE 1 TABLET BY MOUTH TWICE DAILY Oral for 30 Active Vitamin B6 Active Multivitamin Active Fioricet Active SOCIAL HISTORY [...] Problem Colon cancer screening (Z12.11) Active confirmed 990932945 Problem Encounter for other preprocedural examination (Z01.818) Active confirmed 549248166 Problem shelter (current) use of non-steroidal anti-inflammatorie s (NSAID) (Z79.1) Active confirmed 488377956 VITAL SIGNS BMI 35.01 kg/m2 12/18/2022 Blood pressure systolic 000 mm Hg 12/19/19 23 Blood pressure diastolic 00 mm Hg 023 Height 5 ft 4 in in 12/18/2022 Temperature 97.7 degrees Fahrenheit 12/19/19 23 Weight 204 lbs 12/18/2022 Encounters Encounter Location Date Provider Diagnosis [facility] [address] [place] [address] 12/18/2022 Jack Anton Jr Colon cancer screening Z12.11 ; Encounter for other preprocedural examination Z01.818 and intermediate frame tender (current) use of non-steroidal anti-inflammatories (NSAID) Z79.1 ASSESSMENTS Encounter Date Diagnosis Assessment Notes Treatment Notes Treatment Clinical Notes 12/18/2022 Colon cancer screening (ICD-10 - Z12.11) Colonoscopy material was printed 12/18/2022 Encounter for other preprocedural examination (ICD-10 - Z01.818) 12/18/2022 intermediate frame tender (current) use of non-steroidal anti-inflammatories (NSAID) (ICD-10 - Z79.1) PLAN OF TREATMENT Medication Medication Name Sig Start Date Stop Date Notes MiraLax (colon prep) 17 GM/SCOOP mixed with Gatorade or Crystal Light Orally begin at 5:00 p.m. the day before the procedure for 1 day 12/18/2022 Treatment Notes Assessment Notes Colon cancer screening Colonoscopy mater ial was printed Future Test Test Name Order Date COLONOSCOPY 12/18/2022 Next Appt Details Follow Up: prn, Reason: Progress Notes * Examination Category Sub-Category Detail Notes General Examination GENERAL APPEARANCE: in no ac anvik distress , in no acute distress HEAD: normocephalic , norm ocephalic EYES: sclera non-icteric , sclera non-icteric NECK/THYROID: no lymphadenopathy , no lymphadenopathy HEART: S1, S2 normal, no mu rmurs , S1, S2 normal, no murmurs CHEST: normal shape and exp ansion , normal shape and expansion LUNGS: clear to auscultatio n bilaterally , clear to auscultation bilaterally ABDOMEN: soft, nontender, non distended, bowel sounds present, no organomegaly , soft, nontender, nondistended, bowel sounds present, no organomegaly SKIN: anicteric , anicteri c EXTREMITIES: no clubbing, cyanosi s, or edema , no clubbing, cyanosis, or edema PSYCH: cognitive function i ntact , cognitive function intact ORAL CAVITY: mucosa moist , mucos a moist
--- OUTSIDE RECORDS SUMMARY | 2024-04-27 12:23 | XMS_ITS ---
Author Organization [facility] Address [address] [place] [address] Care Team Providers Care Human Factors Ergonomist Name Role Phone FABIOLA LEW Primary Care Provider Unavailjuan pablo e Jack Anton Jr Unavailable REASON FOR VISIT screening Encounters Encounter Location Date Provider Diagnosis [facility] [place] [address] [place] [phone] 02/06/2023 Jack Anton Jr Encounter for screening colonoscopy Z12.11 and Colon polyps K63.5 ASSESSMENTS Encounter Date Diagnosis Assessment Notes Treatment Notes Treatment Clinical Notes 02/06/2023 Encounter for screening colonoscopy (ICD-10 - Z12.11) 02/06/2023 Colon polyps (ICD-10 - K63.5) PLAN OF TREATMENT No Information
== END 2024-04-27 12:01 | disposition home or self-care (01) ==
PROVIDERS: PCP Nurse Practitioner Family; Visit Provider Nurse Practitioner Family
DX: Z00.00 Encounter for general adult medical examination without abnormal findings (principal)

== ENCOUNTER → 2024-04-27 10:22 | Outpatient (BNVA) | payer OTHER, SELFPAY | PROVIDERS: PCP Nurse Practitioner Family; Visit Provider Nurse Practitioner Family | DX: Z00.00 Encounter for general adult medical examination without abnormal findings (principal) | CPT/HCPCS: 96127 ==

== ENCOUNTER 2024-05-24 09:41 | Outpatient (AMB) | payer OTHER, SELFPAY ==
[2024-05-24 10:37] VITALS: BP 102/66; PULSE 71; RESP 18; TEMP 36.8; O2SAT 96; BMI 34.7
--- NOTE | 2024-05-24 10:37 | AM.OFFWIN_ITS ---
Intake Vital Signs 05/24/24 10:37 Height 5 ft 4 in Weight 202 lb BMI 34.7 BP 102/66 Blood Pressure Location Lt brachial Position Sitting Respiration 18 Pulse 71 Pulse Source Pulse Oximeter Temp 98.2 F Temp Source Oral Pulse Oximetry (%) 96 Oxygen Delivery Method Room Air 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: EP Ongoing flu, ear concerns after flight Intake Note: Pt is here today for a walk in visit. Pt c/o chills, cough body aches, congestion headaches. Pt also c/o ears being congestion and pain in her R ear. Patient Tobacco Use Status: Never used Tobacco Allergies haloperidol [From Haldol] Adverse Reaction (Intermediate, Verified 05/24/24 10:39) Dizziness morphine Adverse Reaction (Mild, Verified 05/24/24 10:39) Vomiting HPI HPI Comments History of Present Illness Details This is a 53-year-old female with a past medical history of depression, hyperlipidemia, seasonal allergies for which she takes Zyrtec and fluticasone nasal spray daily presents for evaluation of right ear pain. Patient states on May 16 she developed fevers, chills, cough and myalgias. Patient's daughter had previously tested positive for influenza. Patient was in [place] at the time and upon returning home on Thursday patient developed right ear pain after her flight. [facility] Medical History Renal calculi Depression Anxiety Headache Hyperlipemia Surgical History H/O colonoscopy Hx of cystoscopy History of vaginal hysterectomy History of shoulder surgery History of lithotripsy History of rotator cuff surgery Family History Father Hypothyroidism Skin cancer Kidney failure Pulmonary embolism Mother Kidney failure Mental health disorder Family/Other Brain cancer Son No problems noted. Daughter No problems noted. Social History Housing: House Alcohol intake: never Comment: bed bound wheel chair bound clau lift Patient Tobacco Use Status: Never used Tobacco e-Cigarette/Vaping Use: Never Used Second Hand Smoke Exposure: Yes Advance Directives Date on File: 10/29/22 service: No Current occupational status: employed Current occupation: [employer] Current occupational exposures/hazards: No Cognitive needs: No Hearing needs: No Vision needs: Yes Female Reproductive History Menstrual Age of Menarche: 10 Review of Systems Const All systems reviewed & are unremarkable except as noted in HPI and below Reports no additional complaints, Reports body aches, Reports fatigue, Reports fever(s), Reports lethargy and Reports malaise Eyes Reports no additional complaints ENT Reports otalgia (right), Reports nasal congestion, Denies sinus pain, Denies sore throat and Denies throat swelling Card Reports no additional complaints, Denies chest pain and Denies dyspnea Resp Reports cough, Denies dyspnea and Denies wheezing GI Reports no additional complaints Reports no additional complaints Musc Reports no additional complaints Skin/Breast Reports system reviewed and no additional complaints, except as documented Neuro Reports no additional complaints Psych Reports no additional complaints Endo Reports no additional complaints and Reports fatigue Timothy/Lymph Reports no additional complaints Aller/Immun Reports no additional complaints, Denies throat swelling and Denies wheezing Physical Exam Vital Signs: Last Vital Signs Temp 98.2 F 05/24/24 10:37 Pulse 71 05/24/24 10:37 Resp 18 05/24/24 10:37 BP 102/66 05/24/24 10:37 Pulse Ox 96 05/24/24 10:37 Oxygen Delivery Method Room Air 05/24/24 10:37 BMI result Body Mass Index 34.7 Patient is afebrile Const General: cooperative, healthy appearing, comfortable, no acute distress, well developed, alert, awake and Physically active Nutritional Appearance: well nourished Orientation/consciousness: patient oriented x3 Limitations: no limitations HEENT Head: Yes normal to inspection Ears: hearing grossly normal bilaterally, external ears normal, TM's abnormal bilaterally (TMs bulging bilaterally, mild fluid level R. ear, no erythema) and EAC's normal General nose exam: Normal external nose present Face and sinus: Yes normal facial exam and Yes sinuses nontender Mouth: Normal oral and palatal mucosa present Teeth and gingiva: dentition normal Throat: Yes posterior oropharynx normal and Yes postnasal drainage Eyes General: appearance normal, both eyes and all related structures Resp Effort & Inspection: normal respiratory effort, able to speak in complete sentences, abnormal respiratory pattern, no audible wheezes, Actively coughing, respiratory effort not decreased and not tachypneic Auscultation: clear to auscultation bilaterally Cardio Rate: regular rate Rhythm: regular rhythm Skin General skin exam: no rashes or lesions noted Neuro General: patient oriented x3 Psych Appearance: grossly normal Mental Status: mental status grossly normal Insight: Good insight present (Psych) Judgement: Good judgement present (Psych) Assessment & Plan Assessment & Plan (1) Acute upper respiratory infection: Comment: Patient declines SARS testing as daughter previously positive for influenza. Code(s): J06.9 - Acute upper respiratory infection, unspecified Plan: Mucinex, Tessalon perles as needed with increased clear fluids daily. (2) Otalgia of right ear: Comment: No erythema or other clinical indication of an otitis media. Code(s): H92.01 - Otalgia, right ear Plan: Prednisone 40 mg x 4 days Medications: New benzonatate 100 mg PO TID 20 caps 0RF prednisone 40 mg (2 x 20 mg) PO DAILY 8 tabs 0RF Coding Level of Care Code Est Pt Level 3 (10859) Diagnoses Acute upper respiratory infection J06.9 Otalgia of right ear H92.01 Time Spent (min) 20
--- OUTSIDE RECORDS SUMMARY | 2024-05-24 10:55 | XMS_ITS | Patient Health Record ---
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 Plan Of Treatment Pending Test Test Name Order Date - Punch Biopsy of Skin Lesion 11/30 Insurance Providers Payer Name Payer Address Payer Phone Subscriber Number Group Number Insured Name Patient Relationship to Insured Coverage Start Date Coverage End Date [facility] [address] [facility] [place]ZAN[place] gutierrez [id number] 01 Jesus Mejia Spouse - patient is the spouse of the insured Medical (General) History Medical History History ICD Code Anxiety CAD (Cholesterol) Depression Headaches/Migraines Sciatica Psoriasis/eczema Surgical History Surgery Date(Month/Year) hysterectomy Total 2005 Rotator repair Light 12/2012
== END 2024-05-24 11:26 | disposition home or self-care (01) ==
PROVIDERS: PCP Nurse Practitioner Family; Visit Provider Physician Assistant
DX: J06.9 Acute upper respiratory infection, unspecified (principal); H92.01 Otalgia, right ear

== ENCOUNTER 2024-06-02 04:07 | Inpatient (IN) | payer OTHER, SELFPAY ==
[2024-06-02] VITALS (15 sets, daily range): BP systolic 95–132; BP diastolic 42–81; PULSE 73–106; RESP 14–20; TEMP 25.5–37.3; O2SAT 95–100; BMI 34.3
--- NOTE | ~2024-06-02 | FL_ITS ---
EXAMINATION: FL GUIDANCE ONLY HISTORY: right ureteral stent placement COMPARISON: Correlation is made with a CT of the abdomen and pelvis without contrast dated 06/02/2024. TECHNIQUE: Fluoroscopy time: 15.1 seconds. Cumulative Dose: 5.61 mGy. Images: 2. FINDINGS: Images demonstrate placement of a right nephroureteral stent. FL/FL guidance in OR IMPRESSION: Fluoroscopy during procedure. Please see procedure report for additional information. Electronically signed by: Jered Joyner MD 06/03/2024 08:48 AM BETTY
--- NOTE | ~2024-06-02 | CT_ITS ---
CLINICAL HISTORY: R flank pain, hx stones CT abdomen and pelvis without contrast Comparison: CT/REG/ID/SR - CT ABDOMEN PELVIS WO IV CON - 11/17/22 19:59 EDT Findings: The lung bases are clear. There is focal fatty infiltration adjacent to the falciform ligament. 6 mm right ureteropelvic junction stone is present mild right hydronephrosis. An additional 2 mm right renal stone is present. Multiple nonobstructive left renal stones are seen measuring up to 9 mm. Several left renal cortical calcifications are also seen measuring up to 9 mm. The noncontrast appearance of the gallbladder, pancreas, spleen, and bilateral adrenal glands is within normal limits. There is no evidence of bowel obstruction. The appendix appears normal. There is diastasis of the abdominus rectus. Small fat containing umbilical hernia is present. There is no pneumoperitoneum or ascites. The urinary bladder is partially distended. There is no adenopathy. The bones are intact. IMPRESSION: 1. 6 mm obstructive right ureteropelvic junction stone with mild right hydronephrosis. An additional 2 mm right renal stone is present. 2. Multiple nonobstructive left renal stones measuring up to 9 mm. Several left renal cortical calcifications are also seen measuring up to 9 mm. This document has been electronically signed by: Pierce Lora on 06/02/2024 07:18:37
[2024-06-02] MEDS: Ondansetron ODT 4 MG TAB.RAPDIS TRANSLINGU (04:13)
[2024-06-02 04:22] LABS: Basophils Absolute Auto 0.1 X10*3/uL (0.0-0.2); Basophils Percent Auto 0.7 % (0-2); Eosinophils Absolute Auto 0.2 X10*3/uL (0.0-0.4); Hematocrit 35.5 % (37.0-47.0); Hemoglobin 12.1 g/dl (12.0-16.0); Imm Gran Abs Auto 0.03 X10*3/uL (0.00-0.03); Imm Gran Pct Auto 0.4 % (0.0-0.4); Lymphocytes Absolute Auto 2.2 X10*3/uL (1.2-4.9); Lymphocytes Percent Auto 27.6 % (20-40); MANUAL DIFF FLAG NO; Mean Corpuscular HGB Conc 34.1 g/dl (31.0-35.0); Mean Corpuscular Hemoglobin 31.5 pg (27.0-33.0); Mean Corpuscular Volume 92.4 fL (80.0-98.0); Mean Platelet Volume 9.2 fL (9.4-12.3); Monocytes Absolute Auto 0.7 X10*3/uL (0.1-1.2); Monocytes Percent Auto 9.1 % (2-11); Neutrophils Absolute Auto 4.8 x10*3/uL (2.0-8.3); Neutrophils Percent Auto 59.2 % (45-73); Platelet Count 340 X10*3/uL (160-400); Red Blood Count 3.84 X10*6/uL (4.20-5.50); Red Cell Distribution Width 12.5 % (11.0-16.0); White Blood Count 8.1 X10*3/uL (4.8-10.8)
--- OUTSIDE RECORDS SUMMARY | 2024-06-02 04:43 | XMS_ITS ---
Author Organization [facility] Address [address] [place] [address] Care Team Providers Care Photographic Restorer Name Role Phone FABIOLA LEW Primary Care Provider Jack Escalante Jr REASON FOR VISIT pathology Encounters Encounter Location Date Provider Diagnosis [facility] [address] [place] [phone] 02/12/2023 Jack Anton Jr Plan Of Treatment No Information Progress Notes * MARLEN HAMLINDOB:[birth year] (52 yo F)Acc No.[id number]:02/12/2023 Patient:?MARLEN HAMLIN :1970???Age:52 Y???Sex:Female Address:[address] [place] [address] [place], [address] * true * Date:? Generated for Maykel severino/Michelle/eTransmitting on:?06/02/2024 04:43 AM EST
--- OUTSIDE RECORDS SUMMARY | 2024-06-02 04:43 | XMS_ITS | Patient Health Record ---
Author Organization [facility] Address [address] [place] [phone] Care Team Providers Care Packaging Manager Name Role Phone FABIOLA LEW Primary Care Provider UnavailJack Yuan Jr Unavailable Allergies No Known Allergies Reason For Referral No Information Medications Medication SIG (Take, Route, Frequency, Duration) Notes Start Date End Date Status Atorvastatin Calcium 20 MG Oral for 30 Active Allopurinol 100 MG Oral for 30 Active Indapamide 1.25 MG TAKE 1 TABLET BY MOUTH DAILY Oral for 30 [id number],Unavaila ble Active ZyrTEC Active Topiramate 100 MG [...] day 12/18/2022 Active Multivitamin Active Fioricet Active Social History Tobacco Use: Social History Observation Description Date Details (start date - stop date) Never Smoker NA - NA Tobacco Use/Smoking Question Answer Notes Patient is a nonsmoker Alcohol Screen Question Answer Notes Did you have a drink containing alcohol in the p ast year? No Points 0 Interpretation Negative Section Notes: very occasional alcohol abou t twice a year. Problems Problem Type SNOMED Code ICD Code Onset Dates Problem Status W/U Status Risk Notes Problem 714219994 Colon cancer screening (Z12.11) Active confirmed Problem 691116157 jail (current) use of non-steroidal anti-inflammatorie s (NSAID) (Z79.1) Active confirmed Problem 097419956 Encounter for other preprocedural examination (Z01.818) Active confirmed Plan Of Treatment Future Test Test Name Order Date COLONOSCOPY 12/18/2022 Insurance Providers Payer Name Payer Address Payer Phone Subscriber Number Group Number Insured Name Patient Relationship to Insured Coverage Start Date Coverage End Date [facility] [address] [facility] [place] [id number] 01 MARLEN HAMLIN Self - patient is the insured Medical (General) History Medical History History ICD Code Nephrolithiasis Migraine headaches Vitamin D deficiency Depression/anxiety Hyperlipidemia Surgical History Surgery Date(Month/Year) Total hysterectomy 2006 Left rotator cuff surgery 2012 Right shoulder surgery 2018 Multipl cystoscopies for kidney stones
--- OUTSIDE RECORDS SUMMARY | 2024-06-02 04:43 | XMS_ITS | Patient Health Record ---
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 Plan Of Treatment Pending Test Test Name Order Date - Punch Biopsy of Skin Lesion 11/30 Insurance Providers Payer Name Payer Address Payer Phone Subscriber Number Group Number Insured Name Patient Relationship to Insured Coverage Start Date Coverage End Date [facility] [address] [facility] [place]ZAN[place] gutierrez [id number] 01 Jesus Mejia Spouse - patient is the spouse of the insured Medical (General) History Medical History History ICD Code Anxiety CAD (Cholesterol) Depression Headaches/Migraines Sciatica Psoriasis/eczema Surgical History Surgery Date(Month/Year) hysterectomy Total 2005 Rotator repair Light 12/2012
--- OUTSIDE RECORDS SUMMARY | 2024-06-02 04:43 | XMS_ITS ---
Author Organization [facility] Address [address] [place] [phone] Care Team Providers Care Beamer Operator Name Role Phone FABIOLA LEW Primary Care Provider Jack Escalante Jr REASON FOR VISIT screening Encounters Encounter Location Date Provider Diagnosis [facility] [address] [place] [phone] 02/06/2023 Jack Anton Jr Encounter for screening colonoscopy Z12.11 and Colon polyps K63.5 Assessments Encounter Date Diagnosis (ICD Code) Assessment Notes Treatment Notes Treatment Clinical Notes Section Notes 02/06/2023 Encounter for screening colonoscopy (ICD-10 - Z12.11) 02/06/2023 Colon polyps (ICD-10 - K63.5) Plan Of Treatment No Information Progress Notes * RAYMONMARLEN MORRISDOB:[birth year] (53 yo F)Acc No.[id number]:02/06/2023 COLON WITH MAC Patient:?MARLEN HAMLIN Provider:?Jack Anton MD :1970???Age:52 Y???Sex:Female D ate:02/06/2023 Address:[address] [place] [address] [id number] Pcp:FABIOLA LEW Subjective: * Chief Complaints: * ???1. Screening. * Medical History:? Objective: * Vitals:? Assessment: * Assessment: 1.?Encounter for screening c olonoscopy - Z12.11 (Primary)???2.?Colon polyps - K63.5??? Plan: * Treatment: * Procedure Codes:?87299 COLON OSCOPY AND BIOPSY * * The named appointment provid er may or may not be the originator of this progress note, and it is not deemed complete until electronically signed by the appointment provider. Sign off status: Pending * Provider:?Jack Anton MD Date:?1 04/08/2022 Generated for Maykel severino/Michelle/Deedeeitting on:?06/02/2024 04:42 AM EST
[2024-06-02 04:44] LABS: Alanine Aminotransferase 51 U/L (0-31); Albumin Level 4.1 g/dL (3.5-5.0); Alkaline Phosphatase 92 U/L (39-117); Anion Gap 13 (12-20); Aspartate Amino Transferase 31 U/L (5-31); Bilirubin Total 0.3 mg/dL (0.0-1.0); Blood Urea Nitrogen 19 mg/dL (9-16); Calcium 9.5 mg/dL (8.4-10.2); Carbon Dioxide 25 mmol/L (22-29); Chloride 105 mmol/L (96-108); Creatinine Clr Calc Pharmacy 71.7; Estimated Glomerular Filt Rate 59; Glucose Random 114 mg/dL (60-115); Potassium 3.6 mmol/L (3.3-5.1); Sodium 139 mmol/L (135-145); Total Protein 7.8 g/dL (6.5-8.0)
--- NOTE | 2024-06-02 04:54 | ED_ITS ---
HPI - General Adult General Chief complaint: Back Pain/Injury Stated complaint: kidney stones Time Seen by Provider: 06/02/24 04:47 Source: patient Mode of arrival: ambulatory Limitations: no limitations History of Present Illness ED Provider: Dr. Zahraa Varner HPI narrative: patient comes to the emergency room complaining 3 hours of right flank pain. Patient states it is a tearing sensation radiating from the right flank towards the right groin area. Patient states that she has passed multiple kidney stones in the past. Denies hematuria or dysuria, however patient states that the urine looks cloudy. Denies fever chills. patient complaining of nausea and vomiting due to the pain Related Data Home Medications ?Medication ?Instructions ?Recorded ?Confirmed multivitamin 1 tab PO DAILY 10/03/21 04/27/24 bupropion HCl 300 mg 24 hr tablet, 300 mg PO DAILY 02/03/24 04/27/24 extended release buspirone 15 mg tablet 15 mg PO TID 02/03/24 04/27/24 citalopram 20 mg tablet 20 mg PO DAILY 02/03/24 04/27/24 dupilumab 300 mg/2 mL subcutaneous mg subcut Q2W 02/03/24 04/27/24 pen injector (Dupixent) Previous Rx's ?Medication ?Instructions ?Recorded clobetasol 0.05 % topical cream 1 appl topical BID 2 weeks #45 10/06/22 grams ondansetron HCl 4 mg tablet 4 mg PO Q8H PRN nausea and 04/13/23 vomiting 3 days #10 tabs metoclopramide HCl 5 mg tablet 5 mg PO QID PRN nausea and 07/27/23 (Reglan) vomiting 30 days #30 tabs atorvastatin 20 mg tablet 20 mg PO BEDTIME 90 days #90 tabs 10/13/23 estradiol 1 mg tablet 1 mg PO DAILY 90 days #90 tabs 10/13/23 propranolol 120 mg capsule,24 120 mg PO DAILY 90 days #90 caps 10/14/23 hr,extended release topiramate 100 mg tablet 100 mg PO BEDTIME 90 days #90 tabs 10/14/23 indapamide 2.5 mg tablet 2.5 mg PO DAILY 90 days #90 tabs 01/19/24 pyridoxine (vitamin B6) 100 mg 100 mg PO BEDTIME 90 days #90 tabs 01/22/24 tablet candesartan 4 mg tablet 4 - 8 mg (1 - 2 x 4 mg) PO DAILY 02/03/24 30 days #60 tabs hzygudpscx-gshrkyjmomxdd-ydjsgvep 1 cap PO DAILY PRN Migraine 03/31/24 50 mg-300 mg-40 mg capsule Headache #30 caps benzonatate 100 mg capsule 100 mg PO TID #20 caps 05/24/24 prednisone 20 mg tablet 40 mg (2 x 20 mg) PO DAILY #8 tabs 05/24/24 Allergies Allergy/AdvReac Type Severity Reaction Status Date / Time haloperidol [From Haldol] AdvReac Intermediate Dizziness Verified 06/02/24 04:11 morphine AdvReac Mild Vomiting Verified 06/02/24 04:11 Review of Systems 2 Review of Systems: Constitutional : No Weight loss, No Fever, No Chills, No Night Sweats, No Fatigue, No Malaise ENT/Mouth : No Hearing loss, No Ear Pain, No Nasal Congestion, No Sinus Pain, No Hoarseness, No sore throat, No Rhinorrhea, No Swallowing Difficulty Eyes: No Eye Pain, No Swelling, No Redness, No Foreign Body, No Discharge, No Vision Changes Cardiovascular : No Chest Pain, No SOB, No Dyspnea on Exertion, No Orthopnea, No Edema, No Palpitations Respiratory : No Cough, No Sputum, No Wheezing, No Smoke Exposure, No Dyspnea Gastrointestinal : complaining of nausea and vomiting No Diarrhea, No Constipation, No abdominal Pain, No Hematochezia, No Melena Genitourinary : no irregular bleeding, No Dysuria, No Urinary Frequency, No Hematuria, No Urinary Incontinence, No Urgency, Complaining of severe right-sidedFlank Pain, No Urinary Flow Changes, No Hesitancy Musculoskeletal : No joint pain, No Myalgias, No Joint Swelling Skin : No Skin Lesions, No rash Neuro : No Weakness, No Numbness, No Paresthesias, No Loss of Consciousness, No Dizziness, No Headache Psych : No Anxiety/Panic, No Depression, No SI/HI/AH/VH, No Social Issues, Heme/Lymph: No Bruising, No Bleeding,No Lymphadenopathy Endocrine : No Polyuria, No Polydipsia, No Temperature Intolerance PMFSH Past Medical History Medical History Renal calculi Depression Anxiety Headache Hyperlipemia Surgical History H/O colonoscopy Hx of cystoscopy History of vaginal hysterectomy History of shoulder surgery History of lithotripsy History of rotator cuff surgery Family History Family History Father Hypothyroidism Skin cancer Kidney failure Pulmonary embolism Mother Kidney failure Mental health disorder Family/Other Brain cancer Son No problems noted. Daughter No problems noted. Social History Social History Housing: House Alcohol intake: never Comment: bed bound wheel chair bound clau lift Patient Tobacco Use Status: Never used Tobacco e-Cigarette/Vaping Use: Never Used Second Hand Smoke Exposure: Yes Advance Directives: Yes Advance Directives on File: Yes Advance Directives Date on File: 10/29/22 Patient : No service: No Current occupational status: employed Current occupation: [employer] Current occupational exposures/hazards: No Cognitive needs: No Hearing needs: No Vision needs: Yes Physical Exam ED Vital Signs: Vital Signs - 24 hr 06/02/24 04:09 06/02/24 06:34 Temperature 97.2 F 97.9 F Pulse Rate 83 77 Respiratory Rate 20 17 Blood Pressure 132/81 115/65 Pulse Oximetry 100 100 Oxygen Delivery Method Room Air Room Air BMI result Body Mass Index 34.3 Const Other: Appearance: Alert. Oriented X3. patient looks very uncomfortable Eyes: Pupils equal, round and reactive to light. ENT: Pharynx normal. Neck: Normal inspection. Neck supple. No lymph nodes noted. No crepitus CVS: Normal heart rate and rhythm. Pulses normal. Normal S1 and S2 Respiratory: No respiratory distress. Breath sounds normal. No Wheezing. No rales Abdomen: Soft and nontender. No rigidity. No distention. positive CVA tenderness in the right Skin: Skin warm and dry. Normal skin color. Normal skin turgor. Extremities: No lower extremity edema. No Lacerations. No Rash Neuro: Oriented X 3. No motor deficit. No sensory deficit. Moving all extremities. No slurred speech. CN 2 through 12 grossly intact Psych: calm, cooperative, normal affect Course Course Course Narrative: patient receiving IV fluids, already received Zofran, we will received now Compazine, IV ketorolac CT scan pending Medications Administered Discontinued Medications Generic Name Dose Route Start Last Admin Trade Name Kevynq PRN Reason Stop Dose Admin Hydromorphone HCl 0.5 mg 06/02/24 06:07 06/02/24 06:33 Hydromorphone Hcl 0.5 Mg/0.5 Ml Syringe IVPUSH 06/02/24 06:08 0.5 mg ONCE ONE Administration Protocol Sodium Chloride 1,000 mls @ 999 mls/hr 06/02/24 04:49 06/02/24 07:08 Ns IVCONT 06/02/24 05:49 Infused .Q1H1M ONE Infusion Ketorolac Tromethamine 30 mg 06/02/24 04:48 06/02/24 05:01 Ketorolac Tromethamine 30 Mg/Ml Vial IVPUSH 06/02/24 04:49 30 mg ONCE ONE Administration Lorazepam 2 mg 06/02/24 05:14 06/02/24 05:20 Lorazepam 2 Mg/Ml Vial IVPUSH 06/02/24 05:15 2 mg ONCE ONE Administration Ondansetron HCl 4 mg 06/02/24 04:12 06/02/24 04:13 Ondansetron Odt 4 Mg Tab.Rapdis TRANSLINGU 06/02/24 04:13 4 mg ONCE ONE Administration Prochlorperazine Edisylate 10 mg 06/02/24 04:54 06/02/24 05:04 Prochlorperazine Edisylate 10 Mg/2 Ml Vial IVPUSH 06/02/24 04:55 10 mg ONCE ONE Administration Medical Decision Making Medical Decision Making [facility] Narrative: my interpretation of labs: No significant abnormality in patient's hematology and chemistry, normal BUN/creatinine. I was informed by the deburring technician that the patient had a panic attack when she was in CT scan. We will premedicate the patient with Ativan IV urinalysis negative for UTI CT scan was eventually done, 6 mm stone in the right UPJ. Patient is still continuing complaining of pain. I discussed the patient with Dr. Eric rubalcava from Urology. She will review the CT scan and she will follow-up with Dr. Weaver Differential Diagnosis Differential Diagnoses: The differential diagnosis associated with the presentation includes ( ureterolithiasis, pyelonephritis, renal colic, musculoskeletal pain) Admission/Observation Consideration of admission/observation: Escalation of care including admission/observation considered ( given patient's initial presentation and amount of pain, observation / admission has been considered) Lab Data MDM Lab Attestation statement: I reviewed the patient's lab results. 06/02/24 04:17 06/02/24 04:17 Labs: Lab Results 06/02/24 Range/Units 04:17 WBC 8.1 (4.8-10.8) X10*3/uL RBC 3.84 L (4.20-5.50) X10*6/uL Hgb 12.1 (12.0-16.0) g/dl Hct 35.5 L (37.0-47.0) % MCV 92.4 (80.0-98.0) fL MCH 31.5 (27.0-33.0) pg MCHC 34.1 (31.0-35.0) g/dl RDW 12.5 (11.0-16.0) % Plt Count 340 D (160-400) X10*3/uL MPV 9.2 L (9.4-12.3) fL Immature Gran % (Auto) 0.4 (0.0-0.4) % Neut % (Auto) 59.2 (45-73) % Lymph % (Auto) 27.6 (20-40) % Isabel[place] % (Auto) 9.1 (2-11) % Eos % (Auto) 3.0 (0-4) % Baso % (Auto) 0.7 (0-2) % Lymph # (Auto) 2.2 (1.2-4.9) X10*3/uL [place] # (Auto) 0.7 (0.1-1.2) X10*3/uL Eos # (Auto) 0.2 (0.0-0.4) X10*3/uL Baso # (Auto) 0.1 (0.0-0.2) X10*3/uL Abs Immat Gran (auto) 0.03 (0.00-0.03) X10*3/uL Absolute Neuts (auto) 4.8 (2.0-8.3) x10*3/uL Absolute Nucleated RBC 0.000 (0.0-0.012) X10*3/uL Nucleated RBC % (auto) 0.0 (0.0-0.2) /100WBC Sodium 139 (135-145) mmol/L Potassium 3.6 (3.3-5.1) mmol/L Chloride 105 (96-108) mmol/L Carbon Dioxide 25 (22-29) mmol/L Anion Gap 13 (12-20) BUN 19 H (9-16) mg/dL Creatinine 0.99 (0.5-1.4) mg/dL Estim Creat Clear Calc 71.7 Estimated GFR 59 Random Glucose 114 (60-115) mg/dL Calcium 9.5 (8.4-10.2) mg/dL Total Bilirubin 0.3 (0.0-1.0) mg/dL AST 31 (5-31) U/L ALT 51 H (0-31) U/L Alkaline Phosphatase 92 (39-117) U/L Total Protein 7.8 (6.5-8.0) g/dL Albumin 4.1 (3.5-5.0) g/dL Independent Interpretation I performed an independent interpretation of an: CT Scan Radiology Impression Discussion of test interpretation with radiology: I have reviewed the radiologist's reading. Radiologist Impression: The lung bases are clear. There is focal fatty infiltration adjacent to the falciform ligament. 6 mm right ureteropelvic junction stone is present mild right hydronephrosis. An additional 2 mm right renal stone is present. Multiple nonobstructive left renal stones are seen measuring up to 9 mm. Several left renal cortical calcifications are also seen measuring up to 9 mm. The noncontrast appearance of the gallbladder, pancreas, spleen, and bilateral adrenal glands is within normal limits. There is no evidence of bowel obstruction. The appendix appears normal. There is diastasis of the abdominus rectus. Small fat containing umbilical hernia is present. There is no pneumoperitoneum or ascites. The urinary bladder is partially distended. There is no adenopathy. The bones are intact. IMPRESSION: 1. 6 mm obstructive right ureteropelvic junction stone with mild right hydronephrosis. An additional 2 mm right renal stone is present. 2. Multiple nonobstructive left renal stones measuring up to 9 mm. Several left renal cortical calcifications are also seen measuring up to 9 mm. Critical Care Time Critical Care Time Critical Care Time: Yes Total Critical Care Time: 60 Attestation: I have personally provided critical care time. Time includes review of lab data, radiology results, discussion with consultants, and monitoring for potential decompensation. Intervention performed as documented. Discharge Plan Discharge Clinical Impression: Ureterolithiasis Patient Disposition: Still a Patient Prescriptions: No Action propranolol 120 mg capsule,extended release 24hr 120 mg PO DAILY 90 Days Qty: 90 1RF topiramate 100 mg tablet 100 mg PO BEDTIME 90 Days Qty: 90 1RF indapamide 2.5 mg tablet 2.5 mg PO DAILY 90 Days Qty: 90 1RF avqqsimrhx-jfxfnnnckorex-hwrg 50-300-40 mg capsule 1 cap PO DAILY PRN (Reason: Migraine Headache) Qty: 30 1RF Rx Instructions: can cause rebound headaches, use sparingly multivitamin Tablet 1 tab PO DAILY ondansetron HCl 4 mg tablet 4 mg PO Q8H PRN (Reason: nausea and vomiting) 3 Days Qty: 10 0RF atorvastatin 20 mg tablet 20 mg PO BEDTIME 90 Days Qty: 90 1RF clobetasol 0.05 % cream 1 appl topical BID 14 Days Qty: 45 2RF estradiol 1 mg tablet 1 mg PO DAILY 90 Days Qty: 90 3RF benzonatate 100 mg capsule 100 mg PO TID Qty: 20 0RF prednisone 20 mg tablet 40 mg PO DAILY Qty: 8 0RF metoclopramide HCl [Reglan] 5 mg tablet 5 mg PO QID PRN (Reason: nausea and vomiting) 30 Days Qty: 30 3RF pyridoxine (vitamin B6) 100 mg tablet 100 mg PO BEDTIME 90 Days Qty: 90 1RF Dupixent Pen 300 mg/2 mL pen injector subcut Q2W citalopram 20 mg tablet 20 mg PO DAILY bupropion HCl 300 mg tablet extended release 24 hr 300 mg PO DAILY buspirone 15 mg tablet 15 mg PO TID candesartan 4 mg tablet 4 - 8 mg PO DAILY 30 Days Qty: 60 3RF Print Language: Welsh
[2024-06-02] MEDS: Ketorolac Tromethamine 30 MG/ML VIAL IVPUSH (05:01)
[2024-06-02] MEDS: 0.9 % Sodium Chloride 1,000 ML 999 ML IVCONT (05:03)
[2024-06-02] MEDS: Prochlorperazine Edisylate 10 MG/2 ML VIAL IVPUSH (05:04)
[2024-06-02] MEDS: LORazepam 2 MG/ML VIAL IVPUSH (05:20)
[2024-06-02] MEDS: HYDROmorphone HCl 0.5 MG/0.5 ML SYRINGE IVPUSH ×2 (06:33→19:35)
[2024-06-02] MEDS: 0.9 % Sodium Chloride 1,000 ML 999 ML IV (08:49)
[2024-06-02 10:53] LABS: Appearance Urine Clear; Color Urine Yellow; Glucose Urine UA Negative (Negative); Leukocyte Esterase Urine Small (1+) (Negative); Nitrite Urine Negative (Negative); Specific Gravity - Urine 1.015 (1.005-1.025); UMIC TRIGGER UACC YES; Urine Blood Trace (Negative); Urine Ketones Negative (Negative); Urine Protein Negative (Neg-Trace)
[2024-06-02 10:58] LABS: Bacteria Urine None Seen (None Seen); UACC Culture Trigger YES
--- NOTE | 2024-06-02 12:00 | PC.NURSE ---
pt reports 10/06 pain, pt b/p 97/50-Virgil barney- MD notified
--- NOTE | 2024-06-02 12:13 | PM.HPGS ---
History of Present Illness History of Present Illness Date of Service: 06/02/24 Chief complaint: right UPJ stones, hydronephrosis Narrative: Shoshana Mejia is a 53 year old female who has a history of kidney stones and is followed by Dr. Pascual. Presented to ED with acute right flank pain. CTAP - right UPJ 6mm stone with mild to moderate hydronephrosis. The patient has required IV pain meds without adequate relieve of right flank pain. Review of Systems Review of Systems: Yes all other systems are reviewed and are negative Constitutional: Constitutional: Reports no additional constitutional complaints Eyes: Eyes: Reports no additional eye complaints ENT: Reports system reviewed and no additional complaints, except as documented Cardiovascular: Cardiovascular: Reports no additional cardiovascular complaints Respiratory: Respiratory: Reports no additional respiratory complaints Gastrointestinal: Gastrointestinal: Reports no additional gastrointestinal complaints Genitourinary: Genitourinary: Reports as per HPI Musculoskeletal: Musculoskeletal: Reports no additional musculoskeletal complaints Integumentary/Breasts: Skin/Breast: Reports system reviewed and no additional complaints, except as docu Neurologic: Reports system reviewed and no additional complaints, except as documented Psychiatric: Psychiatric: Reports no additional psychiatric complaints Endocrine: Endocrine: Reports no additional endocrine complaints Hematologic/Lymphatic: Hematologic/Lymphatic: Reports no additional hematologic/lymphatic complaints Allergic/Immunologic: Allergic/Immunologic: Reports no additional allergic/immunologic complaints [facility] Past Medical History Medical History Renal calculi Depression Anxiety Headache Hyperlipemia Family History Family History Father Hypothyroidism Skin cancer Kidney failure Pulmonary embolism Mother Kidney failure Mental health disorder Family/Other Brain cancer Son No problems noted. Daughter No problems noted. Surgical History Surgical History H/O colonoscopy Hx of cystoscopy History of vaginal hysterectomy History of shoulder surgery History of lithotripsy History of rotator cuff surgery Social History Social History Housing: House Are you a primary health careers instructor to a significant other at home: No Do you presently have visiting nurse or other home services: No Alcohol intake: never Comment: bed bound wheel chair bound clau lift Patient Tobacco Use Status: Never used Tobacco e-Cigarette/Vaping Use: Never Used Second Hand Smoke Exposure: Yes Have you been hit, kicked, punched, or otherwise hurt by someone within the past year? If so, by whom?: No Are you DNR?: No Advance Directives: Yes Advance Directives on File: Yes Advance Directives Date on File: 10/29/22 Recently lost weight without trying: No Nutrition Risks: No Nutritional Risk Patient : No service: No Current occupational status: employed Current occupation: [employer] Current occupational exposures/hazards: No Cognitive needs: No Hearing needs: No Vision needs: Yes Meds Allergies Allergy/AdvReac Type Severity Reaction Status Date / Time haloperidol [From Haldol] AdvReac Intermediate Dizziness Verified 06/02/24 04:11 morphine AdvReac Mild Vomiting Verified 06/02/24 04:11 Active Medications: Current Medications Acetaminophen (Acetaminophen 325 Mg Tablet) 650 mg PO Q6H PRN PRN Reason: Pain, Mild 1-3,fever,headache Calcium Carbonate (Calcium Carbonate 750 Mg Tab.Chew) 750 mg PO Q4H PRN PRN Reason: Heartburn Hydromorphone HCl (Hydromorphone Hcl 1 Mg/Ml Syringe) 1 mg IVPUSH Q4H PRN; Protocol PRN Reason: Pain, Severe (Pain Scale 7-10) Lactated Ringer's (Lr) 1,000 mls @ 100 mls/hr IVCONT .Q10H DIDIER Cefazolin Sodium/Dextrose (Ancef) 2 gm in 50 mls @ 100 mls/hr IV PREOP ONE Stop: 06/02/24 12:38 Ketorolac Tromethamine (Ketorolac Tromethamine 15 Mg/Ml Vial) 15 mg IVPUSH Q6H [facility] Magnesium Hydroxide (Milk Of Magnesia 30 Ml Oral.Susp) 30 ml PO DAILY PRN PRN Reason: Constipation Melatonin (Melatonin 3 Mg Tablet) 6 mg PO BEDTIME PRN PRN Reason: Insomnia Ondansetron HCl (Ondansetron Hcl 4 Mg/2 Ml Vial) 4 mg IVPUSH Q8H PRN PRN Reason: Nausea and Vomiting Sodium Chloride (0.9 % Sodium Chloride Flush 3 Ml Syringe) 3 ml IVFLUSH QSHIFT [facility] Home Medications ?Medication ?Instructions ?Recorded ?Confirmed ?Last Taken ?Type multivitamin 1 tab PO DAILY 10/03/21 04/27/24 10/03/21 History bupropion HCl 300 mg 24 hr tablet, 300 mg PO DAILY 02/03/24 04/27/24 Unknown History extended release buspirone 15 mg tablet 15 mg PO TID 02/03/24 04/27/24 Unknown History citalopram 20 mg tablet 20 mg PO DAILY 02/03/24 04/27/24 Unknown History dupilumab 300 mg/2 mL subcutaneous mg subcut Q2W 02/03/24 04/27/24 Unknown History pen injector (Dupixent) Physical Exam Vital Signs: Vital Signs: Last Vital Signs Temp 78 F L 06/02/24 11:57 Pulse 74 06/02/24 08:42 Resp 14 06/02/24 08:42 BP 97/50 L 06/02/24 11:57 Pulse Ox 99 06/02/24 08:42 O2 Del Method Room Air 06/02/24 08:42 BMI result Body Mass Index 34.3 Const: General: cooperative, healthy appearing and no acute distress Orientation/consciousness: patient oriented x3 HEENT: Head: Yes normal to inspection, Yes normocephalic and Yes atraumatic Eyes: Conjunctivae: conjunctivae normal Neck: Neck: Yes normal visual inspection and Yes trachea midline Chest: Chest palpation & inspection: normal inspection of the chest Resp: Effort & Inspection: normal respiratory effort Cardio: Rate: regular rate GI: Inspection: Yes normal to inspection Palpation (GI): Soft to palpation : General: Yes CVA tenderness (right) Back/Spine/Pelvis: Back: CVA tenderness (right) Neuro: General: patient oriented x3 Extrem: General: No edema Psych: Appearance: grossly normal Results Results Labs: Short CBC 06/02/24 Range/Units 04:17 WBC 8.1 (4.8-10.8) X10*3/uL Hgb 12.1 (12.0-16.0) g/dl Hct 35.5 L (37.0-47.0) % Plt Count 340 D (160-400) X10*3/uL BMP 06/02/24 04:17 Sodium 139 Potassium 3.6 Chloride 105 Carbon Dioxide 25 BUN 19 H Creatinine 0.99 Calcium 9.5 Liver Function 06/02/24 Range/Units 04:17 Total Bilirubin 0.3 (0.0-1.0) mg/dL AST 31 (5-31) U/L ALT 51 H (0-31) U/L Alkaline Phosphatase 92 (39-117) U/L Albumin 4.1 (3.5-5.0) g/dL Urine 06/02/24 Range/Units 10:36 Urine Color Yellow Urine Appearance Clear Urine pH 7.0 (5.0-9.0) Ur Specific [place] 1.015 (1.005-1.025) Urine Protein Negative (Neg-Trace) mg/dL Urine Glucose (UA) Negative (Negative) mg/dL Additional studies: Date of Service: 06/02/24 CLINICAL HISTORY: R flank pain, hx stones CT abdomen and pelvis without contrast Comparison: CT/REG/CT/SR - CT ABDOMEN PELVIS WO IV CON - 11/17/22 19:59 EDT Findings: The lung bases are clear. There is focal fatty infiltration adjacent to the falciform ligament. 6 mm right ureteropelvic junction stone is present mild right hydronephrosis. An additional 2 mm right renal stone is present. Multiple nonobstructive left renal stones are seen measuring up to 9 mm. Several left renal cortical calcifications are also seen measuring up to 9 mm. The noncontrast appearance of the gallbladder, pancreas, spleen, and bilateral adrenal glands is within normal limits. There is no evidence of bowel obstruction. The appendix appears normal. There is diastasis of the abdominus rectus. Small fat containing umbilical hernia is present. There is no pneumoperitoneum or ascites. The urinary bladder is partially distended. There is no adenopathy. The bones are intact. IMPRESSION: 1. 6 mm obstructive right ureteropelvic junction stone with mild right hydronephrosis. An additional 2 mm right renal stone is present. 2. Multiple nonobstructive left renal stones measuring up to 9 mm. Several left renal cortical calcifications are also seen measuring up to 9 mm. Assessment and Plan (1) Bilateral kidney stones: Status: Acute (2) Obstruction of ureteropelvic junction (UPJ) due to stone: Status: Acute (3) Hydronephrosis, right: Status: Acute Plan IV Fluid hydration cystoscopy right ureteral stent Quality Stroke Does the patient have a stroke diagnosis?: No VTE Prior VTE?: No VTE Risk Level:: Surgical - low VTE Device Contraindication: N/A - Device Ordered VTE Drug Contraindication: Treatment Not Indicated Procedures Date of Service Date of Service: 06/02/24
[2024-06-02] MEDS: Lactated Ringers 1,000 ML 100 ML IVCONT (13:37)
[2024-06-02] MEDS: Ketorolac Tromethamine 30 MG/ML VIAL 15 MG IVPUSH ×2 (13:44→21:22)
--- NOTE | 2024-06-02 15:46 | PC.NURSE ---
report given to Crystal Messer RN. Aware that doctor needs to sign H&P and marisela patient. That anesthesia consent needs to be done. Order for antibiotic if needed and 3 spots on preop record need to be signed.
[2024-06-02] MEDS: HYDROmorphone HCl 1 MG/ML SYRINGE IVPUSH (16:30)
--- NOTE | 2024-06-02 19:58 | MHC.SHP ---
Pre-Procedural Eval Section A - 24 Hr Update-Section A only Date of Service: 06/02/24 The patient is an INPATIENT: Yes The patient has been examined within 24 hours of the surgical procedure. The History & Physical has been completed within 30 days and I have reviewed it.: Yes Section B - Complete if H&P > 30 days Chief Complaint: right UPJ stones, hydronephrosis Allergies: Allergies Allergy/AdvReac Type Severity Reaction Status Date / Time haloperidol [From Haldol] AdvReac Intermediate Dizziness Verified 06/02/24 04:11 morphine AdvReac Mild Vomiting Verified 06/02/24 04:11 Plan Diagnosis/Plan: Unchanged I have reviewed the history and physical and performed a pertinent physical examination on my patient. No changes have occurred unless specified. Cystoscopy. Right ureteral stent. Discussed risks to include but not limited to, blood in the urine, burning with urination, urgency. Time Spent With Patient Time: Total time managing care of this patient today ____ minutes.
--- NOTE | 2024-06-02 20:02 | P.CONAN_ITS ---
[facility] Active Problems Active Problems: All Active Problems (Updated 06/02/24 @ 12:17 by Ehsan Moore MD) Hydronephrosis, right (Acute) Obstruction of ureteropelvic junction (UPJ) due to stone (Acute) Bilateral kidney stones (Acute) Ureterolithiasis (Acute) Otalgia of right ear (Acute) Acute upper respiratory infection (Acute) Eczema (Acute) Nausea (Acute) Counseling for hormone replacement therapy (Acute) Hypocitraturia (Acute) Diplopia (Acute) Migraine without aura (Acute) Screening for colon cancer (Acute) Toenail deformity (Acute) Cracking skin (Acute) Hypercalciuria (Acute) Ureterolithiasis (Acute) Vitamin D deficiency (Acute) Screening for colon cancer (Acute) Physical exam (Acute) Counseling for hormone replacement therapy (Acute) Well woman exam (Acute) Physical exam (Acute) Nephrolithiasis (Acute) Depression (Acute) Headache (Acute) Past Medical History Medical History Renal calculi Depression Anxiety Headache Hyperlipemia Family History Family History Father Hypothyroidism Skin cancer Kidney failure Pulmonary embolism Mother Kidney failure Mental health disorder Family/Other Brain cancer Son No problems noted. Daughter No problems noted. Family history of problems with anesthesia: No Surgical History Surgical History H/O colonoscopy Hx of cystoscopy History of vaginal hysterectomy History of shoulder surgery History of lithotripsy History of rotator cuff surgery History of Problems with Anesthesia: No (PONV) Social History Social History Housing: House Are you a primary primary health care nurse to a significant other at home: No Do you presently have visiting nurse or other home services: No Alcohol intake: never Comment: bed bound wheel chair bound clau lift Patient Tobacco Use Status: Never used Tobacco e-Cigarette/Vaping Use: Never Used Second Hand Smoke Exposure: Yes Have you been hit, kicked, punched, or otherwise hurt by someone within the past year? If so, by whom?: No Are you DNR?: No Advance Directives: Yes Advance Directives on File: Yes Advance Directives Date on File: 10/29/22 Recently lost weight without trying: No Nutrition Risks: No Nutritional Risk Patient : No service: No Current occupational status: employed Current occupation: [employer] Current occupational exposures/hazards: No Cognitive needs: No Hearing needs: No Vision needs: Yes Meds Allergies Allergy/AdvReac Type Severity Reaction Status Date / Time haloperidol [From Haldol] AdvReac Intermediate Dizziness Verified 06/02/24 04:11 morphine AdvReac Mild Vomiting Verified 06/02/24 04:11 Active Medications: Current Medications Acetaminophen (Acetaminophen 325 Mg Tablet) 650 mg PO Q6H PRN PRN Reason: Pain, Mild 1-3,fever,headache Calcium Carbonate (Calcium Carbonate 750 Mg Tab.Chew) 750 mg PO Q4H PRN PRN Reason: Heartburn Hydromorphone HCl (Hydromorphone Hcl 1 Mg/Ml Syringe) 1 mg IVPUSH Q4H PRN; Protocol PRN Reason: Pain, Severe (Pain Scale 7-10) Last Admin: 06/02/24 16:30 Dose: 1 mg Lactated Ringer's (Lr) 1,000 mls @ 100 mls/hr IVCONT .Q10H [facility] Last Admin: 06/02/24 13:37 Dose: 100 mls/hr Ketorolac Tromethamine (Ketorolac Tromethamine 30 Mg/Ml Vial) 15 mg IVPUSH Q6H [facility] Last Admin: 06/02/24 13:44 Dose: 15 mg Magnesium Hydroxide (Milk Of Magnesia 30 Ml Oral.Susp) 30 ml PO DAILY PRN PRN Reason: Constipation Melatonin (Melatonin 3 Mg Tablet) 6 mg PO BEDTIME PRN PRN Reason: Insomnia Ondansetron HCl (Ondansetron Hcl 4 Mg/2 Ml Vial) 4 mg IVPUSH Q8H PRN PRN Reason: Nausea and Vomiting Sodium Chloride (0.9 % Sodium Chloride Flush 3 Ml Syringe) 3 ml IVFLUSH QSHIFT [facility] Last Admin: 06/02/24 14:24 Dose: Not Given Home Medications ?Medication ?Instructions ?Recorded ?Confirmed ?Last Taken ?Type multivitamin 1 tab PO DAILY 10/03/21 04/27/24 10/03/21 History bupropion HCl 300 mg 24 hr tablet, 300 mg PO DAILY 02/03/24 04/27/24 Unknown History extended release buspirone 15 mg tablet 15 mg PO TID 02/03/24 04/27/24 Unknown History citalopram 20 mg tablet 20 mg PO DAILY 02/03/24 04/27/24 Unknown History dupilumab 300 mg/2 mL subcutaneous mg subcut Q2W 02/03/24 04/27/24 Unknown History pen injector (Dupixent) Exam Height,Weight and Vital Signs: Height 5 ft 4 in Weight 90.718 kg Last Vital Signs Temp 97.1 F 06/02/24 15:39 Pulse 96 06/02/24 19:36 Resp 20 06/02/24 19:36 BP 120/62 06/02/24 19:36 Pulse Ox 96 06/02/24 19:36 O2 Del Method Room Air 06/02/24 19:36 Pertinent Lab Results Pertinent Lab Results: Laboratory Tests 06/02/24 06/02/24 04:17 10:36 WBC 8.1 RBC 3.84 L Hgb 12.1 Hct 35.5 L MCV 92.4 MCH 31.5 MCHC 34.1 RDW 12.5 Plt Count 340 D MPV 9.2 L Immature Gran % (Auto) 0.4 Neut % (Auto) 59.2 Lymph % (Auto) 27.6 [place] % (Auto) 9.1 Eos % (Auto) 3.0 Baso % (Auto) 0.7 Lymph # (Auto) 2.2 [place] # (Auto) 0.7 Eos # (Auto) 0.2 Baso # (Auto) 0.1 Abs Immat Gran (auto) 0.03 Absolute Neuts (auto) 4.8 Absolute Nucleated RBC 0.000 Nucleated RBC % (auto) 0.0 Sodium 139 Potassium 3.6 Chloride 105 Carbon Dioxide 25 Anion Gap 13 BUN 19 H Creatinine 0.99 Estim Creat Clear Calc 71.7 Estimated GFR 59 Random Glucose 114 Calcium 9.5 Total Bilirubin 0.3 AST 31 ALT 51 H Alkaline Phosphatase 92 Total Protein 7.8 Albumin 4.1 Urine Color Yellow Urine Appearance Clear Urine pH 7.0 Ur Specific [place] 1.015 Urine Protein Negative Urine Glucose (UA) Negative Urine Ketones Negative Urine Blood Trace H Urine Nitrite Negative Ur Leukocyte Esterase Small (1+) H Urine RBC 11-20 H Urine WBC 11-20 H Ur Squamous Epith Cells 3-5 Urine Bacteria None Seen Hyaline Casts 3-5 Airway Mallampati Class: II TM Dist: >3cm Neck ROM: Full Assessment and Plan Assessment Anesthesia Assessment: Anesthesia Plan Discussed and Chart Reviewed Final Anesthetic Review Family History of Problems with Anesthesia: No History of Problems with Anesthesia: No (PONV) NPO: Yes ASA Class: II and Emergency Final Preanesthetic Review: No Changes in Pt Med Stat, Meds/Allgs Chart Reviewed, Consent Obtained/Reviewed and Anes Risks/Benef Reviewed Patient Risk: Low Procedure Risk: Low Anesthetic Plan Anesthetic Plan: GA Disposition: Standard PACU
--- NOTE | 2024-06-02 20:55 | P.OP_ITS ---
Operative Note Operative Note Date of Service: 06/02/24 Narrative: PreOperative Diagnosis:?? Right obstructing UPJ stone right hydronephrosis Post Operative Diagnosis:?? ?Right obstructing UPJ stone right hydronephrosis Procedure: Cystoscopy, right retrograde right stent insertion, size 7 Setswana by 26 cm Surgeon:?Dr Ehsan Moore Anesthesia:? General Procedure: After informed consent was verified the patient was brought to the operating placed on the OR table in supine position.? General Anesthesia was administered per protocol.? The patient was placed in lithotomy position, prepped and draped in the usual sterile fashion.? Safety pause time-out and side of surgery confirmed.? Antibiotics confirmed. A 22 Setswana cystoscope was inserted transurethrally. The bladder was visualized.? Urine was sent for culture. Both ureteric orifices were in normal position. The? right ureteric orifice was cannulated? a retrograde examination was performed. A hydrophilic guidewire was placed up to the level of the renal pelvis under fluoroscopy. A 7 fr by 26 cm ureteral stent was passed over the guide wire under fluoroscopic guidance. The guide wire was removed. The bladder was emptied.? The rigid cystoscope was removed. ? The patient tolerated the procedure well and was brought to the recovery room in stable condition. Complications: None EBL: minimal (<5 mL) Drains: Ureteral stent as dictated above
--- NOTE | 2024-06-02 21:02 | PM.DS ---
DS: Providers Provider Date of Service: 06/02/24 Date of admission: 06/02/24 11:59 Date of discharge: 06/02/24 [facility] Admitting clinician: Ehsan Moore Attending physician on discharge: Ehsan Moore DS: Diagnosis Discharge Diagnosis (1) Bilateral kidney stones: Status: Acute (2) Obstruction of ureteropelvic junction (UPJ) due to stone: Status: Acute (3) Hydronephrosis, right: Status: Acute DS: Summary Hospital Course Hospital Course: Shoshana Mejia is a 53 year old female who has a history of kidney stones and is followed by Dr. Pascual. Presented to ED with acute right flank pain. CTAP - right UPJ 6mm stone with mild to moderate hydronephrosis. The patient has required IV pain meds without adequate relieve of right flank pain. She had OR procedure cystoscopy right ureteral stent insertion. She will need outpatient follow-up for further stone management. Status at Discharge Cognitive/behavioral status at discharge: Stable Functional status at discharge: independent ambulation Overall status at discharge: patient is back to baseline Time Attestation Total time managing care of this patient today: 38 mintues. Discharge Coordination Time (in mins): 38 minutes Quality: Safe Use of Opioids Does Pt have an Active Cancer Diagnosis on the Problem List?: No Quality: Stroke Does the patient have a stroke diagnosis?: No Physical Exam Vital Signs: Vital Signs: Last Vital Signs Temp 97.1 F 06/02/24 15:39 Pulse 96 06/02/24 19:36 Resp 20 06/02/24 19:36 BP 120/62 06/02/24 19:36 Pulse Ox 96 06/02/24 19:36 O2 Del Method Room Air 06/02/24 19:36 BMI result Body Mass Index 34.3 DS: Data Data Completed and Pending Labs on day of discharge: Laboratory Results - last 24 hr 06/02/24 06/02/24 04:17 10:36 WBC 8.1 RBC 3.84 L Hgb 12.1 Hct 35.5 L MCV 92.4 MCH 31.5 MCHC 34.1 RDW 12.5 Plt Count 340 D MPV 9.2 L Immature Gran % (Auto) 0.4 Neut % (Auto) 59.2 Lymph % (Auto) 27.6 [place] % (Auto) 9.1 Eos % (Auto) 3.0 Baso % (Auto) 0.7 Lymph # (Auto) 2.2 [place] # (Auto) 0.7 Eos # (Auto) 0.2 Baso # (Auto) 0.1 Abs Immat Gran (auto) 0.03 Absolute Neuts (auto) 4.8 Absolute Nucleated RBC 0.000 Nucleated RBC % (auto) 0.0 Sodium 139 Potassium 3.6 Chloride 105 Carbon Dioxide 25 Anion Gap 13 BUN 19 H Creatinine 0.99 Estim Creat Clear Calc 71.7 Estimated GFR 59 Random Glucose 114 Calcium 9.5 Total Bilirubin 0.3 AST 31 ALT 51 H Alkaline Phosphatase 92 Total Protein 7.8 Albumin 4.1 Urine Color Yellow Urine Appearance Clear Urine pH 7.0 Ur Specific [place] 1.015 Urine Protein Negative Urine Glucose (UA) Negative Urine Ketones Negative Urine Blood Trace H Urine Nitrite Negative Ur Leukocyte Esterase Small (1+) H Urine RBC 11-20 H Urine WBC 11-20 H Ur Squamous Epith Cells 3-5 Urine Bacteria None Seen Hyaline Casts 3-[address] scan - abdomen: Radiologist's impression: CTAP-06/02/24--IMPRESSION: 1. 6 mm obstructive right ureteropelvic junction stone with mild right hydronephrosis. An additional 2 mm right renal stone is present. 2. Multiple nonobstructive left renal stones measuring up to 9 mm. Several left renal cortical calcifications are also seen measuring up to 9 mm. Discharge Plan Discharge Anticipated Discharge Date/Time: 06/02/24 21:11 Patient Disposition: Home, Self-Care Discharge Diagnosis: Nephrolithiasis, obstructive uropathy status post right ureteral stent Referrals: Basilio Ochoa, CREDIT OPERATIONS SPECIALIST-BC [Primary Care Provider] - 1 Week Discharge Medications: New phenazopyridine [Pyridium] 200 mg tablet 200 mg PO TID PRN (Reason: Urinary burning) Qty: 20 0RF cefuroxime axetil 500 mg tablet 500 mg PO BID Qty: 10 0RF oxycodone-acetaminophen [Percocet] 5-325 mg tablet 1 tab PO Q6-8H PRN (Reason: pain) Qty: 12 0RF Rx Instructions: Partial Fill upon patient request. ondansetron 8 mg tablet,disintegrating 8 mg PO Q8H PRN (Reason: nausea and vomiting) Qty: 14 0RF hydroxyzine pamoate [Vistaril] 25 mg capsule 25 mg PO BEDTIME Qty: 20 0RF Rx Instructions: Take at bedtime may cause drowsiness. Continued propranolol 120 mg capsule,extended release 24hr 120 mg PO DAILY 90 Days Qty: 90 1RF topiramate 100 mg tablet 100 mg PO BEDTIME 90 Days Qty: 90 1RF indapamide 2.5 mg tablet 2.5 mg PO DAILY 90 Days Qty: 90 1RF lowbpvlnzf-whmuxszbndryq-toze 50-300-40 mg capsule 1 cap PO DAILY PRN (Reason: Migraine Headache) Qty: 30 1RF Rx Instructions: can cause rebound headaches, use sparingly multivitamin Tablet 1 tab PO DAILY ondansetron HCl 4 mg tablet 4 mg PO Q8H PRN (Reason: nausea and vomiting) 3 Days Qty: 10 0RF atorvastatin 20 mg tablet 20 mg PO BEDTIME 90 Days Qty: 90 1RF clobetasol 0.05 % cream 1 appl topical BID 14 Days Qty: 45 2RF estradiol 1 mg tablet 1 mg PO DAILY 90 Days Qty: 90 3RF benzonatate 100 mg capsule 100 mg PO TID Qty: 20 0RF prednisone 20 mg tablet 40 mg PO DAILY Qty: 8 0RF metoclopramide HCl [Reglan] 5 mg tablet 5 mg PO QID PRN (Reason: nausea and vomiting) 30 Days Qty: 30 3RF pyridoxine (vitamin B6) 100 mg tablet 100 mg PO BEDTIME 90 Days Qty: 90 1RF Dupixent Pen 300 mg/2 mL pen injector subcut Q2W citalopram 20 mg tablet 20 mg PO DAILY bupropion HCl 300 mg tablet extended release 24 hr 300 mg PO DAILY buspirone 15 mg tablet 15 mg PO TID candesartan 4 mg tablet 4 - 8 mg PO DAILY 30 Days Qty: 60 3RF Discharge Orders: Discharge Order (Routine); Ordered 06/02/24 Ordered By: Ehsna Moore Diet: Advance to usual diet Activity on Discharge: As tolerated Stand Alone Forms: Patient Portal Discharge page Print Language: Telugu Care Plan Goals: Outpatient urology follow-up for stone management Health Concerns: Keep hydrated, it is normal to see blood in urine Plan of Treatment: Outpatient follow-up with Urology Assessment: Patient stable for discharge
[2024-06-02] MEDS: Acetaminophen 1,000 MG/100 ML PIGGYBACK 400 MG IV (21:31)
== END 2024-06-02 21:55 | disposition home or self-care (01) | DRG 465 ==
LOC: HO.ED 13:04 → HO.EDOVER 13:05 → HO.S3 15:29
PROVIDERS: Emergency Medicine; Admitting Provider Urology; Emergency Provider Emergency Medicine; PCP Nurse Practitioner Family; Visit Provider Urology
PROC: BT1DZZZ Fluoroscopy of Right Kidney, Ureter and Bladder (ICD-10-PCS; principal; 2024-06-02 16:30)
DX: N13.2 Hydronephrosis with renal and ureteral calculous obstruction (principal); Z79.899 Other long term (current) drug therapy; Z87.442 Personal history of urinary calculi
CPT/HCPCS: 36415; 74176; 80053; 81001; 85025; 87086; 99285; C1758; C1769; C2617; J0131; J0690; J0737; J1100; J1171; J1885; J2003; J2060; J2250; J2405; J2704; J7120; Q9967

== ENCOUNTER → 2024-06-02 04:48 | Outpatient (BNV) | payer OTHER, SELFPAY | PROVIDERS: Emergency Provider Emergency Medicine; PCP Nurse Practitioner Family; Visit Provider Radiology Vascular & Interventional Radiology | DX: N20.0 Calculus of kidney (principal); N13.0 Hydronephrosis with ureteropelvic junction obstruction | CPT/HCPCS: 74176 ==

== ENCOUNTER → 2024-06-02 11:59 | Outpatient (BNV) | payer OTHER, SELFPAY | PROVIDERS: Admitting Provider Urology; Emergency Provider Emergency Medicine; PCP Nurse Practitioner Family; Visit Provider Urology | DX: N20.0 Calculus of kidney (principal); N20.1 Calculus of ureter; N13.30 Unspecified hydronephrosis | CPT/HCPCS: 99235 ==

== ENCOUNTER 2024-06-21 13:18 | Outpatient (AMB) | payer OTHER, SELFPAY ==
--- NOTE | 2024-06-21 13:18 | MHC.OFFVIS ---
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: stone treatment discussion Intake Note: Patient is present for STONE TREATMENT DISCUSSION Urology Medication:PYRIDIUM,VITAMIN B6 Antibiotic Allergy:NONE Blood Thinner:NONE Risk And Compliance Analytics Director Required: No Allergies haloperidol [From Haldol] Adverse Reaction (Intermediate, Verified 06/21/24 13:19) Dizziness morphine Adverse Reaction (Mild, Verified 06/21/24 13:19) Vomiting HPI Comments Details: Shoshana is a very pleasant female. She is a patient of Dr. Cummings. She is seen for the following urologic conditions - recurrent nephrolithiasis Telemedicine Evaluation 15 min Consultation [employer]ast[employer] Video Had stone recurrence with recent hospital admission CT scan with right ureteric stone and left renal stone Stent placed right side Like to have completion procedure on right side plus procedure left side Prior discussion of importance to trial potassium citrate powder and mix it with flavor Prior Litholink 02/19 Good news has seen reduction in calcium from 370-250, citrate staying low, great volume Indapamide 2.5 mg daily Nephrolithiasis Recurrent calcium oxalate with background of topiramate use and high calcium on 24 hour urine They are here for further evaluation of nephrolithiasis Urolithiasis was diagnosed - Stones have been present since early 2015. Had undergone evaluation with Dr. Britton. ESWL performed previously 04/15 Left. - Obstructing left ureteric stone had passed. Ureteroscopy performed but left lower pole stone not treated at that time 08/13 - uses Topramax for migraine management The patient previously had kidney stones whose composition includes - 12/14 , calcium oxalate - monohydrate, calcium oxalate - dihydrate - 11/16 , calcium oxalate - monohydrate - 03/19 calcium oxalate monohydrate, carbonate apatite - 09/18 calcium oxalate dihydrate with carbonate apatite - 11/19 calcium oxalate mixed with carbonate apatite Laboratory investigations include - 12/14 , Base line serum evaluation, Normocalcemia (9.0), Normal PTH, Normal uric acid 03/19 Ca 9.7 - 11/13 , 24 Hr Urine - Low Urine volume < 2.0 liters, High oxalate > 30mg, Low citrate < 400. - 07/19 Ca 9.9, 24 hr large volume, low citrate, high calcium - 02/18 24 hr large volume, low citrate, high calcium - 02/19 high volume, low citrate, high calcium but responding to indapamide Prior treatment(s) include left, ESWL - 12/14 left, ureteroscopy - had post procedure UTI - 12/14 , medical management, with allopurinol, with potassium citrate - 11/16 , ureteroscopy left side - 03/19 right side ureteroscopy, 04/20 left-sided ureteroscopy, 09/18 Right USR, 11/19 right USR Prior imaging includes - 09/13 , a CT with contrast to nonobstructing calculi right kidney largest 3 mm, 3 nonobstructing calculi left kidney largest 9 mm lower pole - 03/15 , a renal ultrasound, on the right, showing no evidence of stones, on the left, showing radiodense stone(s), 5-10 mm - 04/17 US bilateral stones, XR left 6mm x2 - 10/15 , a KUB x-ray left-sided 1.2 cm stone - 04/18 , a KUB x-ray stable - 10/16 , a KUB x-ray left 1.2 cm, right 5mm - 01/16 CT scan, 5 mm distal right stone with hydronephrosis - 06/18 renal ultrasound 3 mm bilateral stones, 01/18 renal ultrasound significantly decreased stone burden right side, left cluster 6 mm - 07/20 renal ultrasound right small stone, left stones Current therapeutic plan - hyper filtration, indapamide, repeat Litholink PFSH Medical History Renal calculi Depression Anxiety Headache Hyperlipemia Surgical History H/O colonoscopy Hx of cystoscopy History of vaginal hysterectomy History of shoulder surgery History of lithotripsy History of rotator cuff surgery Family History Father Hypothyroidism Skin cancer Kidney failure Pulmonary embolism Mother Kidney failure Mental health disorder Family/Other Brain cancer Son No problems noted. Daughter No problems noted. Social History Housing: House Are you a primary healthcare network pricing consultant to a significant other at home: No Do you presently have visiting nurse or other home services: No Alcohol intake: never Comment: bed bound wheel chair bound clau lift Patient Tobacco Use Status: Never used Tobacco e-Cigarette/Vaping Use: Never Used Second Hand Smoke Exposure: Yes Advance Directives Date on File: 10/29/22 service: No Current occupational status: employed Current occupation: [employer] Current occupational exposures/hazards: No Cognitive needs: No Hearing needs: No Vision needs: Yes Female Reproductive History Menstrual Age of Menarche: 10 Review of Systems Const All systems reviewed & are unremarkable except as noted in HPI and below Reports no additional complaints Resp Reports no additional complaints GI Reports no additional complaints Reports as per HPI Musc Reports no additional complaints Physical Exam Telemedicine evaluation Appropriate responses Regular breathing rate and rhythm HEENT Head: Yes normal to inspection Ears: hearing grossly normal bilaterally Eyes General: appearance normal, both eyes and all related structures Neck Neck: Yes normal visual inspection Chest Chest palpation & inspection: normal inspection of the chest Resp Effort & Inspection: normal respiratory effort and able to speak in complete sentences Telehealth Telehealth Telehealth Platform: [employer] Location of provider rendering services: practice address Location of patient: address on file Patient Identification confirmed using: Name, : Yes Telehealth method: video Patient verbally consented to treatment: Yes Patient verbally consented to billing insurance company: Yes Patient informed of any privacy concerns related to visit: Yes Minutes spent on Phone/Video with Pt.: 15 Assessment & Plan Assessment & Plan (1) Ureterolithiasis: Code(s): N20.1 - Calculus of ureter Category: Medical Plan Ureteroscopy We discussed the nature of the decision and reasonable alternatives for performing ureteroscopy. Options such as medical therapy were discussed. Interventions include chemical dissolution, ESWL, ureteroscopy with laser lithotripsy and stent placement, PCNL. The relative uncertainties and benefits related to each alternate procedure were adequately discussed. General surgical risks including, but not limited to - pain, bleeding, infection, myocardial infarction, pulmonary embolus, deep vein thrombosis and cerebrovascular accident which may result in further hospitalization were discussed. Full disclosure of the procedure as well as all major risks, benefits and complications were discussed including but not limited to damage to the urethra, bladder and kidney infection, damage to the ureter, stent migration or malposition, scarring to the renal pelvis, remnant stone fragments, subsequent stone passage with need for secondary procedures. The overall secondary procedure rate is approximately 10-15%. The overall clearance rate is approximately 90-95%. Success of the procedure in the short-term does not necessarily guarantee that long-term success will be maintained. Suitable follow up will need to be maintained. The patient showed understanding of discussion and wishes to proceed with - cystoscopy, retrograde, ureteroscopy, possible lithotripsy/stone basketing and stent on the bilateral side - cystoscopy right stent removal, right ureteroscopy with laser lithotripsy, left ureteroscopy with laser lithotripsy Patient Instructions: This note is constructed using voice recognition software. While every effort has been made to ensure accuracy fur blower errors may have been included. Imaging studies, laboratory and physical exam results were discussed and reviewed in detail. No major barriers to patient understanding were identified. An opportunity to ask questions regarding the treatment plan was provided. All questions were answered. The patient expressed understanding and agreement with the above treatment plan. The patient is aware they should contact our office by phone for worsening of their current condition or the appearance of new urologic symptoms. Compliance is encouraged with any medications and followup testing that is ordered. It is a privilege to participate in the urologic care of your patient. If you have any questions or concerns regarding treatment for the above conditions, or other urologic issues, please do not hesitate to contact me. The office telephone contact is [phone]. Sincerely, Dr Naun Pascual MD, [facility] - Urology Compassionate Specialist Care for the Genitourinary System Coding Level of Care Code Tele Est Pt Level 4 (50300) Diagnoses Ureterolithiasis N20.1
== END 2024-06-21 13:41 | disposition home or self-care (01) ==
LOC: HO.HUSH 13:18
PROVIDERS: PCP Nurse Practitioner Family; Visit Provider Urology
DX: N20.1 Calculus of ureter (principal)
CPT/HCPCS: 99214

== ENCOUNTER 2024-06-30 12:41 | Day surgery (SDC) | payer OTHER, SELFPAY ==
--- NOTE | 2024-06-28 15:01 | P.CONAN_ITS ---
Documented by User: Mayra Eng NP 06/28/24 15:02 HPI - Anesthesia Eval Consult details Narrative: 53yo F for Bilateral Cystoscopy, Ureteroroscopy, Retro, Laser,with stent exchange s/p cysto, stent 06/02/24 PMFSH Active Problems Active Problems: All Active Problems Obstruction of ureteropelvic junction (UPJ) due to stone (Acute) Bilateral kidney stones (Acute) Ureterolithiasis (Acute) Otalgia of right ear (Acute) Acute upper respiratory infection (Acute) Eczema (Acute) Nausea (Acute) Counseling for hormone replacement therapy (Acute) Hypocitraturia (Acute) Diplopia (Acute) Migraine without aura (Acute) Screening for colon cancer (Acute) Toenail deformity (Acute) Cracking skin (Acute) Hypercalciuria (Acute) Ureterolithiasis (Acute) Vitamin D deficiency (Acute) Screening for colon cancer (Acute) Physical exam (Acute) Counseling for hormone replacement therapy (Acute) Well woman exam (Acute) Physical exam (Acute) Nephrolithiasis (Acute) Depression (Acute) Headache (Acute) Past Medical History Medical History Renal calculi Depression Anxiety Headache Hyperlipemia Family History Family History Father Hypothyroidism Skin cancer Kidney failure Pulmonary embolism Mother Kidney failure Mental health disorder Family/Other Brain cancer Son No problems noted. Daughter No problems noted. Family history of problems with anesthesia: No Surgical History Surgical History H/O colonoscopy Hx of cystoscopy History of vaginal hysterectomy History of shoulder surgery History of lithotripsy History of rotator cuff surgery History of Problems with Anesthesia: No (PONV) Social History Social History Housing: House Are you a primary anesthesiologist and critical care to a significant other at home: No Do you presently have visiting nurse or other home services: No Alcohol intake: never Comment: bed bound wheel chair bound clau lift Patient Tobacco Use Status: Never used Tobacco e-Cigarette/Vaping Use: Never Used Second Hand Smoke Exposure: Yes Use of substances other than those prescribed or required for medical reasons: No Are you DNR?: No Advance Directives: No Advance Directives Information Provided: Yes Advance Directives Date on File: 10/29/22 service: No Current occupational status: employed Current occupation: [employer] Current occupational exposures/hazards: No Cognitive needs: No Hearing needs: No Vision needs: Yes Meds Allergies Allergy/AdvReac Type Severity Reaction Status Date / Time haloperidol [From Haldol] AdvReac Intermediate Dizziness Verified 06/30/24 13:04 morphine AdvReac Mild Vomiting Verified 06/30/24 13:04 Home Medications ?Medication ?Instructions ?Recorded ?Confirmed ?Last Taken ?Type multivitamin 1 tab PO DAILY 10/03/21 06/30/24 10/03/21 History bupropion HCl 300 mg 24 hr tablet, 300 mg PO DAILY 02/03/24 06/30/24 06/30/24 07:30 History extended release buspirone 15 mg tablet 15 mg PO TID 02/03/24 06/30/24 06/30/24 07:30 History citalopram 20 mg tablet 20 mg PO DAILY 02/03/24 06/30/24 06/30/24 07:30 History dupilumab 300 mg/2 mL subcutaneous mg subcut Q2W 02/03/24 06/06/24 Unknown History pen injector (Dupixent) Exam Pertinent Lab Results Pertinent Lab Results: Laboratory Tests 06/02/24 04:17 WBC 8.1 Hgb 12.1 Hct 35.5 L Plt Count 340 D Sodium 139 Potassium 3.6 Chloride 105 Carbon Dioxide 25 BUN 19 H Creatinine 0.99 Assessment and Plan Assessment Anesthesia Assessment: Chart Reviewed Final Anesthetic Review Family History of Problems with Anesthesia: No History of Problems with Anesthesia: No (PONV) Documented by User: Rut Pickett MD 06/30/24 13:50 PMFSH Active Problems Active Problems: All Active Problems Obstruction of ureteropelvic junction (UPJ) due to stone (Acute) Bilateral kidney stones (Acute) Ureterolithiasis (Acute) Otalgia of right ear (Acute) Acute upper respiratory infection (Acute) Eczema (Acute) Nausea (Acute) Counseling for hormone replacement therapy (Acute) Hypocitraturia (Acute) Diplopia (Acute) Migraine without aura (Acute) Screening for colon cancer (Acute) Toenail deformity (Acute) Cracking skin (Acute) Hypercalciuria (Acute) Ureterolithiasis (Acute) Vitamin D deficiency (Acute) Screening for colon cancer (Acute) Physical exam (Acute) Counseling for hormone replacement therapy (Acute) Well woman exam (Acute) Physical exam (Acute) Nephrolithiasis (Acute) Depression (Acute) Headache (Acute) Patient ambulates Past Medical History Medical History Renal calculi Depression Anxiety Headache Hyperlipemia Functional capacity: independent ambulation Family History Family History Father Hypothyroidism Skin cancer Kidney failure Pulmonary embolism Mother Kidney failure Mental health disorder Family/Other Brain cancer Son No problems noted. Daughter No problems noted. Family history of problems with anesthesia: No Surgical History Surgical History H/O colonoscopy Hx of cystoscopy History of vaginal hysterectomy History of shoulder surgery History of lithotripsy History of rotator cuff surgery History of Problems with Anesthesia: Yes (PONV) Social History Social History Housing: House Are you a primary anesthesiologist and critical care to a significant other at home: No Do you presently have visiting nurse or other home services: No Alcohol intake: never Comment: bed bound wheel chair bound clau lift Patient Tobacco Use Status: Never used Tobacco e-Cigarette/Vaping Use: Never Used Second Hand Smoke Exposure: Yes Use of substances other than those prescribed or required for medical reasons: No Are you DNR?: No Advance Directives: No Advance Directives Information Provided: Yes Advance Directives Date on File: 10/29/22 service: No Current occupational status: employed Current occupation: [employer] Current occupational exposures/hazards: No Cognitive needs: No Hearing needs: No Vision needs: Yes Meds Allergies Allergy/AdvReac Type Severity Reaction Status Date / Time haloperidol [From Haldol] AdvReac Intermediate Dizziness Verified 06/30/24 13:04 morphine AdvReac Mild Vomiting Verified 06/30/24 13:04 Home Medications ?Medication ?Instructions ?Recorded ?Confirmed ?Last Taken ?Type multivitamin 1 tab PO DAILY 10/03/21 06/30/24 10/03/21 History bupropion HCl 300 mg 24 hr tablet, 300 mg PO DAILY 02/03/24 06/30/24 06/30/24 07:30 History extended release buspirone 15 mg tablet 15 mg PO TID 02/03/24 06/30/24 06/30/24 07:30 History citalopram 20 mg tablet 20 mg PO DAILY 02/03/24 06/30/24 06/30/24 07:30 History dupilumab 300 mg/2 mL subcutaneous mg subcut Q2W 02/03/24 06/06/24 Unknown History pen injector (Dupixent) Exam Height,Weight and Vital Signs: Height 5 ft 4 in Weight 91.4 kg Vital Signs Temp Pulse Resp BP Pulse Ox O2 Del Method 06/30/24 13:12 98.3 F 73 16 102/54 L 98 Room Air Airway Mallampati Class: II TM Dist: >3cm Neck ROM: Full Loose/Missing/Broken Teeth: Yes (Missing molars. Denies broken or loose teeth. Cap intact) Heart: RRR Lungs: CTAB Assessment and Plan Assessment Anesthesia Assessment: Anesthesia Plan Discussed and Chart Reviewed Final Anesthetic Review Family History of Problems with Anesthesia: No History of Problems with Anesthesia: Yes (PONV) NPO: Yes ASA Class: II Final Preanesthetic Review: No Changes in Pt Med Stat, Meds/Allgs Chart Reviewed, Consent Obtained/Reviewed and Anes Risks/Benef Reviewed Patient Risk: Intermediate Procedure Risk: Low Assessment/Block/Sedation in SS: Assess/Block/Sedation-SS Anesthetic Plan Anesthetic Plan: GA Disposition: Standard PACU
[2024-06-30] VITALS (17 sets, daily range): BP systolic 93–129; BP diastolic 46–60; PULSE 72–79; RESP 14–18; TEMP 36.1–36.8; O2SAT 93–100; BMI 34.6
--- NOTE | ~2024-06-30 | FL_ITS ---
EXAMINATION: FL GUIDANCE ONLY HISTORY: stone bilateral COMPARISON: Correlation is made with a CT of the abdomen and pelvis without contrast dated 06/02/2024. TECHNIQUE: Fluoroscopy time: 26.8 seconds. Cumulative Dose: 9.14 mGy. Images: 3. FINDINGS: Images demonstrate placement of bilateral nephroureteral stents. FL/FL guidance in OR IMPRESSION: Fluoroscopy during procedure. Please see procedure report for additional information. Electronically signed by: Jered Joyner MD 07/01/2024 07:46 AM EDT
[2024-06-30] MEDS: Lactated Ringers 1,000 ML 100 ML IVCONT (14:00)
[2024-06-30] MEDS: levoFLOXacin 500 MG TABLET PO (14:36)
--- NOTE | 2024-06-30 14:43 | MHC.SHP ---
Pre-Procedural Eval Section A - 24 Hr Update-Section A only Date of Service: 06/30/24 The patient is an INPATIENT: No Changes since office visit: No Cold of Flu in the past 2 weeks, No New Medical Problems, No Changes in Medication and No Patient answered all questions The patient has been examined within 24 hours of the surgical procedure. The History & Physical has been completed within 30 days and I have reviewed it.: Yes Section B - Complete if H&P > 30 days Chief Complaint: Calculus of ureter Details of Present Illness: cysto right stent removal, bilateral retrogrades, ureteroscopy, laser, basket, stent Allergies: Allergies Allergy/AdvReac Type Severity Reaction Status Date / Time haloperidol [From Haldol] AdvReac Intermediate Dizziness Verified 06/30/24 13:04 morphine AdvReac Mild Vomiting Verified 06/30/24 13:04 Review of Systems Sugical H&P ROS: Negative: Constitution, Cardiovascular, Respiratory, Neurological, Psychiatric, Hem-Onc, Allergic/Immunologic, Gastrointestinal, Genitourinary, Musculoskeletal, Integumentary, Endocrine and Eyes/Ears/Nose/Throat Exam Surgical H&P Exam: Normal: HEENT, Normal: Heart, Normal: Lungs, Normal: Extremities, Normal: Abdomen, Normal: Skin and Normal: Neurological Plan Diagnosis/Plan: Unchanged I have reviewed the history and physical and performed a pertinent physical examination on my patient. No changes have occurred unless specified. Time Spent With Patient Time: Total time managing care of this patient today ____ minutes.
[2024-06-30] MEDS: Acetaminophen 1,000 MG/100 ML PIGGYBACK 400 MG IV (15:00)
--- NOTE | 2024-06-30 15:59 | P.OP_ITS ---
Operative Note Operative Note Date of Service: 06/30/24 Narrative: PreOperative Diagnosis: Bilateral ureteric stones with right stent Post Operative Diagnosis: Bilateral ureteric stones with a right stent Procedure: - cystoscopy, right stent removal - right retrograde - right dilatation of ureteric orifice under fluoroscopy - right ureteroscopy with steerable ureteric access catheter, laser lithotripsy, vacuum aspiration - left retrograde - left dilatation of ureteric orifice under fluoroscopy - left ureteroscop with steerable ureteric access catheter, laser lithotripsy, stone basketing, vacuum aspiration Surgeon: Dr Naun Pascual Anesthesia: General Indications for procedure: Seen in hospital 2 weeks ago. Right ureteric stent placed for right UPJ stone. Bilateral stones on CT scanning. Procedure: After informed consent was verified patient was brought to the operating placed in supine position. Anesthesia was administered per protocol. Patient was placed in modified dorsal lithotomy position and prepped and draped in a sterile fashion. Safety pause time-out and side of surgery confirmed. Antibiotics confirmed. A 22 Kosovan cystoscope was inserted per urethra. The urethra and bladder were normal in their entirety. Both ureteric orifices were in normal position. The stent that was emerging from the right ureteric orifice was grasped. This was removed. Sensor guidewire was placed. Retrograde examination was performed.The rigid cystoscope was removed and the inner cannula of ureteric access sheath was used under fluoroscopy to dilate the ureteric orifice. The vacuum aspiration steerable ureteric access sheath was placed and the inner cannula with access wire removed. The digital flexible ureteral scope was placed. Stone was encountered in upper pole. Using a holmium laser this was broken into small pieces. Using the steerable vacuum aspiration access sheath this was shelley jesus manuel over the stone fragments and these were removed. At the completion of this component of the procedure the access sheath was backed out and did length of the ureter was visualized confirming the presence of no other stones. The rigid cystoscope was placed into the bladder. A left retrograde examination performed. No filling defects seen within the renal pelvis. The rigid cystoscope was removed and the inner cannula of ureteric access sheath was used under fluoroscopy to dilate the ureteric orifice. The vacuum aspiration steerable ureteric access sheath was placed and the inner cannula with access wire removed. The digital flexible ureteral scope was placed. Stone was encountered in upper pole. Using a holmium laser this was broken into small pieces. Using the steerable vacuum aspiration access sheath this was placed over the stone fragments and these were removed. A ZeroTip 1.9 Kosovan basket was used to remove further small stone fragments. With completion of the procedure decision was made not to place a stent. The aspiration sheath was then backed out carefully in the entire ureter examined to confirm no stone burden. The bladder was emptied. The patient tolerated the procedure well and was extubated in the operating room, and transferred in stable condition to the recovery area. Pathology: Stones Drains: None left [facility] code [id number] describes cystourethroscopy, with ureteroscopy and/or pyeloscopy, with lithotripsy, and ureteral catheterization for steerable vacuum aspiration of the kidney, collecting system, ureter, bladder, and urethra if applicable (must use a steerable ureteral catheter).
[2024-06-30] MEDS: Phenazopyridine HCL 100 MG TABLET PO (16:22)
[2024-06-30] MEDS: fentaNYL citrate/PF 100 MCG/2 ML VIAL 25 MCG IVPUSH ×8 (16:35→17:18)
[2024-06-30] MEDS: oxyCODONE HCl Immed Release 5 MG TABLET PO (17:18)
== END 2024-06-30 17:57 | disposition home or self-care (01) ==
PROVIDERS: PCP Nurse Practitioner Family; Visit Provider Urology
PROC: (CPT 52353; principal; 2024-06-30 15:00)
DX: N20.1 Calculus of ureter (principal); Z96.0 Presence of urogenital implants; Z87.442 Personal history of urinary calculi; E78.5 Hyperlipidemia, unspecified; R51.9 Headache, unspecified; F32.A Depression, unspecified; F41.9 Anxiety disorder, unspecified; Z79.899 Other long term (current) drug therapy; Z88.5 Allergy status to narcotic agent; Z88.8 Allergy status to other drugs, medicaments and biological substances; Z98.890 Other specified postprocedural states
CPT/HCPCS: 52353; 82365; 88300; C1758; C1769; J0131; J1100; J1885; J2250; J2405; J2704; J3010; Q9967

== ENCOUNTER → 2024-06-30 12:41 | Outpatient (BNV) | payer OTHER, SELFPAY | PROVIDERS: PCP Nurse Practitioner Family; Visit Provider Urology | DX: N20.1 Calculus of ureter (principal); Z96.0 Presence of urogenital implants | CPT/HCPCS: 52353; 74420 ==

== ENCOUNTER 2024-07-19 16:24 | Outpatient (REF) | payer OTHER, SELFPAY ==
--- NOTE | ~2024-07-19 | US_ITS ---
EXAMINATION: ULTRASOUND RENAL, BILATERALLY. CLINICAL INFORMATION: Renal stones. COMPARISON: July 17, 2023. Correlated to CT dated June 02, 2024 demonstrating 7 mm obstructing calculus at the right ureteropelvic junction causing mild hydronephrosis and bilateral nephrolithiasis. TECHNIQUE: Real-time ultrasound of the kidneys using grayscale and color Doppler technique. FINDINGS: Right kidney: 10 x 6 x 7 cm. Normal echotexture. Normal renal cortical thickness. No hydronephrosis. There are several 2 mm hyperechoic foci throughout the pelvicalyceal system. No solid or cystic lesion. Left kidney: 10 x 4 x 6 cm. Normal echotexture. Normal renal cortical thickness.. Multiple hyperechoic foci, the largest measures 8 mm in the lower pole of the pelvicalyceal system. No hydronephrosis. No solid or cystic lesion. US/US renal BI IMPRESSION: Nephrolithiasis, bilaterally. No hydronephrosis. Electronically signed by: Arya Carlson MD 07/21/2024 08:50 AM EDT
== END 2024-07-19 16:25 | disposition home or self-care (01) ==
LOC: HO.US 16:24
PROVIDERS: PCP Nurse Practitioner Family; Visit Provider Urology
DX: N20.0 Calculus of kidney (principal)
CPT/HCPCS: 76775

== ENCOUNTER → 2024-07-19 16:25 | Outpatient (BNV) | payer OTHER, SELFPAY | PROVIDERS: PCP Nurse Practitioner Family; Visit Provider Radiology Diagnostic Radiology | DX: N20.0 Calculus of kidney (principal) | CPT/HCPCS: 76775 ==

== ENCOUNTER 2024-07-27 14:18 | Outpatient (AMB) | payer OTHER, SELFPAY ==
--- NOTE | 2024-07-27 14:18 | A.OFFVIS_ITS ---
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: Followup/US Intake Note: Patient is present for US F/U Urology Medication:VITAMIN B6 Antibiotic Allergy:NONE Blood Thinner:NONE Assistant Director Of Security Required: No Allergies haloperidol [From Haldol] Adverse Reaction (Intermediate, Verified 07/27/24 14:19) Dizziness morphine Adverse Reaction (Mild, Verified 07/27/24 14:19) Vomiting HPI Comments Details: Shoshana is a very pleasant female. She is a patient of Dr. Cummings. She is seen for the following urologic conditions - recurrent nephrolithiasis Telemedicine Evaluation 15 min Consultation Doximity Anastasiia Video Underwent bilateral stone Procedure Stone composition consistent with prior procedures mixed calcium oxalate with carbonate apatite On B6 and indapamide for high Dot urea Recommend adding trimethoprim to see if stone has relationship to infection Nephrolithiasis Recurrent calcium oxalate with background of topiramate use and high calcium on 24 hour urine They are here for further evaluation of nephrolithiasis Urolithiasis was diagnosed - Stones have been present since early 2015. Had undergone evaluation with Dr. Britton. ESWL performed previously 04/15 Left. - Obstructing left ureteric stone had passed. Ureteroscopy performed but left lower pole stone not treated at that time 08/13 - uses Topramax for migraine management The patient previously had kidney stones whose composition includes - 12/14 , calcium oxalate - monohydrate, calcium oxalate - dihydrate - 11/16 , calcium oxalate - monohydrate - 03/19 calcium oxalate monohydrate, carbonate apatite - 09/18 calcium oxalate dihydrate with carbonate apatite - 11/19 calcium oxalate mixed with carbonate apatite - 07/22 calcium oxalate mixed with carbonate apatite Laboratory investigations include - 12/14 , Base line serum evaluation, Normocalcemia (9.0), Normal PTH, Normal uric acid 03/19 Ca 9.7 - 11/13 , 24 Hr Urine - Low Urine volume < 2.0 liters, High oxalate > 30mg, Low citrate < 400. - 07/19 Ca 9.9, 24 hr large volume, low citrate, high calcium - 02/18 24 hr large volume, low citrate, high calcium - 02/19 high volume, low citrate, high calcium but responding to indapamide Prior treatment(s) include left, ESWL - 12/14 left, ureteroscopy - had post procedure UTI - 12/14 , medical management, with allopurinol, with potassium citrate - 11/16 , ureteroscopy left side - 03/19 right side ureteroscopy, 04/20 left-sided ureteroscopy, 09/18 Right USR, 11/19 right USR Prior imaging includes - 09/13 , a CT with contrast to nonobstructing calculi right kidney largest 3 mm, 3 nonobstructing calculi left kidney largest 9 mm lower pole - 03/15 , a renal ultrasound, on the right, showing no evidence of stones, on the left, showing radiodense stone(s), 5-10 mm - 04/17 US bilateral stones, XR left 6mm x2 - 10/15 , a KUB x-ray left-sided 1.2 cm stone - 04/18 , a KUB x-ray stable - 10/16 , a KUB x-ray left 1.2 cm, right 5mm - 01/16 CT scan, 5 mm distal right stone with hydronephrosis - 06/18 renal ultrasound 3 mm bilateral stones, 01/18 renal ultrasound significantly decreased stone burden right side, left cluster 6 mm - 07/20 renal ultrasound right small stone, left stones Current therapeutic plan - hyper filtration, indapamide, repeat Litholink PFSH Medical History Renal calculi Depression Anxiety Headache Hyperlipemia Surgical History H/O colonoscopy Hx of cystoscopy History of vaginal hysterectomy History of shoulder surgery History of lithotripsy History of rotator cuff surgery Family History Father Hypothyroidism Skin cancer Kidney failure Pulmonary embolism Mother Kidney failure Mental health disorder Family/Other Brain cancer Son No problems noted. Daughter No problems noted. Social History (Updated 06/30/24 @ 15:28 by David Covington CMA) Housing: House Are you a primary field care coordinator to a significant other at home: No Do you presently have visiting nurse or other home services: No Alcohol intake: never Patient Tobacco Use Status: Never used Tobacco e-Cigarette/Vaping Use: Never Used Second Hand Smoke Exposure: Yes Advance Directives Date on File: 10/29/22 service: No Current occupational status: employed Current occupation: [employer] Current occupational exposures/hazards: No Cognitive needs: No Hearing needs: No Vision needs: Yes Female Reproductive History Menstrual Age of Menarche: 10 Review of Systems Const All systems reviewed & are unremarkable except as noted in HPI and below Reports no additional complaints Resp Reports no additional complaints GI Reports no additional complaints Reports as per HPI Musc Reports no additional complaints Physical Exam Telemedicine evaluation Appropriate responses Regular breathing rate and rhythm HEENT Head: Yes normal to inspection Ears: hearing grossly normal bilaterally Eyes General: appearance normal, both eyes and all related structures Neck Neck: Yes normal visual inspection Chest Chest palpation & inspection: normal inspection of the chest Resp Effort & Inspection: normal respiratory effort and able to speak in complete sentences Telehealth Telehealth Location of provider rendering services: practice address Location of patient: address on file Patient Identification confirmed using: Name, : Yes Telehealth method: voice only Patient verbally consented to treatment: Yes Patient verbally consented to billing insurance company: Yes Patient informed of any privacy concerns related to visit: Yes Assessment & Plan Assessment & Plan (1) Ureterolithiasis: Code(s): N20.1 - Calculus of ureter Category: Medical (2) Bilateral kidney stones: Code(s): N20.0 - Calculus of kidney Category: Medical (3) Obstruction of ureteropelvic junction (UPJ) due to stone: Code(s): N20.1 - Calculus of ureter Category: Medical Plan Six-month follow-up renal ultrasound Orders: Orders US renal BI 6 Months N20.0 - Calculus of kidney Medications: New pyridoxine (vitamin B6) 50 mg PO DAILY 90 days 90 tabs 1RF N20.0 - Calculus of kidney trimethoprim 100 mg PO DAILY 90 days 90 tabs 1RF N20.0 - Calculus of kidney, R33.9 - Retention of urine, unspecified Discontinued tamsulosin Discontinued Reason: Patient Completed Course 0.4 mg PO BEDTIME 14 days 14 caps 0RF ciprofloxacin HCl Discontinued Reason: Patient Completed Course 500 mg PO BID 5 days 10 tabs 0RF N20.1 - Calculus of ureter Patient Instructions: This note is constructed using voice recognition software. While every effort has been made to ensure accuracy label maker errors may have been included. Imaging studies, laboratory and physical exam results were discussed and reviewed in detail. No major barriers to patient understanding were identified. An opportunity to ask questions regarding the treatment plan was provided. All questions were answered. The patient expressed understanding and agreement with the above treatment plan. The patient is aware they should contact our office by phone for worsening of their current condition or the appearance of new urologic symptoms. Compliance is encouraged with any medications and followup testing that is ordered. It is a privilege to participate in the urologic care of your patient. If you have any questions or concerns regarding treatment for the above conditions, or other urologic issues, please do not hesitate to contact me. The office telephone contact is [phone]. Sincerely, Dr Naun Pascual MD, [facility] - Urology Compassionate Specialist Care for the Genitourinary System Coding Level of Care Code Tele Est Pt Level 3 (42454) Complex EM visit Add On G2211 Diagnoses Ureterolithiasis N20.1 Bilateral kidney stones N20.0 Obstruction of ureteropelvic junction (UPJ) due to stone N20.1
--- OUTSIDE RECORDS SUMMARY | 2024-07-27 15:39 | XMS_ITS | Patient Health Record ---
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 Plan Of Treatment Pending Test Test Name Order Date - Punch Biopsy of Skin Lesion 11/30 Insurance Providers Payer Name Payer Address Payer Phone Subscriber Number Group Number Insured Name Patient Relationship to Insured Coverage Start Date Coverage End Date [facility] [address] [facility] [place] gutierrez [id number] [phone] [id number] Jesus Mejia Spouse - patient is the spouse of the insured Medical (General) History Medical History History ICD Code Anxiety CAD (Cholesterol) Depression Headaches/Migraines Sciatica Psoriasis/eczema Surgical History Surgery Date(Month/Year) hysterectomy Total 2005 Rotator repair Light 12/2012
== END 2024-07-27 14:46 | disposition home or self-care (01) ==
LOC: HO.HUSH 14:18
PROVIDERS: PCP Nurse Practitioner Family; Visit Provider Urology
DX: N20.1 Calculus of ureter (principal); N20.0 Calculus of kidney
CPT/HCPCS: 99213

== ENCOUNTER → 2024-07-27 14:18 | Outpatient (BNVA) | payer OTHER, SELFPAY | PROVIDERS: PCP Nurse Practitioner Family; Visit Provider Urology ==

== ENCOUNTER 2024-08-02 07:41 | Outpatient (REF) | payer OTHER, SELFPAY | END 2024-08-02 07:42 | disposition home or self-care (01) | LOC: HO.MAMMO 07:41 | PROVIDERS: PCP Nurse Practitioner Family; Visit Provider Nurse Practitioner Family | DX: Z12.31 Encounter for screening mammogram for malignant neoplasm of breast (principal) | CPT/HCPCS: 77063; 77067 ==

== ENCOUNTER → 2024-08-02 07:45 | Outpatient (BNV) | payer OTHER, SELFPAY | PROVIDERS: PCP Nurse Practitioner Family; Visit Provider Internal Medicine | DX: Z12.31 Encounter for screening mammogram for malignant neoplasm of breast (principal) | CPT/HCPCS: 77063; 77067 ==

== ENCOUNTER 2024-10-18 07:28 | Outpatient (AMB) | payer OTHER, SELFPAY ==
--- NOTE | 2024-10-18 07:31 | A.OFFVIS_ITS ---
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 No complaints. Requesting refill on her estradiol pills Last Pap was in 2013, the patient is status post hysterectomy with no history of abnormal Pap smears Last Mammogram was BI-RADS 1 in 08/21 Last Colonoscopy was done in 02/19 and was negative, the recommendation was to repeat in 10 years [facility] Medical History Obstruction of ureteropelvic junction (UPJ) due to stone Bilateral kidney stones Ureterolithiasis Renal calculi Depression Anxiety Headache Hyperlipemia Surgical History H/O colonoscopy Hx of cystoscopy History of vaginal hysterectomy History of shoulder surgery History of lithotripsy History of rotator cuff surgery Family History Father Hypothyroidism Skin cancer Kidney failure Pulmonary embolism Mother Kidney failure Mental health disorder Family/Other Brain cancer Son No problems noted. Daughter No problems noted. Social History Housing: House Are you a primary restorative care technician to a significant other at home: No Do you presently have visiting nurse or other home services: No Alcohol intake: never Patient Tobacco Use Status: Never used Tobacco e-Cigarette/Vaping Use: Never Used Second Hand Smoke Exposure: Yes Advance Directives Date on File: 10/29/22 service: No Current occupational status: employed Current occupation: [employer] Current occupational exposures/hazards: No Cognitive needs: No Hearing needs: No Vision needs: Yes Female Reproductive History Menstrual Age of Menarche: 10 Menopause type: surgical Date of Mammogram: 08/02/24 Review of Systems Const All systems reviewed & are unremarkable except as noted in HPI and below Card Reports as per HPI and Reports no additional complaints Resp Reports as per HPI and Reports no additional complaints GI Reports as per HPI and Reports no additional complaints Reports as per HPI Physical Exam Const General: cooperative, healthy appearing and comfortable General: Yes bladder normal to palpation External Female Exam: No lesion Speculum Exam - Vagina: normal appearance of the vagina, normal vaginal discharge and not erythematous Speculum Exam - Cervix: Cervix absent Bimanual exam- vagina & uterus: bladder normal to palpation and uterus absent Bimanual Exam- Adnexa, other: Other (No masses detected) Assessment & Plan Assessment & Plan (1) Well woman exam: Code(s): Z01.419 - Encounter for gynecological examination (general) (routine) without abnormal findings Category: Medical Plan: Co testing not indicated. Counseled the patient about the recommended dietary allowance of 1200 mg of Calcium & 600 IU of vitamin D. Instructions given the patient to schedule next screening Mammogram in 08/22. Estradiol refill sent to the patient's pharmacy, encourage the patient to test the discontinuation of estradiol to check her hot flashes symptoms and if not bothersome to keep it discontinued otherwise restart it The patient was instructed to perform monthly self-breast exams and schedule annual exam in a year. All questions answered and the patient verbalized understanding. Medications: Refilled estradiol 1 mg PO DAILY 90 tabs 3RF 90 days Coding Level of Care Code Est Pt Prev Care 40-64y(81886) Diagnoses Well woman exam Z01.419
[2024-10-18 07:37] VITALS: BP 104/70; BMI 34.3
== END 2024-10-18 07:54 | disposition home or self-care (01) ==
LOC: HO.HWS 07:28
PROVIDERS: PCP Nurse Practitioner Family; Visit Provider Obstetrics & Gynecology
DX: Z01.419 Encounter for gynecological examination (general) (routine) without abnormal findings (principal)
CPT/HCPCS: 99396; 99459

== ENCOUNTER 2024-12-21 14:15 | Outpatient (AMB) | payer OTHER, SELFPAY ==
--- NOTE | 2024-12-21 14:11 | A.OFFVIS_ITS ---
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 Required: No Accompanied by: Self / Same As Patient Allergies haloperidol (From Haldol) Adverse Reaction (Intermediate, Verified 10/18/24 07:32) Dizziness morphine Adverse Reaction (Mild, Verified 10/18/24 07:32) Vomiting Medication List - Last Reconciled 12/21/24 by CHRISTIAN Méndez atorvastatin 20 mg PO BEDTIME 90 days bupropion HCl XL 300 mg PO DAILY buspirone 15 mg PO TID [id number]-azmdrddqegemu-qvqb 50-300-40 mg 1 cap PO DAILY PRN citalopram 20 mg PO DAILY clobetasol 0.05% 1 appl topical BID 2 weeks dupilumab (Dupixent) mg subcut Q2W estradiol 1 mg PO DAILY 90 days indapamide 2.5 mg PO DAILY 90 days multivitamin 1 tab PO DAILY propranolol ER 120 mg PO DAILY 90 days pyridoxine (vitamin B6) 100 mg PO BEDTIME 90 days topiramate 100 mg PO BEDTIME 90 days trimethoprim 100 mg PO DAILY 90 days HPI Comments Details: 54-yr-old female presents for follow-up for migraine televideo visit via [employer] Pt denies any significant interval medical changes. However, she notes some increased stress related to the company she works with, [employer], has been brought out by another company. Also her son recently went through a divorce. She is having 2 migraine attacks per week, lasting 1-2 days. She may wake up with a migraine, other times the migraine will come during the day. She tried candasartan, which did not help after 6 weeks, so she stopped it. Fioricet can help. Also uses Excedrin prn. Baseline headache characteristics: Aura- Rare flashing lights. Aarg-Ajq-Kmfpmo headache usually starts above either eye, it is a thumping/pressure sensation a/w photophobia, phonophobia, osmophobia, sometimes nausea, rarely vomiting, brain fog. Postdrome of Residual head pressure. [facility] [place] Medical History Obstruction of ureteropelvic junction (UPJ) due to stone Bilateral kidney stones Ureterolithiasis Renal calculi Depression Anxiety Headache Hyperlipemia Surgical History H/O colonoscopy Hx of cystoscopy History of vaginal hysterectomy History of shoulder surgery History of lithotripsy History of rotator cuff surgery Family History Father Hypothyroidism Skin cancer Kidney failure Pulmonary embolism Mother Kidney failure Mental health disorder Family/Other Brain cancer Son No problems noted. Daughter No problems noted. Social History Housing: House Are you a primary rn complex care to a significant other at home: No Do you presently have visiting nurse or other home services: No Alcohol intake: never Patient Tobacco Use Status: Never used Tobacco e-Cigarette/Vaping Use: Never Used Second Hand Smoke Exposure: Yes Advance Directives Date on File: 10/29/22 service: No Current occupational status: employed Current occupation: [employer] Current occupational exposures/hazards: No Cognitive needs: No Hearing needs: No Vision needs: Yes Female Reproductive History Menstrual Age of Menarche: 10 Physical Exam Const General: cooperative and no acute distress Orientation/consciousness: patient oriented x3 Resp Effort & Inspection: normal respiratory effort and able to speak in complete sentences Neuro General: patient oriented x3 Cognition (Neuro): normal cognition Psych Appearance: grossly normal Mental Status: mental status grossly normal Speech and movement: Normal speech and movement present Affect: normal affect Attitude: cooperative Telehealth Telehealth Telehealth Platform: [facility] Location of provider rendering services: practice address Location of patient: address on file Patient Identification confirmed using: Name, : Yes Telehealth method: video Patient verbally consented to treatment: Yes Patient verbally consented to billing insurance company: Yes Patient informed of any privacy concerns related to visit: Yes Minutes spent on Phone/Video with Pt.: 30 Assessment & Plan Assessment & Plan (1) Migraine without aura: Code(s): G43.009 - Migraine without aura, not intractable, without status migrainosus Category: Medical Qualifiers: Status migrainosus presence: without status migrainosus Intractability: not intractable Qualified Code(s): G43.009 - Migraine without aura, not intractable, without status migrainosus (2) Nausea: Code(s): R11.0 - Nausea Category: Medical (3) Headache: Comment: migraines Code(s): R51.9 - Headache, unspecified Category: Medical Qualifiers: Headache type: unspecified Headache chronicity pattern: unspecified pattern Intractability: not intractable Qualified Code(s): R51.9 - Headache, unspecified Plan For overall headache management: Track headaches. Continue psychotherapy. ? For sinus headache: Flonase nasal spray ? For acute headache treatment: Continue Fioricet prn sparingly. May use Metoclopramide mg qid prn- sparingly. Trial Sumatriptan 6 mg subcutaneous injection: * Inject 1 injection at onset of severe migraine attack associated with nausea, you may repeat in 1 hour. Max of 2 injections per per 24 hours. * May take sumatriptan with OTC Tylenol 650-1,000mg every 4-6 hours, Ibuprofen (liquid gels) 600mg every 6 hours, or Naproxen (liquid gels) 440mg q 12 hrs prn. * Potential adverse effects of injectable triptans, include but are not limited to injection site irritation, nausea, fatigue, chest tightness/tingling (usually passes within a few minutes), medication overuse headaches. Trial Zavegepant 10mg nasal spray, 1 nasal spray slowly at onset of migraine attack. * possible side effects include, but are not limited to: ?Taste changes, nasal discomfort, nausea, vomiting, elevated BP, exacerbation of Raynaud's syndrome, hypersensitivity reaction. Instructions for Use ? Zavegepant 10 mg Nasal [place] 1. When to Use * Use at the first sign of migraine symptoms. * Do not take more than 10 mg (1 spray) in a 24-hour period. 2. How to Use * Clear Your Nose * Gently blow your nose. * Prepare the Device * Hold the spray upright. * With your free hand, gently press one nostril closed. * Continue breathing normally through your mouth. * Insert the Nozzle * Place the nozzle into your open nostril as far as comfortable. * Deliver the Dose * Keep your head upright (do not tilt back or lie down). * Close your mouth. * Slowly breathe in through your nose as you press the plunger up firmly with your thumb. * Keep the nozzle in your nose while pressing?spray only once into one nostril. * After the [place] * Remove the nozzle and release your other nostril. * Keep your head upright and breathe gently through your nose and out your mouth for 10?20 seconds. * If you feel liquid in your nose, sniff gently to avoid losing the dose. * After the dose, you may she had gum or take a hard candy to alleviate any unpleasant taste 3. Storage * Store at room temperature (68?F?77?F / 20?C?25?C). * Do not freeze. * Keep in the sealed blister package until ready to use. * Keep out of reach of children. Previous acute migraine medication trials: Sumatriptan, frovatriptan, naratr iptan- ineffective. Ubrelvy- no effect. Nurtec- no effect (? gepants tried off of Fioricet). Reyvow- not tolerated. Eletriptan- ineffective. Acute migraine medication contraindications: None at this time Future considerations: Sumatriptan inj, Rizatriptan. ? For headache prevention medication: Start Memantine ER 7mg daily times 30 days, if well tolerated, we will increase the dose by 7 mg per day every 30 days, up to 28 mg daily. Continue Propranolol ER 120mg qd. Continue Topiramate 100mg qhs (notes has a h/o kidney stones- is on vit B6 and indapamide)- states migraines are much worse when she is off of topiramate. Previous migraine prevention medication trials: Depakote- ineffective. CGRP MaBs (aimovig or ajovy)- ineffective. Emgality- caused nausea. Venlafaxine- ineffective- was used to tx mood. Candasartan- ineffective. Migraine prevention medication contraindications: Would not increase Topiramate d/t current kidney stones. Would need to use caution w/ qulipta d/t h/o constipation and current fioricet use. Future considerations: retrying Marcela, Botox- patient is very hesitant to try Botox, Vyepti. ? f/u in 6 months or sooner prn Medications: New sumatriptan succinate May repeat dose in 1 hour, danis 1ml per day 6 mg (0.5 mL) subcut ONCE 6 mL 6RF severe migraine with nausea 12 days MDD 1 ml zavegepant 10 mg/actuation (Zavzpret) 1 spray intranasal ONCE PRN 6 ea 6RF migraine headache 30 days MDD 1 spray G43.009 - Migraine without aura, not intractable, without status migrainosus memantine then stop and increase to 14mg qd 7 mg PO DAILY 7 ea 0RF 7 days Coding Level of Care Code Tele Est Pt Level 4 (72155) Diagnoses Migraine without aura and without status migrainosus, not intractable G43.009 Status migrainosus presence: without status migrainosus Intractability: not intractable Nausea R11.0 Nonintractable headache, unspecified chronicity pattern, unspecified headache type R51.9 Headache type: unspecified Headache chronicity pattern: unspecified pattern Intractability: not intractable
== END 2024-12-21 15:48 | disposition home or self-care (01) ==
PROVIDERS: PCP Nurse Practitioner Family; Visit Provider Nurse Practitioner Family
DX: G43.009 Migraine without aura, not intractable, without status migrainosus (principal); R11.0 Nausea; R51.9 Headache, unspecified
CPT/HCPCS: 99214

== ENCOUNTER 2025-01-16 16:38 | Outpatient (REF) | payer OTHER, SELFPAY ==
--- NOTE | ~2025-01-16 | US_ITS ---
EXAMINATION: US RETROPERITONEAL LIMITED (RENAL ONLY) CLINICAL INFORMATION: Calculus of kidneys.. COMPARISON: Ultrasound kidney bilateral 07/19/2024 TECHNIQUE: Routine imaging of kidneys is performed. FINDINGS: RIGHT KIDNEY: 10.8 x 5.3 x 6.7 cm (SAG x AP x TRV). The kidney is normal in size, contour, and echogenicity. Renal cortical thickness is normal. No calculi or focal parenchymal lesions. No hydronephrosis. LEFT KIDNEY: 10.2 x 4.0 x 5.1 cm (SAG x AP x TRV). The kidney is normal in size, contour, and echogenicity. Renal cortical thickness is normal. There are multiple echogenic stones with the largest upper pole stone measuring 0.7 x 0.4 x 0.8 cm. There is mild pelvic fullness. US/US renal BI IMPRESSION: Stable echogenic stones left kidney without caliectasis. There is mild pelvic fullness. The right kidney is unremarkable. Electronically signed by: Lance Moreland MD 01/17/2025 07:09 AM EDT
== END 2025-01-16 16:39 | disposition home or self-care (01) ==
LOC: HO.US 16:38
PROVIDERS: PCP Nurse Practitioner Family; Visit Provider Urology
DX: N20.0 Calculus of kidney (principal)
CPT/HCPCS: 76775

== ENCOUNTER → 2025-01-16 16:44 | Outpatient (BNV) | payer OTHER, SELFPAY | PROVIDERS: PCP Nurse Practitioner Family; Visit Provider Radiology Diagnostic Radiology | DX: N20.0 Calculus of kidney (principal) | CPT/HCPCS: 76775 ==

== ENCOUNTER 2025-01-25 15:42 | Outpatient (AMB) | payer OTHER, SELFPAY ==
--- NOTE | 2025-01-25 15:54 | MHC.OFFVIS ---
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: 6m/ US Intake Note: Patient is Present for Follow Up Ultrasound Urology Medication: Indapamide, Vitamin B6 Antibiotic Allergies:None Blood Thinners: None Physical Therapy Resident Required: No Accompanied by: Self / Same As Patient Allergies haloperidol (From Haldol) Adverse Reaction (Intermediate, Verified 10/18/24 07:32) Dizziness morphine Adverse Reaction (Mild, Verified 10/18/24 07:32) Vomiting HPI Comments Details: Shoshana is a very pleasant female. She is a patient of Dr. Cummings. She is seen for the following urologic conditions - recurrent nephrolithiasis Six-month follow-up imaging Renal ultrasound right negative left fragments Stone composition consistent with prior procedures mixed calcium oxalate with carbonate apatite On B6 and indapamide for high calciuria Continue six-month surveillance Nephrolithiasis Recurrent calcium oxalate with background of topiramate use and high calcium on 24 hour urine They are here for further evaluation of nephrolithiasis Urolithiasis was diagnosed - Stones have been present since early 2015. Had undergone evaluation with Dr. Britton. ESWL performed previously 04/15 Left. - Obstructing left ureteric stone had passed. Ureteroscopy performed but left lower pole stone not treated at that time 08/13 - uses Topramax for migraine management The patient previously had kidney stones whose composition includes - 12/14 , calcium oxalate - monohydrate, calcium oxalate - dihydrate - 11/16 , calcium oxalate - monohydrate - 03/19 calcium oxalate monohydrate, carbonate apatite - 09/18 calcium oxalate dihydrate with carbonate apatite - 11/19 calcium oxalate mixed with carbonate apatite - 07/22 calcium oxalate mixed with carbonate apatite Laboratory investigations include - 12/14 , Base line serum evaluation, Normocalcemia (9.0), Normal PTH, Normal uric acid 03/19 Ca 9.7 - 11/13 , 24 Hr Urine - Low Urine volume < 2.0 liters, High oxalate > 30mg, Low citrate < 400. - 07/19 Ca 9.9, 24 hr large volume, low citrate, high calcium - 02/18 24 hr large volume, low citrate, high calcium - 02/19 high volume, low citrate, high calcium but responding to indapamide Prior treatment(s) include left, ESWL - 12/14 left, ureteroscopy - had post procedure UTI - 12/14 , medical management, with allopurinol, with potassium citrate - 11/16 , ureteroscopy left side - 03/19 right side ureteroscopy, 04/20 left-sided ureteroscopy, 09/18 Right USR, 11/19 right USR Prior imaging includes - 09/13 , a CT with contrast to nonobstructing calculi right kidney largest 3 mm, 3 nonobstructing calculi left kidney largest 9 mm lower pole - 03/15 , a renal ultrasound, on the right, showing no evidence of stones, on the left, showing radiodense stone(s), 5-10 mm - 04/17 US bilateral stones, XR left 6mm x2 - 10/15 , a KUB x-ray left-sided 1.2 cm stone - 04/18 , a KUB x-ray stable - 10/16 , a KUB x-ray left 1.2 cm, right 5mm - 01/16 CT scan, 5 mm distal right stone with hydronephrosis - 06/18 renal ultrasound 3 mm bilateral stones, 01/18 renal ultrasound significantly decreased stone burden right side, left cluster 6 mm - 07/20 renal ultrasound right small stone, left stones - 01/21 ultrasound left stone fragments Current therapeutic plan - hyper filtration, indapamide, repeat Litholink PFSH Medical History Obstruction of ureteropelvic junction (UPJ) due to stone Bilateral kidney stones Ureterolithiasis Renal calculi Depression Anxiety Headache Hyperlipemia Surgical History H/O colonoscopy Hx of cystoscopy History of vaginal hysterectomy History of shoulder surgery History of lithotripsy History of rotator cuff surgery Family History Father Hypothyroidism Skin cancer Kidney failure Pulmonary embolism Mother Kidney failure Mental health disorder Family/Other Brain cancer Son No problems noted. Daughter No problems noted. Social History Housing: House Are you a primary healthcare receptionist to a significant other at home: No Do you presently have visiting nurse or other home services: No Alcohol intake: never Patient Tobacco Use Status: Never used Tobacco e-Cigarette/Vaping Use: Never Used Second Hand Smoke Exposure: Yes Advance Directives Date on File: 10/29/22 service: No Current occupational status: employed Current occupation: [employer] Current occupational exposures/hazards: No Cognitive needs: No Hearing needs: No Vision needs: Yes Female Reproductive History Menstrual Age of Menarche: 10 Review of Systems Const Denies chills and Denies fever(s) Card Reports no additional complaints and Denies syncope Resp Denies cough GI Denies abdominal pain and Denies heartburn Reports as per HPI and Denies change in libido Neuro Denies syncope Psych Denies change in libido Endo Denies change in libido Physical Exam Const General: cooperative, healthy appearing, comfortable and no acute distress Orientation/consciousness: patient oriented x3 HEENT Face and sinus: Yes normal facial exam Mouth: moist mucous membranes Neck Neck: Yes normal visual inspection, Yes full ROM and Yes trachea midline Chest Chest palpation & inspection: normal inspection of the chest Resp Effort & Inspection: normal respiratory effort, able to speak in complete sentences and no respiratory distress GI Inspection: Yes normal to inspection Back/Spine/Pelvis Cervical Spine: normal cervical lordosis Thoracic/Lumbar Spine: thoracic and lumbar spine normal to inspection Skin General skin exam: no rashes or lesions noted Neuro General: patient oriented x3, gait normal, tone normal and moves all extremities Extrem General: Yes normal to inspection and Yes capillary refill normal Assessment & Plan Assessment & Plan (1) Nephrolithiasis: Comment: Calcium oxalate mixed with carbonate apatite Code(s): N20.0 - Calculus of kidney Category: Medical Plan Six-month baseline suppression with trimethoprim Repeat imaging six-month Orders: Orders US renal BI 6 Months N20.0 - Calculus of kidney Medications: Refilled trimethoprim 100 mg PO DAILY 90 tabs 1RF 90 days N20.0 - Calculus of kidney, R33.9 - Retention of urine, unspecified Patient Instructions: This note is constructed using voice recognition software. While every effort has been made to ensure accuracy home aid errors may have been included. Imaging studies, laboratory and physical exam results were discussed and reviewed in detail. No major barriers to patient understanding were identified. An opportunity to ask questions regarding the treatment plan was provided. All questions were answered. The patient expressed understanding and agreement with the above treatment plan. The patient is aware they should contact our office by phone for worsening of their current condition or the appearance of new urologic symptoms. Compliance is encouraged with any medications and followup testing that is ordered. It is a privilege to participate in the urologic care of your patient. If you have any questions or concerns regarding treatment for the above conditions, or other urologic issues, please do not hesitate to contact me. The office telephone contact is [phone]. Sincerely, Dr Naun Pascual MD, [facility] - Urology Compassionate Specialist Care for the Genitourinary System Coding Level of Care Code Est Pt Level 3 (08284) Add On Problem Visit Only Diagnoses Nephrolithiasis N20.0
== END 2025-01-25 16:16 | disposition home or self-care (01) ==
LOC: HO.HUSH 15:43
PROVIDERS: PCP Nurse Practitioner Family; Visit Provider Urology
DX: N20.0 Calculus of kidney (principal)
CPT/HCPCS: 99213; G2211